=== PATIENT | female | born 1940 | race Caucasian/White ===

== ENCOUNTER 2020-09-07 | Outpatient (REF) | payer MEDICARE, SELFPAY | END 2020-09-07 00:01 | disposition home or self-care (01) | LOC: HO.VC | PROVIDERS: Visit Provider Internal Medicine | DX: Z23 Encounter for immunization (principal) | CPT/HCPCS: 0011A ==

== ENCOUNTER 2020-10-05 | Outpatient (REF) | payer MEDICARE, SELFPAY | END 2020-10-05 00:01 | disposition home or self-care (01) | LOC: HO.VC | PROVIDERS: Visit Provider Internal Medicine | DX: Z23 Encounter for immunization (principal) | CPT/HCPCS: 0012A ==

== ENCOUNTER → 2020-10-06 12:27 | Outpatient (BNVA) | payer MEDICARE, SELFPAY | PROVIDERS: Visit Provider Orthopaedic Surgery | DX: M17.12 Unilateral primary osteoarthritis, left knee (principal) | CPT/HCPCS: 20610; 99212; J1100 ==

== ENCOUNTER 2020-11-10 02:20 | Inpatient (IN) | payer MEDICARE, SELFPAY ==
[2020-11-10] VITALS (8 sets, daily range): BP systolic 103–161; BP diastolic 47–89; PULSE 47–61; RESP 14–20; TEMP 36–37.2; O2SAT 97–100; BMI 26.0
--- NOTE | ~2020-11-10 | CT_ITS ---
EXAMINATION: CT ABDOMEN AND PELVIS WITH CONTRAST CLINICAL INFORMATION: Diffuse abdominal pain COMPARISON: Multiple priors, most recently 03/16/2019 TECHNIQUE: Multidetector volumetric images were obtained from the superior aspect of the liver through the pubic symphysis following administration 85 mL of Omnipaque 350 intravenous contrast. Sagittal and coronal reformatted images were obtained on the technologist's workstation. Oral contrast: No This CT examination was performed using dose optimization techniques as appropriate, variously including the following: *Automated exposure control *Adjustment of mA and/or kV according to patient size (this includes techniques or standardized protocols for targeted exams where dose is matched to indication/reason for exam; i.e. extremities or head) *Use of iterative reconstruction technique DLP: 505 mGy-cm FINDINGS: LUNG BASES: The visualized lung bases are unremarkable. LIVER, GALLBLADDER, AND BILIARY TREE: Liver normal in size, contour and morphology. There is stable moderate intrahepatic biliary ductal dilatation and dilatation of the common bile duct status post cholecystectomy. No focal liver lesions. PANCREAS: Unremarkable. SPLEEN: Unremarkable. ADRENAL GLANDS: Unremarkable. KIDNEYS AND URETERS: The kidneys are normal in size, shape, and attenuation. Subcentimeter cyst present in the lower pole right kidney. No hydronephrosis, hydroureter, or calculi seen. No perinephric stranding. BLADDER: Unremarkable. GASTROINTESTINAL TRACT: There is a small bowel obstruction with transition point in the left false pelvis is evidenced by inspissation of succus entericus in a point of transition as seen on series 3, image 50 and coronal image 23. Upstream to this, the small bowel is at the upper limits of normal in terms of caliber. Distally, the small bowel is decompressed. Previous sigmoid colonic resection with intact anastomosis within the deep pelvis. Small sliding-type hiatal hernia. ABDOMINAL WALL: Diastasis of the rectus abdominis. LYMPH NODES: Normal. VASCULAR: Aorta is atherosclerotic but normal caliber. Patent venous structures. PELVIC VISCERA: Hysterectomy. No adnexal abnormalities. OSSEOUS STRUCTURES: No acute or suspicious osseous abnormalities. Stable superior endplate compression deformity at L5 and inferior endplate compression deformity at L3. CT/CT abdomen pelvis w con IMPRESSION: Low-grade small bowel obstruction with transition point in the left false pelvis as described likely related to an adhesion. Additional chronic findings as described above.
[2020-11-10 03:30] LABS: Glucose Urine UA NEG (NEG); Leukocyte Esterase Urine TRACE (NEG); Nitrite Urine NEG (NEG); PH 5.5 (5.0-8.0); Specific Gravity - Urine >= 1.030 (1.005-1.025); UACC Culture Trigger YES; Urine Blood NEG (NEG); Urine Ketones NEG (NEG); Urine Protein NEG (NEG-TRACE)
[2020-11-10 03:32] LABS: Appearance Urine CLEAR; Color Urine YELLOW
[2020-11-10 03:42] LABS: Bacteria Urine 2+ /LPF; Mucus Urine 1+ /LPF; Squamous Epithelial Cell Urine 1+ /LPF
[2020-11-10 03:44] LABS: Basophils Absolute Auto 0.1 X10*3/uL (0.0-0.2); Basophils Percent Auto 0.3 % (0-2); Eosinophils Absolute Auto 0.1 X10*3/uL (0.0-0.4); Eosinophils Percent Auto 0.6 % (0-4); Hematocrit 40.2 % (37-47); Imm Gran Abs Auto 0.07 X10*3/uL (0.00-0.03); Imm Gran Pct Auto 0.4 % (0.0-0.4); Lymphocytes Absolute Auto 1.8 X10*3/uL (1.2-4.9); Lymphocytes Percent Auto 9.4 % (20-40); Mean Corpuscular HGB Conc 32.3 g/dl (31.0-35.0); Mean Corpuscular Volume 89.7 fL (80-98); Mean Platelet Volume 11.1 fL (9.4-12.3); Monocytes Absolute Auto 0.8 X10*3/uL (0.1-1.2); Monocytes Percent Auto 4.5 % (2-11); Neutrophils Absolute Auto 15.7 X10*3/uL (2.0-8.3); Neutrophils Percent Auto 84.8 % (45-73); Platelet Count 320 X10*3/uL (160-400); Red Blood Count 4.48 X10*6/uL (4.20-5.50); Red Cell Distribution Width 12.9 % (11.0-16.0); White Blood Count 18.6 X10*3/uL (4.8-10.8)
[2020-11-10 03:45] LABS: MANUAL DIFF FLAG NO
--- NOTE | 2020-11-10 03:46 | ED_ITS ---
HPI - Abdominal Pain General Chief Complaint: Abdominal Pain Stated Complaint: Abdominal Pain Time Seen by Provider: 11/10/20 02:49 Source: patient Mode of arrival: ambulatory History of Present Illness HPI narrative: This is an 80-year-old female who called her daughter at 1:00 a.m. with complaints of abdominal diffuse pain with distention associated with nausea but unable to vomit and otherwise denies any fevers or chills. Patient states that she had a bowel movement at about 9:30 p.m. which was normal for her and states that the pain actually started at 8:00 p.m.. Patient has a longstanding history of intra-abdominal surgeries as well as complications such as diverticulosis Related Data Home Medications Medication Instructions Recorded Confirmed albuterol sulfate 90 mcg/actuation 2 puff INHALATION Q6H PRN 07/04/20 09/26/20 aerosol inhaler beclomethasone dipropionate 80 2 inh INHALATION BID g 07/04/20 09/26/20 mcg/actuation HFA breath activated aerosol Previous Rx's Medication Instructions Recorded furosemide 40 mg tablet 40 mg PO DAILY #90 tab 11/09/20 Allergies Allergy/AdvReac Type Severity Reaction Status Date / Time mold [MOLD] Allergy Severe SWELLING Verified 09/26/20 14:01 Penicillins [PENICILLINS] Allergy Intermediate SWELLING, Verified 09/26/20 14:01 RASH Sulfa (Sulfonamide Allergy Intermediate RASH, Verified 09/26/20 14:01 Antibiotics) redness, [SULFA (SULFONAMIDE redness ANTIBIOTICS)] alcohol [ALCOHOL] Allergy Unknown RED, Verified 09/26/20 14:01 SWELLING corn syrup [CORN SYRUP] Allergy Unknown red hot Verified 09/26/20 14:01 face dextrose [DEXTROSE] Allergy Unknown RED RASH Verified 09/26/20 14:01 Erythromycin Allergy Unknown redness Verified 09/26/20 14:01 and swelling erythromycin base Allergy Unknown RASH Verified 09/26/20 14:01 [ERYTHROMYCIN BASE] mold, cheese Allergy Unknown Unknown Verified 09/26/20 14:01 penicillin V Allergy Unknown facia and Verified 09/26/20 14:01 throat swelling preservatives Allergy Unknown Unknown Verified 09/26/20 14:01 sucrose [SUCROSE] Allergy Unknown RED RASH Verified 09/26/20 14:01 valacyclovir Allergy Unknown Redness of Verified 09/26/20 14:01 Skin 12 Hour Nasal Allergy Unknown hives Uncoded 09/26/20 14:01 WINE Allergy Unknown RASH FROM Uncoded 09/26/20 14:01 RED WINE Review of Systems Review of Systems Pertinent positives and negatives as stated in HPI 10 point review of systems is otherwise negative. Physical Exam Vital Signs: Vital Signs: Last Vital Signs Temp 98.6 F 11/10/20 03:13 Pulse 59 11/10/20 05:16 Resp 18 11/10/20 05:16 BP 139/89 11/10/20 05:16 Pulse Ox 98 11/10/20 04:34 Body Mass Index 26.0 VITAL SIGNS: Reviewed. GENERAL: Well developed, well nourished, in no acute distress. HEAD: Normocephalic/atraumatic NOSE: Nares patent bilateral OROPHARYNX: no oral lesions noted, posterior pharynx clear NECK: Supple, no adenopathy LUNGS: Normal breath sounds. No adventitious sounds or accessory muscle use. SpO2<98> CARDIOVASCULAR: Regular rate and rhythm without noted murmurs ABDOMEN: Soft, diffusely tender without rebound, mild distended with hypoactive bowel sounds. NEUROLOGIC: Alert and oriented x 4. Course Course Course Narrative: This is an 80-year-old female with history and clinical presentation most consistent with likely SBO and less likely perforation. On review of all investigations patient has both a UTI as well as a noted SBO on CT scan. Patient will receive 1 g of IV Rocephin for the UTI and and the case was discussed with Dr. Saavedra who is agreeable for admission as well as the intervention of NG placement. MDM - Abdominal Pain Lab Data Result diagrams: 11/10/20 03:34 11/10/20 03:34 Labs: Lab Results 11/10/20 11/10/20 11/10/20 Range/Units 03:34 03:34 03:34 WBC 18.6 H (4.8-10.8) X10*3/uL RBC 4.48 (4.20-5.50) X10*6/uL Hgb 13.0 (12.0-16.0) g/dl Hct 40.2 (37-47) % MCV 89.7 (80-98) fL MCH 29.0 (27.0-33.0) pg MCHC 32.3 (31.0-35.0) g/dl RDW 12.9 (11.0-16.0) % Plt Count 320 (160-400) X10*3/uL MPV 11.1 (9.4-12.3) fL Immature Gran % (Auto) 0.4 (0.0-0.4) % Neut % (Auto) 84.8 H (45-73) % Lymph % (Auto) 9.4 L (20-40) % [place] % (Auto) 4.5 (2-11) % Eos % (Auto) 0.6 (0-4) % Baso % (Auto) 0.3 (0-2) % Lymph # (Auto) 1.8 (1.2-4.9) X10*3/uL [place] # (Auto) 0.8 (0.1-1.2) X10*3/uL Eos # (Auto) 0.1 (0.0-0.4) X10*3/uL Baso # (Auto) 0.1 (0.0-0.2) X10*3/uL Abs Immat Gran (auto) 0.07 H (0.00-0.03) X10*3/uL Absolute Neuts (auto) 15.7 H (2.0-8.3) X10*3/uL Absolute Nucleated RBC 0.000 (0.0-0.012) X10*3/uL Nucleated RBC % (auto) 0.0 (0.0-0.2) /100WBC PT 12.7 (10.8-13.0) SEC INR 1.1 (0.9-1.1) Sodium 141 (135-145) mmol/L Potassium 3.6 (3.3-5.1) mmol/L Chloride 99 (96-108) mmol/L Carbon Dioxide 33 H (22-29) mmol/L Anion Gap 13 (12-20) BUN 23 H (9-16) mg/dL Creatinine 0.77 (0.5-1.4) mg/dL Estim Creat Clear Calc 49.4 Estimated GFR > 60 Random Glucose 123 H (60-115) mg/dL Calcium 10.0 (8.4-10.2) mg/dL Total Bilirubin 0.6 (0.0-1.0) mg/dL AST 23 (5-31) U/L ALT 17 (0-31) U/L Alkaline Phosphatase 68 (39-117) U/L Total Protein 7.1 (6.5-8.0) g/dL Albumin 4.5 (3.5-5.0) g/dL Lipase 47 (8-78) U/L Urine Color Urine Appearance Urine pH (5.0-8.0) Ur Specific [place] (1.005-1.025) Urine Protein (NEG-TRACE) MG/DL Urine Glucose (UA) (NEG) MG/DL Urine Ketones (NEG) MG/DL Urine Blood (NEG) Urine Nitrite (NEG) Ur Leukocyte Esterase (NEG) Urine RBC (0) /HPF Urine WBC (0-4) /HPF Ur Squamous Epith Cells /LPF Urine Bacteria /LPF Hyaline Casts /LPF Urine Mucus /LPF 11/10/20 Range/Units Unknown WBC (4.8-10.8) X10*3/uL RBC (4.20-5.50) X10*6/uL Hgb (12.0-16.0) g/dl Hct (37-47) % MCV (80-98) fL MCH (27.0-33.0) pg MCHC (31.0-35.0) g/dl RDW (11.0-16.0) % Plt Count (160-400) X10*3/uL MPV (9.4-12.3) fL Immature Gran % (Auto) (0.0-0.4) % Neut % (Auto) (45-73) % Lymph % (Auto) (20-40) % [place] % (Auto) (2-11) % Eos % (Auto) (0-4) % Baso % (Auto) (0-2) % Lymph # (Auto) (1.2-4.9) X10*3/uL [place] # (Auto) (0.1-1.2) X10*3/uL Eos # (Auto) (0.0-0.4) X10*3/uL Baso # (Auto) (0.0-0.2) X10*3/uL Abs Immat Gran (auto) (0.00-0.03) X10*3/uL Absolute Neuts (auto) (2.0-8.3) X10*3/uL Absolute Nucleated RBC (0.0-0.012) X10*3/uL Nucleated RBC % (auto) (0.0-0.2) /100WBC PT (10.8-13.0) SEC INR (0.9-1.1) Sodium (135-145) mmol/L Potassium (3.3-5.1) mmol/L Chloride (96-108) mmol/L Carbon Dioxide (22-29) mmol/L Anion Gap (12-20) BUN (9-16) mg/dL Creatinine (0.5-1.4) mg/dL Estim Creat Clear Calc Estimated GFR Random Glucose (60-115) mg/dL Calcium (8.4-10.2) mg/dL Total Bilirubin (0.0-1.0) mg/dL AST (5-31) U/L ALT (0-31) U/L Alkaline Phosphatase (39-117) U/L Total Protein (6.5-8.0) g/dL Albumin (3.5-5.0) g/dL Lipase (8-78) U/L Urine Color YELLOW Urine Appearance CLEAR Urine pH 5.5 (5.0-8.0) Ur Specific [place] >= 1.030 H (1.005-1.025) Urine Protein NEG (NEG-TRACE) MG/DL Urine Glucose (UA) NEG (NEG) MG/DL Urine Ketones NEG (NEG) MG/DL Urine Blood NEG (NEG) Urine Nitrite NEG (NEG) Ur Leukocyte Esterase TRACE H (NEG) Urine RBC 1-4 (0) /HPF Urine WBC 15-29 H (0-4) /HPF Ur Squamous Epith Cells 1+ /LPF Urine Bacteria 2+ /LPF Hyaline Casts 10-14 /LPF Urine Mucus 1+ /LPF Discharge Plan Discharge Clinical Impression: SBO (small bowel obstruction), Acute UTI Patient Disposition: Admitted As Inpatient Prescriptions: No Action furosemide 40 mg tablet 40 mg PO DAILY Qty: 90 RF: 2 Qvar RediHaler 80 mcg/actuation HFA aerosol breath activated 2 inh inhalation BID RF: 0 albuterol sulfate [ProAir HFA] 90 mcg/actuation HFA aerosol inhaler 2 puff inhalation Q6H PRNRF: 0 PMFSH Past Medical History Source: nursing notes reviewed Medical History Asthma Dyslipidemia Left knee pain Neuropathy Onychomycosis Rosacea Surgical History Colostomy in place History of cholecystectomy History of hysterectomy History of removal of both ovaries History of repair of hiatal hernia History of surgery History of tonsillectomy Family History Family History Father Hypertension Pancreatitis Uremia Mother Diverticulosis Alzheimers disease Brother Colon cancer CVD (cardiovascular disease) Sister Colon cancer Social History Social History Alcohol intake: never Smoking Status: Never smoker Advance Directives: No
[2020-11-10 03:50] LABS: INTERNATIONAL NORM RATIO 1.1 (0.9-1.1); Prothrombin Time 12.7 SEC (10.8-13.0)
[2020-11-10 04:09] LABS: Alanine Aminotransferase 17 U/L (0-31); Albumin Level 4.5 g/dL (3.5-5.0); Alkaline Phosphatase 68 U/L (39-117); Anion Gap 13 (12-20); Aspartate Amino Transferase 23 U/L (5-31); Bilirubin Total 0.6 mg/dL (0.0-1.0); Blood Urea Nitrogen 23 mg/dL (9-16); Carbon Dioxide 33 mmol/L (22-29); Chloride 99 mmol/L (96-108); Creatinine Clr Calc Pharmacy 49.4; Estimated Glomerular Filt Rate > 60; Glucose Random 123 mg/dL (60-115); Lipase 47 U/L (8-78); Potassium 3.6 mmol/L (3.3-5.1); Sodium 141 mmol/L (135-145); Total Protein 7.1 g/dL (6.5-8.0)
--- NOTE | 2020-11-10 04:22 | PC.NURSE ---
pt taken to ct.
[2020-11-10] MEDS: iohexoL 350 MG/ML 100 ML INFUS..BTL 85 ML IV (04:26)
[2020-11-10] MEDS: Ketorolac Tromethamine 15 MG/ML VIAL IVPUSH (04:36)
[2020-11-10] MEDS: 0.9 % Sodium Chloride 1,000 ML 999 ML IV (05:43)
[2020-11-10] MEDS: cefTRIAXone sodium 1 GM in 0.9 % Sodium Chloride 50 ML IV (05:55)
[2020-11-10 06:26] LABS: COVID-19 Test Negative (Negative)
[2020-11-10] MEDS: Lactated Ringers 1,000 ML 80 ML IVCONT ×2 (07:06→20:08)
--- NOTE | 2020-11-10 08:12 | PM.HPGS ---
History of Present Illness History of Present Illness Date of Service: 11/10/20 Chief complaint: Partial small bowel obstruction Narrative: Birgit Collins is a 80 year old female who came to the emergency room last night because of abdominal pain. She says this started for dinner last night. She says she did not have any problems during the day and was in her usual state of health. She says that the pain was severe onset. She blames this on the spicy food that she had taken for dinner. She says that she was nauseous for a little bit but not have any vomiting. She had a bowel movement last night at 21:30. She does not recall when she had last past status. She denies any diarrhea or constipation. 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 She underwent sigmoid resection with a colostomy at that time. This was reversed last September,. She did have problems with wound healing on her incisions but I than that, she has been doing well since. Review of Systems Constitutional: Constitutional: Denies chills and Denies fever(s) Cardiovascular: Cardiovascular: Denies chest pain, Denies dyspnea and Denies dyspnea on exertion Respiratory: Respiratory: Denies cough, Denies dyspnea and Denies dyspnea on exertion Gastrointestinal: Gastrointestinal: Denies hematochezia and Denies change in bowel habits Genitourinary: Genitourinary: Denies hematuria Musculoskeletal: Musculoskeletal: Denies back pain and Denies limited range of motion Neurologic: Denies focal weakness and Denies convulsions Psychiatric: Psychiatric: Denies depression and Denies mood swings PMFSH Past Medical History Medical History Asthma Dyslipidemia Left knee pain Neuropathy Onychomycosis Rosacea Family History Family History Father Hypertension Pancreatitis Uremia Mother Diverticulosis Alzheimers disease Brother Colon cancer CVD (cardiovascular disease) Sister Colon cancer Surgical History Surgical History Colostomy in place History of cholecystectomy History of hysterectomy History of removal of both ovaries History of repair of hiatal hernia History of surgery History of tonsillectomy Social History Social History Alcohol intake: never Smoking Status: Never smoker Advance Directives: No Meds Allergies Allergy/AdvReac Type Severity Reaction Status Date / Time mold [MOLD] Allergy Severe SWELLING Verified 09/26/20 14:01 Penicillins [PENICILLINS] Allergy Intermediate SWELLING, Verified 09/26/20 14:01 RASH Sulfa (Sulfonamide Allergy Intermediate RASH, Verified 09/26/20 14:01 Antibiotics) redness, [SULFA (SULFONAMIDE redness ANTIBIOTICS)] alcohol [ALCOHOL] Allergy Unknown RED, Verified 09/26/20 14:01 SWELLING corn syrup [CORN SYRUP] Allergy Unknown red hot Verified 09/26/20 14:01 face dextrose [DEXTROSE] Allergy Unknown RED RASH Verified 09/26/20 14:01 Erythromycin Allergy Unknown redness Verified 09/26/20 14:01 and swelling erythromycin base Allergy Unknown RASH Verified 09/26/20 14:01 [ERYTHROMYCIN BASE] mold, cheese Allergy Unknown Unknown Verified 09/26/20 14:01 penicillin V Allergy Unknown facia and Verified 09/26/20 14:01 throat swelling preservatives Allergy Unknown Unknown Verified 09/26/20 14:01 sucrose [SUCROSE] Allergy Unknown RED RASH Verified 09/26/20 14:01 valacyclovir Allergy Unknown Redness of Verified 09/26/20 14:01 Skin 12 Hour Nasal Allergy Unknown hives Uncoded 09/26/20 14:01 WINE Allergy Unknown RASH FROM Uncoded 09/26/20 14:01 RED WINE Active Medications: Current Medications Generic Name Dose Route Start Last Admin Trade Name Freq PRN Reason Stop Dose Admin Lactated Ringer's 1,000 mls @ 80 mls/hr 11/10/20 06:30 11/10/20 07:06 Lr IVCONT 80 mls/hr .[id number] PAUL Administration Sodium Chloride 3 ml 11/10/20 08:00 0.9 % Sodium Chloride Flush 3 Ml Syringe IVFLUSH QSHIFT [facility] Home Medications Medication Instructions Recorded Confirmed Last Taken Type albuterol sulfate 90 mcg/actuation 2 puff INHALATION Q6H PRN 07/04/20 09/26/20 Unknown History aerosol inhaler beclomethasone dipropionate 80 2 inh INHALATION BID g 07/04/20 09/26/20 Unknown History mcg/actuation HFA breath activated aerosol ascorbic acid (vitamin C) [Vitamin 500 mg PO DAILY 11/10/20 11/10/20 11/08/20 History C] cholecalciferol (vitamin D3) 25 mcg PO DAILY 11/10/20 11/10/20 11/08/20 History [Vitamin D3] multivitamin 1 tab PO DAILY 11/10/20 11/10/20 11/08/20 History Physical Exam Vital Signs: Vital Signs: Last Vital Signs Temp 98.6 F 11/10/20 03:13 Pulse 58 11/10/20 06:25 Resp 16 11/10/20 06:25 BP 118/58 L 11/10/20 06:25 Pulse Ox 97 11/10/20 06:25 Body Mass Index 26.0 Const: General: comfortable and no acute distress Orientation/consciousness: patient oriented x3 Neck: Neck: Yes no lymphadenopathy Resp: Auscultation: clear to auscultation bilaterally Cardio: Rhythm: regular rhythm GI: Palpation (GI): Soft to palpation, nontender and no guarding Neuro: General: patient oriented x3 Results Results Labs: Short CBC 11/10/20 Range/Units 03:34 WBC 18.6 H (4.8-10.8) X10*3/uL Hgb 13.0 (12.0-16.0) g/dl Hct 40.2 (37-47) % Plt Count 320 (160-400) X10*3/uL BMP 11/10/20 03:34 Sodium 141 Potassium 3.6 Chloride 99 Carbon Dioxide 33 H BUN 23 H Creatinine 0.77 Calcium 10.0 Liver Function 11/10/20 Range/Units 03:34 Total Bilirubin 0.6 (0.0-1.0) mg/dL AST 23 (5-31) U/L ALT 17 (0-31) U/L Alkaline Phosphatase 68 (39-117) U/L Albumin 4.5 (3.5-5.0) g/dL Urine 11/10/20 Range/Units Unknown Urine Color YELLOW Urine Appearance CLEAR Urine pH 5.5 (5.0-8.0) Ur Specific [place] >= 1.030 H (1.005-1.025) Urine Protein NEG (NEG-TRACE) MG/DL Urine Glucose (UA) NEG (NEG) MG/DL Abdomen CT scan report/results: report reviewed and image reviewed CT scan - pelvis: report reviewed and image reviewed Assessment and Plan (1) SBO (small bowel obstruction): Status: Acute 80-year-old female came in last night for abdominal pain. Her CAT scan showed suggestion of partial small-bowel obstruction likely due to adhesions from her previous abdominal surgeries for diverticulitis. There is note of small bowel to lesion all the way to what appears to be a transition point on the left side the pelvis. She does have good amount of air in the colon distally. She currently feels much better this morning. She has minimal pain if at all. Her abdomen is very soft and not tender at this time. We will hold off on putting an NG tube in the meantime because of her clinical improvement and benign exam. Will keep her NPO however. I have started her on IV fluids. She has some leukocytosis so I will repeat this tomorrow. I explained to her the plan and she says that she understands. She looks well overall does state that feels much better this morning. I have reviewed her CAT scan images.
[2020-11-10] MEDS: 0.9 % Sodium Chloride Flush 3 ML SYRINGE IVFLUSH ×2 (08:49→16:59)
[2020-11-10] MEDS: Heparin Sodium,Porcine 5,000 UNIT/ML VIAL 5000 UNIT SUBCUT ×2 (08:51→20:14)
--- NOTE | 2020-11-10 11:12 | MHC.CM.PN ---
CM met with patient at the bedside who reports she is independent, lives with her , has 2 dtrs that are supportive, amb with a cane outside of home. Patient states she has a HCP/dtr [facility] [phone], CM requested a copy. Discussed discharge plan, home no services. will provide transportation. CM will continue to follow patient for discharge needs.
--- NOTE | 2020-11-10 16:59 | PM.EVENT ---
Event Note Date of Service: 11/10/20 Event Note: she had passed gas earlier today says she is comfortable looks well ambulating in her room abd soft stable VS likely start clear liquids jg AM
[2020-11-11] VITALS: BP 106/47; PULSE 55; RESP 18; TEMP 36.9; O2SAT 95
[2020-11-11 04:00] VITALS: BP 123/51; PULSE 52; RESP 18; TEMP 36.5; O2SAT 96
[2020-11-11 07:05] VITALS: BP 111/54; PULSE 52; RESP 19; TEMP 36.6; O2SAT 96
[2020-11-11] MEDS: Heparin Sodium,Porcine 5,000 UNIT/ML VIAL 5000 UNIT SUBCUT ×2 (07:28→20:56)
[2020-11-11] MEDS: Lactated Ringers 1,000 ML 80 ML IVCONT (07:30)
--- NOTE | 2020-11-11 08:06 | PM.PNGS ---
Subjective Subjective Date of Service: 11/14/20 Interval history: She says she slept well overnight Denies any abdominal pain Had passed flatus Physical Exam Vital Signs: Vital Signs: Last Vital Signs Temp 98 F 11/11/20 07:05 Pulse 52 11/11/20 07:05 Resp 19 11/11/20 07:05 BP 111/54 L 11/11/20 07:05 Pulse Ox 96 11/11/20 07:05 Body Mass Index 26.0 PT 12.7 SEC (10.8-13 .0) 11/10/20 03:34 Const: General: no acute distress and alert Resp: Effort & Inspection: normal respiratory effort Cardio: Rhythm: regular rhythm GI: Inspection: No distended Palpation (GI): Soft to palpation, nontender and no guarding Progress Note: A&P Assessment and plan (1) SBO (small bowel obstruction): Problem details: Resolved. She feels she is ready to go home Status: Acute Assessment and Plan: Clinically resolved Patient looks well and comfortable Start liquids and advanced as tolerated Abdominal exam is very benign Fall Risk Details Current Medications: Current Medications Generic Name Dose Route Start Last Admin Trade Name Freq PRN Reason Stop Dose Admin Albuterol Sulfate 2 puff 11/10/20 08:22 Albuterol Sulfate 90 Mcg 8 Gm Inhaler INHALE Q6H PRN Shortness Of Breath Or Wheezing Furosemide 40 mg 11/10/20 09:00 11/11/20 07:28 Furosemide 40 Mg Tablet PO Not Given DAILY PAUL Protocol Heparin Sodium (Porcine) 5,000 unit 11/10/20 09:00 11/11/20 07:28 Heparin Sodium,Porcine 5,000 Unit/Ml Vial SUBCUT 5,000 unit Q12H PAUL Administration Hydromorphone HCl 0.25 mg 11/10/20 09:28 Hydromorphone Hcl 0.5 Mg/0.5 Ml Syringe IVPUSH Q3H PRN Pain, Severe (Pain Scale 7-10) Lactated Ringer's 1,000 mls @ 80 mls/hr 11/10/20 06:30 11/11/20 07:30 Lr IVCONT Infused .[id number] PAUL Infusion Sodium Chloride 3 ml 11/10/20 08:00 11/11/20 07:07 0.9 % Sodium Chloride Flush 3 Ml Syringe IVFLUSH Not Given QSHIFT PAUL Time Spent With Patient Time: Total time spent is greater than 50% in coordination of care (as documented) at patient's floor/unit and/or counseling patient: Time with patient: 15 - 24 minutes
[2020-11-11 09:37] LABS: Hematocrit 35.5 % (37-47); Hemoglobin 11.2 g/dl (12.0-16.0); Mean Corpuscular HGB Conc 31.5 g/dl (31.0-35.0); Mean Corpuscular Hemoglobin 29.2 pg (27.0-33.0); Mean Corpuscular Volume 92.4 fL (80-98); Mean Platelet Volume 11.6 fL (9.4-12.3); Platelet Count 272 X10*3/uL (160-400); Red Blood Count 3.84 X10*6/uL (4.20-5.50); Red Cell Distribution Width 13.2 % (11.0-16.0); White Blood Count 5.9 X10*3/uL (4.8-10.8)
[2020-11-11 10:54] VITALS: BP 120/56; PULSE 52; RESP 20; TEMP 35.6; O2SAT 99
--- NOTE | 2020-11-11 11:50 | MHC.CM.PN ---
Patient is on IV flds and IV dilaudid for SBO pain. Patient's diet has upgraded to clear liquids. Discharge plan is home no services. will provide transport. CM will continue to follow patient for discharge needs.
[2020-11-11 15:37] VITALS: BP 112/56; PULSE 65; RESP 20; TEMP 36.9; O2SAT 97
[2020-11-11] MEDS: 0.9 % Sodium Chloride Flush 3 ML SYRINGE IVFLUSH (15:45)
[2020-11-11 19:06] VITALS: BP 145/61; PULSE 56; RESP 18; TEMP 36.6; O2SAT 96
[2020-11-12] VITALS: BP 134/61; PULSE 55; RESP 16; TEMP 36.7; O2SAT 96
[2020-11-12] MEDS: 0.9 % Sodium Chloride Flush 3 ML SYRINGE IVFLUSH ×2 (00:03→08:27)
[2020-11-12 03:14] VITALS: BP 142/58; RESP 16; TEMP 36.6; O2SAT 96
[2020-11-12 06:59] VITALS: BP 124/54; PULSE 54; RESP 18; TEMP 35.5; O2SAT 98
[2020-11-12] MEDS: Heparin Sodium,Porcine 5,000 UNIT/ML VIAL 5000 UNIT SUBCUT (08:27)
[2020-11-12 10:51] VITALS: BP 120/56; PULSE 54; RESP 19; TEMP 35.5; O2SAT 97
--- NOTE | 2020-11-12 11:46 | PM.PNGS ---
Subjective Subjective Date of Service: 11/12/20 <ANA Simmons - Last Filed: 11/12/20 11:49> 11/12/20 <Emilie Vargas MD - Last Filed: 11/12/20 15:18> Patient reports: no new complaints <ANA Simmons Last Filed: 11/12/20 11:49> Interval history: She states she is feeling good and is ready to go home. She denies pain, N/V. She is tolerating a regular diet, moving her bowels and is OOB <ANA Simmons - Last Filed: 11/12/20 11:49> Physical Exam Vital Signs: Vital Signs: Last Vital Signs Temp 96 F L 11/12/20 10:51 Pulse 54 11/12/20 10:51 Resp 19 11/12/20 10:51 BP 120/56 L 11/12/20 10:51 Pulse Ox 97 11/12/20 10:51 Body Mass Index 26.0 <ANA Simmons - Last Filed: 11/12/20 11:49> Const: General: cooperative and no acute distress <ANA Simmons - Last Filed: 11/12/20 11:49> Resp: Effort & Inspection: normal respiratory effort and able to speak in complete sentences <ANA Simmons Last Filed: 11/12/20 11:49> Auscultation: clear to auscultation bilaterally <ANA Simmons - Last Filed: 11/12/20 11:49> Cardio: Jugular venous distension: no JVD <ANA Simmons Last Filed: 11/12/20 11:49> Rate: regular rate <ANA Simmons Last Filed: 11/12/20 11:49> Heart sounds: S1 normal heart sound present and S2 normal heart sound present <ANA Simmons Last Filed: 11/12/20 11:49> GI: Palpation (GI): Soft to palpation <ANA Simmons Last Filed: 11/12/20 11:49> Auscultation: normal bowel sounds <ANA Simmons Last Filed: 11/12/20 11:49> Skin: General skin exam: no rashes or lesions noted <ANA Simmons - Last Filed: 11/12/20 11:49> Extrem: General: Yes no calf tenderness <ANA Simmons - Last Filed: 11/12/20 11:49> Progress Note: A&P Assessment and plan (1) SBO (small bowel obstruction): Problem details: Resolved. She feels she is ready to go home <ANA Simmons - Last Filed: 11/12/20 11:49> Status: Acute <ANA Simmons - Last Filed: 11/12/20 11:49> Assessment and Plan: Will plan for discharge home later today. Will D/C IV access <ANA Simmons - Last Filed: 11/12/20 11:49> . General Surgery Attending - Jeanna Vargas M.D. Patient was evaluated and examined at the bedside with Mr. Willian Castellanos PA-C. I confirm above findings and plan as documented. Patient has BM's, tolerating diet. She can be d/c'd. <Emilie Vargas MD - Last Filed: 11/12/20 15:18> Fall Risk Details Current Medications: Current Medications Generic Name Dose Route Start Last Admin Trade Name Freq PRN Reason Stop Dose Admin Albuterol Sulfate 2 puff 11/10/20 08:22 Albuterol Sulfate 90 Mcg 8 Gm Inhaler INHALE Q6H PRN Shortness Of Breath Or Wheezing Furosemide 40 mg 11/10/20 09:00 11/12/20 08:28 Furosemide 40 Mg Tablet PO Not Given DAILY PAUL Protocol Heparin Sodium (Porcine) 5,000 unit 11/10/20 09:00 11/12/20 08:27 Heparin Sodium,Porcine 5,000 Unit/Ml Vial SUBCUT 5,000 unit Q12H PAUL Administration Hydromorphone HCl 0.25 mg 11/10/20 09:28 Hydromorphone Hcl 0.5 Mg/0.5 Ml Syringe IVPUSH Q3H PRN Pain, Severe (Pain Scale 7-10) Sodium Chloride 3 ml 11/10/20 08:00 11/12/20 08:27 0.9 % Sodium Chloride Flush 3 Ml Syringe IVFLUSH 3 ml QSHIFT PAUL Administration <ANA Simmons - Last Filed: 11/12/20 11:49> Time Spent With Patient Time: Total time spent is greater than 50% in coordination of care (as documented) at patient's floor/unit and/or counseling patient: <ANA Simmons - Last Filed: 11/12/20 11:49> Time with patient: less than 15 minutes <Emilie Vargas MD - Last Filed: 11/12/20 15:18>
--- NOTE | 2020-11-12 12:08 | MHC.CM.PN ---
PT CLEARED TO DC HOME TODAY WITH NO SERVICES. PTS TO TRANSPORT.
--- NOTE | 2020-11-14 14:27 | P.DS_ITS ---
DS: Providers Provider Date of Service: 11/14/20 Date of admission: 11/10/20 06:25 Primary care physician: Fabby Cabrera MD DS: Diagnosis Discharge Diagnosis (1) SBO (small bowel obstruction): Status: Acute Problem details: 80-year-old female with a history of sigmoid resection for diverticular disease, who was admitted because of abdominal pain on 11/10/2020.. She had a CAT scan finding showing dilated small bowel loops that seemed to be a transition point in the left pelvis consistent with a partial small-bowel obstruction, likely secondary to postop adhesions. She had a very benign exam. Was admitted kept NPO bowel rest and IV fluids. She improved significantly even on the 1st hospital day. His daughter on clear liquids in this was gradually advanced. She continued to tolerate this and did not have any significant with nausea or vomiting. She had leukocytosis on admission but resolved right after with IV fluids. She had good passage of flatus and bowel movements on hospital day 1. He continued to improve and was eventually discharged on 11/12/2020. DS: Medications Discharge Medications Home Medications: Home Medications Medication Instructions Recorded Confirmed albuterol sulfate 90 mcg/actuation 2 puff INHALATION Q6H PRN 07/04/20 11/10/20 aerosol inhaler beclomethasone dipropionate 80 2 inh INHALATION BID g 07/04/20 11/10/20 mcg/actuation HFA breath activated aerosol ascorbic acid (vitamin C) [Vitamin 500 mg PO DAILY 11/10/20 11/10/20 C] cholecalciferol (vitamin D3) 25 mcg PO DAILY 11/10/20 11/10/20 [Vitamin D3] multivitamin 1 tab PO DAILY 11/10/20 11/10/20 Previous Rx's Medication Instructions Recorded furosemide 40 mg tablet 40 mg PO DAILY #90 tab 11/09/20 DS: Summary Time Spent with Patient Time attestation: Total time spent providing and/or coordinating discharge services: Discharge coordination time: Less than 30 minutes Physical Exam Vital Signs: Vital Signs: Last Vital Signs Temp 96 F L 11/12/20 10:51 Pulse 54 11/12/20 10:51 Resp 19 11/12/20 10:51 BP 120/56 L 11/12/20 10:51 Pulse Ox 97 11/12/20 10:51 Body Mass Index 26.0 Const: General: comfortable and no acute distress Orientation/consciousness: patient oriented x3 Neck: Neck: Yes no lymphadenopathy Resp: Auscultation: clear to auscultation bilaterally Cardio: Rhythm: regular rhythm GI: Palpation (GI): Soft to palpation, nontender and no guarding Neuro: General: patient oriented x3 Discharge Plan Discharge Anticipated Discharge Date/Time: 11/12/20 13:00 Patient Disposition: Home, Self-Care Referrals: Fabby Singh MD [Primary Care Provider] - Discharge Medications: Continued furosemide 40 mg tablet 40 mg PO DAILY Qty: 90 RF: 2 multivitamin Tablet 1 tab PO DAILY RF: 0 ascorbic acid (vitamin C) [Vitamin C] 500 mg Tablet 500 mg PO DAILY RF: 0 cholecalciferol (vitamin D3) [Vitamin D3] 25 mcg (1,000 unit) Tablet 25 mcg PO DAILY RF: 0 Qvar RediHaler 80 mcg/actuation HFA aerosol breath activated 2 inh inhalation BID RF: 0 albuterol sulfate [ProAir HFA] 90 mcg/actuation HFA aerosol inhaler 2 puff inhalation Q6H PRN (Reason: Shortness Of Breath Or Wheezing) RF: 0 Discharge Orders: Discharge Order (Routine); Ordered 11/12/20 Ordered By: Willian Castellanos Activity on Discharge: No heavy lifting Stand Alone Forms: Patient Portal Discharge page Care Plan Goals: R eturn to prior functional status and quality of life F/U with your surgeon for any further care Health Concerns: SBO recurrence due to multiple prior surgeries Plan of Treatment: F/U with PCP Industrial Hygiene Technician to discuss diet Assessment: Patient is doing well and should have complete return to prior functional status Discharge Date/Time: 11/12/20 13:50
== END 2020-11-12 13:50 | disposition home or self-care (01) | DRG 389 ==
LOC: HO.ED 05:45 → HO.EDOVER 06:46 → HO.IMC 06:55
PROVIDERS: Admitting Provider Surgery; Emergency Provider Student in an Organized Health Care Education/Training Program; PCP Internal Medicine; Visit Provider Surgery
DX: K91.30 Postprocedural intestinal obstruction, unspecified as to partial versus complete (principal); N39.0 Urinary tract infection, site not specified; Z20.822 Contact with and (suspected) exposure to COVID-19; Z93.3 Colostomy status; Z88.0 Allergy status to penicillin; Z79.899 Other long term (current) drug therapy
CPT/HCPCS: 36415; 74177; 80053; 81001; 81003; 83690; 85025; 85027; 85610; 87086; 87088; 87186; 87635; 96365; 96375; 99285; J0696; J1885; Q9967

== ENCOUNTER 2020-11-19 | Outpatient (REF) | payer MEDICARE, SELFPAY ==
[2020-11-21 13:29] LABS: Leukocytes Stool Qualitative NEGATIVE (NEGATIVE)
== END 2020-11-19 00:01 | disposition home or self-care (01) ==
LOC: HO.LNP
PROVIDERS: Visit Provider Internal Medicine
DX: R19.7 Diarrhea, unspecified (principal)
CPT/HCPCS: 87329; 89055

== ENCOUNTER 2020-11-21 | Outpatient (REF) | payer MEDICARE, SELFPAY | END 2020-11-21 00:01 | disposition home or self-care (01) | LOC: HO.LNP | PROVIDERS: Visit Provider Internal Medicine | DX: R19.7 Diarrhea, unspecified (principal) | CPT/HCPCS: 87045; 87046 ==

== ENCOUNTER 2020-11-22 14:18 | Outpatient (REF) | payer MEDICARE, SELFPAY | END 2020-11-22 14:19 | disposition home or self-care (01) | LOC: HO.LNP 14:18 | PROVIDERS: Visit Provider Internal Medicine | DX: Z13.89 Encounter for screening for other disorder (principal) ==

== ENCOUNTER 2020-12-20 22:27 | Emergency (ER) | payer MEDICARE, SELFPAY ==
--- NOTE | ~2020-12-20 | CT_ITS ---
EXAMINATION: CT ABDOMEN AND PELVIS WITH CONTRAST CLINICAL INFORMATION: Ventral hernia. COMPARISON: CT abdomen pelvis 11/10/2020 TECHNIQUE: Multidetector volumetric images were obtained from the superior aspect of the liver through the pubic symphysis following administration 85 mL of Omnipaque 350 intravenous contrast. 7 minute delayed sequence was then performed through the abdomen and pelvis. Sagittal and coronal reformatted images were obtained on the technologist's workstation. Oral contrast: No This CT examination was performed using dose optimization techniques as appropriate, variously including the following: *Automated exposure control *Adjustment of mA and/or kV according to patient size (this includes techniques or standardized protocols for targeted exams where dose is matched to indication/reason for exam; i.e. extremities or head) *Use of iterative reconstruction technique DLP: 191 mGy-cm FINDINGS: LUNG BASES: The visualized lung bases are unremarkable. LIVER, GALLBLADDER, AND BILIARY TREE: The liver is normal in size, shape, and attenuation. No focal hepatic lesion.. Gallbladder is absent. There is mild intrahepatic and extra hepatic bile duct dilatation. No calcified stones in the bile ducts. PANCREAS: Unremarkable. SPLEEN: Unremarkable. ADRENAL GLANDS: Unremarkable. KIDNEYS AND URETERS: Extrarenal pelvis of the right kidney. No hydroureter. No filling defect within the collecting system of either kidney. No renal calculus. Both kidneys are of normal size and contour with normal cortical thickness. Tiny cortical hypodensity lower pole right kidney likely renal cysts. BLADDER: Unremarkable. GASTROINTESTINAL TRACT: Surgical anastomosis of the distal rectum sigmoid. No evidence for contrast pooling in the lumen of the bowel. No evidence for gastrointestinal hemorrhage. Diffusely mildly dilated small bowel loops without transition point of the terminal ileum. No significant air-fluid levels in the bowel. There is a large volume of stool in the colon. No bowel obstruction. No bowel wall thickening or edema. The appendix is not visualized. MESENTERY: No free air or free fluid. There is no inflammation the mesentery. ABDOMINAL WALL: Bulge of the fascia but no ventral wall hernia. This is unchanged since prior study. LYMPH NODES: Normal. VASCULAR: Scattered vascular calcifications throughout the abdomen and pelvis. No aneurysm of aorta. PELVIC VISCERA: Status post hysterectomy OSSEOUS STRUCTURES: Multilevel degenerative spondylosis of the spine. Stable compression deformities of L3 and L5 vertebrae. Multilevel degenerative spondylosis of the spine. CT/CT abdomen pelvis w con IMPRESSION: 1. Mild dilatation of small bowel loops diffusely without transition point. May be mild ileus but there is no air-fluid levels present. No bowel wall thickening. There is a large volume of stool in the colon. Surgical anastomosis at distal rectum sigmoid. 2. Status post Cholecystectomy. With mild chronic dilatation of intrahepatic and extrahepatic bile duct dilatation. 3. Diastasis with bulge of the midline abdominal fascia without ventral wall hernia. This is unchanged since prior studies.
[2020-12-20 22:36] VITALS: BP 160/80; PULSE 82; RESP 16; TEMP 36.4; O2SAT 100; BMI 27.3
--- NOTE | 2020-12-20 22:40 | ED_ITS ---
HPI - Abdominal Pain General Chief Complaint: Abdominal Pain Stated Complaint: abd pain Time Seen by Provider: 12/20/20 22:40 Source: patient and EMS Mode of arrival: EMS Limitations: no limitations History of Present Illness HPI narrative: 80 yo female with hx of chronic abdominal issues and diarrhea hx of multiple surgeries and SBO in the past here with pain and feels a bump which is new since 8pm, + BM at that time, c/o nausea at that time states she has never felt this hernia before MD elicited complaint: abdominal pain Pertinent past history: other (bowel obstructions) Onset (ago): hour(s) (8pm today) Pain Consistency: constant Location: periumbilical Severity: moderate Quality: stabbing and aching Radiation: none Migration to: no migration Exacerbating factors: movement Relieving factors: other (laying flat) Context: history of similar episodes Associated symptoms: nausea Related Data Home Medications Medication Instructions Recorded Confirmed albuterol sulfate 90 mcg/actuation 2 puff INHALATION Q6H PRN 07/04/20 11/22/20 aerosol inhaler beclomethasone dipropionate 80 2 inh INHALATION BID g 07/04/20 11/22/20 mcg/actuation HFA breath activated aerosol ascorbic acid (vitamin C) [Vitamin 500 mg PO DAILY 11/10/20 11/22/20 C] cholecalciferol (vitamin D3) 25 mcg PO DAILY 11/10/20 11/22/20 [Vitamin D3] multivitamin 1 tab PO DAILY 11/10/20 11/22/20 Previous Rx's Medication Instructions Recorded furosemide 40 mg tablet 40 mg PO DAILY #90 tab 11/09/20 docusate sodium [Colace] 100 mg PO BID PRN #30 cap 12/21/20 sennosides 8.6 mg PO BEDTIME PRN #30 tab 12/21/20 Allergies Allergy/AdvReac Type Severity Reaction Status Date / Time mold [MOLD] Allergy Severe SWELLING Verified 11/22/20 14:37 alcohol [ALCOHOL] Allergy Intermediate RED, Verified 11/22/20 14:37 SWELLING corn syrup [CORN SYRUP] Allergy Intermediate red hot Verified 11/22/20 14:37 face dextrose [DEXTROSE] Allergy Intermediate RED RASH Verified 11/22/20 14:37 erythromycin base Allergy Intermediate RASH Verified 11/22/20 14:37 [ERYTHROMYCIN BASE] Penicillins [PENICILLINS] Allergy Intermediate SWELLING, Verified 11/22/20 14:37 RASH sucrose [SUCROSE] Allergy Intermediate RED RASH Verified 11/22/20 14:37 Sulfa (Sulfonamide Allergy Intermediate RASH, Verified 11/22/20 14:37 Antibiotics) redness, [SULFA (SULFONAMIDE redness ANTIBIOTICS)] valacyclovir Allergy Intermediate Redness of Verified 11/22/20 14:37 Skin morphine AdvReac Intermediate Hallucinati Verified 11/22/20 14:37 ons 12 Hour Nasal Allergy Intermediate hives Uncoded 11/22/20 14:37 WINE Allergy Intermediate RASH FROM Uncoded 11/22/20 14:37 RED WINE Review of Systems Review of Systems Constitutional : No Weight loss, No Fever, No Chills ENT/Mouth : No sore throat, No Rhinorrhea Eyes: No Swelling, No Redness Cardiovascular : No Chest Pain, No SOB, NoEdema Respiratory : No Cough, No Sputum, No Wheezing Gastrointestinal : Positive Nausea, no Vomiting, no Diarrhea, positive abdominal Pain, No Hematochezia, No Melena Genitourinary : No Dysuria, No Urinary Frequency, No Hematuria, No Urgency Musculoskeletal : No joint pain, No Myalgias, No Joint Swelling Skin : No Skin Lesions, No rash Neuro : No Weakness, No Numbness, No Dizziness, No Headache Psych : No Anxiety/Panic, No Depression Heme/Lymph: No Bruising, No Lymphadenopathy Endocrine : No Polyuria, No Polydipsia All other systems reviewed and are negative. Physical Exam Vital Signs: Vital Signs: Last Vital Signs Temp 98.2 F 12/20/20 22:46 Pulse 78 12/20/20 22:46 Resp 16 12/20/20 22:46 BP 155/60 H 12/20/20 22:46 Pulse Ox 99 12/20/20 22:46 Body Mass Index 27.3 Appearance: Alert. Oriented X3. No acute distress. Anxious Eyes: Pupils equal, round and reactive to light. ENT: Pharynx normal. Neck: Normal inspection. Neck supple. CVS: Normal heart rate and rhythm. Pulses normal. Respiratory: No respiratory distress. Breath sounds normal. Abdomen: Soft and moderate ttp along periumbilical area with bump noted no change in color, unable to reduce Skin: Skin warm and dry. Normal skin color. Normal skin turgor. Extremities: No lower extremity edema. No calf ttp Neuro: Oriented X 3. No motor deficit. No sensory deficit. Course Course Course Narrative: no urinary symptoms will wait for culture susepct, no SBO abdomen on recheck is benign will send home with precautions given her history aware that she is high risk for developing SBO in the next 24 to 48 hours MDM - Abdominal Pain MDM Narrative Medical decision making narrative: 80 yo female sig PMH of multiple bowel surgies, SBO here with likely ventral hernia now c/o pain at this time will need labs, CT scan for hernia/SBO, IVF, dispo per results and findings. Differential Diagnosis Differential diagnosis: Likely abdominal pain, constipation, diverticulitis and small bowel obstruction; Unlikely aortic dissection and bowel perforation Lab Data Result diagrams: 12/20/20 23:07 12/20/20 23:07 Labs: Lab Results 12/20/20 12/20/20 12/20/20 Range/Units 23:07 23:07 23:07 WBC 9.3 (4.8-10.8) X10*3/uL RBC 4.66 D (4.20-5.50) X10*6/uL Hgb 13.5 D (12.0-16.0) g/dl Hct 41.9 (37-47) % MCV 89.9 (80-98) fL MCH 29.0 (27.0-33.0) pg MCHC 32.2 (31.0-35.0) g/dl RDW 12.8 (11.0-16.0) % Plt Count 324 (160-400) X10*3/uL MPV 11.3 (9.4-12.3) fL Immature Gran % (Auto) 0.3 (0.0-0.4) % Neut % (Auto) 68.9 (45-73) % Lymph % (Auto) 22.4 (20-40) % [place] % (Auto) 5.9 (2-11) % Eos % (Auto) 1.6 (0-4) % Baso % (Auto) 0.9 (0-2) % Lymph # (Auto) 2.1 (1.2-4.9) X10*3/uL [place] # (Auto) 0.6 (0.1-1.2) X10*3/uL Eos # (Auto) 0.2 (0.0-0.4) X10*3/uL Baso # (Auto) 0.1 (0.0-0.2) X10*3/uL Abs Immat Gran (auto) 0.03 (0.00-0.03) X10*3/uL Absolute Neuts (auto) 6.4 (2.0-8.3) X10*3/uL Absolute Nucleated RBC 0.000 (0.0-0.012) X10*3/uL Nucleated RBC % (auto) 0.0 (0.0-0.2) /100WBC PT (10.8-13.0) SEC INR (0.9-1.1) APTT (24.1-38.0) SEC Sodium 142 (135-145) mmol/L Potassium 3.8 (3.3-5.1) mmol/L Chloride 101 (96-108) mmol/L Carbon Dioxide 32 H (22-29) mmol/L Anion Gap 13 (12-20) BUN 22 H (9-16) mg/dL Creatinine 0.78 (0.5-1.4) mg/dL Estim Creat Clear Calc 49.9 Estimated GFR > 60 Random Glucose 101 (60-115) mg/dL Lactic Acid (0.5-2.0) mmol/L Calcium 10.5 H (8.4-10.2) mg/dL Magnesium (1.6-2.6) mg/dL Total Bilirubin (0.0-1.0) mg/dL Direct Bilirubin (0.0-0.5) mg/dL AST (5-31) U/L ALT (0-31) U/L Alkaline Phosphatase (39-117) U/L Total Protein (6.5-8.0) g/dL Albumin (3.5-5.0) g/dL Lipase (8-78) U/L Urine Color Urine Appearance Urine pH (5.0-8.0) Ur Specific [place] (1.005-1.025) Urine Protein (NEG-TRACE) MG/DL Urine Glucose (UA) (NEG) MG/DL Urine Ketones (NEG) MG/DL Urine Blood (NEG) Urine Nitrite (NEG) Ur Leukocyte Esterase (NEG) Urine RBC (0) /HPF Urine WBC (0-4) /HPF Ur Squamous Epith Cells /LPF Urine Bacteria /LPF COVID-19 ([facility]) Negative (Negative) COVID-19 Clin Com See Note 12/20/20 12/20/20 12/20/20 Range/Units 23:07 23:07 23:07 WBC (4.8-10.8) X10*3/uL RBC (4.20-5.50) X10*6/uL Hgb (12.0-16.0) g/dl Hct (37-47) % MCV (80-98) fL MCH (27.0-33.0) pg MCHC (31.0-35.0) g/dl RDW (11.0-16.0) % Plt Count (160-400) X10*3/uL MPV (9.4-12.3) fL Immature Gran % (Auto) (0.0-0.4) % Neut % (Auto) (45-73) % Lymph % (Auto) (20-40) % [place] % (Auto) (2-11) % Eos % (Auto) (0-4) % Baso % (Auto) (0-2) % Lymph # (Auto) (1.2-4.9) X10*3/uL [place] # (Auto) (0.1-1.2) X10*3/uL Eos # (Auto) (0.0-0.4) X10*3/uL Baso # (Auto) (0.0-0.2) X10*3/uL Abs Immat Gran (auto) (0.00-0.03) X10*3/uL Absolute Neuts (auto) (2.0-8.3) X10*3/uL Absolute Nucleated RBC (0.0-0.012) X10*3/uL Nucleated RBC % (auto) (0.0-0.2) /100WBC PT 12.6 (10.8-13.0) SEC INR 1.1 (0.9-1.1) APTT 35.5 (24.1-38.0) SEC Sodium (135-145) mmol/L Potassium (3.3-5.1) mmol/L Chloride (96-108) mmol/L Carbon Dioxide (22-29) mmol/L Anion Gap (12-20) BUN (9-16) mg/dL Creatinine (0.5-1.4) mg/dL Estim Creat Clear Calc Estimated GFR Random Glucose (60-115) mg/dL Lactic Acid 0.7 (0.5-2.0) mmol/L Calcium (8.4-10.2) mg/dL Magnesium 2.4 (1.6-2.6) mg/dL Total Bilirubin 0.5 (0.0-1.0) mg/dL Direct Bilirubin 0.2 (0.0-0.5) mg/dL AST 28 (5-31) U/L ALT 25 (0-31) U/L Alkaline Phosphatase 69 (39-117) U/L Total Protein 7.4 (6.5-8.0) g/dL Albumin 4.8 (3.5-5.0) g/dL Lipase 55 (8-78) U/L Urine Color Urine Appearance Urine pH (5.0-8.0) Ur Specific [place] (1.005-1.025) Urine Protein (NEG-TRACE) MG/DL Urine Glucose (UA) (NEG) MG/DL Urine Ketones (NEG) MG/DL Urine Blood (NEG) Urine Nitrite (NEG) Ur Leukocyte Esterase (NEG) Urine RBC (0) /HPF Urine WBC (0-4) /HPF Ur Squamous Epith Cells /LPF Urine Bacteria /LPF COVID-19 ([facility]) (Negative) COVID-19 Clin Com 12/21/20 Range/Units 00:07 WBC (4.8-10.8) X10*3/uL RBC (4.20-5.50) X10*6/uL Hgb (12.0-16.0) g/dl Hct (37-47) % MCV (80-98) fL MCH (27.0-33.0) pg MCHC (31.0-35.0) g/dl RDW (11.0-16.0) % Plt Count (160-400) X10*3/uL MPV (9.4-12.3) fL Immature Gran % (Auto) (0.0-0.4) % Neut % (Auto) (45-73) % Lymph % (Auto) (20-40) % [place] % (Auto) (2-11) % Eos % (Auto) (0-4) % Baso % (Auto) (0-2) % Lymph # (Auto) (1.2-4.9) X10*3/uL [place] # (Auto) (0.1-1.2) X10*3/uL Eos # (Auto) (0.0-0.4) X10*3/uL Baso # (Auto) (0.0-0.2) X10*3/uL Abs Immat Gran (auto) (0.00-0.03) X10*3/uL Absolute Neuts (auto) (2.0-8.3) X10*3/uL Absolute Nucleated RBC (0.0-0.012) X10*3/uL Nucleated RBC % (auto) (0.0-0.2) /100WBC PT (10.8-13.0) SEC INR (0.9-1.1) APTT (24.1-38.0) SEC Sodium (135-145) mmol/L Potassium (3.3-5.1) mmol/L Chloride (96-108) mmol/L Carbon Dioxide (22-29) mmol/L Anion Gap (12-20) BUN (9-16) mg/dL Creatinine (0.5-1.4) mg/dL Estim Creat Clear Calc Estimated GFR Random Glucose (60-115) mg/dL Lactic Acid (0.5-2.0) mmol/L Calcium (8.4-10.2) mg/dL Magnesium (1.6-2.6) mg/dL Total Bilirubin (0.0-1.0) mg/dL Direct Bilirubin (0.0-0.5) mg/dL AST (5-31) U/L ALT (0-31) U/L Alkaline Phosphatase (39-117) U/L Total Protein (6.5-8.0) g/dL Albumin (3.5-5.0) g/dL Lipase (8-78) U/L Urine Color YELLOW Urine Appearance CLEAR Urine pH 7.5 (5.0-8.0) Ur Specific [place] 1.020 (1.005-1.025) Urine Protein NEG (NEG-TRACE) MG/DL Urine Glucose (UA) NEG (NEG) MG/DL Urine Ketones NEG (NEG) MG/DL Urine Blood NEG (NEG) Urine Nitrite NEG (NEG) Ur Leukocyte Esterase TRACE H (NEG) Urine RBC 1-4 (0) /HPF Urine WBC 5-9 H (0-4) /HPF Ur Squamous Epith Cells 1+ /LPF Urine Bacteria 1+ /LPF COVID-19 ([facility]) (Negative) COVID-19 Clin Com Discharge Plan Discharge Clinical Impression: Diastasis of rectus abdominis Abdominal pain Qualifiers: Abdominal location: generalized Qualified Code(s): R10.84 - Generalized abdominal pain Constipation Qualifiers: Constipation type: slow transit constipation Qualified Code(s): K59.01 - Slow transit constipation Patient Disposition: Home, Self-Care Instructions: Constipation (ED) Additional Instructions: return to ED for any worsening symptoms or concerns you are high risk for developing small bowel obstruction please return for any worsening of symptoms Prescriptions: New docusate sodium [Colace] 100 mg capsule 100 mg PO BID PRN (Reason: constipation) Qty: 30 RF: 0 sennosides 8.6 mg tablet 8.6 mg PO BEDTIME PRN (Reason: constipation) Qty: 30 RF: 0 No Action furosemide 40 mg tablet 40 mg PO DAILY Qty: 90 RF: 2 multivitamin Tablet 1 tab PO DAILY RF: 0 ascorbic acid (vitamin C) [Vitamin C] 500 mg Tablet 500 mg PO DAILY RF: 0 cholecalciferol (vitamin D3) [Vitamin D3] 25 mcg (1,000 unit) Tablet 25 mcg PO DAILY RF: 0 Qvar RediHaler 80 mcg/actuation HFA aerosol breath activated 2 inh inhalation BID RF: 0 albuterol sulfate [ProAir HFA] 90 mcg/actuation HFA aerosol inhaler 2 puff inhalation Q6H PRN (Reason: Shortness Of Breath Or Wheezing) RF: 0 Referrals: Physician,Unknown [Primary Care Provider] - 2 days (if not better) ON LICENSE OF [facility] Past Medical History Attestation statement: The following information was validated with the patient. Medical History Asthma Diarrhea Dyslipidemia Left knee pain Neuropathy Onychomycosis [place] Surgical History Colostomy in place History of cholecystectomy History of hysterectomy History of removal of both ovaries History of repair of hiatal hernia History of surgery History of tonsillectomy Family History Family History Father Hypertension Pancreatitis Uremia Mother Diverticulosis Alzheimers disease Brother Colon cancer CVD (cardiovascular disease) Sister Colon cancer Social History Social History Household Members: Spouse Household Members Other:: 2 Housing: Condominium Alcohol intake: never Smoking Status: Never smoker Use of substances other than those prescribed or required for medical reasons: No Advance Directives: No Advance Directives Information Provided: Yes service: No Current occupational status: retired
[2020-12-20 22:46] VITALS: BP 155/60; PULSE 78; RESP 16; TEMP 36.8; O2SAT 99
[2020-12-20] MEDS: ondansetron HCL 4 MG/2 ML VIAL IVPUSH (23:14)
[2020-12-20 23:15] LABS: MANUAL DIFF FLAG NO
[2020-12-20] MEDS: Ketorolac Tromethamine 15 MG/ML VIAL IVPUSH (23:15)
[2020-12-20 23:16] LABS: Basophils Absolute Auto 0.1 X10*3/uL (0.0-0.2); Basophils Percent Auto 0.9 % (0-2); Eosinophils Absolute Auto 0.2 X10*3/uL (0.0-0.4); Eosinophils Percent Auto 1.6 % (0-4); Hematocrit 41.9 % (37-47); Hemoglobin 13.5 g/dl (12.0-16.0); Imm Gran Abs Auto 0.03 X10*3/uL (0.00-0.03); Imm Gran Pct Auto 0.3 % (0.0-0.4); Lymphocytes Absolute Auto 2.1 X10*3/uL (1.2-4.9); Lymphocytes Percent Auto 22.4 % (20-40); Mean Corpuscular HGB Conc 32.2 g/dl (31.0-35.0); Mean Corpuscular Volume 89.9 fL (80-98); Mean Platelet Volume 11.3 fL (9.4-12.3); Monocytes Absolute Auto 0.6 X10*3/uL (0.1-1.2); Monocytes Percent Auto 5.9 % (2-11); Neutrophils Absolute Auto 6.4 X10*3/uL (2.0-8.3); Neutrophils Percent Auto 68.9 % (45-73); Platelet Count 324 X10*3/uL (160-400); Red Blood Count 4.66 X10*6/uL (4.20-5.50); Red Cell Distribution Width 12.8 % (11.0-16.0); White Blood Count 9.3 X10*3/uL (4.8-10.8)
[2020-12-20] MEDS: 0.9 % Sodium Chloride 500 ML IV (23:16)
[2020-12-20 23:27] LABS: INTERNATIONAL NORM RATIO 1.1 (0.9-1.1); Prothrombin Time 12.6 SEC (10.8-13.0)
[2020-12-20 23:29] LABS: Partial Thromboplastin Time 35.5 SEC (24.1-38.0)
[2020-12-20 23:39] LABS: Lactic Acid 0.7 mmol/L (0.5-2.0)
[2020-12-20 23:41] LABS: COVID-19 Test Negative (Negative); IDNOW Serial# 9DD0AD1C
[2020-12-20 23:43] LABS: Alanine Aminotransferase 25 U/L (0-31); Albumin Level 4.8 g/dL (3.5-5.0); Alkaline Phosphatase 69 U/L (39-117); Aspartate Amino Transferase 28 U/L (5-31); Bilirubin Direct 0.2 mg/dL (0.0-0.5); Bilirubin Total 0.5 mg/dL (0.0-1.0); Lipase 55 U/L (8-78); Magnesium 2.4 mg/dL (1.6-2.6); Total Protein 7.4 g/dL (6.5-8.0)
[2020-12-20 23:47] LABS: Anion Gap 13 (12-20); Blood Urea Nitrogen 22 mg/dL (9-16); Calcium 10.5 mg/dL (8.4-10.2); Carbon Dioxide 32 mmol/L (22-29); Chloride 101 mmol/L (96-108); Creatinine Clr Calc Pharmacy 49.9; Estimated Glomerular Filt Rate > 60; Glucose Random 101 mg/dL (60-115); Potassium 3.8 mmol/L (3.3-5.1); Sodium 142 mmol/L (135-145)
[2020-12-21] MEDS: iohexoL 350 MG/ML 100 ML INFUS..BTL 85 ML IV (00:24)
[2020-12-21 00:44] LABS: Appearance Urine CLEAR; Color Urine YELLOW; Glucose Urine UA NEG (NEG); Leukocyte Esterase Urine TRACE (NEG); Nitrite Urine NEG (NEG); PH 7.5 (5.0-8.0); UACC Culture Trigger YES; Urine Blood NEG (NEG); Urine Ketones NEG (NEG); Urine Protein NEG (NEG-TRACE)
[2020-12-21 00:45] LABS: Squamous Epithelial Cell Urine 1+ /LPF
[2020-12-21 00:46] LABS: Bacteria Urine 1+ /LPF
[2020-12-21] MEDS: Docusate Sodium 100 MG CAPSULE PO (01:25)
[2020-12-21] MEDS: Sennosides 8.6 MG TABLET PO (01:25)
== END 2020-12-21 01:32 | disposition home or self-care (01) ==
PROVIDERS: Emergency Provider Emergency Medicine
DX: M62.08 Separation of muscle (nontraumatic), other site (principal); R10.84 Generalized abdominal pain; K59.01 Slow transit constipation; Z20.822 Contact with and (suspected) exposure to COVID-19; E78.5 Hyperlipidemia, unspecified
CPT/HCPCS: 36415; 74177; 80048; 80076; 81001; 81003; 83605; 83690; 83735; 85025; 85610; 85730; 87086; 87635; 96361; 96374; 96375; 99284; J1885; J2405; Q9967

== ENCOUNTER → 2021-01-19 14:46 | Outpatient (BNVA) | payer MEDICARE, SELFPAY | PROVIDERS: PCP Internal Medicine; Visit Provider Anesthesiology | DX: M48.00 Spinal stenosis, site unspecified (principal); M17.12 Unilateral primary osteoarthritis, left knee; G89.4 Chronic pain syndrome | CPT/HCPCS: 99202 ==

== ENCOUNTER 2021-01-23 10:11 | Outpatient (REF) | payer MEDICARE, SELFPAY ==
--- NOTE | ~2021-01-23 | MR_ITS ---
EXAMINATION: MR LUMBAR SPINE WITHOUT CONTRAST CLINICAL INFORMATION: Chronic pain syndrome. COMPARISON: None TECHNIQUE: MRI of the lumbar spine was obtained using routine sequences without contrast. FINDINGS: The lumbar vertebral bodies maintain normal sagittal alignment. There is mild levoscoliotic curvature. Multilevel compression fractures/Schmorl's nodes are seen with approximately 50% height loss at L3 and L5 and milder height loss at L4. Focal endplate depressions are seen at T11, T12, and minimally at L1. No bone marrow edema is seen about these Schmorl's nodes/fractures to suggest they are acute. Mild amount of endplate edema is seen anteriorly at T12-L1. The lumbar disc heights are fairly well preserved. The distal spinal cord appears normal. The conus medullaris terminates normally at the L1 level. The posterior paraspinal musculature demonstrates fatty atrophy. The left adrenal gland is mildly thickened which may represent hyperplasia but is unchanged from prior exams. SPINAL LEVELS: L1-L2: Mild disc bulging. No spinal canal stenosis. Mild right neural foraminal stenosis. L2-L3: Disc bulging, ligamentum flavum infolding, and mild to moderate facet arthropathy results in mild spinal canal stenosis and mild to moderate right and mild left neural foraminal stenosis. L3-L4: Disc bulging, ligamentum flavum infolding, and moderate facet arthropathy results in moderate spinal canal stenosis with bilateral subarticular stenosis resulting in compression of the traversing L4 nerve roots. Severe bilateral neural foraminal stenosis with compression of both exiting L3 nerve roots. L4-L5: Disc bulging with ligamentum flavum infolding moderate facet arthropathy resulting in severe bilateral neural foraminal stenosis (partly related to left foraminal protrusion with compression of both exiting L4 nerve roots. Both subarticular zones are narrowed. Spinal canal mildly narrowed. L5-S1: Disc bulging with severe facet arthropathy. Bilateral subarticular stenosis with compression of the traversing right S1 nerve root. Moderate right and severe left neural foraminal stenosis with compression of the exiting left L5 nerve root. 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 No acute fracture. Multilevel degenerative spondylosis including at L3-L4 where there is moderate spinal canal stenosis, compression of the traversing L4 nerve roots, and severe bilateral neural foraminal stenosis with compression of both exiting L3 nerve roots. At L4-L5 there is near bilateral neural foraminal stenosis compression of both exiting L4 nerve roots. At L5-S1 there is compression of the traversing right S1 nerve root and moderate right and severe left neural foraminal stenosis with compression of the exiting left L5 nerve root.
== END 2021-01-23 10:12 | disposition home or self-care (01) ==
LOC: HO.MRI 10:11
PROVIDERS: Visit Provider Anesthesiology
DX: G89.4 Chronic pain syndrome (principal); M48.00 Spinal stenosis, site unspecified; M54.32 Sciatica, left side
CPT/HCPCS: 72148

== ENCOUNTER → 2021-01-30 13:05 | Outpatient (BNVA) | payer MEDICARE, SELFPAY | PROVIDERS: PCP Internal Medicine; Visit Provider Anesthesiology | DX: M48.00 Spinal stenosis, site unspecified (principal); M17.12 Unilateral primary osteoarthritis, left knee; G89.4 Chronic pain syndrome | CPT/HCPCS: Q3014 ==

== ENCOUNTER 2021-02-13 15:32 | Outpatient (REF) | payer MEDICARE, SELFPAY | END 2021-02-13 15:33 | disposition home or self-care (01) | LOC: HO.LAB 15:32 | PROVIDERS: PCP Internal Medicine; Visit Provider Internal Medicine | DX: Z20.822 Contact with and (suspected) exposure to COVID-19 (principal) | CPT/HCPCS: C9803; U0003; U0005 ==

== ENCOUNTER 2021-03-14 10:06 | Outpatient (REF) | payer MEDICARE, SELFPAY | END 2021-03-14 10:07 | disposition home or self-care (01) | LOC: HO.LAB 10:06 | PROVIDERS: PCP Internal Medicine; Visit Provider Internal Medicine | DX: Z20.822 Contact with and (suspected) exposure to COVID-19 (principal) | CPT/HCPCS: C9803; U0003; U0005 ==

== ENCOUNTER 2021-04-08 11:10 | Emergency (ER) | payer MEDICARE, SELFPAY ==
--- NOTE | ~2021-04-08 | US_ITS ---
EXAMINATION: ULTRASOUND EXTREMITY NONVASCULAR CLINICAL INFORMATION: Lump at surgical site. Rule out fluid collection. History of surgery for spinal stenosis 03/31/2021 COMPARISON: Lumbar spine MRI January 2021 TECHNIQUE: Grayscale and color imaging of the soft tissues over the spine surgical incision FINDINGS: There is a complex fluid collection measuring 3.4 x 2 x 2.3 cm. This is 0.8 cm deep from the skin surface. Differential would include postoperative fluid collection, hematoma and abscess. Clinical correlation recommended. US/US extremity nonvascular IMPRESSION: Small complex fluid collection measuring 3.4 x 2 x 2.3 cm. Differential would include postoperative fluid collection, hematoma and abscess.
[2021-04-08 12:27] VITALS: BP 136/51; PULSE 62; RESP 19; TEMP 36.9; O2SAT 100; BMI 25.4
[2021-04-08 14:03] VITALS: BP 146/68; PULSE 63; RESP 20; TEMP 36.7; O2SAT 99
[2021-04-08 14:17] LABS: MANUAL DIFF FLAG NO
[2021-04-08 14:19] LABS: Basophils Absolute Auto 0.1 X10*3/uL (0.0-0.2); Basophils Percent Auto 0.8 % (0-2); Eosinophils Absolute Auto 0.4 X10*3/uL (0.0-0.4); Eosinophils Percent Auto 4.5 % (0-4); Hematocrit 36.8 % (37-47); Hemoglobin 11.9 g/dl (12.0-16.0); Imm Gran Abs Auto 0.03 X10*3/uL (0.00-0.03); Imm Gran Pct Auto 0.3 % (0.0-0.4); Lymphocytes Absolute Auto 2.6 X10*3/uL (1.2-4.9); Lymphocytes Percent Auto 27.2 % (20-40); Mean Corpuscular HGB Conc 32.3 g/dl (31.0-35.0); Mean Corpuscular Hemoglobin 29.2 pg (27.0-33.0); Mean Corpuscular Volume 90.4 fL (80-98); Mean Platelet Volume 11.2 fL (9.4-12.3); Monocytes Absolute Auto 0.5 X10*3/uL (0.1-1.2); Neutrophils Absolute Auto 5.9 X10*3/uL (2.0-8.3); Neutrophils Percent Auto 62.2 % (45-73); Platelet Count 351 X10*3/uL (160-400); Red Blood Count 4.07 X10*6/uL (4.20-5.50); Red Cell Distribution Width 12.6 % (11.0-16.0); White Blood Count 9.6 X10*3/uL (4.8-10.8)
--- NOTE | 2021-04-08 14:28 | ED.GENADULT ---
HPI - General Adult General Chief complaint: General Medical Stated complaint: LUMP IN BACK SURG 03 31 Time Seen by Provider: 04/08/21 13:39 Source: patient Mode of arrival: ambulatory History of Present Illness HPI narrative: 80-year-old female with a past medical history, hyperlipidemia, neuropathy, rosacea, spinal stenosis s/p L4/5 laminotomy and foraminotomy on 03/31/2021 at [facility], presenting to the ED complaining of lump at postsurgical site s/p feeling a pop while sitting watching TV 2 days ago. Also reports RLE weakness since surgery. Denies trauma/falls, new numbness/tingling, urinary incontinence/retention, fever, chills, headache, dizziness Onset (ago): day(s) Related Data Home Medications Medication Instructions Recorded Confirmed albuterol sulfate 90 mcg/actuation 2 puff INHALATION Q6H PRN 07/04/20 04/03/21 aerosol inhaler (ProAir HFA) beclomethasone dipropionate 80 2 inh INHALATION BID g 07/04/20 04/03/21 mcg/actuation HFA breath activated aerosol (Qvar RediHaler) ascorbic acid (vitamin C) 500 mg 500 mg PO DAILY 11/10/20 04/03/21 tablet (Vitamin C) cholecalciferol (vitamin D3) 25 25 mcg PO DAILY 11/10/20 04/03/21 mcg (1,000 unit) tablet (Vitamin D3) multivitamin 1 tab PO DAILY 11/10/20 04/03/21 Previous Rx's Medication Instructions Recorded furosemide 40 mg tablet 40 mg PO DAILY #90 tab 11/09/20 docusate sodium 100 mg capsule 100 mg PO BID PRN #30 cap 12/21/20 (Colace) sennosides 8.6 mg tablet 8.6 mg PO BEDTIME PRN #30 tab 12/21/20 lactulose 10 gram/15 mL (15 mL) 10 g PO BEDTIME PRN 30 Days #450 ml 12/29/20 oral solution Allergies Allergy/AdvReac Type Severity Reaction Status Date / Time mold [MOLD] Allergy Severe SWELLING Verified 04/03/21 16:08 alcohol [ALCOHOL] Allergy Intermediate RED, Verified 04/03/21 16:08 SWELLING corn syrup [CORN SYRUP] Allergy Intermediate red hot Verified 04/03/21 16:08 face dextrose [DEXTROSE] Allergy Intermediate RED RASH Verified 04/03/21 16:08 erythromycin base Allergy Intermediate RASH Verified 04/03/21 16:08 [ERYTHROMYCIN BASE] Penicillins [PENICILLINS] Allergy Intermediate SWELLING, Verified 04/03/21 16:08 RASH sucrose [SUCROSE] Allergy Intermediate RED RASH Verified 04/03/21 16:08 Sulfa (Sulfonamide Allergy Intermediate RASH, Verified 04/03/21 16:08 Antibiotics) redness, [SULFA (SULFONAMIDE redness ANTIBIOTICS)] valacyclovir Allergy Intermediate Redness of Verified 04/03/21 16:08 Skin morphine AdvReac Intermediate Hallucinati Verified 04/03/21 16:08 ons 12 Hour Nasal Allergy Intermediate hives Uncoded 04/03/21 16:08 WINE Allergy Intermediate RASH FROM Uncoded 04/03/21 16:08 RED WINE Review of Systems Review of Systems: Constitutional: No Fever, No Chills, No Fatigue, No Malaise ENT/Mouth: No Ear Pain, No Nasal Congestion, No Hoarseness, No sore throat Eyes: No Eye Pain, No Swelling Cardiovascular: No Chest Pain, No SOB, No Palpitations Respiratory: No Cough, No Dyspnea Gastrointestinal: No Nausea, No Vomiting, No Diarrhea, No Constipation, No Abdominal pain Genitourinary: No Dysuria, No Urinary Frequency, No Hematuria, No Urinary Incontinence/retention, No Flank Pain Musculoskeletal: No joint pain, No Myalgias, No Joint Swelling Skin: No Skin Lesions, No rash Neuro: + Weakness, No Numbness, No Paresthesias, No Dizziness, No Headache Yes all other systems are reviewed and are negative Neurologic: Denies Sensory deficit (Neuro) [facility] Past Medical History Attestation statement: The following information was validated with the patient. Medical History (Updated 04/08/21 @ 17:06 by ANA Mehta) Asthma Chronic pain syndrome Constipation by delayed colonic transit Dyslipidemia Left knee pain Left sided sciatica Neuropathy Onychomycosis Osteoarthritis of left knee Rosacea Spinal stenosis Surgical History (Updated 04/03/21 @ 19:25 by Fabby Cabrera MD) Colostomy in place History of back surgery (~03/31/21) History of cholecystectomy History of hysterectomy History of removal of both ovaries History of repair of hiatal hernia History of surgery History of surgery History of tonsillectomy Family History Family History Father Hypertension Pancreatitis Uremia Mother Diverticulosis Alzheimers disease Brother Colon cancer CVD (cardiovascular disease) Sister Colon cancer Social History Social History Household Members: Spouse Household Members Other:: 2 Housing: Condominium Do you presently have visiting nurse or other home services: No Alcohol intake: never Patient Tobacco Use Status: Former Tobacco user Tobacco use type: Cigarette Years Smoked: 1 year Use of substances other than those prescribed or required for medical reasons: No Advance Directives: Yes Advance Directives Information Provided: Yes Advance Directives on File: No service: No Current occupational status: retired Physical Exam Vital Signs: Vital Signs: Last Vital Signs Temp 98.1 F 04/08/21 14:03 Pulse 63 04/08/21 14:03 Resp 20 04/08/21 14:03 BP 146/68 H 04/08/21 14:03 Pulse Ox 99 04/08/21 14:03 Body Mass Index 25.4 Const: General: cooperative, healthy appearing and no acute distress Orientation/consciousness: patient oriented x3 Limitations: no limitations HENMT: Head: Yes normal to inspection Ears: hearing grossly normal bilaterally General nose exam: Normal external nose present Face and sinus: Yes normal facial exam Eyes: General: appearance normal, both eyes and all related structures EOM: EOMs intact bilaterally Neck: Neck: Yes normal visual inspection Resp: Effort & Inspection: normal respiratory effort and no respiratory distress Cardio: Rate: regular rate GI: Inspection: Yes normal to inspection Back/Spine/Pelvis: Other: + healing surgical incision noted to midline lumbar region with overlying Steri-Strips & hard palpable lump beneath incision. No fluctuance/induration, no erythema/cellulitis or warmth Skin: Rashes: no rashes Wounds: no wounds Neuro: Other: 4/5 strength in RLE with great toe extension and foot dorsiflexion. Sensation intact to light touch. No saddle anesthesia. General: patient oriented x3, tone normal and moves all extremities Gait exam (Neuro): Normal gait present Motor exam (neuro): Abnormal motor strength present right lower extremity Sensory Exam: No Sensory deficit (Neuro) Extrem: General: Yes normal to inspection Course Course Course Narrative: -spoke to patient's neurosurgeon Dr. Gatica from [facility], he suspected patient likely popped a stitch, reported seems symptoms are subacute/non emergent, stated his office will call patient and set up follow-up appointment in their clinic on Saturday. -no leukocytosis. H&H stable. ESR WNL. CRP minimally elevated. Labs otherwise unremarkable US extremity nonvascular IMPRESSION: Small complex fluid collection measuring 3.4 x 2 x 2.3 cm. Differential would include postoperative fluid collection, hematoma and abscess.? >> unlikely abscess without pain, erythema, leukocytosis, or fluctuance. Discussed results with patient including needed follow-up in clinic on Saturday, she verbalized understanding feel safe for discharge home Medical Decision Making MDM Narrative Medical decision making narrative: 80-year-old female with a past medical history, hyperlipidemia, neuropathy, rosacea, spinal stenosis s/p L4/5 laminotomy and foraminotomy on 03/31/2021 at [facility], presenting to the ED complaining of lump at postsurgical site s/p feeling a pop while sitting watching TV 2 days ago. On exam VSS, NAD/nontoxic, physical exam as above. Notable lump at surgical study, no evidence of active infection. Notable weakness to RLE. Concern for seroma vs postsurgical complication. Low concern for cauda equina Plan: Labs, ultrasound, speak to [facility] neurosurgery Lab Data Result diagrams: 04/08/21 14:14 04/08/21 14:14 Labs: Lab Results 04/08/21 04/08/21 04/08/21 Range/Units 14:14 14:14 14:14 WBC 9.6 (4.8-10.8) X10*3/uL RBC 4.07 L (4.20-5.50) X10*6/uL Hgb 11.9 L (12.0-16.0) g/dl Hct 36.8 L (37-47) % MCV 90.4 (80-98) fL MCH 29.2 (27.0-33.0) pg MCHC 32.3 (31.0-35.0) g/dl RDW 12.6 (11.0-16.0) % Plt Count 351 (160-400) X10*3/uL MPV 11.2 (9.4-12.3) fL Immature Gran % (Auto) 0.3 (0.0-0.4) % Neut % (Auto) 62.2 (45-73) % Lymph % (Auto) 27.2 (20-40) % Evangeline % (Auto) 5.0 (2-11) % Eos % (Auto) 4.5 H (0-4) % Baso % (Auto) 0.8 (0-2) % Lymph # (Auto) 2.6 (1.2-4.9) X10*3/uL Evangeline # (Auto) 0.5 (0.1-1.2) X10*3/uL Eos # (Auto) 0.4 (0.0-0.4) X10*3/uL Baso # (Auto) 0.1 (0.0-0.2) X10*3/uL Abs Immat Gran (auto) 0.03 (0.00-0.03) X10*3/uL Absolute Neuts (auto) 5.9 (2.0-8.3) X10*3/uL Absolute Nucleated RBC 0.000 (0.0-0.012) X10*3/uL Nucleated RBC % (auto) 0.0 (0.0-0.2) /100WBC ESR 12 (0-20) MM/HR Sodium 142 (135-145) mmol/L Potassium 4.0 (3.3-5.1) mmol/L Chloride 106 (96-108) mmol/L Carbon Dioxide 28 (22-29) mmol/L Anion Gap 12 (12-20) BUN 15 (9-16) mg/dL Creatinine 0.61 (0.5-1.4) mg/dL Estim Creat Clear Calc 61.7 Estimated GFR > 60 Random Glucose 96 (60-115) mg/dL Calcium 9.7 D (8.4-10.2) mg/dL C-Reactive Protein 0.75 H (< or = 0.50) mg/dL Discharge Plan Discharge Clinical Impression: Weakness Post-operative complication Qualifiers: Surgical complication system/body Area: subcutaneous tissue Surgical complication type: unspecified Patient Disposition: Home, Self-Care Instructions: Wound Infection (ED), Wound Dehiscence (ED) Additional Instructions: Your Neurosurgeon's office should be calling you for follow-up on Saturday. Please follow-up in their clinic on Saturday Your lump becomes larger, red, there is drainage, you have fever, increasing or worsening weakness, your unable to ambulate return to the ED immediately Prescriptions: No Action furosemide 40 mg tablet 40 mg PO DAILY Qty: 90 RF: 2 multivitamin Tablet 1 tab PO DAILY RF: 0 ascorbic acid (vitamin C) [Vitamin C] 500 mg Tablet 500 mg PO DAILY RF: 0 cholecalciferol (vitamin D3) [Vitamin D3] 25 mcg (1,000 unit) Tablet 25 mcg PO DAILY RF: 0 docusate sodium [Colace] 100 mg capsule 100 mg PO BID PRN (Reason: constipation) Qty: 30 RF: 0 sennosides 8.6 mg tablet 8.6 mg PO BEDTIME PRN (Reason: constipation) Qty: 30 RF: 0 Qvar RediHaler 80 mcg/actuation HFA aerosol breath activated 2 inh inhalation BID RF: 0 albuterol sulfate [ProAir HFA] 90 mcg/actuation HFA aerosol inhaler 2 puff inhalation Q6H PRN (Reason: Shortness Of Breath Or Wheezing) RF: 0 lactulose 10 gram/15 mL (15 mL) solution 10 g PO BEDTIME PRN (Reason: constipation) 30 Days Qty: 450 RF: 0 Referrals: Jon Gatica MD, PhD [Physician] - 3 days
[2021-04-08 14:35] LABS: Anion Gap 12 (12-20); Blood Urea Nitrogen 15 mg/dL (9-16); C Reactive Protein 0.75 mg/dL (< or = 0.50); Calcium 9.7 mg/dL (8.4-10.2); Carbon Dioxide 28 mmol/L (22-29); Chloride 106 mmol/L (96-108); Creatinine Clr Calc Pharmacy 61.7; Estimated Glomerular Filt Rate > 60; Glucose Random 96 mg/dL (60-115); Sodium 142 mmol/L (135-145)
[2021-04-08 15:00] LABS: Erythrocyte Sedimentation Rate 12 MM/HR (0-20)
[2021-04-08 16:00] VITALS: BP 131/71; PULSE 88; RESP 16; TEMP 37.1; O2SAT 98
== END 2021-04-08 17:11 | disposition home or self-care (01) ==
PROVIDERS: Physician Assistant; Emergency Provider Internal Medicine; PCP Internal Medicine
DX: T81.9XXA Unspecified complication of procedure, initial encounter (principal); Z98.890 Other specified postprocedural states; R53.1 Weakness
CPT/HCPCS: 36415; 76882; 80048; 85025; 85652; 86140; 99284

== ENCOUNTER 2021-04-12 09:03 | Outpatient (REF) | payer MEDICARE, SELFPAY ==
[2021-04-12 10:12] LABS: Alanine Aminotransferase 12 U/L (0-31); Alkaline Phosphatase 63 U/L (39-117); Anion Gap 13 (12-20); Aspartate Amino Transferase 20 U/L (5-31); Bilirubin Total 0.8 mg/dL (0.0-1.0); Blood Urea Nitrogen 17 mg/dL (9-16); Calcium 9.6 mg/dL (8.4-10.2); Carbon Dioxide 29 mmol/L (22-29); Chloride 104 mmol/L (96-108); Cholesterol 196 mg/dL; Estimated Glomerular Filt Rate > 60; Glucose Fasting 92 mg/dL (60-99); HDL Cholesterol 55 mg/dL; LDL Cholesterol Calculated 128 mg/dl; Potassium 3.5 mmol/L (3.3-5.1); Sodium 142 mmol/L (135-145); Total Protein 6.4 g/dL (6.5-8.0); Triglycerides 68 mg/dL
[2021-04-12 11:04] LABS: Folate > 20.0 ng/mL (> or = 4.0); Vitamin B12 1881 pg/mL (200-900)
[2021-04-13 21:17] LABS: Copper, serum 153 mcg/dL (70-175)
[2021-04-15 14:11] LABS: Ceruloplasmin 37 mg/dL (18-53)
== END 2021-04-12 09:04 | disposition home or self-care (01) ==
LOC: HO.10HDL 09:03
PROVIDERS: Visit Provider Internal Medicine
DX: E78.5 Hyperlipidemia, unspecified (principal); G62.9 Polyneuropathy, unspecified
CPT/HCPCS: 36415; 80053; 80061; 82390; 82525; 82607; 82746

== ENCOUNTER 2021-04-24 12:51 | Outpatient (REF) | payer MEDICARE, SELFPAY ==
--- NOTE | ~2021-04-24 | MR_ITS ---
EXAMINATION: MR BRAIN WITHOUT CONTRAST CLINICAL INFORMATION: Muscle weakness. Diffuse weakness right leg. Rule out stroke. COMPARISON: Brain MRI 12/09/2013 TECHNIQUE: Multiplanar, multisequence imaging of the brain was performed without intravenous contrast. FINDINGS: There is no acute infarct, hemorrhage, mass, or extra-axial fluid collection. Mild patchy foci of T2/FLAIR hyperintensity are seen within the cerebral white matter. The ventricles are normal in size without evidence of hydrocephalus. A mild degree of brain parenchymal volume loss is noted. The major arterial flow voids are preserved at the skull base. There are postoperative findings of prior functional endoscopic sinus surgery. Mild to moderate polypoid thickening seen, predominantly within the ethmoids. No fluid levels are seen. MR/MR head/brain wo con IMPRESSION: No acute intracranial abnormality. Background changes of mild brain parenchymal volume loss and mild chronic microangiopathy. Mild to moderate polypoid paranasal sinus mucosal thickening.
--- NOTE | ~2021-04-24 | MR_ITS ---
MR THORACIC SPINE WITHOUT CONTRAST CLINICAL INFORMATION: Muscle weakness. Diffuse weakness right leg. Rule out stroke. COMPARISON: Lumbar spine MRI 01/23/2021. TECHNIQUE: MRI of the thoracic spine was obtained using routine sequences without contrast. FINDINGS: There are 12 rib-bearing thoracic type vertebral bodies. Kyphosis of the thoracolumbar junction. Vertebral body heights are maintained. There is moderate to severe disc volume loss at T11-T12. As discussed in throughout the thoracic spine. Modic type I endplate signal changes at T8-T9 and T9-T10 as well as T12-L1. No acute fractures. There is no thoracic cord compression. Accounting for artifact no definite thoracic cord signal abnormality however assessment is limited. Mild to moderate spondylitic changes throughout the thoracic spine. Disc osteophyte and facet arthropathy result in varying degrees of mild to moderate foraminal encroachment throughout the thoracic spine. There is no severe central canal stenosis and there is no severe foraminal stenosis within the thoracic spine. At C5-C6 and at C6-C7, advanced spondylitic changes result in central canal stenosis and mass effect on the cervical spinal cord on the localizer series that would be better assessed with a dedicated cervical spine MRI if there is myelopathy clinically. MR/MR thoracic spine wo con IMPRESSION: - There is mild to moderate thoracic spondylosis and there is a kyphosis of the thoracolumbar junction. No severe central canal stenosis and no severe foraminal stenosis within the thoracic spine. No thoracic cord compression. - At C5-C6 and at C6-C7, advanced spondylitic changes result in central canal stenosis and mass effect on the cervical spinal cord on the localizer series that would be better assessed with a dedicated cervical spine MRI if there is myelopathy clinically.
== END 2021-04-24 12:52 | disposition home or self-care (01) ==
LOC: HO.MRI 12:51
PROVIDERS: Visit Provider Neurological Surgery
DX: M26.81 Anterior soft tissue impingement (principal)
CPT/HCPCS: 70551; 72146

== ENCOUNTER 2021-05-18 13:37 | Outpatient (REF) | payer MEDICARE, SELFPAY ==
--- NOTE | ~2021-05-18 | MR_ITS ---
MR LUMBAR SPINE WITHOUT AND WITH CONTRAST CLINICAL INFORMATION: Lumbar degenerative disc disease. Right leg weakness COMPARISON: Lumbar spine MRI 01/23/2021. TECHNIQUE: MRI of the lumbar spine was obtained using routine sequences with and without contrast. Intravenous contrast: Gadavist 6 mL FINDINGS: Leftward convex scoliotic curvature at the thoracolumbar junction. Grade 1 retrolisthesis of L1 on L2. Stable appearing chronic compression fractures at the L3, L4, and L5 levels. The remaining vertebral body heights are maintained. Multilevel endplate osteophytes. There is disc desiccation at all lumbar levels. T2 signal changes within the paraspinal musculature at and below the postsurgical L4-L5 level secondary to denervation. Conus terminates at the L1 level. L1-L2: Slight grade 1 retrolisthesis. Diffuse annular disc bulge. Bilateral facet arthropathy. Stable moderate bilateral foraminal stenosis. L2-L3: Diffuse annular disc bulge and moderate bilateral facet arthropathy and ligamentum flavum thickening. Prominent dorsal epidural fat. Findings in concert result in stable mild to moderate central canal stenosis, bilateral subarticular zone stenosis with mass effect on the traversing L3 nerve roots bilaterally, and mild to moderate bilateral foraminal stenosis. L3-L4: Diffuse annular disc bulge and severe bilateral facet arthropathy and ligamentum flavum thickening. Prominent dorsal epidural fat. Findings in concert result in moderate to severe central canal stenosis, severe bilateral subarticular zone stenosis with compression of the traversing L4 nerve roots bilaterally, and severe bilateral foraminal stenosis with compression of the exiting L3 nerve roots bilaterally. L4-L5: Left hemilaminectomy and microdiscectomy changes. Enhancing granulation/scar tissue within the epidural space. Disc osteophyte and facet arthropathy result in mild narrowing of the central canal in similar severe bilateral foraminal stenosis with compression of the exiting L4 nerve roots bilaterally. L5-S1: Diffuse disc osteophyte complex and severe bilateral facet arthropathy and ligamentum flavum thickening. On is in concert result in persistent bilateral subarticular zone stenosis with mass effect on the traversing S1 nerve roots bilaterally in persistent severe bilateral foraminal stenosis with compression of the exiting L5 nerve roots bilaterally. MR/MR lumbar spine wo/w con IMPRESSION: - Leftward convex scoliotic curvature of the lumbar spine superimposed on multilevel degenerative disc disease and hypertrophic facet arthropathy: - At L2-L3, multifactorial degenerative changes and prominent dorsal epidural fat result in stable mild to moderate central canal stenosis, bilateral subarticular zone stenosis with mass effect on the traversing L3 nerve roots bilaterally, and mild to moderate bilateral foraminal stenosis. - At L3-L4, advanced spondylitic changes and prominent dorsal epidural fat result in moderate to severe central canal stenosis, severe bilateral subarticular zone stenosis with compression of the traversing L4 nerve roots bilaterally, and severe bilateral foraminal stenosis with compression of the exiting L3 nerve roots bilaterally. - At L4-L5, there are laminectomy changes and there is enhancing granulation/scar tissue within the epidural space. Advanced spondylitic changes at L4-L5 result in persistent severe bilateral foraminal stenosis with compression of the exiting L4 nerve roots bilaterally. - At L5-S1, advanced spondylitic changes result in persistent bilateral subarticular zone stenosis with mass effect on the traversing S1 nerve roots bilaterally in persistent severe bilateral foraminal stenosis with compression of the exiting L5 nerve roots bilaterally.
== END 2021-05-18 13:38 | disposition home or self-care (01) ==
LOC: HO.MRI 13:37
PROVIDERS: Visit Provider Neurological Surgery
DX: M51.36 Other intervertebral disc degeneration, lumbar region (principal); R53.1 Weakness
CPT/HCPCS: 72158; A9585

== ENCOUNTER 2021-07-11 08:49 | Outpatient (REF) | payer MEDICARE, SELFPAY ==
[2021-07-11 10:40] LABS: Alanine Aminotransferase 15 U/L (0-31); Albumin Level 4.2 g/dL (3.5-5.0); Alkaline Phosphatase 59 U/L (39-117); Anion Gap 12 (12-20); Aspartate Amino Transferase 23 U/L (5-31); Blood Urea Nitrogen 20 mg/dL (9-16); Calcium 9.8 mg/dL (8.4-10.2); Carbon Dioxide 31 mmol/L (22-29); Chloride 102 mmol/L (96-108); Cholesterol 233 mg/dL; Estimated Glomerular Filt Rate > 60; Glucose Fasting 86 mg/dL (60-99); HDL Cholesterol 67 mg/dL; LDL Cholesterol Calculated 152 mg/dl; Potassium 3.7 mmol/L (3.3-5.1); Sodium 141 mmol/L (135-145); Total Protein 6.8 g/dL (6.5-8.0); Triglycerides 74 mg/dL
== END 2021-07-11 08:50 | disposition home or self-care (01) ==
LOC: HO.10HDL 08:49
PROVIDERS: Visit Provider Internal Medicine
DX: E78.5 Hyperlipidemia, unspecified (principal)
CPT/HCPCS: 36415; 80053; 80061

== ENCOUNTER 2021-07-13 13:00 | Outpatient (RCR) | payer MEDICARE, SELFPAY | END 2021-07-13 13:55 | disposition home or self-care (01) | LOC: HO.PT 13:00 | PROVIDERS: PCP Student in an Organized Health Care Education/Training Program; Visit Provider Internal Medicine | DX: M21.371 Foot drop, right foot (principal) | CPT/HCPCS: 97110; 97112; 97162 ==

== ENCOUNTER → 2021-07-27 13:32 | Outpatient (BNVA) | payer MEDICARE, SELFPAY | PROVIDERS: PCP Internal Medicine; Visit Provider Orthopaedic Surgery | DX: M17.12 Unilateral primary osteoarthritis, left knee (principal) | CPT/HCPCS: 20610; 99212; J1100 ==

== ENCOUNTER 2021-10-10 15:00 | Outpatient (RCR) | payer MEDICARE, SELFPAY | END 2021-10-10 18:09 | disposition home or self-care (01) | LOC: HO.PT 15:00 | PROVIDERS: Visit Provider Physician Assistant | DX: R53.1 Weakness (principal) | CPT/HCPCS: 97035; 97110; 97162 ==

== ENCOUNTER 2021-11-01 11:39 | Outpatient (REF) | payer MEDICARE, SELFPAY ==
--- NOTE | ~2021-11-01 | XR_ITS ---
EXAMINATION: XR LUMBOSACRAL SPINE CLINICAL INFORMATION: Back pain post lumbar decompression COMPARISON: Previous MR of the lumbar spine May 2021 TECHNIQUE: Three views of the lumbosacral spine. FINDINGS: There is curvature of the lumbar spine to the left. There are old L2-L3 and L5 vertebral body compression fractures that appear unchanged. Disc spaces are normal. There is lower lumbar spine facet arthritis. There is evidence of atherosclerotic disease. XR/XR lumbar spine 2-3V IMPRESSION: Scoliosis. Old L3 and L5 vertebral body compression fractures similar to previous MRI. Lower lumbar spine facet arthritis.
== END 2021-11-01 11:40 | disposition home or self-care (01) ==
LOC: HO.XRAY 11:39
PROVIDERS: PCP Internal Medicine; Visit Provider Physician Assistant
DX: M54.50 Low back pain, unspecified (principal)
CPT/HCPCS: 72100

== ENCOUNTER 2021-11-08 09:24 | Outpatient (REF) | payer MEDICARE, SELFPAY ==
[2021-11-08 10:20] LABS: MANUAL DIFF FLAG NO
[2021-11-08 10:23] LABS: Basophils Absolute Auto 0.1 X10*3/uL (0.0-0.2); Eosinophils Absolute Auto 0.3 X10*3/uL (0.0-0.4); Eosinophils Percent Auto 3.4 % (0-4); Hematocrit 38.6 % (37.0-47.0); Hemoglobin 12.1 g/dl (12.0-16.0); Imm Gran Abs Auto 0.01 X10*3/uL (0.00-0.03); Imm Gran Pct Auto 0.1 % (0.0-0.4); Lymphocytes Absolute Auto 2.8 X10*3/uL (1.2-4.9); Lymphocytes Percent Auto 31.3 % (20-40); Mean Corpuscular HGB Conc 31.3 g/dl (31.0-35.0); Mean Corpuscular Hemoglobin 28.2 pg (27.0-33.0); Mean Platelet Volume 11.8 fL (9.4-12.3); Monocytes Absolute Auto 0.6 X10*3/uL (0.1-1.2); Monocytes Percent Auto 6.7 % (2-11); Neutrophils Absolute Auto 5.2 x10*3/uL (2.0-8.3); Neutrophils Percent Auto 57.5 % (45-73); Platelet Count 329 X10*3/uL (160-400); Red Blood Count 4.29 X10*6/uL (4.20-5.50); Red Cell Distribution Width 13.1 % (11.0-16.0)
[2021-11-08 10:57] LABS: Alanine Aminotransferase 13 U/L (0-31); Albumin Level 4.3 g/dL (3.5-5.0); Alkaline Phosphatase 73 U/L (39-117); Anion Gap 12 (12-20); Aspartate Amino Transferase 21 U/L (5-31); Bilirubin Total 0.8 mg/dL (0.0-1.0); Blood Urea Nitrogen 17 mg/dL (9-16); Calcium 9.8 mg/dL (8.4-10.2); Carbon Dioxide 32 mmol/L (22-29); Chloride 101 mmol/L (96-108); Cholesterol 220 mg/dL; Estimated Glomerular Filt Rate > 60; Glucose Fasting 91 mg/dL (60-99); HDL Cholesterol 59 mg/dL; LDL Cholesterol Calculated 149 mg/dl; Potassium 4.1 mmol/L (3.3-5.1); Sodium 141 mmol/L (135-145); Total Protein 7.1 g/dL (6.5-8.0); Triglycerides 64 mg/dL
[2021-11-13 12:46] LABS: Vitamin D 25-OH, D2 <4 ng/mL; Vitamin D 25-OH, D3 30 ng/mL; Vitamin D 25-OH, Total 30 ng/mL (30-100)
== END 2021-11-08 09:25 | disposition home or self-care (01) ==
LOC: HO.10HDL 09:24
PROVIDERS: Visit Provider Internal Medicine
DX: E55.9 Vitamin D deficiency, unspecified (principal); E78.5 Hyperlipidemia, unspecified; M17.12 Unilateral primary osteoarthritis, left knee; D64.9 Anemia, unspecified
CPT/HCPCS: 36415; 80053; 80061; 82306; 85025

== ENCOUNTER 2021-11-21 12:40 | Outpatient (REF) | payer MEDICARE, SELFPAY ==
--- NOTE | ~2021-11-21 | MR_ITS ---
MR LUMBAR SPINE WITHOUT AND WITH CONTRAST CLINICAL INFORMATION: Back pain/lumbar stenosis. COMPARISON: Lumbar spine MRI 05/18/2021. TECHNIQUE: MRI of the lumbar spine was obtained using routine sequences with and without contrast. Intravenous contrast: Gadavist 6.5 mL FINDINGS: 5 nonrib-bearing lumbar-type vertebral bodies. Leftward convex scoliotic curvature of the lumbar spine. Stable appearing chronic compression fractures at the L3, L4, and L5 levels. Modic type I endplate signal changes at L5-S1. There is no additional bone marrow edema. There are no acute fractures. Disc desiccation at all lumbar levels. The conus terminates at the L1-L2 level. There are no significant extraspinal soft tissue findings. L1-L2: Small annular disc bulge and mild bilateral facet arthropathy and ligamentum flavum thickening. No central canal stenosis. Stable moderate bilateral foraminal stenosis. L2-L3: Diffuse annular disc bulge and moderate bilateral facet arthropathy and ligamentum flavum thickening. Prominent dorsal epidural fat. Findings in concert result in stable mild to moderate central canal stenosis, bilateral subarticular zone stenosis with mass effect on the traversing L3 nerve roots bilaterally, and mild to moderate bilateral foraminal stenosis. L3-L4: Diffuse annular disc bulge and severe bilateral facet arthropathy and ligamentum flavum thickening. Prominent dorsal epidural fat. Findings in concert result in moderate to severe central canal stenosis, severe bilateral subarticular zone stenosis with compression of the traversing L4 nerve roots bilaterally, and severe bilateral foraminal stenosis with compression of the exiting L3 nerve roots bilaterally. Findings unchanged. L4-L5: Left hemilaminectomy and microdiscectomy changes. Enhancing granulation/scar tissue within the epidural space. Disc osteophyte and facet arthropathy result in mild narrowing of the central canal in similar severe bilateral foraminal stenosis with compression of the exiting L4 nerve roots bilaterally. L5-S1: Diffuse disc osteophyte complex and severe bilateral facet arthropathy and ligamentum flavum thickening. Findings in concert result in persistent bilateral subarticular zone stenosis with mass effect on the traversing S1 nerve roots bilaterally in persistent severe bilateral foraminal stenosis with compression of the exiting L5 nerve roots bilaterally. MR/MR lumbar spine wo/w con IMPRESSION: - Leftward convex scoliotic curvature of the lumbar spine superimposed on multilevel degenerative disc disease and hypertrophic facet arthropathy: - At L2-L3, multifactorial degenerative changes and prominent dorsal epidural fat result in stable mild to moderate central canal stenosis, bilateral subarticular zone stenosis with mass effect on the traversing L3 nerve roots bilaterally, and mild to moderate bilateral foraminal stenosis. - At L3-L4, advanced spondylitic changes and prominent dorsal epidural fat result in stable moderate to severe central canal stenosis, severe bilateral subarticular zone stenosis with compression of the traversing L4 nerve roots bilaterally, and severe bilateral foraminal stenosis with compression of the exiting L3 nerve roots bilaterally. - At L4-L5, there are stable laminectomy changes and there is enhancing granulation/scar tissue within the epidural space. Advanced spondylitic changes at L4-L5 result in persistent severe bilateral foraminal stenosis with compression of the exiting L4 nerve roots bilaterally. - At L5-S1, advanced spondylitic changes result in stable bilateral subarticular zone stenosis with mass effect on the traversing S1 nerve roots bilaterally in persistent severe bilateral foraminal stenosis with compression of the exiting L5 nerve roots bilaterally, greater on the left side. - Chronic compression fractures at the L3, L4, and L5 levels. No acute fractures.
== END 2021-11-21 12:41 | disposition home or self-care (01) ==
LOC: HO.MRI 12:40
PROVIDERS: Visit Provider Physician Assistant
DX: M48.062 Spinal stenosis, lumbar region with neurogenic claudication (principal)
CPT/HCPCS: 72158; A9585

== ENCOUNTER 2021-12-05 09:44 | Outpatient (REF) | payer MEDICARE, SELFPAY ==
--- NOTE | ~2021-12-05 | CT_ITS ---
EXAMINATION: CT ABDOMEN AND PELVIS WITH CONTRAST CLINICAL INFORMATION: Abdominal pain. COMPARISON: None TECHNIQUE: Multidetector volumetric images were obtained from the superior aspect of the liver through the pubic symphysis following administration 85 mL of Omnipaque 350 intravenous contrast. Sagittal and coronal reformatted images were obtained on the technologist's workstation. Oral contrast: No. This CT examination was performed using dose optimization techniques as appropriate, variously including the following: *Automated exposure control *Adjustment of mA and/or kV according to patient size (this includes techniques or standardized protocols for targeted exams where dose is matched to indication/reason for exam; i.e. extremities or head) *Use of iterative reconstruction technique DLP: 385 mGy-cm FINDINGS: LUNG BASES: Plate-like atelectasis right middle lobe. The lung bases are clear. The heart size is normal. LIVER, GALLBLADDER, AND BILIARY TREE: The liver is normal in size, shape, and attenuation. No focal hepatic lesion or biliary ductal dilatation is present. The gallbladder is not visualized. PANCREAS: Unremarkable. SPLEEN: Unremarkable. ADRENAL GLANDS: Unremarkable. KIDNEYS AND URETERS: The kidneys are normal in size, shape, and attenuation. No hydronephrosis, hydroureter, or calculi seen. No perinephric stranding. There is an 8 mm partially exophytic lesion lower pole right kidney. It measures cyst density. BLADDER: Unremarkable. GASTROINTESTINAL TRACT: There are postsurgical sutures in the mid sigmoid colon with widely patent lumen. There is a large amount of stool seen throughout the colon consistent with significant constipation. There is a soft tissue area in the ileocecal junction, likely large stool. An underlying lesion is hard to exclude. Oral contrast opacified small bowel loops are normal caliber. Appendix is not visualized. No free air or free fluid seen. The stomach is nondistended. No free air or free fluid. ABDOMINAL WALL: No significant hernia is appreciated. LYMPH NODES: No abnormal lymph nodes seen. VASCULAR: Unremarkable. PELVIC VISCERA: The uterus is not visualized, likely atrophic or surgically removed. No adnexal mass or free fluid seen. There are no abnormal pelvic lymph nodes. OSSEOUS STRUCTURES: There are degenerative disc changes with spondylosis L4-L5 disc level. There is mild levoscoliosis dorsolumbar junction. Bilateral facet joint arthropathy seen at L5-S1, L4-L5 and L3-L4 disc levels. CT/CT abdomen pelvis w con IMPRESSION: Postsurgical changes along the sigmoid colon with widely patent lumen. Significant constipation. The small bowel loops are normal. The appendix is not seen. Likely partially exophytic cyst lower pole right kidney. Fleischner guidelines were followed.
[2021-12-05] MEDS: Barium Sulfate Oral (Berry) 450 ML ORAL.SUSP 900 ML PO (12:06)
[2021-12-05] MEDS: iohexoL 350 MG/ML 100 ML INFUS..BTL 85 ML IV (12:07)
== END 2021-12-05 09:45 | disposition home or self-care (01) ==
LOC: HO.CT 09:44
PROVIDERS: Visit Provider Internal Medicine
DX: R10.9 Unspecified abdominal pain (principal)
CPT/HCPCS: 74177; Q9967

== ENCOUNTER → 2021-12-07 14:17 | Outpatient (BNVA) | payer MEDICARE, SELFPAY | PROVIDERS: PCP Internal Medicine; Visit Provider Orthopaedic Surgery | DX: I83.90 Asymptomatic varicose veins of unspecified lower extremity (principal) | CPT/HCPCS: 20610; 99212; J1100 ==

== ENCOUNTER → 2022-01-11 13:16 | Outpatient (BNVA) | payer MEDICARE, SELFPAY | PROVIDERS: PCP Internal Medicine; Visit Provider Surgery Vascular Surgery | DX: I83.12 Varicose veins of left lower extremity with inflammation (principal) | CPT/HCPCS: 99202 ==

== ENCOUNTER → 2022-01-29 08:20 | Outpatient (BNVA) | payer MEDICARE, SELFPAY | PROVIDERS: PCP Internal Medicine | DX: N28.1 Cyst of kidney, acquired (principal); N20.0 Calculus of kidney | CPT/HCPCS: 99202 ==

== ENCOUNTER 2022-03-12 07:41 | Outpatient (REF) | payer MEDICARE, SELFPAY ==
--- NOTE | ~2022-03-12 | US_ITS ---
EXAMINATION: US LOWER EXTREMITY VENOUS (REFLUX EXAM), BILATERAL CLINICAL INDICATION: This is an 81-year-old female with venous insufficiency and varicose veins. COMPARISON: None. TECHNIQUE: Color flow triplex imaging and compression Doppler was performed to evaluate both the deep and the superficial systems bilaterally. To evaluate the superficial system, the examination was performed in the upright position. Color-flow Doppler ultrasound and compression ultrasound were utilized. In addition, maneuvers were utilized to demonstrate reflux. FINDINGS: 1. DEEP VENOUS ULTRASOUND OF THE RIGHT LOWER EXTREMITY: Common Femoral Vein: Compressible, normal respiratory variation and augmented flow. Femoral vein: Compressible, normal color flow and augmentation. Popliteal Vein: Compressible, normal augmentation. Deep Reflux: There is no evidence of reflux in the deep system in either the common femoral vein or the popliteal vein. There is no evidence of a Okeefe's cyst. 2. SUPERFICIAL ULTRASOUND WITH DOPPLER OF RIGHT LOWER EXTREMITY: GREAT SAPHENOUS VEIN: Saphenofemoral Junction: 0.6 cm Mid Thigh: 0.2 cm Above Knee: 0.2 cm Below Knee: 0.1 cm Mid Calf: 0.1 cm Ankle: 0.2 cm GSV REFLUX: No evidence of reflux. DUPLICATED GREAT SAPHENOUS VEIN: There is a 0.3 cm duplicated medial great saphenous vein without reflux. SMALL SAPHENOUS VEIN: Proximal: 0.3 cm Distal: 0.2 cm SSV REFLUX: No evidence of reflux. VEIN OF GIACOMINI: None Imaged. PERFORATORS: There is a 0.4 cm distal calf supervisor assembly stock without reflux. VARICOSITIES: None Imaged 3. DEEP VENOUS ULTRASOUND OF THE LEFT LOWER EXTREMITY: Common Femoral Vein: Compressible, normal respiratory variation and augmented flow. Femoral Vein: Compressible, normal color flow and augmentation. Popliteal Vein: Compressible, normal augmentation. Deep Reflux: There is no evidence of reflux in the deep system in either the common femoral vein or the popliteal vein. There is no evidence of a Okeefe's cyst. 4. SUPERFICIAL ULTRASOUND WITH DOPPLER OF LEFT LOWER EXTREMITY: GREAT SAPHENOUS VEIN: Saphenofemoral Junction: 0.6 cm Mid Thigh: Not seen Above Knee: Not seen Below Knee: Not seen Mid Calf: 0.2 cm Ankle: Not seen GSV REFLUX: No evidence of reflux. Portions of the great saphenous vein appear to be absent and may have been previously treated. DUPLICATED GREAT SAPHENOUS VEIN: There is a 0.4 cm duplicated medial great saphenous vein with reflux. SMALL SAPHENOUS VEIN: Proximal: 0.3 cm Distal: 0.3 cm SSV REFLUX: No evidence of reflux. VEIN OF GIACOMINI: None Imaged. PERFORATORS: There are 0.2 cm calf perforators without reflux. VARICOSITIES: There is a 0.2 cm anterior knee varicose vein with greater than 2 seconds of reflux. US/US venous duplex LE BI IMPRESSION: 1. There is a patent right great saphenous vein without evidence of reflux at the junction. 2. There is a patent right small saphenous vein without reflux at the junction. 3. There is a patent proximal left great saphenous vein without reflux at the junction. However, the great saphenous vein is not seen from the mid thigh downward. 4. There is a patent left small saphenous vein without reflux. 5. There is a left anterior knee varicose vein measuring 0.2 cm with greater than 2 seconds of reflux.
== END 2022-03-12 07:42 | disposition home or self-care (01) ==
LOC: HO.US 07:41
PROVIDERS: Visit Provider Surgery Vascular Surgery
DX: I83.93 Asymptomatic varicose veins of bilateral lower extremities (principal)
CPT/HCPCS: 93970

== ENCOUNTER → 2022-03-20 13:35 | Outpatient (BNVA) | payer MEDICARE, SELFPAY | PROVIDERS: PCP Internal Medicine; Visit Provider Surgery Vascular Surgery | DX: I83.11 Varicose veins of right lower extremity with inflammation (principal) | CPT/HCPCS: 99212 ==

== ENCOUNTER 2022-03-29 09:41 | Outpatient (REF) | payer MEDICARE, SELFPAY ==
[2022-03-29 11:11] LABS: Alanine Aminotransferase 12 U/L (0-31); Alkaline Phosphatase 60 U/L (39-117); Anion Gap 12 (12-20); Aspartate Amino Transferase 21 U/L (5-31); Bilirubin Total 0.9 mg/dL (0.0-1.0); Blood Urea Nitrogen 19 mg/dL (9-16); Calcium 9.4 mg/dL (8.4-10.2); Carbon Dioxide 31 mmol/L (22-29); Chloride 101 mmol/L (96-108); Cholesterol 210 mg/dL; Estimated Glomerular Filt Rate > 60; Glucose Fasting 85 mg/dL (60-99); HDL Cholesterol 60 mg/dL; LDL Cholesterol Calculated 137 mg/dl; Potassium 3.6 mmol/L (3.3-5.1); Sodium 140 mmol/L (135-145); Total Protein 6.5 g/dL (6.5-8.0); Triglycerides 65 mg/dL
[2022-03-29 11:33] LABS: Thyroid Stimulating Hormone 2.89 uIU/mL (0.32-4.0); Vitamin D 25-OH Total 31.7 ng/mL (>30)
[2022-03-29 12:22] LABS: Folate 18.7 ng/mL (> or = 4.0); Vitamin B12 1357 pg/mL (200-900)
== END 2022-03-29 09:42 | disposition home or self-care (01) ==
LOC: HO.10HDL 09:41
PROVIDERS: Visit Provider Internal Medicine
DX: E78.5 Hyperlipidemia, unspecified (principal); E07.9 Disorder of thyroid, unspecified; E55.9 Vitamin D deficiency, unspecified; G62.9 Polyneuropathy, unspecified
CPT/HCPCS: 36415; 80053; 80061; 82306; 82607; 82746; 84443

== ENCOUNTER → 2022-04-20 11:03 | Outpatient (BNVA) | payer MEDICARE, SELFPAY | PROVIDERS: PCP Internal Medicine; Visit Provider Surgery Vascular Surgery | DX: I83.11 Varicose veins of right lower extremity with inflammation (principal) | CPT/HCPCS: 37765 ==

== ENCOUNTER → 2022-05-03 12:45 | Outpatient (BNVA) | payer MEDICARE, SELFPAY | PROVIDERS: PCP Internal Medicine; Visit Provider Surgery Vascular Surgery | DX: I83.11 Varicose veins of right lower extremity with inflammation (principal) | CPT/HCPCS: 99212 ==

== ENCOUNTER 2022-05-09 22:07 | Emergency (ER) | payer MEDICARE, SELFPAY ==
--- NOTE | ~2022-05-09 | CT_ITS ---
EXAMINATION: CT ABDOMEN AND PELVIS WITH CONTRAST CLINICAL INFORMATION: Left lower quadrant pain COMPARISON: 12/05/2021 TECHNIQUE: Multidetector volumetric images were obtained from the superior aspect of the liver through the pubic symphysis following administration 85 mL of Omnipaque 350 intravenous contrast. Sagittal and coronal reformatted images were obtained on the technologist's workstation. Oral contrast: No This CT examination was performed using dose optimization techniques as appropriate, variously including the following: *Automated exposure control *Adjustment of mA and/or kV according to patient size (this includes techniques or standardized protocols for targeted exams where dose is matched to indication/reason for exam; i.e. extremities or head) *Use of iterative reconstruction technique DLP: 446 mGy-cm FINDINGS: LUNG BASES: The visualized lung bases are unremarkable. LIVER, GALLBLADDER, AND BILIARY TREE: The liver is normal in size, shape, and attenuation. There is mild intrahepatic biliary ductal dilatation which is similar to prior and may be physiologic in the setting of prior cholecystectomy. PANCREAS: Unremarkable. SPLEEN: Unremarkable. ADRENAL GLANDS: Unremarkable. KIDNEYS AND URETERS: Bilateral nephrograms are symmetric. Subcentimeter hypodensity off the lower right kidney statistically favors a cyst; no follow-up recommended. There is fullness of the bilateral renal pelvises which is similar to prior, with no obstructing calculus seen. BLADDER: Unremarkable. GASTROINTESTINAL TRACT: There is mild to moderate fluid distention of the majority of the small bowel. Moderate to large amount of stool is present throughout the colon. No significant bowel wall thickening is seen. No convincing evidence for bowel obstruction. Suture line noted in the region of the sigmoid colon. ABDOMINAL WALL: No significant hernia is appreciated. LYMPH NODES: Normal. VASCULAR: There is atherosclerotic calcification along the aorta. PELVIC VISCERA: Status post hysterectomy. OSSEOUS STRUCTURES: Scattered degenerative changes noted throughout the spine. CT/CT abdomen pelvis w IV con IMPRESSION: 1. No new acute findings identified in the abdomen/pelvis. 2. Moderate distention of much of the small and large bowel without convincing evidence for obstruction; ileus is a possibility. 3. Fullness of the bilateral renal pelvises without obstructing calculus, similar to prior.
--- NOTE | 2022-05-09 22:12 | ED.ABDPAIN ---
HPI - Abdominal Pain General Chief Complaint: Abdominal Pain Stated Complaint: abd pain Time Seen by Provider: 05/09/22 22:11 Source: patient and EMS Mode of arrival: EMS Limitations: no limitations History of Present Illness HPI narrative: 81-year-old female past medical history significant for renal cyst, diverticulitis, dyslipidemia, neuropathy, asthma, rosacea presenting to the emergency department with left lower quadrant pain times a few hours. Patient tells me that after dinner she noted that she started having pain in her left lower quadrant, felt like the time she diverticulitis. She reports she had bread, spinacn and avocado for dinner and then experiences pain. Reports she was constipated but had a bowl movment prior to arrival. Describes it as a sharp, intermittent pain 12/12. Patient tells me prior to her arrival she took a laxative at home. Denies fevers, chills, nausea, vomiting, changes in urination, chest pain, shortness of breath. Patient appears comfortable upon arrival. Related Data Home Medications Medication Instructions Recorded Confirmed albuterol sulfate 90 mcg/actuation 2 puff inhalation Q6H PRN 07/04/20 04/04/22 aerosol inhaler (ProAir HFA) Shortness Of Breath Or Wheezing beclomethasone dipropionate 80 2 inh inhalation BID 07/04/20 04/04/22 mcg/actuation HFA breath activated aerosol (Qvar RediHaler) ascorbic acid (vitamin C) 500 mg 500 mg PO DAILY 11/10/20 04/04/22 tablet (Vitamin C) cholecalciferol (vitamin D3) 25 25 mcg PO DAILY 11/10/20 04/04/22 mcg (1,000 unit) tablet (Vitamin D3) multivitamin 1 tab PO DAILY 11/10/20 04/04/22 alpha lipoic acid 600 mg capsule 600 mg PO BID 11/16/21 04/04/22 biotin 5,000 mcg disintegrating 10,000 mcg PO DAILY 11/16/21 04/04/22 tablet bromelains 500 mg tablet 1,000 mg PO DAILY 11/16/21 04/04/22 chromium picolinate 1,000 mcg 1,000 mcg PO DAILY 11/16/21 04/04/22 tablet flaxseed oil 1,000 mg capsule 1,000 mg PO BID 11/16/21 04/04/22 lutein 20 mg tablet 20 mg PO DAILY 11/16/21 04/04/22 magnesium 500 mg tablet 1,000 mg PO BID 11/16/21 04/04/22 mecobalamin (vitamin B12) 5,000 mcg PO 11/16/21 04/04/22 mcg disintegrating tablet psyllium husk 0.4 gram capsule 0.4 g PO BEDTIME 11/16/21 04/04/22 (Fiber (psyllium husk)) vitamin E 200 unit capsule 200 unit PO DAILY 11/16/21 04/04/22 Previous Rx's Medication Instructions Recorded furosemide 40 mg tablet 40 mg PO DAILY #90 tabs 08/31/21 Allergies Allergy/AdvReac Type Severity Reaction Status Date / Time mold [MOLD] Allergy Severe SWELLING Verified 05/03/22 12:57 alcohol [ALCOHOL] Allergy Intermediate RED, Verified 05/03/22 12:57 SWELLING corn syrup [CORN SYRUP] Allergy Intermediate red hot Verified 05/03/22 12:57 face dextrose [DEXTROSE] Allergy Intermediate RED RASH Verified 05/03/22 12:57 erythromycin base Allergy Intermediate RASH Verified 05/03/22 12:57 [ERYTHROMYCIN BASE] Penicillins [PENICILLINS] Allergy Intermediate SWELLING, Verified 05/03/22 12:57 RASH sucrose [SUCROSE] Allergy Intermediate RED RASH Verified 05/03/22 12:57 Sulfa (Sulfonamide Allergy Intermediate RASH, Verified 05/03/22 12:57 Antibiotics) redness, [SULFA (SULFONAMIDE redness ANTIBIOTICS)] valacyclovir Allergy Intermediate Redness of Verified 05/03/22 12:57 Skin morphine AdvReac Intermediate Hallucinati Verified 05/03/22 12:57 ons 12 Hour Nasal Allergy Intermediate hives Uncoded 05/03/22 12:57 WINE Allergy Intermediate RASH FROM Uncoded 05/03/22 12:57 RED WINE Review of Systems Review of Systems Constitutional : No Weight loss, No Fever, No Chills, No Fatigue, No Malaise ENT/Mouth : No sore throat, No Rhinorrhea Eyes: No Eye Pain, No Swelling, No Redness Cardiovascular : No Chest Pain, No SOB, No Dyspnea on Exertion, No Orthopnea, No Edema, No Palpitations Respiratory : No Cough, No Sputum, No Wheezing Gastrointestinal : No Nausea, No Vomiting, No Diarrhea, No Constipation, + abdominal Pain, No Hematochezia, No Melena Genitourinary : No Dysuria, No Urinary Frequency, No Hematuria, Musculoskeletal : No joint pain, No Myalgias, No Joint Swelling Skin : No Skin Lesions, No rash Neuro : No Weakness, No Numbness, No Dizziness, No Headache Psych : No Anxiety/Panic, No Depression All other systems reviewed and are negative Yes all other systems are reviewed and are negative [facility] Past Medical History Attestation statement: The following information was validated with the patient. Source: old records reviewed and nursing notes reviewed Medical History Abdominal pain Asthma Chronic pain syndrome Constipation by delayed colonic transit Dyslipidemia Left knee pain Left sided sciatica Neuropathy Onychomycosis Osteoarthritis of left knee Renal cyst Rosacea Spinal stenosis Thyroid disease Surgical History Colostomy in place History of back surgery (~03/31/21) History of cholecystectomy History of hysterectomy History of removal of both ovaries History of repair of hiatal hernia History of surgery History of surgery History of tonsillectomy Family History Family History Father Hypertension Pancreatitis Uremia Mother Diverticulosis Alzheimers disease Brother Colon cancer CVD (cardiovascular disease) Sister Colon cancer Social History Social History Household Members: Spouse Household Members Other:: 2 [facility] Do you presently have visiting nurse or other home services: No Alcohol intake: never Patient Tobacco Use Status: Former Tobacco user Tobacco use type: Cigarette Years Smoked: 1 year e-Cigarette/Vaping Use: Never Used Second Hand Smoke Exposure: No Advance Directives: No Advance Directives Information Provided: No service: No Current occupational status: retired Cognitive needs: Yes Hearing needs: No Vision needs: Yes Physical Exam ED Vital Signs: Vital Signs - 24 hr 05/09/22 22:20 05/09/22 22:25 05/09/22 23:39 Temperature 98.2 F 98.2 F 97.5 F Pulse Rate 63 57 Respiratory Rate 12 17 Blood Pressure 131/88 117/52 L Pulse Oximetry 99 99 Oxygen Delivery Method Room Air Room Air BMI result Body Mass Index 20.7 vss Appearance: Alert.? Oriented X3.? No acute distress.? Head: Normocephalic, atraumatic, no step-offs or deformities Eyes: Pupils equal, round and reactive to light.? ENT: Pharynx normal.? Neck: Normal inspection.? Neck supple.? CVS: Normal heart rate and rhythm.? Pulses normal.? Respiratory: No respiratory distress.? Breath sounds normal.? Abdomen: Soft and + tenderness left lower quadrant, normoactive bowel sounds.? Skin: Skin warm and dry.? Normal skin color.? Normal skin turgor.? Extremities: No lower extremity edema.? No calf ttp. 5/5 strength to bilateral upper and lower extremities Back: No midline tenderness, no C-spine tenderness, full range of motion, no CVA tenderness bilaterally Neuro: Oriented X 3.? No motor deficit.? No sensory deficit. CN 2-12 intact Course Reevaluation(s) Reevaluation #1: Patient's CBC within normal limits. Chemistry with no acute findings. Lipase within normal limits. Patient peeing and moving her bowels while in the department without difficulty. CT of the abdomen pelvis with no acute findings. Moderate distention of the small and large bowel without evidence of obstruction, suggest that illeus is a possibility however patient without nausea, vomiting, tolerating p.o.. Time: 23:57 Reevaluation #2: UA clean without infection. An enema was ordered however patient is requesting to leave refusing further intervention and treatment at this time. Advised to follow-up with GI and return with any new or worsening symptoms. Likely symptoms secondary to constipation. Patient reports she has had a bowel movement and is feeling much better, pain-free at this time. At this time patient will be discharged home advised to return with new or worsening symptoms, outlined worrisome signs and symptoms on discharge. Comfortable discharge. Time: 00:49 MDM - Abdominal Pain MDM Narrative Medical decision making narrative: 2214 81 year old f presents w/ 5/10 LLQ pain X few hours worsening PE w/ LLQ pain on palpation, normal BS. RRR. Lungs clear. Neuro nonfoal Plan- labs, urine, ct of abd and pelvis Concerns for diverticulitis versus diverticulosis or possible ventral hernia. No signs of acute abdomen, mesenteric ischemia. Unlikely cholecystitis, appendicitis, AAA, bowel obstruction. Medical Records Attestation: I reviewed the patient's medical records. Lab Data Attestation: I reviewed the patient's lab results. Result diagrams: 05/09/22 22:40 05/09/22 22:40 Labs: Lab Results 05/09/22 05/09/22 05/09/22 Range/Units 22:40 22:40 22:41 WBC 9.4 (4.8-10.8) X10*3/uL RBC 4.60 (4.20-5.50) X10*6/uL Hgb 13.0 (12.0-16.0) g/dl Hct 40.6 (37.0-47.0) % MCV 88.3 (80.0-98.0) fL MCH 28.3 (27.0-33.0) pg MCHC 32.0 (31.0-35.0) g/dl RDW 13.1 (11.0-16.0) % Plt Count 374 (160-400) X10*3/uL MPV 10.9 (9.4-12.3) fL Immature Gran % (Auto) 0.1 (0.0-0.4) % Neut % (Auto) 51.8 (45-73) % Lymph % (Auto) 36.0 (20-40) % [place] % (Auto) 7.7 (2-11) % Eos % (Auto) 3.1 (0-4) % Baso % (Auto) 1.3 (0-2) % Lymph # (Auto) 3.4 (1.2-4.9) X10*3/uL [place] # (Auto) 0.7 (0.1-1.2) X10*3/uL Eos # (Auto) 0.3 (0.0-0.4) X10*3/uL Baso # (Auto) 0.1 (0.0-0.2) X10*3/uL Abs Immat Gran (auto) 0.01 (0.00-0.03) X10*3/uL Absolute Neuts (auto) 4.9 (2.0-8.3) x10*3/uL Absolute Nucleated RBC 0.000 (0.0-0.012) X10*3/uL Nucleated RBC % (auto) 0.0 (0.0-0.2) /100WBC Sodium 144 (135-145) mmol/L Potassium 3.7 (3.3-5.1) mmol/L Chloride 101 (96-108) mmol/L Carbon Dioxide 32 H (22-29) mmol/L Anion Gap 15 (12-20) BUN 18 H (9-16) mg/dL Creatinine 0.77 (0.5-1.4) mg/dL Estim Creat Clear Calc 51.3 Estimated GFR > 60 Random Glucose 96 (60-115) mg/dL Calcium 10.2 D (8.4-10.2) mg/dL Magnesium 2.3 (1.6-2.6) mg/dL Total Bilirubin 0.5 (0.0-1.0) mg/dL AST 24 (5-31) U/L ALT 15 (0-31) U/L Alkaline Phosphatase 77 D (39-117) U/L Total Protein 7.8 (6.5-8.0) g/dL Albumin 4.8 (3.5-5.0) g/dL Lipase 78 (8-78) U/L Urine Color Urine Appearance Urine pH (5.0-9.0) Ur Specific Newell (1.005-1.025) Urine Protein (Neg-Trace) mg/dL Urine Glucose (UA) (Negative) mg/dL Urine Ketones (Negative) mg/dL Urine Blood (Negative) Urine Nitrite (Negative) Ur Leukocyte Esterase (Negative) Urine RBC (0-2) /HPF Urine WBC (0-5) /HPF Ur Squamous Epith Cells (0-2) /HPF Urine Bacteria (None Seen) Hyaline Casts (0-2) /LPF COVID-19 (TANJA) Negative (Negative) COVID-19 Clin Com See Note 05/10/22 Range/Units 00:10 WBC (4.8-10.8) X10*3/uL RBC (4.20-5.50) X10*6/uL Hgb (12.0-16.0) g/dl Hct (37.0-47.0) % MCV (80.0-98.0) fL MCH (27.0-33.0) pg MCHC (31.0-35.0) g/dl RDW (11.0-16.0) % Plt Count (160-400) X10*3/uL MPV (9.4-12.3) fL Immature Gran % (Auto) (0.0-0.4) % Neut % (Auto) (45-73) % Lymph % (Auto) (20-40) % [place] % (Auto) (2-11) % Eos % (Auto) (0-4) % Baso % (Auto) (0-2) % Lymph # (Auto) (1.2-4.9) X10*3/uL [place] # (Auto) (0.1-1.2) X10*3/uL Eos # (Auto) (0.0-0.4) X10*3/uL Baso # (Auto) (0.0-0.2) X10*3/uL Abs Immat Gran (auto) (0.00-0.03) X10*3/uL Absolute Neuts (auto) (2.0-8.3) x10*3/uL Absolute Nucleated RBC (0.0-0.012) X10*3/uL Nucleated RBC % (auto) (0.0-0.2) /100WBC Sodium (135-145) mmol/L Potassium (3.3-5.1) mmol/L Chloride (96-108) mmol/L Carbon Dioxide (22-29) mmol/L Anion Gap (12-20) BUN (9-16) mg/dL Creatinine (0.5-1.4) mg/dL Estim Creat Clear Calc Estimated GFR Random Glucose (60-115) mg/dL Calcium (8.4-10.2) mg/dL Magnesium (1.6-2.6) mg/dL Total Bilirubin (0.0-1.0) mg/dL AST (5-31) U/L ALT (0-31) U/L Alkaline Phosphatase (39-117) U/L Total Protein (6.5-8.0) g/dL Albumin (3.5-5.0) g/dL Lipase (8-78) U/L Urine Color Dark Yellow Urine Appearance Clear Urine pH 5.5 (5.0-9.0) Ur Specific Newell <= 1.005 (1.005-1.025) Urine Protein Negative (Neg-Trace) mg/dL Urine Glucose (UA) Negative (Negative) mg/dL Urine Ketones Negative (Negative) mg/dL Urine Blood Negative (Negative) Urine Nitrite Negative (Negative) Ur Leukocyte Esterase Trace H (Negative) Urine RBC 0-2 (0-2) /HPF Urine WBC 0-5 (0-5) /HPF Ur Squamous Epith Cells 0-2 (0-2) /HPF Urine Bacteria None Seen (None Seen) Hyaline Casts 0-2 (0-2) /LPF COVID-19 (TANJA) (Negative) COVID-19 Clin Com Critical Care Time Critical Care Time Critical Care Time: No Discharge Plan Discharge Clinical Impression: Abdominal pain, Constipation Patient Disposition: Home, Self-Care Instructions: Abdominal Pain (ED) Additional Instructions: Take your medications as prescribed. If you were prescribed antibiotics today, it is important that you take your medication to their entirety, do not skip any doses, do not finish them early. Follow-up with your primary care provider this week. Please call to schedule an appointment GI tomorrow. Return to the emergency department with new or worsening symptoms. Such as fevers, chills, chest pain, shortness of breath, nausea, vomiting, dizziness, headache, vision changes, lethargy, blood in stool, worsening pain, weakness, headache, vision changes In case of emergency call 911 You can take [id number] stool softeners as necessary. CT/CT abdomen pelvis w IV con IMPRESSION: 1. No new acute findings identified in the abdomen/pelvis. 2. Moderate distention of much of the small and large bowel without convincing evidence for obstruction; ileus is a possibility. 3. Fullness of the bilateral renal pelvises without obstructing calculus, similar to prior. Prescriptions: No Action furosemide 40 mg tablet 40 mg PO DAILY Qty: 90 2RF Label Comments: Patient usually takes everyday, but has not taken due to blockage multivitamin Tablet 1 tab PO DAILY ascorbic acid (vitamin C) [Vitamin C] 500 mg Tablet 500 mg PO DAILY cholecalciferol (vitamin D3) [Vitamin D3] 25 mcg (1,000 unit) Tablet 25 mcg PO DAILY Qvar RediHaler 80 mcg/actuation HFA aerosol breath activated 2 inh inhalation BID Rx Instructions: Patient knows they are supposed to take daily, but usually does 2 puffs in the morning and 1-2 puffs in the evening albuterol sulfate [ProAir HFA] 90 mcg/actuation HFA aerosol inhaler 2 puff inhalation Q6H PRN (Reason: Shortness Of Breath Or Wheezing) vitamin E 200 unit capsule 200 unit PO DAILY magnesium 500 mg tablet 1,000 mg PO BID flaxseed oil 1,000 mg capsule 1,000 mg PO BID Rx Instructions: administer with meals mecobalamin (vitamin B12) 5,000 mcg tablet,disintegrating PO alpha lipoic acid 600 mg capsule 600 mg PO BID bromelains 500 mg tablet 1,000 mg PO DAILY Rx Instructions: administer after a meal biotin 5,000 mcg tablet,disintegrating 10,000 mcg PO DAILY chromium picolinate 1,000 mcg tablet 1,000 mcg PO DAILY psyllium husk [Fiber (psyllium husk)] 0.4 gram capsule 0.4 g PO BEDTIME lutein 20 mg tablet 20 mg PO DAILY Rx Instructions: give with meal/snack Referrals: Magaly Caraballo MD [Physician] - 1 day Fabby Singh MD [Primary Care Provider] - 2 days Milton Vasques [Physician] - 2 days Stand Alone Forms: Work/School Release
[2022-05-09 22:20] VITALS: BP 131/88; BP 159/77; PULSE 63; PULSE 79; RESP 12; TEMP 36.8; O2SAT 100; O2SAT 99; BMI 20.7
[2022-05-09 22:25] VITALS: TEMP 36.8
[2022-05-09 22:47] LABS: MANUAL DIFF FLAG NO
[2022-05-09 22:49] LABS: Basophils Absolute Auto 0.1 X10*3/uL (0.0-0.2); Basophils Percent Auto 1.3 % (0-2); Eosinophils Absolute Auto 0.3 X10*3/uL (0.0-0.4); Eosinophils Percent Auto 3.1 % (0-4); Hematocrit 40.6 % (37.0-47.0); Imm Gran Abs Auto 0.01 X10*3/uL (0.00-0.03); Imm Gran Pct Auto 0.1 % (0.0-0.4); Lymphocytes Absolute Auto 3.4 X10*3/uL (1.2-4.9); Mean Corpuscular Hemoglobin 28.3 pg (27.0-33.0); Mean Corpuscular Volume 88.3 fL (80.0-98.0); Mean Platelet Volume 10.9 fL (9.4-12.3); Monocytes Absolute Auto 0.7 X10*3/uL (0.1-1.2); Monocytes Percent Auto 7.7 % (2-11); Neutrophils Absolute Auto 4.9 x10*3/uL (2.0-8.3); Neutrophils Percent Auto 51.8 % (45-73); Platelet Count 374 X10*3/uL (160-400); Red Cell Distribution Width 13.1 % (11.0-16.0); White Blood Count 9.4 X10*3/uL (4.8-10.8)
[2022-05-09 23:04] LABS: COVID-19 Test Negative (Negative); IDNOW Serial# 55D5AD1C
[2022-05-09 23:05] LABS: Alanine Aminotransferase 15 U/L (0-31); Albumin Level 4.8 g/dL (3.5-5.0); Alkaline Phosphatase 77 U/L (39-117); Anion Gap 15 (12-20); Aspartate Amino Transferase 24 U/L (5-31); Bilirubin Total 0.5 mg/dL (0.0-1.0); Blood Urea Nitrogen 18 mg/dL (9-16); Calcium 10.2 mg/dL (8.4-10.2); Carbon Dioxide 32 mmol/L (22-29); Chloride 101 mmol/L (96-108); Creatinine Clr Calc Pharmacy 51.3; Estimated Glomerular Filt Rate > 60; Glucose Random 96 mg/dL (60-115); Lipase 78 U/L (8-78); Magnesium 2.3 mg/dL (1.6-2.6); Potassium 3.7 mmol/L (3.3-5.1); Sodium 144 mmol/L (135-145); Total Protein 7.8 g/dL (6.5-8.0)
[2022-05-09] MEDS: iohexoL 350 MG/ML 100 ML INFUS..BTL IV (23:22)
[2022-05-09 23:39] VITALS: BP 117/52; PULSE 57; RESP 17; TEMP 36.4; O2SAT 99
[2022-05-10 00:27] LABS: Appearance Urine Clear; Color Urine Dark Yellow; Glucose Urine UA Negative (Negative); Leukocyte Esterase Urine Trace (Negative); Nitrite Urine Negative (Negative); PH 5.5 (5.0-9.0); Specific Gravity - Urine <= 1.005 (1.005-1.025); UMIC TRIGGER UACC YES; Urine Blood Negative (Negative); Urine Ketones Negative (Negative); Urine Protein Negative (Neg-Trace)
[2022-05-10 00:32] LABS: Bacteria Urine None Seen (None Seen); Hyaline Casts Urine 0-2 /LPF (0-2); RBC Urine 0-2 /HPF (0-2); Squamous Epithelial Cell Urine 0-2 /HPF (0-2); WBC Urine 0-5 /HPF (0-5)
--- NOTE | 2022-05-10 01:03 | PC.NURSE ---
Pt aox4. Daughter at the bedside. Pt reports no pain at this time. No apparent distress noted. Pt refused bisacodyl and enema at this time since pt took colace and senna earlier today. Discharge instructions provided to pt. Pt verbalizes understanding.
== END 2022-05-10 01:15 | disposition home or self-care (01) ==
PROVIDERS: Physician Assistant; Emergency Provider Internal Medicine; PCP Internal Medicine
DX: R10.32 Left lower quadrant pain (principal); K59.00 Constipation, unspecified; Z20.822 Contact with and (suspected) exposure to COVID-19; Z79.899 Other long term (current) drug therapy; Z87.891 Personal history of nicotine dependence
CPT/HCPCS: 74177; 80053; 81001; 83690; 83735; 85025; 87635; 99284; Q9967

== ENCOUNTER 2022-05-10 15:46 | Outpatient (REF) | payer MEDICARE, SELFPAY ==
--- NOTE | ~2022-05-10 | US_ITS ---
EXAMINATION: US RETROPERITONEAL LIMITED (RENAL ONLY) CLINICAL INFORMATION: Calculus of kidney. COMPARISON: CT abdomen and pelvis 05/09/2022. Ultrasound abdomen complete 11/14/2016. Renal ultrasound 07/20/2016. TECHNIQUE: Real-time imaging of the kidneys. FINDINGS: RIGHT KIDNEY: 10.9 x 4.4 x 4.8 cm (SAG x AP x TRV). The kidney is normal in size, contour, and echogenicity. Renal cortical thickness is normal. No renal calculi or hydronephrosis. There is anechoic cyst lower pole measuring 0.8 x 0.5 x 0.8 cm LEFT KIDNEY: 10.2 x 5.5 x 5.0 cm (SAG x AP x TRV). The kidney is normal in size, contour, and echogenicity. Renal cortical thickness is normal. No calculi or focal parenchymal lesions. No hydronephrosis. US/US renal BI IMPRESSION: Anechoic cyst lower pole right kidney. No congenital stones or hydronephrosis.
== END 2022-05-10 15:47 | disposition home or self-care (01) ==
LOC: HO.US 15:46
DX: N20.0 Calculus of kidney (principal)
CPT/HCPCS: 76775

== ENCOUNTER → 2022-05-22 10:10 | Outpatient (BNVA) | payer MEDICARE, SELFPAY | PROVIDERS: PCP Internal Medicine; Visit Provider Internal Medicine | DX: K59.01 Slow transit constipation (principal); Z63.6 Dependent relative needing care at home | CPT/HCPCS: 99202 ==

== ENCOUNTER → 2022-06-12 10:03 | Outpatient (BNVA) | payer MEDICARE, SELFPAY | PROVIDERS: PCP Internal Medicine; Visit Provider Surgery Vascular Surgery | DX: I83.12 Varicose veins of left lower extremity with inflammation (principal); I83.11 Varicose veins of right lower extremity with inflammation | CPT/HCPCS: 99212 ==

== ENCOUNTER 2022-06-13 15:00 | Outpatient (RCR) | payer MEDICARE, SELFPAY ==
--- NOTE | 2022-05-08 16:33 | MHC.PT.EP ---
[facility] [employer] [place] [facility] [place] [facility] [place] [facility] [address] [place] [address] Dr Marilu Guzman [address] [phone] F: [phone] F: [phone] F: [phone] F: [phone] Physical Therapy Plan of Care Date of Evaluation: Date of Surgery: Diagnosis: SEPARATION OF A MUSCLE (ABDOMINAL). DIASTASIS RECTI Assessment: Pt IS 81 YO F REFERRED TO PT FROM DR MEHTA WITH DIASTASIS RECTI. Pt WITH SIGNIF HX FOR ABDOMINAL SURGERIES. PRESENTS WITH 3 FINGER WIDTH DIASTASIS AND TTP ABDOMEN. Pt REPORTS PT IN THE PAST (FOR LB/HX LB SURGERY) WITH REPORT OF INCREASE IN ABDOMINAL PAIN WITH SLR. Pt MAY BENEFIT FROM PT FOR ST WORK AND ABDOMINAL STRENGTHENING/CORE WORK ALONG WITH ED RE POSTURE AND BODY MECH. MAY BENFIT FROM ABD BINDER OR KT FOR ABDOMINAL SUPPORT. WILL BE SEEN/ASSESSED BY PELVIC FLOOR PT ALSO Frequency and Duration: The patient will be seen 1X/WK X 6 WKS Short Term Goals: 1. INCREASED AWARENESS POSTURE AND ABDOMINAL CARE 2. I HEP WITH DC EX PLAN Halfway Goals: 1. DECREASED ABDOMINAL PAIN AT LEAST 50% WITH ADLS 2. Pt TO PERF 2-3 TASKS WITH APPROPRIATE BODY MECH Treatment Plan: Modalities to reduce pain, spasms and effusion. Manual therapy to restore motion and function. Therapeutic exercise to improve strength and flexibility. Neuromuscular re-education for posture and balance. Therapeutic activities to return to functional activities of daily living. Electronically signed by: CRUZITO WELLINGTON PT Please sign and return to therapist. Thank you for your referral.
--- NOTE | 2022-07-11 13:21 | MHC.PT.DC ---
[facility] [place] Office [place] [facility] [place] [facility] [address] Marilu Guzman [address] [phone] F: [phone] F: [phone] F: [phone] F: [phone] Physical Therapy Discharge Report Diagnosis: SEPARATION OF A MUSCLE (ABDOMINAL). DIASTASIS RECTI Date of Surgery: Date of Evaluation: 05/08/22 Date of Discharge: 07/11/22 Treatments to Date: 5 Cancellations to Date: No Shows to Date: Discharge Status: Recommend MD Follow-up Discharge Summary: PER LAST ASSESSMENT BY NGUYEN COMBS, PT :'The patient followed up w/ the surgeon who told her she is not a surgical candidate because of her age. pt was not happy w/ this response. We discussed looking for a second opinion but she is persistent on seeing a female surgeon. I educated pt she may need to broaden her search radius and look to the eastern part of the formerly [facility]. She stated from a physical therapy stand-point she wants visceral mobilizations which she used to get from a pelvic floor PT. There are no PT's at our location who do visceral mobilizations. I gave her a list of local therapists who offer visceral mobilizations. At this time, I cannot recommend anymore traditional PT as she reports increased pain w/ therapeutic exercise. She was encouraged to search for second surgical opinion and search for therapists who specialize in visceral mobilizations.' Electronically signed by: CRUZITO WELLINGTON PT Please sign and return to therapist. Thank you for your referral.
== END 2022-07-11 13:23 | disposition home or self-care (01) ==
LOC: HO.PT 15:00
PROVIDERS: PCP Internal Medicine; Visit Provider Internal Medicine
DX: M62.08 Separation of muscle (nontraumatic), other site (principal)
CPT/HCPCS: 97110; 97112; 97162; 97535

== ENCOUNTER → 2022-06-15 09:29 | Outpatient (BNVA) | payer MEDICARE, SELFPAY | PROVIDERS: PCP Internal Medicine; Visit Provider Surgery Vascular Surgery | DX: I83.12 Varicose veins of left lower extremity with inflammation (principal) | CPT/HCPCS: 37765 ==

== ENCOUNTER → 2022-06-26 09:24 | Outpatient (BNVA) | payer MEDICARE, SELFPAY | PROVIDERS: PCP Internal Medicine; Visit Provider Surgery Vascular Surgery | DX: I83.11 Varicose veins of right lower extremity with inflammation (principal); I83.12 Varicose veins of left lower extremity with inflammation | CPT/HCPCS: 99212 ==

== ENCOUNTER 2022-07-19 15:15 | Outpatient (REF) | payer MEDICARE, SELFPAY ==
[2022-07-19 16:28] LABS: Urine Cytology See Pathology rpt
== END 2022-07-19 15:16 | disposition home or self-care (01) ==
LOC: HO.LAB 15:15
PROVIDERS: Visit Provider Nurse Practitioner Family
DX: R31.29 Other microscopic hematuria (principal)
CPT/HCPCS: 88112; 99212

== ENCOUNTER → 2022-08-15 13:15 | Outpatient (BNVA) | payer MEDICARE, SELFPAY | PROVIDERS: PCP Internal Medicine; Visit Provider Internal Medicine | DX: K59.01 Slow transit constipation (principal) | CPT/HCPCS: 99212 ==

== ENCOUNTER → 2022-09-03 14:56 | Outpatient (REF) | payer MEDICARE, SELFPAY ==
--- NOTE | 2022-09-03 15:02 | ECG_ITS ---
Test Reason : CHEST PAIN Blood Pressure : / mmHG Vent. Rate : 060 BPM Atrial Rate : 060 BPM P-R Int : 154 ms QRS Dur : 082 ms QT Int : 424 ms P-R-T Axes : 040 -23 035 degrees QTc Int : 424 ms Normal sinus rhythm Possible Left atrial enlargement Borderline ECG When compared with ECG of 30-MAY-2018 18:15, Nonspecific T wave abnormality has replaced inverted T waves in Inferior leads Referred By: Fabby Cabrera Electronically Signed By:Malcolm Crespo
== END ==
LOC: HO.CARD 14:56
PROVIDERS: PCP Internal Medicine; Visit Provider Internal Medicine
DX: R07.9 Chest pain, unspecified (principal)
CPT/HCPCS: 93005

== ENCOUNTER → 2022-09-04 14:05 | Outpatient (BNVA) | payer MEDICARE, SELFPAY | PROVIDERS: PCP Internal Medicine; Visit Provider Surgery Vascular Surgery | DX: I83.11 Varicose veins of right lower extremity with inflammation (principal); I83.12 Varicose veins of left lower extremity with inflammation | CPT/HCPCS: 99212 ==

== ENCOUNTER 2022-09-19 10:17 | Outpatient (REF) | payer MEDICARE, SELFPAY ==
--- NOTE | ~2022-09-19 | US_ITS ---
EXAMINATION: US VENOUS BILATERAL LOWER EXTREMITIES (REFLUX EXAM) CLINICAL INDICATION: Leg pain and varicose veins. COMPARISON: None. TECHNIQUE: Color flow triplex imaging and compression Doppler was performed to evaluate both the deep and the superficial systems bilaterally. To evaluate the superficial system, the examination was performed in the upright position. Color-flow Doppler ultrasound and compression ultrasound were utilized. In addition, maneuvers were utilized to demonstrate reflux. FINDINGS: 1. DEEP VENOUS ULTRASOUND OF THE RIGHT LOWER EXTREMITY: Respiratory variation, normal compression and augmented flow are noted in the right common femoral vein as well as the right popliteal vein and there is no evidence of deep venous thrombosis at these locations. There is no evidence of reflux in the deep system in either the common femoral vein or the popliteal vein. There is no evidence of a Okeefe's cyst. 2. SUPERFICIAL ULTRASOUND WITH DOPPLER OF RIGHT LOWER EXTREMITY: The right great saphenous vein at the saphenofemoral junction measures 4 mm, at the proximal thigh not seen, at the mid thigh 1 mm, above the knee 1 mm, at the knee 1 mm, [id number] 1 mm, midcalf 1 mm and at the ankle measures 1 mm. Segmental reflux of 3 seconds is seen above the knee. DUPLICATED RIGHT GREAT SAPHENOUS VEIN: There is a 2 mm lateral accessory saphenous that does not reflux. The right small saphenous vein measures 2 mm and shows no reflux. ACCESSORY VEIN OF GIACOMINI: None. INCOMPETENT PERFORATORS: Perforators are present but none reflux. VARICES PRESENT: In the distal thigh there is a 0.2 cm varix with 2.5 seconds of reflux. 3. DEEP VENOUS ULTRASOUND OF THE LEFT LOWER EXTREMITY: Respiratory variation, normal compression and augmented flow are noted in the left common femoral vein as well as the left popliteal vein and there is no evidence of deep venous thrombosis at these locations. There is no evidence of reflux in the deep system in either the common femoral vein or the popliteal vein. There is no evidence of a Okeefe's cyst. 4. SUPERFICIAL ULTRASOUND WITH DOPPLER OF LEFT LOWER EXTREMITY: Left great saphenous vein at the saphenofemoral junction measures 7 mm, at the proximal thigh 3 mm and not visualized below this level. There is no reflux demonstrated in the region of the left great saphenous vein. DUPLICATED LEFT GREAT SAPHENOUS VEIN: There is a 3 mm lateral saphenous vein. The left small saphenous vein measures 2 mm proximally and not seen distally. No reflux. ACCESSORY VEIN OF GIACOMINI: None. INCOMPETENT PERFORATORS: Perforators are present but none reflux. VARICES PRESENT: In the proximal calf there is a 0.3 cm varix with about 3 seconds of reflux. There is a medial cyst present measuring 3.5 x 1.2 x 2.4 cm. US/US venous duplex LE BI IMPRESSION: 1. No evidence of reflux or thrombus in the common femoral veins or popliteal veins bilaterally. 2. There is segmental reflux in the right great saphenous vein above the knee.
== END 2022-09-19 10:18 | disposition home or self-care (01) ==
LOC: HO.US 10:17
PROVIDERS: Visit Provider Surgery Vascular Surgery
DX: I83.893 Varicose veins of bilateral lower extremities with other complications (principal)
CPT/HCPCS: 93970

== ENCOUNTER → 2022-10-11 14:02 | Outpatient (BNVA) | payer MEDICARE, SELFPAY | PROVIDERS: PCP Internal Medicine; Visit Provider Surgery Vascular Surgery | DX: I83.12 Varicose veins of left lower extremity with inflammation (principal); I83.11 Varicose veins of right lower extremity with inflammation | CPT/HCPCS: 99212 ==

== ENCOUNTER → 2022-11-08 13:48 | Outpatient (BNVA) | payer MEDICARE, SELFPAY | PROVIDERS: PCP Internal Medicine; Referring Provider Internal Medicine; Visit Provider Internal Medicine Cardiovascular Disease | DX: R07.9 Chest pain, unspecified (principal) | CPT/HCPCS: 99202 ==

== ENCOUNTER → 2022-11-29 08:59 | Outpatient (REF) | payer MEDICARE, SELFPAY ==
--- NOTE | ~2022-11-29 | NM_ITS ---
Myocardial perfusion study Indication: Chest pain to evaluate for myocardial ischemia Technique: The patient was brought in for a Lexiscan perfusion study on 11/29/2022. Patient performed low-level exercise and was injected 0.4 mg of Lexiscan intravenously. Within a minute of injection, 25 mCi of sestamibi was given intravenously. Images were obtained using the SPECT gamma camera interlaced with the gating device. Images were obtained in supine position. Resting perfusion study was performed on 11/30/2022. Patient was administered 25 mCi of sestamibi intravenously at rest. Images were then obtained in supine position. Images obtained with and without CT attenuation. Total DLP 112 mGy-cm. Images were processed with the software and compared side to side in short axis, horizontal long axis and vertical long axis views. Findings: The stress perfusion study showed non attenuated images show mildly reduced uptake in the anterolateral wall of the LV myocardium. Remainder of the LV myocardium is normally perfused. Attenuation corrected images show mildly reduced uptake in the distal septum of the LV myocardium. The gated study shows normal LV systolic function with calculated LVEF of 61%. LV cavity is normal in size. The gated study shows normal systolic wall thickening and contraction of segments. Resting study shows no change in perfusion pattern compared to stress perfusion study. Gating at rest reveals normal systolic wall motion with ejection fraction at 58%. The findings are consistent with no reversible defect suggestive of ischemia. Likely normal myocardial perfusion. NM/NM sher perf SPECT rest & str Impression: 1. Myocardial perfusion imaging study shows likely normal myocardial perfusion 2. Gated LVEF is 61% 3. Transient ischemic dilatation not present EKG is nondiagnostic for ischemia
--- NOTE | 2022-11-29 09:03 | CA_ITS ---
Transthoracic Echocardiogram Patient (Last, First, Middle): Birgit Collins A Gender: Female Date of : 1940 Age: 82 Procedure Date: 11/29/2022 Procedure Type: Transthoracic Echocardiogram Location: OP Height: 149.86 cm Weight: 57.61 kg BSA: 1.52 m2 Heart Rate: bpm BP: 130 / 72 mmHg Customs Director: TO Referring MD: Richard Tyson MD Criminal Intelligence Analyst: Richard Tyson MD Symptoms: R07.9 - Chest pain, unspecified Study Quality: Fair ECG Rhythm: Sinus Conclusions: - 1. Normal LV systolic function with pseudonormal filling pattern 2. Mildly dilated left atrium 3. Mild aortic regurgitation 4. Mildly dilated ascending aorta at 3.9 cm 5. Normal RV systolic pressure 6. No gross pericardial effusion Findings Left Ventricle Normal left ventricular size, thickness, and systolic function. The visually estimated ejection fraction is between 60-65%. Spectral Doppler is indicative of a pseudonormal filling pattern. E/E prime ratio is between 8 and 15 consistent with indeterminate filling pressures. There is mild septal asymmetric hypertrophy. Right Ventricle Normal right ventricular cavity size and systolic function. Atria The left atrium is mildly dilated. There is an interatrial septal aneurysm seen bowing to the right. There is no evidence of interatrial shunt. The right atrium is likely dilated. Aortic Valve There is mild calcification of the aortic valve. There is mild thickening of the aortic valve. There is no aortic valve stenosis. There is mild aortic valve regurgitation. Mitral Valve There is mild anterior and posterior mitral leaflet thickening. There is mild mitral annular calcification. There is trace mitral valve regurgitation. There is no mitral valve stenosis. Pulmonic Valve The pulmonic valve was not well visualized. Tricuspid Valve Likely normal tricuspid valve structure and function. There is mild tricuspid valve regurgitation. The right ventricular systolic pressure is normal. The right ventricular systolic pressure is 28 mmHg. Normal right atrial pressure. There is no evidence of pulmonary hypertension. Great Vessels The pulmonary artery was not well visualized. There is mild dilatation of the ascending aorta measuring 3.90 cm. Venous The inferior vena cava is normal in size and collapses greater than 50% with inspiration. Pericardium/Pleural There is no evidence of pericardial effusion. Prior Study Comparison No prior study available for comparison. Measurements 2D Linear Measurements IVSd: 1.43 0.6-0.9/0.6-1.0 cm LVIDd: 4.43 3.9-5.3/4.2-5.9 cm LVIDd Index: 2.91 2.4-3.2/2.2-3.1 cm/m2 LVIDs: 2.61 2.0-3.6 cm LVPWd: 0.94 0.7-1.1 cm LA Diam: 3.50 2.7-3.8/3.0-4.0 cm LAIDs Index: 2.30 1.5-2.3 cm/m2 LV Mass: 236.59 67-162/88-224 g LV Mass Index: 155.65 43-95/49-115 g/m2 LVOT Diam: 2.20 3.0+(-)1.3 cm 2D Systolic Function EF 4C: 62.40 >55% Mitral Valve MV Pk E: 0.82 MV PK A: 0.54 MV Decel Time: 226.00 E/A: 1.50 E'Lateral: 6.64 E'Medial: 5.44 E/E' Med: 15.00 E/E' Lat: 12.30 PHT: 66.00 MVA PHT: 3.33 Decel Sterling: 3.61 Aortic Valve AoV Pk Eddie: 1.15 AoV Mn Eddie: 0.79 AoV VTI: 0.28 AoV Pk Grad: 5.00 Aov Mn Grad: 3.00 GERRY Cont.VTI: 3.20 LVOT LVOT Pk Eddie: 1.01 LVOT Mn Eddie: 0.63 LVOT VTI: 0.24 LVOT Pk Grad: 4.00 LVOT Mn Grad: 2.00 LVOT Diam: 2.20 LVOT Area: 3.80 Diastolic Function MV Pk E: 0.82 MV Pk A: 0.54 E/A: 1.50 E'Medial: 5.44 E/E' Med: 15.00 E' Laterial: 6.64 E/E' Lat: 12.30 Right Ventricle TAPSE (mm): 22.60 TVS' Eddie: 12.90 Tricuspid Valve TR Pk Eddie: 2.48 TR Pk Grad: 25.00 RA Press: 3.00 RVSP: 28.00 Great Vessels Aorta Sinus of Valsalva: 3.45 2.0-3.5 cm Ao Asc: 3.90 2.1-3.4 cm Updated in Other Vendor System with Status of Final Richard Tyson MD electronically signed on 11/29/2022 3:37:04 PM with status of Final
--- NOTE | 2022-11-29 09:03 | CA_ITS ---
Acquisition Time: 2022-11-29 10:09:53 Total Exercise Time: 00:02:00 Test Indications: CP Medications: SEE H Protocol: LEXISCAN Max HR: 079 BPM 57% of Pred: 138 BPM Max BP: 126/068 mmHG Max Work Load: 1.0 METS Pharmacological stres test with Lexiscan injection while sitting and kicking her legs, without anginal symptoms, with isolated PACs, with normotensive response to injection, without EKG changes. Aminophylline 75mg IVP given to reverse Lexiscan. Nuclear images pending. Test reviewed with Zak Rodas. Referred By: Richard Tyson Overread By: RADHIKA GOMEZ
== END ==
LOC: HO.CARD 08:59
PROVIDERS: PCP Internal Medicine; Visit Provider Internal Medicine Cardiovascular Disease
DX: R07.9 Chest pain, unspecified (principal)
CPT/HCPCS: 78452; 93017; 93306; A9500; J0280; J2785

== ENCOUNTER → 2022-11-30 10:23 | Outpatient (BNVA) | payer MEDICARE, SELFPAY | PROVIDERS: PCP Internal Medicine; Visit Provider Surgery Vascular Surgery | DX: I83.12 Varicose veins of left lower extremity with inflammation (principal) | CPT/HCPCS: 37765 ==

== ENCOUNTER → 2022-12-13 10:45 | Outpatient (BNVA) | payer MEDICARE, SELFPAY | PROVIDERS: PCP Internal Medicine; Visit Provider Surgery Vascular Surgery | DX: I83.11 Varicose veins of right lower extremity with inflammation (principal); I83.12 Varicose veins of left lower extremity with inflammation | CPT/HCPCS: 99212 ==

== ENCOUNTER 2023-01-04 14:27 | Outpatient (REF) | payer MEDICARE, MEDICAID, SELFPAY ==
--- NOTE | ~2023-01-04 | US_ITS ---
EXAMINATION: US RETROPERITONEAL LIMITED (RENAL ONLY) CLINICAL INFORMATION: Cyst of kidney, acquired. COMPARISON: Renal ultrasound 05/10/2022. CT abdomen and pelvis 05/09/2022. Ultrasound abdomen complete 11/14/2016. TECHNIQUE: Real-time imaging of the kidneys. FINDINGS: RIGHT KIDNEY: 10.0 x 4.2 x 5.3 cm (SAG x AP x TRV). The kidney is normal in size, contour, and echogenicity. Renal cortical thickness is normal. No calculi or focal parenchymal lesions. No hydronephrosis. LEFT KIDNEY: 9.7 x 5.3 x 4.4 cm (SAG x AP x TRV). The kidney is normal in size, contour, and echogenicity. Renal cortical thickness is normal. No calculi or focal parenchymal lesions. No hydronephrosis. US/US renal BI IMPRESSION: The cyst seen on previous ultrasound is not seen on the current study. Based on the CT and sonographic appearances from 05/09/2022 and 05/10/2022, this is consistent with a simple cyst and no imaging follow-up is recommended.
== END 2023-01-04 14:28 | disposition home or self-care (01) ==
LOC: HO.US 14:27
PROVIDERS: PCP Internal Medicine; Visit Provider Nurse Practitioner Family
DX: N28.1 Cyst of kidney, acquired (principal)
CPT/HCPCS: 76775

== ENCOUNTER → 2023-01-15 15:31 | Outpatient (BNVA) | payer MEDICARE, MEDICAID, SELFPAY | PROVIDERS: PCP Internal Medicine; Referring Provider Internal Medicine; Visit Provider Internal Medicine Cardiovascular Disease | DX: R07.9 Chest pain, unspecified (principal) | CPT/HCPCS: 99212 ==

== ENCOUNTER → 2023-01-17 13:26 | Outpatient (BNVA) | payer MEDICARE, MEDICAID, SELFPAY | PROVIDERS: PCP Internal Medicine; Visit Provider Nurse Practitioner Family | DX: N28.1 Cyst of kidney, acquired (principal) | CPT/HCPCS: 99212 ==

== ENCOUNTER → 2023-01-18 09:31 | Outpatient (BNVA) | payer MEDICARE, MEDICAID, SELFPAY | PROVIDERS: PCP Internal Medicine; Visit Provider Surgery Vascular Surgery | DX: I83.11 Varicose veins of right lower extremity with inflammation (principal) | CPT/HCPCS: 37765 ==

== ENCOUNTER → 2023-01-31 14:57 | Outpatient (BNVA) | payer MEDICARE, MEDICAID, SELFPAY | PROVIDERS: PCP Internal Medicine; Visit Provider Surgery Vascular Surgery | DX: I83.11 Varicose veins of right lower extremity with inflammation (principal); I83.12 Varicose veins of left lower extremity with inflammation | CPT/HCPCS: 99212 ==

== ENCOUNTER 2023-04-11 14:22 | Outpatient (AMB) | payer MEDICARE, MEDICAID, SELFPAY ==
--- NOTE | 2023-04-11 14:26 | A.OFFVIS_ITS ---
Intake Vital Signs 04/11/23 14:27 Height 5 ft 1 in Weight 113 lb BMI 21.3 Intake Visit Reasons: Ov- Osteoarthritis of left knee last inj 12/07/21 Intake Note: Birgit is a 82 year old female who presents today for a follow up of her left knee OA, last injected on 12/07/2021. Allergies mold [MOLD] Allergy (Severe, Verified 04/11/23 14:47) SWELLING alcohol [ALCOHOL] Allergy (Intermediate, Verified 04/11/23 14:47) RED, SWELLING corn syrup [CORN SYRUP] Allergy (Intermediate, Verified 04/11/23 14:47) red hot face dextrose [DEXTROSE] Allergy (Intermediate, Verified 04/11/23 14:47) RED RASH erythromycin base [ERYTHROMYCIN BASE] Allergy (Intermediate, Verified 04/11/23 14:47) RASH Penicillins [PENICILLINS] Allergy (Intermediate, Verified 04/11/23 14:47) SWELLING, RASH sucrose [SUCROSE] Allergy (Intermediate, Verified 04/11/23 14:47) RED RASH Sulfa (Sulfonamide Antibiotics) [SULFA (SULFONAMIDE ANTIBIOTICS)] Allergy (Intermediate, Verified 04/11/23 14:47) RASH, redness, redness valacyclovir Allergy (Intermediate, Verified 04/11/23 14:47) Redness of Skin morphine Adverse Reaction (Intermediate, Verified 04/11/23 14:47) Hallucinations 12 Hour Nasal Allergy (Intermediate, Uncoded 04/11/23 14:47) hives WINE Allergy (Intermediate, Uncoded 04/11/23 14:47) RASH FROM RED WINE HPI Ov- Osteoarthritis of left knee last inj 12/07/21 HPI Details Birgit is an 82 year old woman who returns to discuss her left knee OA She says she is feeling depressed due to a recent diagnosis of Parkinson's disease. She says she was prescribed Gabapentin for this but has not yet started taking it due to the side effects. She says she just has shaking and denies any pain In regards to her knee she says she has pain with daily activity, which returned ~2 weeks ago. She says she felt her knee dislocate when she took a step and this resolved after she babied her knee. [facility] Medical History Abdominal pain Asthma Chronic pain syndrome Constipation by delayed colonic transit Dyslipidemia Left knee pain Left sided sciatica Neuropathy Onychomycosis Osteoarthritis of left knee Renal cyst Rosacea Spinal stenosis Thyroid disease Surgical History Colostomy in place History of back surgery (~03/31/21) History of cholecystectomy History of hysterectomy History of removal of both ovaries History of repair of hiatal hernia History of surgery History of surgery History of tonsillectomy Family History Father Hypertension Pancreatitis Uremia Mother Diverticulosis Alzheimers disease Brother Colon cancer CVD (cardiovascular disease) Sister Colon cancer Social History Household Members: Spouse Household Members Other:: 2 [facility] Do you presently have visiting nurse or other home services: No Alcohol intake: never Patient Tobacco Use Status: Former Tobacco user Tobacco use type: Cigarette Years Smoked: 1 year e-Cigarette/Vaping Use: Never Used Second Hand Smoke Exposure: No service: No Current occupational status: retired Cognitive needs: Yes Hearing needs: No Vision needs: Yes Review of Systems Const All systems reviewed & are unremarkable except as noted in HPI and below Physical Exam Vital Signs: BMI result Body Mass Index 21.3 Const General: no acute distress, alert and awake Orientation/consciousness: patient oriented x3 HEENT Head: Yes normocephalic and Yes atraumatic Eyes EOM: EOMs intact bilaterally Resp Effort & Inspection: normal respiratory effort and able to speak in complete sentences Cardio Jugular venous distension: no JVD Skin General skin exam: turgor normal Rashes: no rashes Neuro General: patient oriented x3 Extrem Other: Left Knee: TTP medial & lateral joint line Psych Appearance: grossly normal Affect: normal affect Attitude: cooperative Office Procedures Joint Injection/Drain Joint Injection/Drain Details: Injected 1 mL of Decadron and 3 mL 1% lidocaine and 3 mL of 0.25% Marcaine. Site was prepped using aseptic technique. Patient tolerated the procedure well. Secondary Site: left knee Approach Used: anterolateral Coding 78279 - Large joint Procedure code (CPT) selection complete Results Reviewed Results Reviewed: 04/11/23 14:32 BUPivacaine MPF 0.25 % [Sensorcaine-MPF 0.25% 10 ML] 10 ml .ROUTE .STK-MED ONE Lidocaine HCl 2 % MPF [Xylocaine 2 % MPF] 5 ml .ROUTE .STK-MED ONE dexAMETHasone sod phosphate [Decadron] 4 mg .ROUTE .STK-MED ONE Assessment & Plan Assessment & Plan (1) Osteoarthritis of left knee: Code(s): M17.12 - Unilateral primary osteoarthritis, left knee Plan: This is an 82 year old woman with left knee OA. She has pain with daily activity, worse with ambulation. She has a hx of relief from injections, and her last was on 12/07/21. I injected her left knee today, which she tolerated well. She can follow up prn. Plan Scribed for Geoffrey Lawrence MD by Yonatan Benson, medical practice assistant, on 04/11/23 at 2:50 PM, EST. Coding Level of Care Code Est Pt Level 3 (18523) Diagnoses Osteoarthritis of left knee M17.12 CPT Codes Coding - 85710 Large joint: 91738 - Large joint ([id number])
[2023-04-11 14:27] VITALS: BMI 21.3
== END 2023-04-11 14:55 | disposition home or self-care (01) ==
PROVIDERS: PCP Internal Medicine; Visit Provider Orthopaedic Surgery
DX: M17.12 Unilateral primary osteoarthritis, left knee (principal)
CPT/HCPCS: 20610; 99213

== ENCOUNTER → 2023-04-11 14:22 | Outpatient (BNVA) | payer OTHER, SELFPAY | PROVIDERS: PCP Internal Medicine; Visit Provider Orthopaedic Surgery | DX: M17.12 Unilateral primary osteoarthritis, left knee (principal) | CPT/HCPCS: 20610; 99212; J1100 ==

== ENCOUNTER 2023-05-23 11:42 | Outpatient (AMB) | payer OTHER, SELFPAY ==
[2023-05-23 11:46] VITALS: BP 128/82; PULSE 69; O2SAT 100; BMI 24.2
--- NOTE | 2023-05-23 11:46 | MHC.PC.OV ---
Vital Signs 05/23/23 11:46 Height 5 ft 1 in Weight 128 lb BMI 24.2 BP 128/82 Blood Pressure Location Lt brachial Position Sitting Pulse 69 Pulse Source Pulse Oximeter Temp Source Skin Pulse Oximetry (%) 100 Oxygen Delivery Method Room Air Intake Visit Reasons: Tremors/Abdominal Pain F/U Intake Note: Patient is here to follow up [employer] Required: No Allergies mold [MOLD] Allergy (Severe, Verified 05/23/23 12:04) SWELLING alcohol [ALCOHOL] Allergy (Intermediate, Verified 05/23/23 12:04) RED, SWELLING corn syrup [CORN SYRUP] Allergy (Intermediate, Verified 05/23/23 12:04) red hot face dextrose [DEXTROSE] Allergy (Intermediate, Verified 05/23/23 12:04) RED RASH erythromycin base [ERYTHROMYCIN BASE] Allergy (Intermediate, Verified 05/23/23 12:04) RASH Penicillins [PENICILLINS] Allergy (Intermediate, Verified 05/23/23 12:04) SWELLING, RASH sucrose [SUCROSE] Allergy (Intermediate, Verified 05/23/23 12:04) RED RASH Sulfa (Sulfonamide Antibiotics) [SULFA (SULFONAMIDE ANTIBIOTICS)] Allergy (Intermediate, Verified 05/23/23 12:04) RASH, redness, redness valacyclovir Allergy (Intermediate, Verified 05/23/23 12:04) Redness of Skin morphine Adverse Reaction (Intermediate, Verified 05/23/23 12:04) Hallucinations 12 Hour Nasal Allergy (Intermediate, Uncoded 05/23/23 12:04) hives WINE Allergy (Intermediate, Uncoded 05/23/23 12:04) RASH FROM RED WINE Medication List - Last Reconciled 05/23/23 by VOLODYMYR Helms alpha lipoic acid 600 mg PO BID ascorbic acid (vitamin C) (Vitamin C) 500 mg PO DAILY beclomethasone dipropionate 80 mcg/actuation (Qvar RediHaler) 2 inhalations inhalation BID biotin 10,000 mcg PO DAILY bromelains 1,000 mg PO DAILY cholecalciferol (vitamin D3) (Vitamin D3) 25 mcg PO DAILY 90 days chromium picolinate 1,000 mcg PO DAILY flaxseed oil 1,000 mg PO BID furosemide 40 mg PO DAILY PPVN-irnwgiyt-zrwswdjufho xt 100-100-225 mg (MARQUIS Soothe) caps PO glycine mg PO lutein 20 mg PO DAILY magnesium 1,000 mg PO BID mecobalamin (vitamin B12) mcg PO multivitamin 1 tab PO DAILY psyllium husk (Fiber (psyllium husk)) 0.4 grams PO BEDTIME 90 days vitamin E 200 units PO DAILY Tobacco use date assessed: 05/23/23 Fall risk assessment: No Falls in past year Last assessed Fall Risk: 05/23/23 HPI Tremors/Abdominal Pain F/U HPI Details Patient is an 82-year-old female who presents today for referrals. Patient of Dr. Deal. Medical history significant for asthma, constipation, neuropathy, and tremors among others. Patient reports history of abdominal hernia repair in the past she was seen by surgeon in [place] and they do not recommend any more surgeries for the patient. Patient reports constipation alternating with diarrhea, she reports intermittent abdominal pain in left lower quadrant. She did have colostomy in the past and this was reversed. She denies nausea or vomiting, no acid reflux. She was seen by Dr. Rayo Neurology who diagnosed with Parkinson's disease and started on medication, although patient did not start taking medication, due to possible side effect of constipation, patient does not remember the name of medication. Patient would like to see another Neurology for a 2nd opinion. Patient denies shortness of breath or chest pain. [facility] Medical History Renal cyst Abdominal pain Thyroid disease Chronic pain syndrome Osteoarthritis of left knee Spinal stenosis Left sided sciatica Constipation by delayed colonic transit Left knee pain Dyslipidemia Onychomycosis Neuropathy Rosacea Asthma Surgical History History of surgery History of back surgery (~03/31/21) History of surgery History of removal of both ovaries Colostomy in place History of tonsillectomy History of cholecystectomy History of repair of hiatal hernia History of hysterectomy Family History Father Hypertension Pancreatitis Uremia Mother Diverticulosis Alzheimers disease Brother Colon cancer CVD (cardiovascular disease) Sister Colon cancer Social History Household Members: Spouse Household Members Other:: 2 Housing: Condominium Do you presently have visiting nurse or other home services: No Alcohol intake: never Patient Tobacco Use Status: Former Tobacco user Tobacco use type: Cigarette Years Smoked: 1 year e-Cigarette/Vaping Use: Never Used Second Hand Smoke Exposure: No service: No Current occupational status: retired Cognitive needs: Yes Hearing needs: No Vision needs: Yes Questionnaire Thrive Questionnaire Date Thrive assessed: 09/03/22 AUDIT C Alcohol Use Questionnaire (AUDIT-C) 1. How often do you have a drink containing alcohol?: Never Total Score: 0 Score Reviewed/Action Taken: No NANCY-7 AMB Questionnaire NANCY-7 Date NANCY - 7 assessed: 09/03/22 Source: Developed by Drs. Milton Garza, Sandra Nieto, Frandy Riley and colleagues, with an educational shweta from [employer]. Review of Systems Const Denies body aches, Denies chills, Denies fever(s) and Denies headache(s) ENT Denies dizziness, Denies otalgia, Denies headache(s), Denies nasal discharge, Denies sinus pain and Denies sore throat Card Denies chest pain, Denies edema, Denies lightheadedness and Denies dyspnea Resp Denies cough, Denies dyspnea and Denies wheezing GI Reports abdominal pain, Reports constipation, Denies heartburn, Reports diarrhea, Denies nausea and Denies vomiting Denies dysuria Musc Denies myalgias Skin/Breast Denies rash Neuro Reports as per HPI, Denies dizziness and Denies headache(s) Aller/Immun Denies wheezing Physical exam (Primary Care) Vital Signs: Last Vital Signs Pulse 69 05/23/23 11:46 BP 128/82 05/23/23 11:46 Pulse Ox 100 05/23/23 11:46 Oxygen Delivery Method Room Air 05/23/23 11:46 BMI result Body Mass Index 24.2 Tobacco/Smoking Status: Tobacco use Status Tobacco use date assessed 05/23/23 05/23/23 11:47 Patient Tobacco Use Status Former Tobacco user 05/23/23 11:47 Tobacco use type Cigarette 05/23/23 11:47 e-Cigarette/Vaping Use Never Used 05/23/23 11:47 Thrive Assessment: Date of Thrive Assessment Date Thrive assessed 09/03/22 05/23/23 11:47 Const General: cooperative and no acute distress Orientation/consciousness: patient oriented x3 HENMT Head: Yes normocephalic and Yes atraumatic Throat: Yes posterior oropharynx normal Eyes General: appearance normal, both eyes and all related structures Neck Neck: Yes normal visual inspection, Yes full ROM and Yes no lymphadenopathy Resp Effort & Inspection: normal respiratory effort and able to speak in complete sentences Auscultation: clear to auscultation bilaterally, no crackles, no rales, no rhonchi and no wheezes Cardio Rate: regular rate Rhythm: regular rhythm Heart sounds: S1 normal heart sound present and S2 normal heart sound present GI Other: Left lower quadrant sensitive to palpation, patient denies tenderness Skin is intact Palpation (GI): Soft to palpation, not firm, nontender, no guarding, not rigid and no hepatosplenomegaly Auscultation: normal bowel sounds Skin General skin exam: no rashes or lesions noted Neuro General: patient oriented x3 Gait exam (Neuro): Normal gait present Extrem General: Yes full ROM and No edema Assessment and Plan Assessment & Plan (1) Tremors of nervous system: Code(s): R25.1 - Tremor, unspecified Plan: Neurology referral for a 2nd opinion (2) Neuropathy: Code(s): G62.9 - Polyneuropathy, unspecified Plan: Neurology referral (3) Constipation by delayed colonic transit: Code(s): K59.01 - Slow transit constipation Plan: Continue dietary fiber Increase fluid consumption GI referral for an evaluation and treatment Plan Patient was encouraged to complete her blood work Orders: Referrals Gastroenterology Referral K59.01 - Slow transit constipation Neurology Referral G62.9 - Polyneuropathy, unspecified, R25.1 - Tremor, unspecified Coding Level of Care Code Est Pt Level 3 (15314) Diagnoses Tremors of nervous system R25.1 Neuropathy G62.9 Constipation by delayed colonic transit K59.01
== END 2023-05-23 12:25 | disposition home or self-care (01) ==
PROVIDERS: PCP Internal Medicine; Visit Provider Nurse Practitioner Family
DX: R25.1 Tremor, unspecified (principal); G62.9 Polyneuropathy, unspecified; K59.01 Slow transit constipation
CPT/HCPCS: 99213

== ENCOUNTER 2023-06-07 14:33 | Outpatient (AMB) | payer OTHER, SELFPAY ==
--- NOTE | 2023-06-07 14:35 | A.OFFVIS_ITS ---
Intake Vital Signs 06/07/23 14:39 Height 5 ft 1 in Weight 123 lb 7.342 oz BMI 23.3 BP 146/67 H Blood Pressure Location Lt brachial Position Sitting Pulse 73 Intake Visit Reasons: Slow Transit Constipation Intake Note: Birgit presents in the office as a follow up slow transit constipation. CC: Her concerns are her hernias and she would like for you to examine her stomach. Allergies mold [MOLD] Allergy (Severe, Verified 06/07/23 14:41) SWELLING alcohol [ALCOHOL] Allergy (Intermediate, Verified 06/07/23 14:41) RED, SWELLING corn syrup [CORN SYRUP] Allergy (Intermediate, Verified 06/07/23 14:41) red hot face dextrose [DEXTROSE] Allergy (Intermediate, Verified 06/07/23 14:41) RED RASH erythromycin base [ERYTHROMYCIN BASE] Allergy (Intermediate, Verified 06/07/23 14:41) RASH Penicillins [PENICILLINS] Allergy (Intermediate, Verified 06/07/23 14:41) SWELLING, RASH sucrose [SUCROSE] Allergy (Intermediate, Verified 06/07/23 14:41) RED RASH Sulfa (Sulfonamide Antibiotics) [SULFA (SULFONAMIDE ANTIBIOTICS)] Allergy (Intermediate, Verified 06/07/23 14:41) RASH, redness, redness valacyclovir Allergy (Intermediate, Verified 06/07/23 14:41) Redness of Skin morphine Adverse Reaction (Intermediate, Verified 06/07/23 14:41) Hallucinations 12 Hour Nasal Allergy (Intermediate, Uncoded 06/07/23 14:41) hives WINE Allergy (Intermediate, Uncoded 06/07/23 14:41) RASH FROM RED WINE HPI HPI Comments History of Present Illness Details This is an 81-year-old female past medical history of complicated sigmoid diverticulitis leading to pelvic abscess and 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 Initial visit 05/22/22: Patient states that she had a history of partial SBO in 2020 that was conservatively managed. The reason to go to the emergency room this time was that she had a very similar pain and was worried that she may have another SBO. Describes the pain as sharp, shooting, localized to her right lower quadrant associated with feeling of bloating and nausea. No fevers or chills. At baseline, patient has a least 3-4 bowel movements a week. Does complain of significant discomfort shortly after eating associated with bloating, that goes away in a few hours. Colonoscopy 2018: Tortuous sigmoid with difficulty visualization, ultimately advanced to cecum. Sigmoid resection and colostomy 2018 Path showed large bowel within normal limits. Patient describes recent emotional distress is including moving to [facility] after her children told their house. Her was also recently diagnosed with Alzheimer's, and patient is the only caregiver. She also has a strained relationship with 1 of her daughters at present. 08/15/22: Tells me that she was able to see Dr. Ordoñez in [place]. However, due to her age, she was not felt to be an appropriate candidate for surgical repair of her ventral hernia. She is currently seeking a 2nd opinion [facility]. In terms of her symptoms, she states that bowels are more regular now, able to have 1 bowel movement every day, however stool is still a bit hard, and leads to straining. Postprandial bloating is not as bothersome anymore now that her bowels are more regular. 06/07/23: Was seen by Deanne Moffett in [facility] [facility]. Again, was recommended a conservative management which the pt is not too happy about as she is afraid that we are just letting her hernias get bigger and they may rupture. In terms of her constipation, she mentions has been going fairly regularly and no issues with straining any more. [facility] Medical History (Updated 06/07/23 @ 15:28 by Xochitl Jensen MD) Renal cyst Abdominal pain Thyroid disease Chronic pain syndrome Osteoarthritis of left knee Spinal stenosis Left sided sciatica Constipation by delayed colonic transit Left knee pain Dyslipidemia Onychomycosis Neuropathy Rosacea Asthma Surgical History (Updated 06/07/23 @ 14:40 by MOIRA Mccullough) Hx of colonoscopy History of surgery History of back surgery (~03/31/21) History of surgery History of removal of both ovaries Colostomy in place History of tonsillectomy History of cholecystectomy History of repair of hiatal hernia History of hysterectomy Family History Father Hypertension Pancreatitis Uremia Mother Diverticulosis Alzheimers disease Brother Colon cancer CVD (cardiovascular disease) Sister Colon cancer Social History Household Members: Spouse Household Members Other:: 2 Housing: Condominium Do you presently have visiting nurse or other home services: No Alcohol intake: never Patient Tobacco Use Status: Former Tobacco user Tobacco use type: Cigarette Years Smoked: 1 year e-Cigarette/Vaping Use: Never Used Second Hand Smoke Exposure: No service: No Current occupational status: retired Cognitive needs: Yes Hearing needs: No Vision needs: Yes Review of Systems Const All systems reviewed & are unremarkable except as noted in HPI and below Physical Exam Vital Signs: Last Vital Signs Pulse 73 06/07/23 14:39 BP 146/67 H 06/07/23 14:39 BMI result Body Mass Index 23.3 Gen appear: NAD, elderly female HEENT: nonicteric, no cervical lymphadenopathy Chest: CTA CVS: Regular S1/S2 Abd: soft, nontender, nondistended, large asymmetric ventral hernia R>L, with firm scar tissue under the incision line, also seems to a small hernia at previous colostomy site Ext: no peripheral edema Neuro: A/Ox3, noted to move all extremities spontaneously, ambulates with the help of a cane Psych: interacting appropriately Assessment & Plan Assessment & Plan (1) Ventral hernia: Code(s): K43.9 - Ventral hernia without obstruction or gangrene (2) Constipation by delayed colonic transit: Code(s): K59.01 - Slow transit constipation Plan Clarified with the pt that hernia evaluation and management is done by surgical colleagues and I am not able to offer much assistance with its repair. I do however concur that as long as not symptomatic, limited role of repair case given prev hx of multiple abdominal surgeries with likely dense adhesive disease and her age. Pt would still like to pursue yet another surgical opinion and will be discussing another referral with her PCP. We also reviewed s/sx of obstruction that will prompt urgent medical attention. In terms of her constipation, this is well controlled with the measures previously discussed which the pt. We reviewed these again and instructions were handed to her in writing as well as per her request. Additionally, pt also requests screening for chronic hepatitis, labs have been ordered. Patient to call for follow-up p.r.n. for any issues that may arise in the future Orders: Orders Hepatitis B Surface Antigen 06/14/23 Z11.59 - Encounter for screening for other viral diseases Hepatitis B Core Antibody 06/14/23 Z11.59 - Encounter for screening for other viral diseases Hepatitis B Surface Antibody 06/14/23 Z11.59 - Encounter for screening for other viral diseases Hepatitis C Antibody 06/14/23 Z11.59 - Encounter for screening for other viral diseases Patient Instructions: Can take PRN senna or bisacodyl for constipation. If you notice there is no bowel movement x 2 days, please start miralax once daily. For any severe abdominal pain, nausea or vomiting please go to ER Coding Level of Care Code Est Pt Level 4 (43243) Diagnoses Ventral hernia K43.9 Constipation by delayed colonic transit K59.01
[2023-06-07 14:39] VITALS: BP 146/67; PULSE 73; BMI 23.3
== END 2023-06-07 15:32 | disposition home or self-care (01) ==
PROVIDERS: PCP Internal Medicine; Visit Provider Internal Medicine
DX: K43.9 Ventral hernia without obstruction or gangrene (principal); K59.01 Slow transit constipation
CPT/HCPCS: 99214

== ENCOUNTER → 2023-06-07 14:33 | Outpatient (BNVA) | payer OTHER, SELFPAY | PROVIDERS: PCP Internal Medicine; Visit Provider Internal Medicine | DX: K59.01 Slow transit constipation (principal); K43.9 Ventral hernia without obstruction or gangrene | CPT/HCPCS: 99212 ==

== ENCOUNTER 2023-06-14 09:26 | Outpatient (REF) | payer OTHER, SELFPAY ==
[2023-06-14 11:09] LABS: MANUAL DIFF FLAG NO
[2023-06-14 11:37] LABS: Alanine Aminotransferase 13 U/L (0-31); Albumin Level 4.1 g/dL (3.5-5.0); Alkaline Phosphatase 119 U/L (39-117); Anion Gap 11 (12-20); Aspartate Amino Transferase 21 U/L (5-31); Basophils Absolute Auto 0.1 X10*3/uL (0.0-0.2); Basophils Percent Auto 1.2 % (0-2); Bilirubin Total 0.6 mg/dL (0.0-1.0); Blood Urea Nitrogen 13 mg/dL (9-16); Calcium 9.4 mg/dL (8.4-10.2); Carbon Dioxide 29 mmol/L (22-29); Chloride 104 mmol/L (96-108); Cholesterol 197 mg/dL (<200); Eosinophils Absolute Auto 0.1 X10*3/uL (0.0-0.4); Eosinophils Percent Auto 1.9 % (0-4); Estimated Glomerular Filt Rate > 60; Glucose Fasting 91 mg/dL (60-99); HDL Cholesterol 53 mg/dL (>40); Hematocrit 38.8 % (37.0-47.0); Hemoglobin 12.5 g/dl (12.0-16.0); Imm Gran Abs Auto 0.02 X10*3/uL (0.00-0.03); Imm Gran Pct Auto 0.3 % (0.0-0.4); LDL Cholesterol Calculated 128 mg/dL (<100); Mean Corpuscular HGB Conc 32.2 g/dl (31.0-35.0); Mean Corpuscular Hemoglobin 29.2 pg (27.0-33.0); Mean Corpuscular Volume 90.7 fL (80.0-98.0); Mean Platelet Volume 12.4 fL (9.4-12.3); Monocytes Absolute Auto 0.5 X10*3/uL (0.1-1.2); Monocytes Percent Auto 7.6 % (2-11); Platelet Count 329 X10*3/uL (160-400); Potassium 3.3 mmol/L (3.3-5.1); Red Blood Count 4.28 X10*6/uL (4.20-5.50); Red Cell Distribution Width 12.9 % (11.0-16.0); Sodium 141 mmol/L (135-145); Triglycerides 80 mg/dL (<150); White Blood Count 6.7 X10*3/uL (4.8-10.8)
[2023-06-14 11:50] LABS: HBS Num1 10.13 mIU/mL (0-7.99); HBsAGNum1 0.37 S/CO (0.00-0.99); Hepatitis B Core Antibody Nonreactive (Nonreactive); Hepatitis B Surface Antigen Negative (Negative); ~HepC Num1 0.04 S/CO (0.00-0.79); ~Hepatitis C Antibody Nonreactive (Nonreactive)
[2023-06-14 12:09] LABS: Folate 13.6 ng/mL (> or = 4.0); Vitamin B12 684 pg/mL (200-900); Vitamin D 25-OH Total 39.3 ng/mL (>30)
[2023-06-14 13:34] LABS: HBS Num2 10.31 mIU/mL (0-7.99); HBS Num3 10.02 mIU/mL (0-7.99); ~Hepatitis B Surface Antibody GRAYZONE (Nonreactive)
== END 2023-06-14 09:27 | disposition home or self-care (01) ==
LOC: HO.10HDL 09:26
PROVIDERS: Internal Medicine; Visit Provider Internal Medicine
DX: E53.8 Deficiency of other specified B group vitamins (principal); E78.5 Hyperlipidemia, unspecified; E55.9 Vitamin D deficiency, unspecified; D64.9 Anemia, unspecified; R25.1 Tremor, unspecified; Z11.59 Encounter for screening for other viral diseases; Z72.89 Other problems related to lifestyle
CPT/HCPCS: 36415; 80053; 80061; 82306; 82607; 82746; 85025; 86704; 86706; 86803; 87340

== ENCOUNTER 2023-07-05 13:44 | Outpatient (REF) | payer OTHER, SELFPAY ==
--- NOTE | ~2023-07-05 | US_ITS ---
EXAMINATION: US RETROPERITONEAL LIMITED (RENAL ONLY) CLINICAL INFORMATION: Cyst of kidney, acquired. COMPARISON: Renal ultrasound 01/04/2023 and 05/10/2022. CT abdomen and pelvis 05/09/2022. TECHNIQUE: Real-time imaging of the kidneys. FINDINGS: RIGHT KIDNEY: 10.5 x 3.6 x 5.3 cm (SAG x AP x TRV). The kidney has normal cortical thickness and cortical echotexture. No evidence of renal stones or hydronephrosis. Simple cortical cysts of the upper pole and lower pole measure up to 0.7 cm and 1.1 cm maximum dimension, respectively. These cysts are visible on CT images from 05/09/2022. No renal imaging follow-up is recommended for simple cysts. LEFT KIDNEY: 9.8 x 4.6 x 5.0 cm (SAG x AP x TRV). The kidney has normal cortical thickness and echotexture. No evidence of renal stones or hydronephrosis. No focal lesions. US/US renal BI IMPRESSION: There are two small simple cysts of the right kidney. No suspicious renal lesions.
== END 2023-07-05 13:45 | disposition home or self-care (01) ==
LOC: HO.US 13:44
PROVIDERS: PCP Internal Medicine; Visit Provider Nurse Practitioner Family
DX: N28.1 Cyst of kidney, acquired (principal)
CPT/HCPCS: 76775

== ENCOUNTER 2023-07-18 13:00 | Outpatient (AMB) | payer OTHER, SELFPAY ==
--- NOTE | 2023-07-18 13:10 | A.OFFVIS_ITS ---
Intake Intake Visit Reasons: 6m/US(set) Intake Note: Patient is present for follow up ultrasound/kidney cyst (imaging 07/05/23) Urology Medications: none Blood Thinner: none Electrician Crane Maintenance Required: No Accompanied by: Self / Same As Patient Allergies mold [MOLD] Allergy (Severe, Verified 07/18/23 18:11) SWELLING alcohol [ALCOHOL] Allergy (Intermediate, Verified 07/18/23 18:11) RED, SWELLING corn syrup [CORN SYRUP] Allergy (Intermediate, Verified 07/18/23 18:11) red hot face dextrose [DEXTROSE] Allergy (Intermediate, Verified 07/18/23 18:11) RED RASH erythromycin base [ERYTHROMYCIN BASE] Allergy (Intermediate, Verified 07/18/23 18:11) RASH Penicillins [PENICILLINS] Allergy (Intermediate, Verified 07/18/23 18:11) SWELLING, RASH sucrose [SUCROSE] Allergy (Intermediate, Verified 07/18/23 18:11) RED RASH Sulfa (Sulfonamide Antibiotics) [SULFA (SULFONAMIDE ANTIBIOTICS)] Allergy (Intermediate, Verified 07/18/23 18:11) RASH, redness, redness valacyclovir Allergy (Intermediate, Verified 07/18/23 18:11) Redness of Skin morphine Adverse Reaction (Intermediate, Verified 07/18/23 18:11) Hallucinations 12 Hour Nasal Allergy (Intermediate, Uncoded 07/18/23 18:11) hives WINE Allergy (Intermediate, Uncoded 07/18/23 18:11) RASH FROM RED WINE Medication List - Last Reconciled 07/18/23 by VOLODYMYR Giordano-AYAH albuterol sulfate 90 mcg/actuation (ProAir RespiClick) inhalation alpha lipoic acid 600 mg PO BID ascorbic acid (vitamin C) (Vitamin C) 500 mg PO DAILY beclomethasone dipropionate 80 mcg/actuation (Qvar RediHaler) 2 inhalations inhalation BID biotin 10,000 mcg PO DAILY bromelains 1,000 mg PO DAILY calcium polycarbophil (Fiber (calcium polycarbophil)) mg PO cholecalciferol (vitamin D3) (Vitamin D3) 25 mcg PO DAILY 90 days chromium picolinate 1,000 mcg PO DAILY flaxseed oil 1,000 mg PO BID furosemide 40 mg PO DAILY [id number] xt 100-100-225 mg (MARQUIS Soothe) caps PO gabapentin mg PO glycine mg PO lutein 20 mg PO DAILY magnesium 1,000 mg PO BID mecobalamin (vitamin B12) mcg PO multivitamin 1 tab PO DAILY psyllium husk (Fiber (psyllium husk)) 0.4 grams PO BEDTIME 90 days vitamin E 200 units PO DAILY HPI HPI Comments History of Present Illness Details Birgit is a very pleasant 82-year-old female who is a patient of Dr. Deal. She has a past medical history of renal cysts, thyroid disease, chronic pain, osteoarthritis, spinal stenosis, dyslipidemia, neuropathy, rosacea, and asthma. She presents to the office today for follow-up of her renal cyst. Recent renal imaging results reviewed with the patient. Bilateral kidneys with no lesions, calculi, or hydronephrosis noted. Right kidney with no calculi and or hydronephrosis noted. Simple cortical cysts of the upper pole and lower pole measuring up to 0.7 cm and 1.1 cm maximum dimensions, respectively. No renal imaging follow-up is recommended for simple cysts per radiology report. Left kidney with no hydronephrosis, calculi, and or lesions. When asked she denies any bothersome urinary issues or concerns. She does discussed at length continuing to follow-up with general surgery regarding her abdominal hernias. She also discusses her new diagnosis of Parkinson's disease however is awaiting 2nd opinion. She reports neurology is recommending medication therapy however this causes constipation and she already experiences issues with constipation therefore she is scheduled for a second opinion. She denies urinary urgency, urinary frequency, incontinence, nocturia, hematuria, dysuria, foul smelling urine, changes to urinary stream, flank pain, fever, and or chills. She is happy with her current voiding parameters.She otherwise offers no issues or concerns at this. [facility] Medical History Renal cyst Abdominal pain Thyroid disease Chronic pain syndrome Osteoarthritis of left knee Spinal stenosis Left sided sciatica Constipation by delayed colonic transit Left knee pain Dyslipidemia Onychomycosis Neuropathy Rosacea Asthma Surgical History Hx of colonoscopy History of surgery History of back surgery (~03/31/21) History of surgery History of removal of both ovaries Colostomy in place History of tonsillectomy History of cholecystectomy History of repair of hiatal hernia History of hysterectomy Family History Father Hypertension Pancreatitis Uremia Mother Diverticulosis Alzheimers disease Brother Colon cancer CVD (cardiovascular disease) Sister Colon cancer Social History Household Members: Spouse Household Members Other:: 2 Housing: Condominium Do you presently have visiting nurse or other home services: No Alcohol intake: never 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 Patient Tobacco Use Status: Former Tobacco user Tobacco use type: Cigarette Years Smoked: 1 year e-Cigarette/Vaping Use: Never Used Second Hand Smoke Exposure: No service: No Current occupational status: retired Cognitive needs: Yes Hearing needs: No Vision needs: Yes Review of Systems Const Reports as per [facility] Eyes Reports no additional complaints ENT Reports no additional complaints Card Reports as per HPI Resp Reports as per HPI GI Reports as per HPI Reports as per HPI Musc Reports as per HPI Neuro Reports as per HPI Psych Reports no additional complaints Endo Reports as per HPI Physical Exam Const General: cooperative, healthy appearing, comfortable, no acute distress, well developed, alert and awake Orientation/consciousness: patient oriented x3 Limitations: ambulation with cane HEENT Head: Yes normal to inspection and Yes normocephalic Eyes General: appearance normal, both eyes and all related structures Neck Neck: Yes normal visual inspection and Yes tracheal deviation Resp Effort & Inspection: normal respiratory effort and able to speak in complete sentences Cardio Jugular venous distension: no JVD General: Yes no CVA tenderness Back/Spine/Pelvis Back: no CVA tenderness Skin General skin exam: no rashes or lesions noted Neuro General: patient oriented x3 Psych Appearance: grossly normal and well kempt Mental Status: mental status grossly normal Speech and movement: Normal speech and movement present and Clear speech present Affect: Other affect and mood findings present (emotional ) Attitude: cooperative Thought process: Normal thought process present Thought content: Normal thought content present Insight: Fair insight present (Psych) Judgement: Fair judgement present (Psych) Results AMB Urinalysis, Automated UA Leukoctes 0 Honorio/uL Last Edit by Yael Mariee on 07/18/23 13:26 UA Nitrite Negative Last Edit by Yael Mariee on 07/18/23 13:26 UA Urobilinogen 0.2 mg/dL Last Edit by Yael Mariee on 07/18/23 13:26 UA Protein 30 mg/dL Last Edit by Yael Mariee on 07/18/23 13:26 UA pH 6.0 Last Edit by Yael Mariee on 07/18/23 13:26 UA Blood 0 Dante/uL Last Edit by Yael Mariee on 07/18/23 13:26 UA Specific Colon 1.030 Last Edit by Yael Mariee on 07/18/23 13:26 UA Ketone Positive Last Edit by Yael Mariee on 07/18/23 13:26 UA Bilirubin 0 mg/dL Last Edit by Yael Mariee on 07/18/23 13:26 UA Glucose 0 mg/dL Last Edit by Yael Mariee on 07/18/23 13:26 Results Reviewed Results Reviewed: Laboratory Last Values Urine pH (Auto) 6.0 07/18/23 13:12 Specific Colon (Auto) 1.030 07/18/23 13:12 Urine Protein (Auto) 30 mg/dL 07/18/23 13:12 Glucose (UA)(Auto) 0 mg/dL 07/18/23 13:12 Urine Ketones (Auto) Positive 07/18/23 13:12 Urine Blood (Auto) 0 Dante/uL 07/18/23 13:12 Urine Nitrite (Auto) Negative 07/18/23 13:12 Urine Bilirubin (Auto) 0 mg/dL 07/18/23 13:12 Urine Urobilinogen (Auto) 0.2 mg/dL 07/18/23 13:12 Leukocyte Esterase (Auto) 0 Honorio/uL 07/18/23 13:12 Assessment & Plan Assessment & Plan (1) Renal cyst: Code(s): N28.1 - Cyst of kidney, acquired (2) Renal cyst: Code(s): N28.1 - Cyst of kidney, acquired Plan In office urinalysis results reviewed with the patient today; as noted above Recent renal ultrasound results reviewed with the patient today; as noted above Patient denies any urological issues or concerns at this time. Renal ultrasound in one year Follow-up in one year with imaging to be completed prior; or sooner with any issues, concerns, and or questions. Orders: Orders US renal BI 364 Days N28.1 - Cyst of kidney, acquired AMB Urinalysis Automated Today Z13.9 - Encounter for screening, unspecified Patient Instructions: The patient had an opportunity to ask questions regarding the treatment plan. All questions were answered. Physical exam, labs, and imaging were discussed and reviewed in detail. As well as risks, benefits, and discussion of treatment choices. No major barriers to understanding were identified. The patient expressed understanding and agreement with the above treatment plan. The patient was made aware they should contact our office by phone for worsening of their current condition, the appearance of new symptoms, or with any questions or concerns. Compliance is encouraged with any medications and follow up testing that is ordered. It is a privilege to be allowed the opportunity to participate in? your urological care.? Again, if you have any questions or c oncerns If you have any questions or concerns please do not hesitate to contact me. The office is [phone]. This note is constructed using voice recognition software. While every effort has been made to ensure accuracy metal precision machine assembler errors may have been included. Yours sincerely, STEWART Giordano Coding Level of Care Code Est Pt Level 3 (41246) Diagnoses Renal cyst N28.1
== END 2023-07-18 13:53 | disposition home or self-care (01) ==
PROVIDERS: PCP Internal Medicine; Visit Provider Nurse Practitioner Family
DX: Z13.9 Encounter for screening, unspecified (principal); N28.1 Cyst of kidney, acquired
CPT/HCPCS: 99213

== ENCOUNTER → 2023-07-18 13:00 | Outpatient (BNVA) | payer OTHER, SELFPAY | PROVIDERS: PCP Internal Medicine; Visit Provider Nurse Practitioner Family | DX: N28.1 Cyst of kidney, acquired (principal) | CPT/HCPCS: 81003; 99212 ==

== ENCOUNTER 2023-10-01 13:52 | Outpatient (AMB) | payer OTHER, SELFPAY ==
--- NOTE | 2023-10-01 13:59 | A.OFFPC_ITS ---
Vital Signs 10/01/23 14:00 10/01/23 19:12 Height 5 ft 1 in Weight 124 lb BMI 23.4 BP 142/70 H 140/70 H Blood Pressure Location Lt brachial Lt brachial Position Sitting Sitting Intake Visit Reasons: 4 month f/u Intake Note: Patient here for a follow up 4 month follow up Nurse Receptionist Required: No Accompanied by: Self / Same As Patient Allergies mold [MOLD] Allergy (Severe, Verified 10/01/23 14:21) SWELLING alcohol [ALCOHOL] Allergy (Intermediate, Verified 10/01/23 14:21) RED, SWELLING corn syrup [CORN SYRUP] Allergy (Intermediate, Verified 10/01/23 14:21) red hot face dextrose [DEXTROSE] Allergy (Intermediate, Verified 10/01/23 14:21) RED RASH erythromycin base [ERYTHROMYCIN BASE] Allergy (Intermediate, Verified 10/01/23 14:21) RASH Penicillins [PENICILLINS] Allergy (Intermediate, Verified 10/01/23 14:21) SWELLING, RASH sucrose [SUCROSE] Allergy (Intermediate, Verified 10/01/23 14:21) RED RASH Sulfa (Sulfonamide Antibiotics) [SULFA (SULFONAMIDE ANTIBIOTICS)] Allergy (Intermediate, Verified 10/01/23 14:21) RASH, redness, redness valacyclovir Allergy (Intermediate, Verified 10/01/23 14:21) Redness of Skin morphine Adverse Reaction (Intermediate, Verified 10/01/23 14:21) Hallucinations 12 Hour Nasal Allergy (Intermediate, Uncoded 10/01/23 14:21) hives WINE Allergy (Intermediate, Uncoded 10/01/23 14:21) RASH FROM RED WINE Medication List - Last Reconciled 10/01/23 by Fabby Cabrera MD albuterol sulfate 90 mcg/actuation (ProAir RespiClick) inhalation alpha lipoic acid 600 mg PO BID ascorbic acid (vitamin C) (Vitamin C) 500 mg PO DAILY beclomethasone dipropionate 80 mcg/actuation (Qvar RediHaler) 2 inhalations inhalation BID biotin 10,000 mcg PO DAILY bromelains 1,000 mg PO DAILY calcium polycarbophil (Fiber (calcium polycarbophil)) mg PO cholecalciferol (vitamin D3) (Vitamin D3) 25 mcg PO DAILY 90 days chromium picolinate 1,000 mcg PO DAILY flaxseed oil 1,000 mg PO BID furosemide 40 mg PO DAILY [id number] xt 100-100-225 mg (MARQUIS Soothe) caps PO gabapentin mg PO glycine mg PO lutein 20 mg PO DAILY magnesium 1,000 mg PO BID mecobalamin (vitamin B12) mcg PO multivitamin 1 tab PO DAILY psyllium husk (Fiber (psyllium husk)) 0.4 grams PO BEDTIME 90 days vitamin E 200 units PO DAILY Tobacco use date assessed: 10/01/23 Fall risk assessment: No Falls in past year Last assessed Fall Risk: 10/01/23 Dental Screening Dental Screen Date: 10/01/23 Did you have a dental visit in the last 12 months?: Yes Did you have a dental problem in the last 6 months where you did not have access to dental care?: No Was dental information given to patient?: Patient has dentist HPI HPI Comments History of Present Illness Details This is an 82-year-old female with mild major depression, left knee osteoarthritis, asthma, constipation and neuropathy that comes today for follow- up on her conditions. She walks with a cane for gait stability due to sciatica and left knee osteoarthritis. Has mild major depression but declines medication but follows with counseling once a week. Use rescue inhaler about once a month or less. Constipation stable with medications. On gabapentin for her neuropathy. Has trouble sleeping and I recommend to try [id number]-[id number] melatonin. Complains of and abdominal lump which has been evaluated by multiple surgeons which do not recommend surgery. [facility] Medical History (Updated 10/01/23 @ 19:17 by Fabby Cabrera MD) Renal cyst Abdominal pain Thyroid disease Chronic pain syndrome Osteoarthritis of left knee Spinal stenosis Left sided sciatica Constipation by delayed colonic transit Left knee pain Dyslipidemia Onychomycosis Neuropathy Rosacea Asthma Surgical History Hx of colonoscopy History of surgery History of back surgery (~03/31/21) History of surgery History of removal of both ovaries Colostomy in place History of tonsillectomy History of cholecystectomy History of repair of hiatal hernia History of hysterectomy Family History Father Hypertension Pancreatitis Uremia Mother Diverticulosis Alzheimers disease Brother Colon cancer CVD (cardiovascular disease) Sister Colon cancer Social History Household Members: Spouse Household Members Other:: 2 Housing: Condominium Do you presently have visiting nurse or other home services: No Alcohol intake: never 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 Patient Tobacco Use Status: Former Tobacco user Tobacco use type: Cigarette Years Smoked: 1 year e-Cigarette/Vaping Use: Never Used Second Hand Smoke Exposure: No service: No Current occupational status: retired Cognitive needs: Yes Hearing needs: No Vision needs: Yes Questionnaire PHQ-9 Over the last 2 weeks, how often have you been bothered by any of the following problems? 1. Little interest or pleasure in doing things: several days 2. Feeling down, depressed, or hopeless: more than half the days 3. Trouble falling or staying asleep, or sleeping too much: more than half the days 4. Feeling tired or having little energy: not at all 5. Poor appetite or overeating: not at all 6. Feeling bad about yourself - or that you are a failure or have let yourself or your family down: not at all 7. Trouble concentrating on things, such as reading the newspaper or watching television: several days 8. Moving or speaking so slowly that other people could have noticed. Or the opposite - being so fidgety or restless that you have been moving around a lot more than usual: not at all 9. Thoughts that you would be better off or of hurting yourself in some way: not at all Total score: 6 Depression Screening Interpretation: Positive Depression Screening Follow-up: Existing condition, Community Mental Health Worker F/U and Declines treatment Depression Screening Done: Yes 69436 - PHQ-9 Billing: Yes Source: Developed by Drs. Milton Garza, Sandra Nieto, Frandy Riley and colleagues, with an educational shweta from [employer]. Thrive Questionnaire Date Thrive assessed: 10/01/23 I am a: Patient What is your living situation today?: I have a steady place to live Within the past 12 months, did the food you bought not last and you didn't have the money to get more?: Never true Within the past 12 months, did you worry whether your food would run out before you got money to buy more?: Never true Do you have trouble paying for medicines?: No Do you have trouble getting transportation to medical appointments?: No Do you have trouble paying your heating and electricity bill?: No Do you have trouble taking care of your child, family member or friend?: No Do you have trouble with day-to-day activities such as bathing, preparing meals, shopping, managing finances, etc.?: Yes Are you currently unemployed and looking for a job?: No Are you interested in more education?: No Please select the resources that you would like help with: None Currently or been in a relationship where the following occur: no concerns reported THRIVE Score: 0 AUDIT C Alcohol Use Questionnaire (AUDIT-C) 1. How often do you have a drink containing alcohol?: Never Total Score: 0 NANCY-7 AMB Questionnaire NANCY-7 Date NANCY - 7 assessed: 10/01/23 Feeling nervous, anxious, or on edge: 0 = Not at all Not being able to stop or control worryin = Several days Worrying too much about different things: 3 = Nearly every day Trouble relaxin = Not at all Being so restless that it is hard to sit still: 0 = Not at all Becoming easily annoyed or irritable: 1 = Several days Feeling afraid as if something awful might happen: 1 = Several days Total NANCY-7 score (0-4 normal; 5-9 mild; 10-14 moderate; 15-21 severe): 6 Source: Developed by Drs. Milton Garza, Sandra Nieto, Frandy Riley and colleagues, with an educational shweta from [employer]. NANCY-7 Assessment Billing NANCY-7 Assessment Tool: NANCY-7 Assessment 29434 Review of Systems Const All systems reviewed & are unremarkable except as noted in HPI and below Eyes Reports no additional complaints, Denies change in vision and Denies other visual disturbances Card Denies chest pain at rest, Denies chest pain with activity, Denies edema, Denies irregular heart rhythm, Denies claudication, Denies dyspnea, Denies dyspnea on exertion, Denies orthopnea, Denies paroxysmal nocturnal dyspnea and Denies slow heart rate Resp Denies cough, Denies dyspnea and Denies dyspnea on exertion GI Denies abdominal pain, Denies change in bowel habits, Denies excessive flatus, Denies nausea and Denies vomiting Denies urinary incontinence, Denies urinary hesitancy and Denies urinary urgency Musc Denies abnormal gait, Denies atrophy, Denies deformity and Denies limited range of motion Skin/Breast Denies bleeding lesions, Denies changing lesions and Denies rash Neuro Denies abnormal gait, Denies behavioral changes and Denies lack of coordination Psych Denies behavioral changes Physical exam (Primary Care) Vital Signs: Last Vital Signs BP 142/70 H 10/01/23 14:00 BMI result Body Mass Index 23.4 Tobacco/Smoking Status: Tobacco use Status Tobacco use date assessed 10/01/23 10/01/23 14:15 Patient Tobacco Use Status Former Tobacco user 10/01/23 13:59 Tobacco use type Cigarette 10/01/23 13:59 e-Cigarette/Vaping Use Never Used 10/01/23 13:59 PHQ-9: PHQ-9 Score PHQ-9: Total score 6 10/01/23 14:36 Depression Screening Interpretation: Positive Depression Screening Follow-up: Existing condition, Community Mental Health Worker F/U and Declines treatment Thrive Assessment: Date of Thrive Assessment Date Thrive assessed 10/01/23 10/01/23 14:15 Currently or been in a relationship where the following occur: no concerns reported Const Limitations: ambulation with cane Eyes General: appearance normal, both eyes and all related structures Eyelids: Yes eyelids normal Conjunctivae: conjunctivae normal Neck Neck: Yes normal visual inspection and Yes supple Resp Effort & Inspection: normal respiratory effort Auscultation: clear to auscultation bilaterally Cardio Jugular venous distension: no JVD Rate: regular rate Rhythm: regular rhythm Heart sounds: S1 normal heart sound present and S2 normal heart sound present GI Inspection: Yes normal to inspection Palpation (GI): Soft to palpation and nontender Auscultation: normal bowel sounds Extrem General: Yes full ROM Assessment and Plan Assessment & Plan (1) Osteoarthritis of left knee: Code(s): M17.12 - Unilateral primary osteoarthritis, left knee Plan: Continue the use of a cane. Try [id number] acetaminophen if needed. (2) Constipation by delayed colonic transit: Code(s): K59.01 - Slow transit constipation Plan: Follow a high-fiber diet. (3) Asthma: Code(s): J45.909 - Unspecified asthma, uncomplicated Qualifiers: Asthma severity: mild Asthma persistence: persistent Asthma complication type: uncomplicated Qualified Code(s): J45.30 - Mild persistent asthma, uncomplicated Plan: Continue QVAR daily. Use rescue inhaler as needed. (4) Neuropathy: Code(s): G62.9 - Polyneuropathy, unspecified Plan: Continue gabapentin. (5) Mild major depression: Comment: Declines medication but follows with counseling once a week. Code(s): F32.0 - Major depressive disorder, single episode, mild Plan: Continue with weekly counseling. Medications: New melatonin 3 mg PO BEDTIME 30 days PRN 30 caps 0RF sleep Coding Level of Care Code Est Pt Level 4 (93772) Diagnoses Osteoarthritis of left knee M17.12 Constipation by delayed colonic transit K59.01 Mild persistent asthma without complication J45.30 Asthma severity: mild Asthma persistence: persistent Asthma complication type: uncomplicated Neuropathy G62.9 Mild major depression F32.0 Additional Codes NANCY-7 Assessment Billing - NANCY-7 Assessment Tool: NANCY-7 Assessment 56695 ([id number]) Time Spent (min) 24
[2023-10-01 14:00] VITALS: BP 142/70; BMI 23.4
[2023-10-01 19:12] VITALS: BP 140/70
== END 2023-10-01 14:37 | disposition home or self-care (01) ==
PROVIDERS: PCP Internal Medicine; Visit Provider Internal Medicine
DX: K59.01 Slow transit constipation (principal); F32.0 Major depressive disorder, single episode, mild; M17.12 Unilateral primary osteoarthritis, left knee; J45.30 Mild persistent asthma, uncomplicated; G62.9 Polyneuropathy, unspecified
CPT/HCPCS: 99214

== ENCOUNTER → 2023-10-31 13:33 | Outpatient (REF) | payer OTHER, SELFPAY ==
--- NOTE | 2023-10-31 13:36 | CA_ITS ---
Transthoracic Echocardiogram Patient (Last, First, Middle): Birgit Collins A Gender: Female Date of : 1940 Age: 83 Procedure Date: 10/31/2023 Procedure Type: Transthoracic Echocardiogram Location: OP Height: 147.32 cm Weight: 55.34 kg BSA: 1.48 m2 Heart Rate: 56 bpm BP: 138 / 75 mmHg Guest Attendant: TRINIDAD Referring MD: Richard Tyson MD Bargain Table Clerk: Richard Tyson MD Symptoms: I77.810 - Thoracic aortic ectasia Study Quality: Fair ECG Rhythm: Sinus with extra beats Conclusions: - 1. Normal LV ejection fraction of 60 65% with grade 2 diastolic dysfunction 2. At this moderately dilated left atrium 3. [id number]-lr-[id number] aortic regurgitation 4. Normal RV systolic pressure 5. Ascending aorta measured at 3.6 cm on this study which is at upper limits of normal 6. No gross pericardial effusion Findings Left Ventricle Normal left ventricular size, thickness, and systolic function. The visually estimated ejection fraction is between 60-65%. Spectral Doppler is indicative of a pseudonormal filling pattern. E/E prime ratio is >15, consistent with elevated filling pressures. Evidence suggests grade II (moderate) diastolic dysfunction. Right Ventricle Normal right ventricular cavity size and systolic function. Atria The left atrium is moderately dilated. There is an interatrial septal aneurysm seen bowing to the right. There is no evidence of interatrial shunt. There is no evidence of a patent foramen ovale. The right atrium is normal in size. Aortic Valve There is mild calcification of the aortic valve. There is moderate thickening of the aortic valve. There is no aortic valve stenosis. There is mild to moderate aortic valve regurgitation. Mitral Valve There is mild anterior and posterior mitral leaflet thickening. There is mild mitral valve regurgitation. There is no mitral valve stenosis. Pulmonic Valve The pulmonic valve is likely normal. There is trace pulmonic valve regurgitation. Tricuspid Valve Normal tricuspid valve structure. There is mild tricuspid valve regurgitation. The right ventricular systolic pressure is normal. The right ventricular systolic pressure is 22 mmHg. Normal right atrial pressure. There is no evidence of pulmonary hypertension. Great Vessels The pulmonary artery was not well visualized. Venous The inferior vena cava is normal in size and collapses greater than 50% with inspiration. Pericardium/Pleural There is no evidence of pericardial effusion. Measurements 2D Linear Measurements IVSd: 1.34 0.6-0.9/0.6-1.0 cm LVIDd: 3.82 3.9-5.3/4.2-5.9 cm LVIDd Index: 2.58 2.4-3.2/2.2-3.1 cm/m2 LVIDs: 2.25 2.0-3.6 cm LVPWd: 1.20 0.7-1.1 cm LA Diam: 3.50 2.7-3.8/3.0-4.0 cm LAIDs Index: 2.36 1.5-2.3 cm/m2 LV Mass: 209.58 67-162/88-224 g LV Mass Index: 141.61 43-95/49-115 g/m2 LVOT Diam: 2.20 3.0+(-)1.3 cm 2D Systolic Function EF 4C: 57.90 >55% EF 2C: 72.70 >55% EF BiP: 65.40 >55% Mitral Valve MV Pk E: 0.99 MV PK A: 0.75 MV Decel Time: 189.00 E/A: 1.30 E'Lateral: 7.62 E'Medial: 6.31 E/E' Med: 15.80 E/E' Lat: 13.00 PHT: 55.00 MVA PHT: 4.00 Decel [place]: 5.25 Aortic Valve AoV Pk Eddie: 1.64 AoV Mn Eddie: 1.09 AoV VTI: 0.38 AoV Pk Grad: 11.00 Aov Mn Grad: 6.00 GERRY Cont.VTI: 2.86 AI Pk Eddie: 4.22 AI [place]: 2.34 LVOT LVOT Pk Eddie: 1.20 LVOT Mn Eddie: 0.79 LVOT VTI: 0.28 LVOT Pk Grad: 6.00 LVOT Mn Grad: 3.00 LVOT Diam: 2.20 LVOT Area: 3.80 Diastolic Function MV Pk E: 0.99 MV Pk A: 0.75 E/A: 1.30 E'Medial: 6.31 E/E' Med: 15.80 E' Laterial: 7.62 E/E' Lat: 13.00 Right Ventricle TAPSE (mm): 22.30 TVS' Eddie: 13.30 Tricuspid Valve TR Pk Eddie: 2.19 TR Pk Grad: 19.00 RA Press: 3.00 RVSP: 22.00 Great Vessels Aorta Sinus of Valsalva: 3.60 2.0-3.5 cm Ao Asc: 3.60 2.1-3.4 cm Pulmonary Valve PV Pk Eddie: 0.87 Peak PV Grad: 3.00 Updated in Other Vendor System with Status of Final Richard Tyson MD electronically signed on 11/01/2023 1:00:06 PM with status of Final
== END ==
LOC: HO.CARD 13:33
PROVIDERS: PCP Internal Medicine; Visit Provider Internal Medicine Cardiovascular Disease
DX: I77.810 Thoracic aortic ectasia (principal)
CPT/HCPCS: 93306

== ENCOUNTER → 2023-10-31 13:36 | Outpatient (BNV) | payer OTHER, SELFPAY | PROVIDERS: PCP Internal Medicine; Visit Provider Internal Medicine Cardiovascular Disease | DX: I35.1 Nonrheumatic aortic (valve) insufficiency (principal) | CPT/HCPCS: 93306 ==

== ENCOUNTER 2023-11-14 14:15 | Outpatient (REF) | payer OTHER, SELFPAY ==
--- NOTE | ~2023-11-14 | MM_ITS ---
EXAMINATION: BONE DENSITOMETRY CLINICAL INDICATION: Unspecified menopausal and perimenopausal disorder. COMPARISON: Baseline BD dated 08/18/2009. TECHNIQUE: Using a Row [employer] DXA System (software version: 13.1) manufactured by [employer], dual-energy x-ray absorptiometry was performed of the lumbar spine and left hip. The images are of good technical quality. Summary results are attached. FINDINGS: LEFT FEMUR, NECK: Current: BMD 0.637 g/cm2, Z-score -0.4, T-score -2.9, osteoporosis. Baseline: BMD 0.765 g/cm2. LEFT FEMUR, TOTAL: Current: BMD 0.690 g/cm2, Z-score -0.1, T-score -2.5, osteoporosis, 23.2% decrease from baseline (<5% change is not significant). Baseline: BMD 0.898 g/cm2. AP SPINE L1-L4: Current: BMD 0.892 g/cm2, Z-score -0.2, T-score -2.4, osteopenia, 12.5% decrease from baseline (<5% change is not significant). Baseline: BMD 1.019 g/cm2. IDENTIFIED RISK FACTORS: Early menopause, secondary osteoporosis, hysterectomy, bilateral oophorectomy, height loss, history of fracture (adult), osteoporosis. HISTORY OF FRACTURE: Humerus, spine. MEDICATIONS: Calcium supplements or multivitamin, vitamin D. MM/XR DEXA axial skeleton IMPRESSION: 1. DIAGNOSIS: Severe osteoporosis based on the lowest T-score value of -2.9 in the femoral neck and history of fracture applying World Health Organization criteria. 2. 10-YEAR FRACTURE RISK PREDICTION, FRAX: According to the guidelines, FRAX calculation should only be performed on patients in the osteopenia bone density category. Therefore, FRAX was not performed on this patient. 3. Treatment Recommendations: NOF guidelines recommend consideration for treatment in postmenopausal women and men age 50 and older presenting with the following: -A hip or vertebral (clinical or morphometric) fracture. -T-score less than or equal to -2.5 at the femoral neck or spine after appropriate evaluation to exclude secondary causes. -Low bone mass at the hip or spine and a 10-year fracture probability by FRAX of greater than or equal to 3% for hip fracture or greater than or equal to 20% for major osteoporotic fracture based on the [place] adapted WHO algorithm. 4. Other Recommendations: All treatment decisions require clinical judgment and consideration of individual patient factors, including patient preferences, comorbidities, previous drug use, risk factors not captured in the FRAX model (e.g. frailty, falls, vitamin D deficiency, increased bone turnover, interval significant decline in bone density) and possible under or overestimation of fracture risk by FRAX. Additional medical evaluation for secondary cause of low bone mineral density may be appropriate. FUTURE SCAN RECOMMENDATION: People with diagnosed cases of osteoporosis or at high risk for fracture should have regular bone mineral density tests. For patients eligible for Medicare, routine testing is allowed once every 2 years. The testing frequency can be increased to one year for patients who have rapidly progressing disease, those who are receiving or discontinuing medical therapy to restore bone mass, or have additional risk factors.
== END 2023-11-14 14:16 | disposition home or self-care (01) ==
LOC: HO.MAMMO 14:15
PROVIDERS: PCP Internal Medicine; Visit Provider Internal Medicine
DX: Z13.820 Encounter for screening for osteoporosis (principal); Z78.0 Asymptomatic menopausal state
CPT/HCPCS: 77080

== ENCOUNTER 2023-12-25 12:51 | Outpatient (AMB) | payer OTHER, SELFPAY ==
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
[2023-12-25 12:59] VITALS: BP 140/72; PULSE 73; RESP 16; O2SAT 98; BMI 23.8
== END 2023-12-25 14:00 | disposition home or self-care (01) ==
PROVIDERS: PCP Internal Medicine; Visit Provider Psychiatry & Neurology Neurology
DX: G25.2 Other specified forms of tremor (principal); F32.0 Major depressive disorder, single episode, mild; F41.9 Anxiety disorder, unspecified
CPT/HCPCS: 99204; G2211

== ENCOUNTER → 2023-12-25 12:51 | Outpatient (BNVA) | payer OTHER, SELFPAY | PROVIDERS: PCP Internal Medicine; Visit Provider Psychiatry & Neurology Neurology | DX: G25.2 Other specified forms of tremor (principal); F32.0 Major depressive disorder, single episode, mild; F41.9 Anxiety disorder, unspecified | CPT/HCPCS: 99202 ==

== ENCOUNTER 2024-01-29 14:41 | Outpatient (AMB) | payer OTHER, SELFPAY ==
--- NOTE | 2024-01-29 14:43 | A.OFFPC_ITS ---
Vital Signs 01/29/24 14:44 Height 5 ft 1 in Weight 124 lb BMI 23.4 BP 130/74 Blood Pressure Location Lt brachial Position Sitting Intake Visit Reasons: depression Pathology Laboratory Director Required: No Accompanied by: Self / Same As Patient Allergies mold [MOLD] Allergy (Severe, Verified 01/29/24 15:03) SWELLING alcohol [ALCOHOL] Allergy (Intermediate, Verified 01/29/24 15:03) RED, SWELLING corn syrup [CORN SYRUP] Allergy (Intermediate, Verified 01/29/24 15:03) red hot face dextrose [DEXTROSE] Allergy (Intermediate, Verified 01/29/24 15:03) RED RASH erythromycin base [ERYTHROMYCIN BASE] Allergy (Intermediate, Verified 01/29/24 15:03) RASH Penicillins [PENICILLINS] Allergy (Intermediate, Verified 01/29/24 15:03) SWELLING, RASH sucrose [SUCROSE] Allergy (Intermediate, Verified 01/29/24 15:03) RED RASH Sulfa (Sulfonamide Antibiotics) [SULFA (SULFONAMIDE ANTIBIOTICS)] Allergy (Intermediate, Verified 01/29/24 15:03) RASH, redness, redness valacyclovir Allergy (Intermediate, Verified 01/29/24 15:03) Redness of Skin morphine Adverse Reaction (Intermediate, Verified 01/29/24 15:03) Hallucinations 12 Hour Nasal Allergy (Intermediate, Uncoded 01/29/24 15:03) hives WINE Allergy (Intermediate, Uncoded 01/29/24 15:03) RASH FROM RED WINE fluorquinolones Allergy (Mild, Uncoded 01/29/24 15:03) nerve damage Medication List - Last Reconciled 01/29/24 by Fabby Cabrera MD [16 grab bar As directed] albuterol sulfate 90 mcg/actuation (ProAir RespiClick) inhalation alpha lipoic acid 600 mg PO BID ascorbic acid (vitamin C) (Vitamin C) 500 mg PO DAILY beclomethasone dipropionate 80 mcg/actuation (Qvar RediHaler) 2 inhalations inhalation BID biotin 10,000 mcg PO DAILY bromelains 1,000 mg PO DAILY calcium polycarbophil (Fiber (calcium polycarbophil)) mg PO cholecalciferol (vitamin D3) (Vitamin D3) 25 mcg PO DAILY 90 days chromium picolinate 1,000 mcg PO DAILY flaxseed oil 1,000 mg PO BID furosemide 40 mg PO DAILY WAZE-ncltsyvf-rxojlyvaond xt 100-100-225 mg (MARQUIS Soothe) caps PO gabapentin mg PO glycine mg PO lutein 20 mg PO DAILY magnesium 1,000 mg PO BID mecobalamin (vitamin B12) mcg PO melatonin 3 mg PO BEDTIME PRN 30 days multivitamin 1 tab PO DAILY psyllium husk (Fiber (psyllium husk)) 0.4 grams PO BEDTIME 90 days [set of weighted utensils with no build up handle As directed] vitamin E 200 units PO DAILY Tobacco use date assessed: 10/01/23 Dental Screening Dental Screen Date: 10/01/23 HPI HPI Comments History of Present Illness Details This is an 83-year-old female with mild major depression and coarse tremors that comes today complaining of epigastric pain aggravated by eating. She also has occasional left shoulder pain has been present for years after she had abdominal surgery and the surgeon told her that he must have cut a nerve and that that will happen when over eating. For epigastric pain I will order an upper GI series and will refer her to Gastroenterology. Last DEXA scan done in November shows severe osteoporosis and I will refer her to Rheumatology for further evaluation and management. Walks with a cane for gait stability due to shuffling gait that has been present for years. Depression somewhat stable with counseling. Still has coarse tremor and had [facility] done at [facility] but I do not have the results. This was ordered by Neurology who saw her for the tremors. Order an MRI of the brain that will be done next month. No chest pain or shortness on breath. [facility] Medical History (Updated 01/29/24 @ 19:35 by Fabby Cabrera MD) Thrombophlebitis, popliteal vein Gait disorder Anxiety Coarse tremors Renal cyst Abdominal pain Thyroid disease Chronic pain syndrome Osteoarthritis of left knee Spinal stenosis Left sided sciatica Constipation by delayed colonic transit Left knee pain Dyslipidemia Onychomycosis Neuropathy Rosacea Asthma Surgical History Hx of colonoscopy History of surgery History of back surgery (~03/31/21) History of surgery History of removal of both ovaries Colostomy in place History of tonsillectomy History of cholecystectomy History of repair of hiatal hernia History of hysterectomy Family History Father Hypertension Pancreatitis Uremia Mother Diverticulosis Alzheimers disease Brother Colon cancer CVD (cardiovascular disease) Sister Colon cancer Social History Household Members: Spouse Household Members Other:: 2 Housing: Condominium Do you presently have visiting nurse or other home services: No Alcohol intake: never 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 Patient Tobacco Use Status: Former Tobacco user Tobacco use type: Cigarette Years Smoked: 1 year e-Cigarette/Vaping Use: Never Used Second Hand Smoke Exposure: No service: No Current occupational status: retired Cognitive needs: Yes Hearing needs: No Vision needs: Yes Questionnaire Thrive Questionnaire Date Thrive assessed: 10/01/23 NANCY-7 AMB Questionnaire NANCY-7 Date NANCY - 7 assessed: 10/01/23 Source: Developed by Drs. Milton Garza, Sandra Nieto, Frandy Riley and colleagues, with an educational shweta from [employer]. Review of Systems Const All systems reviewed & are unremarkable except as noted in HPI and below Card Denies chest pain at rest, Denies chest pain with activity, Denies edema, Denies irregular heart rhythm, Denies claudication, Denies dyspnea, Denies dyspnea on exertion, Denies orthopnea, Denies paroxysmal nocturnal dyspnea and Denies slow heart rate Resp Denies cough, Denies dyspnea and Denies dyspnea on exertion GI Reports abdominal pain Musc Reports abnormal gait Neuro Reports abnormal gait and Reports tremor(s) Physical exam (Primary Care) Vital Signs: Last Vital Signs BP 130/74 01/29/24 14:44 BMI result Body Mass Index 23.4 Tobacco/Smoking Status: Tobacco use Status Tobacco use date assessed 10/01/23 01/29/24 14:52 Patient Tobacco Use Status Former Tobacco user 01/29/24 14:52 Tobacco use type Cigarette 01/29/24 14:52 e-Cigarette/Vaping Use Never Used 01/29/24 14:52 Thrive Assessment: Date of Thrive Assessment Date Thrive assessed 10/01/23 01/29/24 14:52 Const General: cooperative Limitations: ambulation with cane Resp Effort & Inspection: normal respiratory effort Auscultation: clear to auscultation bilaterally Cardio Jugular venous distension: no JVD Rate: regular rate Rhythm: regular rhythm Heart sounds: S1 normal heart sound present and S2 normal heart sound present GI Other: lump palpated in upper abdomen Inspection: Yes normal to inspection Palpation (GI): Soft to palpation, nontender and Palpable mass present epigastric external abdominal wall mobile and soft Auscultation: normal bowel sounds Neuro Cognition (Neuro): normal cognition Gait exam (Neuro): Shuffling gait present Motor exam (neuro): Tremors during motor activity present bilateral upper extremity resting tremor Assessment and Plan Assessment & Plan (1) Mild major depression: Comment: Declines medication but follows with counseling once a week. Code(s): F32.0 - Major depressive disorder, single episode, mild Plan: Continue counseling. (2) Coarse tremors: Comment: ? Parkinsons disease, ? worsened by exaggerated physiological tremors Code(s): G25.2 - Other specified forms of tremor Plan: MRI of the brain pending. Rom scan results pending. Follow-up with Neurology. (3) Epigastric pain: Code(s): R10.13 - Epigastric pain Plan: Upper GI series ordered. (4) Age related osteoporosis: Code(s): M81.0 - Age-related osteoporosis without current pathological fracture Qualifiers: Presence of current pathological fracture: without current pathological fracture Qualified Code(s): M81.0 - Age-related osteoporosis without current pathological fracture Plan: Referred to rheumatology. Orders: Orders [place] upper GI series Today R10.13 - Epigastric pain Referrals Rheumatology Referral M81.0 - Age-related osteoporosis without current pathological fracture Gastroenterology Referral R10.13 - Epigastric pain Coding Level of Care Code Est Pt Level 4 (19769) Complex EM visit Add On G2211 Diagnoses Mild major depression F32.0 Coarse tremors G25.2 Epigastric pain R10.13 Age-related osteoporosis without current pathological fracture M81.0 Presence of current pathological fracture: without current pathological fracture Time Spent (min) 24
[2024-01-29 14:44] VITALS: BP 130/74; BMI 23.4
== END 2024-01-29 15:29 | disposition home or self-care (01) ==
PROVIDERS: PCP Internal Medicine; Visit Provider Internal Medicine
DX: F32.0 Major depressive disorder, single episode, mild (principal); G25.2 Other specified forms of tremor; R10.13 Epigastric pain; M81.0 Age-related osteoporosis without current pathological fracture
CPT/HCPCS: 99214; G2211

== ENCOUNTER 2024-02-10 12:29 | Outpatient (REF) | payer OTHER, SELFPAY ==
--- NOTE | ~2024-02-10 | MR_ITS ---
EXAMINATION: MR BRAIN WITHOUT CONTRAST CLINICAL INFORMATION: Tremor. Numbness/sensation in the hands. COMPARISON: Brain MRI from 04/24/2021. TECHNIQUE: MRI of the brain was obtained using routine sequences without contrast. FINDINGS: No focal restricted diffusion is demonstrated to suggest acute or subacute cerebral ischemia. No evidence of acute or chronic hemorrhagic products on heme-sensitive imaging. Scattered periventricular and deep white matter T2 FLAIR hyperintensities consistent with mild underlying microangiopathy. Proportional prominence of the ventricles and sulcal spaces without evidence of obstructive hydrocephalus. No abnormal mass effect. No midline shift. Moderate expansion of the sella turcica with slight flattening of the pituitary gland. Normal positioning of the cerebellar tonsils. Normal arterial and venous vascular flow voids are present. Normal, homogeneous marrow signal. Mild mucosal thickening of the paranasal sinuses. No signal abnormalities within the mastoids. Bilateral lens extractions. MR/MR head/brain wo con IMPRESSION: 1. No acute intracranial abnormalities. 2. Mild underlying microangiopathy and generalized cerebral volume loss.
== END 2024-02-10 12:30 | disposition home or self-care (01) ==
LOC: HO.MRI 12:29
PROVIDERS: PCP Internal Medicine; Visit Provider Psychiatry & Neurology Neurology
DX: G25.2 Other specified forms of tremor (principal)
CPT/HCPCS: 70551

== ENCOUNTER 2024-04-01 14:01 | Outpatient (AMB) | payer OTHER, SELFPAY ==
--- NOTE | 2024-04-01 14:03 | A.OFFVIS_ITS ---
Vital Signs 04/01/24 14:04 Height 4 ft 10 in Weight 122 lb BMI 25.5 BP 172/88 H Blood Pressure Location Rt brachial Position Sitting Pulse 61 Intake Visit Reasons: abdominal pains Intake Note: Birgit presents in the office as a follow up for abdominal pains, CC: No blood in stools but she states she deals with constipation and pains in her abdomen. [employer] Representative Required: No Allergies mold [MOLD] Allergy (Severe, Verified 04/13/24 19:55) SWELLING alcohol [ALCOHOL] Allergy (Intermediate, Verified 04/13/24 19:55) RED, SWELLING corn syrup [CORN SYRUP] Allergy (Intermediate, Verified 04/13/24 19:55) red hot face dextrose [DEXTROSE] Allergy (Intermediate, Verified 04/13/24 19:55) RED RASH erythromycin base [ERYTHROMYCIN BASE] Allergy (Intermediate, Verified 04/13/24 19:55) RASH Penicillins [PENICILLINS] Allergy (Intermediate, Verified 04/13/24 19:55) SWELLING, RASH sucrose [SUCROSE] Allergy (Intermediate, Verified 04/13/24 19:55) RED RASH Sulfa (Sulfonamide Antibiotics) [SULFA (SULFONAMIDE ANTIBIOTICS)] Allergy (Intermediate, Verified 04/13/24 19:55) RASH, redness, redness valacyclovir Allergy (Intermediate, Verified 04/13/24 19:55) Redness of Skin morphine Adverse Reaction (Intermediate, Verified 04/13/24 19:55) Hallucinations 12 Hour Nasal Allergy (Intermediate, Uncoded 04/13/24 19:55) hives WINE Allergy (Intermediate, Uncoded 04/13/24 19:55) RASH FROM RED WINE fluorquinolones Allergy (Mild, Uncoded 04/13/24 19:55) nerve damage HPI Comments Details: This is an 81-year-old female past medical history of complicated sigmoid diverticulitis leading to pelvic abscess and 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 Initial visit 05/22/22: Patient states that she had a history of partial SBO in 2020 that was conservatively managed. The reason to go to the emergency room this time was that she had a very similar pain and was worried that she may have another SBO. Describes the pain as sharp, shooting, localized to her right lower quadrant associated with feeling of bloating and nausea. No fevers or chills. At baseline, patient has a least 3-4 bowel movements a week. Does complain of significant discomfort shortly after eating associated with bloating, that goes away in a few hours. Colonoscopy 2018: Tortuous sigmoid with difficulty visualization, ultimately advanced to cecum. Sigmoid resection and colostomy 2018 Path showed large bowel within normal limits. Patient describes recent emotional distress is including moving to [facility] after her children told their house. Her was also recently diagnosed with Alzheimer's, and patient is the only caregiver. She also has a strained relationship with 1 of her daughters at present. 08/15/22: Tells me that she was able to see Dr. Ordoñez in [place]. However, due to her age, she was not felt to be an appropriate candidate for surgical repair of her ventral hernia. She is currently seeking a 2nd opinion [facility]. In terms of her symptoms, she states that bowels are more regular now, able to have 1 bowel movement every day, however stool is still a bit hard, and leads to straining. Postprandial bloating is not as bothersome anymore now that her bowels are more regular. 06/07/23: Was seen by Deanne Moffett in [facility] [place]. Again, was recommended a conservative management which the pt is not too happy about as she is afraid that we are just letting her hernias get bigger and they may rupture. In terms of her constipation, she mentions has been going fairly regularly and no issues with straining any more. 04/01/24: returning for follow up. Reports persistent abd pain with burining and bloating. More recently also with nausea and occ vomiting case in morning which is new for her. Reports has UGIS ordered through PCP. [facility] Medical History Thrombophlebitis, popliteal vein Gait disorder Anxiety Coarse tremors Renal cyst Abdominal pain Thyroid disease Chronic pain syndrome Osteoarthritis of left knee Spinal stenosis Left sided sciatica Constipation by delayed colonic transit Left knee pain Dyslipidemia Onychomycosis Neuropathy Rosacea Asthma Surgical History Hx of colonoscopy History of surgery History of back surgery (~03/31/21) History of surgery History of removal of both ovaries Colostomy in place History of tonsillectomy History of cholecystectomy History of repair of hiatal hernia History of hysterectomy Family History Father Hypertension Pancreatitis Uremia Mother Diverticulosis Alzheimers disease Brother Colon cancer CVD (cardiovascular disease) Sister Colon cancer Social History Household Members: Spouse Household Members Other:: 2 Housing: Condominium Do you presently have visiting nurse or other home services: No Alcohol intake: never 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 Patient Tobacco Use Status: Former Tobacco user Tobacco use type: Cigarette Years Smoked: 1 year e-Cigarette/Vaping Use: Never Used Second Hand Smoke Exposure: No service: No Current occupational status: retired Cognitive needs: Yes Hearing needs: No Vision needs: Yes Review of Systems Const All systems reviewed & are unremarkable except as noted in HPI and below Physical Exam Vital Signs: Last Vital Signs Pulse 61 04/01/24 14:04 BP 172/88 H 04/01/24 14:04 BMI result Body Mass Index 25.5 No apparent distress Nonicteric Marked scoliosis Abdomen soft, nondistended Alert and oriented x3, normal gait Assessment & Plan Assessment & Plan (1) Epigastric pain: Code(s): R10.13 - Epigastric pain Category: Medical (2) Nausea & vomiting: Code(s): R11.2 - Nausea with vomiting, unspecified Category: Medical Plan Reviewed with the pt that given worsening of sx over the last few months and now also with frequent N/V would recommend direct visualization through EGD. Again recommend H2 za or PPI short term which the pt declines. She is aware that anesthesia and case airway management will be reviewed with her by the anesthesia provider given severe scoliosis. UGIS ordered by PCP and pending. Follow up after EGD Coding Level of Care Code Est Pt Level 4 (83330) Diagnoses Epigastric pain R10.13 Nausea & vomiting R11.2
[2024-04-01 14:04] VITALS: BP 172/88; PULSE 61; BMI 25.5
== END 2024-04-01 15:23 | disposition home or self-care (01) ==
PROVIDERS: PCP Internal Medicine; Visit Provider Internal Medicine
DX: R10.13 Epigastric pain (principal); R11.2 Nausea with vomiting, unspecified
CPT/HCPCS: 99214

== ENCOUNTER → 2024-04-01 14:01 | Outpatient (BNVA) | payer OTHER, SELFPAY | PROVIDERS: PCP Internal Medicine; Visit Provider Internal Medicine | DX: R10.13 Epigastric pain (principal); R11.2 Nausea with vomiting, unspecified; K59.00 Constipation, unspecified; R14.0 Abdominal distension (gaseous) | CPT/HCPCS: 99212 ==

== ENCOUNTER 2024-04-08 09:29 | Outpatient (REF) | payer OTHER, SELFPAY ==
--- NOTE | ~2024-04-08 | FL_ITS ---
EXAMINATION: XR FLUOROSCOPY UPPER GI WITH AIR CLINICAL INFORMATION: Epigastric pain COMPARISON: None TECHNIQUE: Fluoroscopic air contrast upper GI examination was performed utilizing standard techniques with thin and thick barium and effervescent granules. Numerous spot images were obtained. FINDINGS: Dual and single contrast images of the esophagus demonstrate a mildly patulous esophagus with a corkscrew appearance. No evidence of stricture, mass, or ulcerations identified. A small pulsion diverticulum is noted in the lower esophagus. There is to and fro motion of the barium column with nonpropulsive tertiary contractions noted throughout the esophagus. No evidence of hiatus hernia identified. No significant gastroesophageal reflux was seen during the course of the examination and on reflux views. There is mild narrowing of the GE junction, however this does not result in significant stricture. Dual contrast and single contrast images of the stomach demonstrate a normal contour. There is a [id number] sized inferiorly oriented diverticulum of the fundus. The gastric rugal folds have a thickened appearance, suggestive of gastritis. There are several foci of contrast pooling in the fundus and body the stomach that may represent small superficial apthous ulcers. Contrast freely passed into the gastric antrum and duodenal bulb without delay. Single and air-contrast images of the duodenal bulb demonstrate no abnormality. The duodenal sweep has a normal appearance, course, and mucosal fold appearance. The imaged proximal jejunum has a normal fold pattern and caliber. FLUOROSCOPY TIME: 4 minutes 46 seconds Number of Spot Images: 7 Number of Cine: 13 DOSE AREA PRODUCT: 2041 uGy-m2 (microgray-meter squared) FL/FL upper GI series IMPRESSION: 1. Mildly patulous esophagus with a corkscrew appearance and severely disorganized peristalsis consistent with esophageal dysmotility. 2. Tiny subcentimeter pulsion diverticulum noted in the distal esophagus, just above the GE junction. This is of doubtful clinical significance. 3. Small to moderate sized inferiorly oriented diverticulum of the fundus of the stomach. This can also be seen on recent CT abdomen and pelvis 05/09/2022. 4. Thickened gastric rugal folds. In addition there are several foci of contrast pooling in the fundus and body of the stomach. These findings are suggestive of erosive gastritis. Recommend correlation with EGD. This procedure was performed by Praveen Dowling PA-C, and supervised by Dr. Godinez Electronically signed by: Willian Godinez MD 04/09/2024 10:52 AM EDT RP
== END 2024-04-08 09:30 | disposition home or self-care (01) ==
LOC: HO.XRAY 09:29
PROVIDERS: PCP Internal Medicine; Visit Provider Internal Medicine
DX: R10.13 Epigastric pain (principal)
CPT/HCPCS: 74240

== ENCOUNTER → 2024-04-08 09:32 | Outpatient (BNV) | payer OTHER, SELFPAY | PROVIDERS: PCP Internal Medicine; Visit Provider Radiology Diagnostic Radiology | DX: R10.13 Epigastric pain (principal) | CPT/HCPCS: 74246 ==

== ENCOUNTER 2024-04-13 19:43 | Emergency (ER) | payer OTHER, SELFPAY ==
[2024-04-13 19:47] VITALS: BP 164/78; PULSE 70; O2SAT 99
[2024-04-13 19:53] VITALS: BP 157/63; PULSE 70; RESP 16; TEMP 36.7; O2SAT 98; BMI 23.2
--- NOTE | 2024-04-13 20:00 | ECG_ITS ---
Test Reason : ABDOMINAL PAIN Blood Pressure : / mmHG Vent. Rate : 069 BPM Atrial Rate : 069 BPM P-R Int : 168 ms QRS Dur : 080 ms QT Int : 406 ms P-R-T Axes : 057 -26 050 degrees QTc Int : 435 ms Normal sinus rhythm Possible Left atrial enlargement Septal infarct , age undetermined Abnormal ECG When compared with ECG of 03-SEP-2022 15:13, No significant change was found Referred By: Generic ED Physician Electronically Signed By:MAYLIN MUNIZ
--- NOTE | 2024-04-13 20:07 | ED_ITS ---
HPI - Abdominal Pain General Chief Complaint: Abdominal Pain Stated Complaint: ABD PAIN Time Seen by Provider: 04/13/24 19:48 Source: patient and EMS Mode of arrival: EMS Limitations: no limitations History of Present Illness HPI narrative: Patient is an 83-year-old female who presents emergency department for evaluation. She reports at 17:00 she developed pain to the midline supra umbilical region/epigastric area. She felt a bulge to this area that ?felt like a hernia?. The pain was more severe than what she has experienced in the past which prompted her call to come to the emergency department. She denies associated nausea or vomiting. She reports that she last ate at 15:00; prunes and an orange. She admits to 1 episode of diarrhea earlier today described as soft with a normal stools without hematochezia or melena, and a normal formed stool 1 hour prior to that. Has a history of cholecystectomy in the 80s. Daughter who is present at bedside states that it is typical for her to have loose stools and similar pain after she eats fried foods, yesterday she consumed fried clams. She denies recent ill like symptoms. Denies symptoms. At this time her pain has resolved. Related Data Home Medications ?Medication ?Instructions ?Recorded ?Confirmed beclomethasone dipropionate 80 2 inh inhalation BID 07/04/20 01/29/24 mcg/actuation HFA breath activated aerosol (Qvar RediHaler) ascorbic acid (vitamin C) 500 mg 500 mg PO DAILY 11/10/20 01/29/24 tablet (Vitamin C) multivitamin 1 tab PO DAILY 11/10/20 01/29/24 alpha lipoic acid 600 mg capsule 600 mg PO BID 11/16/21 01/29/24 biotin 5,000 mcg disintegrating 10,000 mcg PO DAILY 11/16/21 01/29/24 tablet bromelains 500 mg tablet 1,000 mg PO DAILY 11/16/21 01/29/24 chromium picolinate 1,000 mcg 1,000 mcg PO DAILY 11/16/21 01/29/24 tablet flaxseed oil 1,000 mg capsule 1,000 mg PO BID 11/16/21 01/29/24 lutein 20 mg tablet 20 mg PO DAILY 11/16/21 01/29/24 magnesium 500 mg tablet 1,000 mg PO BID 11/16/21 01/29/24 mecobalamin (vitamin B12) 5,000 mcg PO 11/16/21 01/29/24 mcg disintegrating tablet vitamin E 200 unit capsule 200 unit PO DAILY 11/16/21 01/29/24 glycine 500 mg capsule mg PO 11/08/22 01/29/24 MARQUIS 100 mg-theanine 100 cap PO 01/15/23 01/29/24 mg-ashwagandha extract 225 mg capsule (MARQUIS Soothe) albuterol sulfate 90 mcg/actuation inhalation 06/07/23 01/29/24 breath activated powder inhaler (ProAir RespiClick) calcium polycarbophil 625 mg mg PO 06/07/23 01/29/24 tablet (Fiber (calcium polycarbophil)) gabapentin 100 mg capsule mg PO 06/07/23 01/29/24 Previous Rx's ?Medication ?Instructions ?Recorded cholecalciferol (vitamin D3) 25 25 mcg PO DAILY 90 days #90 tabs 02/27/23 mcg (1,000 unit) tablet (Vitamin D3) psyllium husk 0.4 gram capsule 0.4 g PO BEDTIME 90 days #90 caps 02/27/23 (Fiber (psyllium husk)) melatonin 3 mg capsule 3 mg PO BEDTIME PRN sleep 30 days 10/01/23 #30 caps 16 grab bar #1 ea 01/24/24 set of weighted utensils with no #1 ea 01/24/24 build up handle Phonics 360 toothbrush #1 ea 02/24/24 sonics 360 Toothbrush #1 ea 03/04/24 furosemide 40 mg tablet 40 mg PO DAILY #90 tabs 04/06/24 Allergies Allergy/AdvReac Type Severity Reaction Status Date / Time mold [MOLD] Allergy Severe SWELLING Verified 04/13/24 19:55 alcohol [ALCOHOL] Allergy Intermediate RED, Verified 04/13/24 19:55 SWELLING corn syrup [CORN SYRUP] Allergy Intermediate red hot Verified 04/13/24 19:55 face dextrose [DEXTROSE] Allergy Intermediate RED RASH Verified 04/13/24 19:55 erythromycin base Allergy Intermediate RASH Verified 04/13/24 19:55 [ERYTHROMYCIN BASE] Penicillins [PENICILLINS] Allergy Intermediate SWELLING, Verified 04/13/24 19:55 RASH sucrose [SUCROSE] Allergy Intermediate RED RASH Verified 04/13/24 19:55 Sulfa (Sulfonamide Allergy Intermediate RASH, Verified 04/13/24 19:55 Antibiotics) redness, [SULFA (SULFONAMIDE redness ANTIBIOTICS)] valacyclovir Allergy Intermediate Redness of Verified 04/13/24 19:55 Skin morphine AdvReac Intermediate Hallucinati Verified 04/13/24 19:55 ons 12 Hour Nasal Allergy Intermediate hives Uncoded 04/13/24 19:55 WINE Allergy Intermediate RASH FROM Uncoded 04/13/24 19:55 RED WINE fluorquinolones Allergy Mild nerve Uncoded 04/13/24 19:55 damage Review of Systems Review of Systems Yes all other systems are reviewed and are negative [facility] Past Medical History Attestation statement: The following information was validated with the patient. Medical History Thrombophlebitis, popliteal vein Gait disorder Anxiety Coarse tremors Renal cyst Abdominal pain Thyroid disease Chronic pain syndrome Osteoarthritis of left knee Spinal stenosis Left sided sciatica Constipation by delayed colonic transit Left knee pain Dyslipidemia Onychomycosis Neuropathy Rosacea Asthma Surgical History Hx of colonoscopy History of surgery History of back surgery (~03/31/21) History of surgery History of removal of both ovaries Colostomy in place History of tonsillectomy History of cholecystectomy History of repair of hiatal hernia History of hysterectomy Family History Family History Father Hypertension Pancreatitis Uremia Mother Diverticulosis Alzheimers disease Brother Colon cancer CVD (cardiovascular disease) Sister Colon cancer Social History Social History Household Members: Spouse Household Members Other:: 2 Housing: Condominium Do you presently have visiting nurse or other home services: No Alcohol intake: never 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 Patient Tobacco Use Status: Former Tobacco user Tobacco use type: Cigarette Years Smoked: 1 year Smoked in Last 30 Days: No e-Cigarette/Vaping Use: Never Used Second Hand Smoke Exposure: No Use of substances other than those prescribed or required for medical reasons: No Advance Directives: No Advance Directives Information Provided: No Do you have a plan to hurt others: No Plan service: No Current occupational status: retired Cognitive needs: Yes Hearing needs: No Vision needs: Yes Physical Exam ED Vital Signs: Vital Signs - 24 hr 04/13/24 19:53 Temperature 98.0 F Pulse Rate 70 Respiratory Rate 16 Blood Pressure 157/63 H Pulse Oximetry 98 Oxygen Delivery Method Room Air BMI result Body Mass Index 0.2 Appearance: Alert.?Oriented to person, place and time. No acute distress.?Normal affect. Eyes: Pupils equal, round and reactive to light.? ENT: Pharynx normal.?? Neck: Normal inspection.? Neck supple.?? CVS: Heart sounds normal. Normal heart rate and rhythm.? Pulses normal.?? Respiratory: No respiratory distress.? Lung sounds clear to auscultation bilaterally?? Abdomen: Soft and non-tender. Normoactive bowel sounds. No pulsatile mass.?? Skin: Skin warm and dry.? Normal skin color.? Extremities: No lower extremity edema.? No calf ttp? Neuro: Moves all extremities spontaneously. Sensation intact bilaterally. . Ambulates with normal steady gait. Course Reevaluation(s) Reevaluation #1: Remains asymptomatic at this time, requesting discharge home, workup unremarkable. Pain Ysabel 2nd dairy to her dietary consumption as aforementioned, possible GERD/gastritis. Reviewed worrisome signs and symptoms that would warrant re-evaluation in the emergency department. All questions answered. Stable for discharge Medical Decision Making Medical Decision Making MDM Narrative: Patient is an 83-year-old female with past medical history of VT, anxiety, osteoarthritis, spinal stenosis, constipation, dyslipidemia, neuropathy, asthma, history of hiatal hernia repair, cholecystectomy, history of diverticulitis where partial colon resection who presents emergency department for evaluation of abdominal pain as noted in HPI which has currently resolved. Overall she appears well, nontoxic, afebrile. She is without tachycardia tachypnea or hypoxia. Denies chest pain. She is ambulatory with a steady gait in the use of a wheeled walker. Her abdominal examination is entirely benign at this time. Will obtain CBC to evaluate for leukocytosis/ anemia, CMP and lipase to evaluate for abnormal electrolytes /abnormal renal function/ abnormal hepatic function, EKG and troponin to evaluate for ischemia/ACS and Urinalysis. Differential Diagnosis Differential Diagnoses: The differential diagnosis associated with the presentation includes (Gastritis, pancreatitis, hernia; unlikely obstructed, lower suspicion for diverticulitis no left lower quadrant abdominal pain persistent diarrhea or nausea/vomiting. Abdomen is soft and nontender, unlikely to have acute surgical abdomen.) Admission/Observation Consideration of admission/observation: Escalation of care including admission/observation considered (See narrative above and course narrative for further detail) Lab Data MDM Lab Attestation statement: I reviewed the patient's lab results. CBC is without leukocytosis, stable anemia, no thrombocytopenia. No electrolyte derangement. No ANNABELLE. LFTs and lipase within normal range. High sensitive troponin below detectable limits. Urinalysis with 1+ leukocyte esterase, no urine bacteria seen no symptoms, unlikely acute UTI. Viral panel is negative 04/13/24 20:30 04/13/24 20:30 Labs: Lab Results 04/13/24 04/13/24 04/13/24 Range/Units 20:30 20:45 21:00 WBC 5.9 (4.8-10.8) X10*3/uL RBC 4.11 L (4.20-5.50) X10*6/uL Hgb 12.2 (12.0-16.0) g/dl Hct 36.4 L (37.0-47.0) % MCV 88.6 (80.0-98.0) fL MCH 29.7 (27.0-33.0) pg MCHC 33.5 (31.0-35.0) g/dl RDW 13.2 (11.0-16.0) % Plt Count 226 D (160-400) X10*3/uL MPV 11.9 (9.4-12.3) fL Immature Gran % (Auto) 0.3 (0.0-0.4) % Neut % (Auto) 67.9 (45-73) % Lymph % (Auto) 19.3 L (20-40) % Beaver % (Auto) 9.6 (2-11) % Eos % (Auto) 1.7 (0-4) % Baso % (Auto) 1.2 (0-2) % Lymph # (Auto) 1.1 L (1.2-4.9) X10*3/uL Beaver # (Auto) 0.6 (0.1-1.2) X10*3/uL Eos # (Auto) 0.1 (0.0-0.4) X10*3/uL Baso # (Auto) 0.1 (0.0-0.2) X10*3/uL Abs Immat Gran (auto) 0.02 (0.00-0.03) X10*3/uL Absolute Neuts (auto) 4.0 (2.0-8.3) x10*3/uL Absolute Nucleated RBC 0.000 (0.0-0.012) X10*3/uL Nucleated RBC % (auto) 0.0 (0.0-0.2) /100WBC PT 12.5 (11.1-13.3) SEC INR 1.0 (0.9-1.1) Sodium 143 (135-145) mmol/L Potassium 3.6 (3.3-5.1) mmol/L Chloride 104 (96-108) mmol/L Carbon Dioxide 29 (22-29) mmol/L Anion Gap 14 (12-20) BUN 19 H (9-16) mg/dL Creatinine 0.68 (0.5-1.4) mg/dL Estim Creat Clear Calc 60.7 Estimated GFR > 60 Random Glucose 128 H (60-115) mg/dL Calcium 9.8 (8.4-10.2) mg/dL Magnesium 2.3 (1.6-2.6) mg/dL Total Bilirubin 0.3 (0.0-1.0) mg/dL AST 27 (5-31) U/L ALT 25 (0-31) U/L Alkaline Phosphatase 66 (39-117) U/L Troponin I High Sens 2.7 (<3.5-17.0) ng/L Total Protein 6.7 (6.5-8.0) g/dL Albumin 4.2 (3.5-5.0) g/dL Lipase 36 (8-78) U/L Urine Color Yellow Urine Appearance Clear Urine pH 7.0 (5.0-9.0) Ur Specific Hobbs 1.010 (1.005-1.025) Urine Protein Negative (Neg-Trace) mg/dL Urine Glucose (UA) Negative (Negative) mg/dL Urine Ketones Negative (Negative) mg/dL Urine Blood Negative (Negative) Urine Nitrite Negative (Negative) Ur Leukocyte Esterase Small (1+) H (Negative) Urine RBC 0-2 (0-2) /HPF Urine WBC 6-10 H (0-5) /HPF Ur Squamous Epith Cells 0-2 (0-2) /HPF Urine Bacteria None Seen (None Seen) Hyaline Casts 0-2 (0-2) /LPF Influenza Type A (PCR) NEGATIVE (Negative) Influenza Type B (PCR) NEGATIVE (Negative) RSV RNA Qual (PCR) NEGATIVE (Negative) SARS-CoV-2 RNA (RT-PCR) NEGATIVE (Negative) Independent Interpretation I performed an independent interpretation of an: EKG Interpretation: Rate: 69 Rhythm:? Normal sinus rhythm Normal P waves.? Normal ANDRIY.?? Normal QRS complex.?? ST T wave :??No ST elevation, no ST depression qTC: 435 prior studies:? August of 2022 The study has been interpreted contemporaneously by me. Independent Historian Clinical information obtained from an independent historian. History obtained from or confirmed by: EMS and Other (Daughter) External Record Review External record reviewed: Outpatient record Discharge Plan Discharge Clinical Impression: Abdominal pain Patient Disposition: Home, Self-Care Instructions: Abdominal Pain (ED) Additional Instructions: Your laboratory testing today was overall very reassuring. At the time of evaluation your abdominal pain had resolved. Please refrain from eating foods that may exacerbate your pain such as fried or fatty foods. Follow-up with your primary care doctor. You may return back to emergency department any new or worsening symptoms or concerns. Prescriptions: No Action cholecalciferol (vitamin D3) [Vitamin D3] 25 mcg (1,000 unit) tablet 25 mcg PO DAILY 90 Days Qty: 90 1RF psyllium husk [Fiber (psyllium husk)] 0.4 gram capsule 0.4 g PO BEDTIME 90 Days Qty: 90 1RF (DME) 16 grab bar See Rx Instructions .Route .MEDSUPPLY Qty: 1 0RF Rx Instructions: As directed (DME) set of weighted utensils with no build up handle See Rx Instructions .Route .MEDSUPPLY Qty: 1 0RF Rx Instructions: As directed (DME) Phonics 360 toothbrush See Rx Instructions .Route .MEDSUPPLY Qty: 1 0RF Rx Instructions: As directed (DME) sonics 360 Toothbrush See Rx Instructions .Route .MEDSUPPLY Qty: 1 0RF Rx Instructions: As directed furosemide 40 mg tablet 40 mg PO DAILY Qty: 90 2RF Patient Comments: Patient usually takes everyday, but has not taken due to blockage multivitamin Tablet 1 tab PO DAILY ascorbic acid (vitamin C) [Vitamin C] 500 mg Tablet 500 mg PO DAILY Qvar RediHaler 80 mcg/actuation HFA aerosol breath activated 2 inh inhalation BID Rx Instructions: Patient knows they are supposed to take daily, but usually does 2 puffs in the morning and 1-2 puffs in the evening vitamin E 200 unit capsule 200 unit PO DAILY magnesium 500 mg tablet 1,000 mg PO BID flaxseed oil 1,000 mg capsule 1,000 mg PO BID Rx Instructions: administer with meals mecobalamin (vitamin B12) 5,000 mcg tablet,disintegrating PO alpha lipoic acid 600 mg capsule 600 mg PO BID bromelains 500 mg tablet 1,000 mg PO DAILY Rx Instructions: administer after a meal biotin 5,000 mcg tablet,disintegrating 10,000 mcg PO DAILY chromium picolinate 1,000 mcg tablet 1,000 mcg PO DAILY lutein 20 mg tablet 20 mg PO DAILY Rx Instructions: give with meal/snack melatonin 3 mg capsule 3 mg PO BEDTIME PRN (Reason: sleep) 30 Days Qty: 30 0RF glycine 500 mg capsule PO gabapentin 100 mg capsule PO ProAir RespiClick 90 mcg/actuation aerosol powdr breath activated inhalation calcium polycarbophil [Fiber (calcium polycarbophil)] 625 mg tablet PO MARQUIS Soothe 100-100-225 mg capsule PO Referrals: Physician,Unknown J [Primary Care Provider] - Print Language: [place]
[2024-04-13 20:35] LABS: MANUAL DIFF FLAG NO
[2024-04-13 20:36] LABS: Basophils Absolute Auto 0.1 X10*3/uL (0.0-0.2); Basophils Percent Auto 1.2 % (0-2); Eosinophils Absolute Auto 0.1 X10*3/uL (0.0-0.4); Eosinophils Percent Auto 1.7 % (0-4); Hematocrit 36.4 % (37.0-47.0); Hemoglobin 12.2 g/dl (12.0-16.0); Imm Gran Abs Auto 0.02 X10*3/uL (0.00-0.03); Imm Gran Pct Auto 0.3 % (0.0-0.4); Lymphocytes Absolute Auto 1.1 X10*3/uL (1.2-4.9); Lymphocytes Percent Auto 19.3 % (20-40); Mean Corpuscular HGB Conc 33.5 g/dl (31.0-35.0); Mean Corpuscular Hemoglobin 29.7 pg (27.0-33.0); Mean Corpuscular Volume 88.6 fL (80.0-98.0); Mean Platelet Volume 11.9 fL (9.4-12.3); Monocytes Absolute Auto 0.6 X10*3/uL (0.1-1.2); Monocytes Percent Auto 9.6 % (2-11); Neutrophils Percent Auto 67.9 % (45-73); Platelet Count 226 X10*3/uL (160-400); Red Blood Count 4.11 X10*6/uL (4.20-5.50); Red Cell Distribution Width 13.2 % (11.0-16.0); White Blood Count 5.9 X10*3/uL (4.8-10.8)
[2024-04-13 20:42] LABS: Prothrombin Time 12.5 SEC (11.1-13.3)
[2024-04-13 20:50] LABS: Alanine Aminotransferase 25 U/L (0-31); Albumin Level 4.2 g/dL (3.5-5.0); Alkaline Phosphatase 66 U/L (39-117); Anion Gap 14 (12-20); Aspartate Amino Transferase 27 U/L (5-31); Bilirubin Total 0.3 mg/dL (0.0-1.0); Blood Urea Nitrogen 19 mg/dL (9-16); Calcium 9.8 mg/dL (8.4-10.2); Carbon Dioxide 29 mmol/L (22-29); Chloride 104 mmol/L (96-108); Creatinine Clr Calc Pharmacy 60.7; Estimated Glomerular Filt Rate > 60; Glucose Random 128 mg/dL (60-115); Lipase 36 U/L (8-78); Magnesium 2.3 mg/dL (1.6-2.6); Potassium 3.6 mmol/L (3.3-5.1); Sodium 143 mmol/L (135-145); Total Protein 6.7 g/dL (6.5-8.0)
[2024-04-13 20:57] LABS: Troponin-I High Sensitivity 2.7 ng/L (<3.5-17.0)
[2024-04-13 21:07] LABS: Appearance Urine Clear; Color Urine Yellow; Glucose Urine UA Negative (Negative); Leukocyte Esterase Urine Small (1+) (Negative); Nitrite Urine Negative (Negative); UMIC TRIGGER UACC YES; Urine Blood Negative (Negative); Urine Ketones Negative (Negative); Urine Protein Negative (Neg-Trace)
[2024-04-13 21:10] LABS: Bacteria Urine None Seen (None Seen); Hyaline Casts Urine 0-2 /LPF (0-2); RBC Urine 0-2 /HPF (0-2); Squamous Epithelial Cell Urine 0-2 /HPF (0-2); UACC Culture Trigger YES
[2024-04-13 21:35] LABS: Influenza A PCR NEGATIVE (Negative); Influenza B PCR NEGATIVE (Negative); Resp Syncy Virus RNA Qual PCR NEGATIVE (Negative); SARS COV2 PCR INHOUSE NEGATIVE (Negative)
[2024-04-13 22:45] VITALS: BP 140/52; PULSE 57; RESP 16; TEMP 36.8; O2SAT 97
== END 2024-04-13 22:47 | disposition home or self-care (01) ==
PROVIDERS: Nurse Practitioner Family; Emergency Provider Emergency Medicine
DX: R10.33 Periumbilical pain (principal); R94.31 Abnormal electrocardiogram [ECG] [EKG]; R10.13 Epigastric pain; Z03.818 Encounter for observation for suspected exposure to other biological agents ruled out; Z79.899 Other long term (current) drug therapy; Z87.891 Personal history of nicotine dependence
CPT/HCPCS: 0241U; 80053; 81001; 83690; 83735; 84484; 85025; 85610; 87086; 93005; 99283; 99284

== ENCOUNTER 2024-04-30 08:44 | Day surgery (SDC) | payer OTHER, SELFPAY ==
--- NOTE | 2024-04-29 09:01 | P.CONAN_ITS ---
Documented by User: Juany Anderson NP 04/29/24 09:03 HPI - Anesthesia Eval Consult details Narrative: 83yo F for Upper Endoscopy PMFSH Active Problems Active Problems: All Active Problems Nausea & vomiting (Acute) Epigastric pain (Acute) Age related osteoporosis (Acute) Gait disorder (Acute) Anxiety (Acute) Coarse tremors (Acute) Mild major depression (Acute) Encounter for hepatitis C screening test for low risk patient (Acute) Abnormal EKG (Acute) Leg edema (Acute) Chest pain (Acute) Tremors of nervous system (Acute) Ventral hernia (Acute) Caregiver burden (Acute) Ear discomfort (Acute) Rectus diastasis of lower abdomen (Acute) Varicose veins of right lower extremity with inflammation (Acute) Renal cyst (Acute) Varicose veins of left lower extremity with inflammation (Acute) Renal cyst (Acute) Varicose vein of leg (Acute) Abdominal pain (Acute) Thyroid disease (Acute) Chronic pain syndrome (Acute) Osteoarthritis of left knee (Acute) Spinal stenosis (Acute) Left sided sciatica (Acute) Constipation by delayed colonic transit (Acute) Left knee pain (Acute) Dyslipidemia (Acute) Onychomycosis (Acute) Neuropathy (Acute) Rosacea (Acute) Asthma (Acute) Past Medical History Medical History Thrombophlebitis, popliteal vein Gait disorder Anxiety Coarse tremors Renal cyst Abdominal pain Thyroid disease Chronic pain syndrome Osteoarthritis of left knee Spinal stenosis Left sided sciatica Constipation by delayed colonic transit Left knee pain Dyslipidemia Onychomycosis Neuropathy Rosacea Asthma Family History Family History Father Hypertension Pancreatitis Uremia Mother Diverticulosis Alzheimers disease Brother Colon cancer CVD (cardiovascular disease) Sister Colon cancer Surgical History Surgical History Hx of colonoscopy History of surgery History of back surgery (~03/31/21) History of surgery History of removal of both ovaries Colostomy in place History of tonsillectomy History of cholecystectomy History of repair of hiatal hernia History of hysterectomy Social History Social History Household Members: Spouse Household Members Other:: 2 Housing: Condominium Are you a primary palliative care physician to a significant other at home: Yes Do you presently have visiting nurse or other home services: Yes Alcohol intake: never 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 Patient Tobacco Use Status: Former Tobacco user Tobacco use type: Cigarette Years Smoked: 1 year e-Cigarette/Vaping Use: Never Used Second Hand Smoke Exposure: No Have you been hit, kicked, punched, or otherwise hurt by someone within the past year? If so, by whom?: No Are you DNR?: No Advance Directives: No Advance Directives Information Provided: Yes Recently lost weight without trying: No Nutrition Risks: No Nutritional Risk service: No Current occupational status: retired Cognitive needs: Yes Hearing needs: No Vision needs: Yes Meds Allergies Allergy/AdvReac Type Severity Reaction Status Date / Time mold [MOLD] Allergy Severe SWELLING Verified 04/13/24 19:55 alcohol [ALCOHOL] Allergy Intermediate RED, Verified 04/13/24 19:55 SWELLING corn syrup [CORN SYRUP] Allergy Intermediate red hot Verified 04/13/24 19:55 face dextrose [DEXTROSE] Allergy Intermediate RED RASH Verified 04/13/24 19:55 erythromycin base Allergy Intermediate RASH Verified 04/13/24 19:55 [ERYTHROMYCIN BASE] Penicillins [PENICILLINS] Allergy Intermediate SWELLING, Verified 04/13/24 19:55 RASH sucrose [SUCROSE] Allergy Intermediate RED RASH Verified 04/13/24 19:55 Sulfa (Sulfonamide Allergy Intermediate RASH, Verified 04/13/24 19:55 Antibiotics) redness, [SULFA (SULFONAMIDE redness ANTIBIOTICS)] valacyclovir Allergy Intermediate Redness of Verified 04/13/24 19:55 Skin morphine AdvReac Intermediate Hallucinati Verified 04/13/24 19:55 ons 12 Hour Nasal Allergy Intermediate hives Uncoded 04/13/24 19:55 WINE Allergy Intermediate RASH FROM Uncoded 04/13/24 19:55 RED WINE fluorquinolones Allergy Mild nerve Uncoded 04/13/24 19:55 damage Home Medications ?Medication ?Instructions ?Recorded ?Confirmed ?Last Taken ?Type beclomethasone dipropionate 80 2 inh inhalation BID 07/04/20 01/29/24 11/08/20 History mcg/actuation HFA breath activated aerosol (Qvar RediHaler) ascorbic acid (vitamin C) 500 mg 500 mg PO DAILY 11/10/20 01/29/24 11/08/20 History tablet (Vitamin C) multivitamin 1 tab PO DAILY 11/10/20 01/29/24 11/08/20 History alpha lipoic acid 600 mg capsule 600 mg PO BID 11/16/21 01/29/24 Unknown History biotin 5,000 mcg disintegrating 10,000 mcg PO DAILY 11/16/21 01/29/24 Unknown History tablet bromelains 500 mg tablet 1,000 mg PO DAILY 11/16/21 01/29/24 Unknown History chromium picolinate 1,000 mcg 1,000 mcg PO DAILY 11/16/21 01/29/24 Unknown History tablet flaxseed oil 1,000 mg capsule 1,000 mg PO BID 11/16/21 01/29/24 Unknown History lutein 20 mg tablet 20 mg PO DAILY 11/16/21 01/29/24 Unknown History magnesium 500 mg tablet 1,000 mg PO BID 11/16/21 01/29/24 Unknown History mecobalamin (vitamin B12) 5,000 mcg PO 11/16/21 01/29/24 Unknown History mcg disintegrating tablet vitamin E 200 unit capsule 200 unit PO DAILY 11/16/21 01/29/24 Unknown History glycine 500 mg capsule mg PO 11/08/22 01/29/24 Unknown History MARQUIS 100 mg-theanine 100 cap PO 01/15/23 01/29/24 Unknown History mg-ashwagandha extract 225 mg capsule (MARQUIS Soothe) albuterol sulfate 90 mcg/actuation inhalation 06/07/23 01/29/24 Unknown History breath activated powder inhaler (ProAir RespiClick) calcium polycarbophil 625 mg mg PO 06/07/23 01/29/24 Unknown History tablet (Fiber (calcium polycarbophil)) gabapentin 100 mg capsule mg PO 06/07/23 01/29/24 Unknown History Exam Pertinent Lab Results Pertinent Lab Results: Laboratory Tests 04/13/24 20:30 WBC 5.9 Hgb 12.2 Hct 36.4 L Plt Count 226 D Sodium 143 Potassium 3.6 Chloride 104 Carbon Dioxide 29 BUN 19 H Creatinine 0.68 Narrative Narrative: EKG 04/2024 Vent. Rate : 069 BPM Atrial Rate : 069 BPM P-R Int : 168 ms QRS Dur : 080 ms QT Int : 406 ms P-R-T Axes : 057 -26 050 degrees QTc Int : 435 ms Normal sinus rhythm Possible Left atrial enlargement Septal infarct , age undetermined Abnormal ECG When compared with ECG of 03-SEP-2022 15:13, No significant change was found Assessment and Plan Assessment Anesthesia Assessment: Chart Reviewed Documented by User: Phuong Gill MD 04/30/24 10:12 PMFSH Past Medical History Medical History Thrombophlebitis, popliteal vein Gait disorder Anxiety Coarse tremors Renal cyst Abdominal pain Thyroid disease Chronic pain syndrome Osteoarthritis of left knee Spinal stenosis Left sided sciatica Constipation by delayed colonic transit Left knee pain Dyslipidemia Onychomycosis Neuropathy Rosacea Asthma Family History Family History Father Hypertension Pancreatitis Uremia Mother Diverticulosis Alzheimers disease Brother Colon cancer CVD (cardiovascular disease) Sister Colon cancer Family history of problems with anesthesia: No Surgical History Surgical History Hx of colonoscopy History of surgery History of back surgery (~03/31/21) History of surgery History of removal of both ovaries Colostomy in place History of tonsillectomy History of cholecystectomy History of repair of hiatal hernia History of hysterectomy History of Problems with Anesthesia: No Social History Social History Household Members: Spouse Household Members Other:: 2 Housing: Condominium Are you a primary palliative care physician to a significant other at home: Yes Do you presently have visiting nurse or other home services: Yes Alcohol intake: never 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 Patient Tobacco Use Status: Former Tobacco user Tobacco use type: Cigarette Years Smoked: 1 year e-Cigarette/Vaping Use: Never Used Second Hand Smoke Exposure: No Have you been hit, kicked, punched, or otherwise hurt by someone within the past year? If so, by whom?: No Are you DNR?: No Advance Directives: No Advance Directives Information Provided: Yes Recently lost weight without trying: No Nutrition Risks: No Nutritional Risk service: No Current occupational status: retired Cognitive needs: Yes Hearing needs: No Vision needs: Yes Meds Allergies Allergy/AdvReac Type Severity Reaction Status Date / Time mold [MOLD] Allergy Severe SWELLING Verified 04/13/24 19:55 alcohol [ALCOHOL] Allergy Intermediate RED, Verified 04/13/24 19:55 SWELLING corn syrup [CORN SYRUP] Allergy Intermediate red hot Verified 04/13/24 19:55 face dextrose [DEXTROSE] Allergy Intermediate RED RASH Verified 04/13/24 19:55 erythromycin base Allergy Intermediate RASH Verified 04/13/24 19:55 [ERYTHROMYCIN BASE] Penicillins [PENICILLINS] Allergy Intermediate SWELLING, Verified 04/13/24 19:55 RASH sucrose [SUCROSE] Allergy Intermediate RED RASH Verified 04/13/24 19:55 Sulfa (Sulfonamide Allergy Intermediate RASH, Verified 04/13/24 19:55 Antibiotics) redness, [SULFA (SULFONAMIDE redness ANTIBIOTICS)] valacyclovir Allergy Intermediate Redness of Verified 04/13/24 19:55 Skin morphine AdvReac Intermediate Hallucinati Verified 04/13/24 19:55 ons 12 Hour Nasal Allergy Intermediate hives Uncoded 04/13/24 19:55 WINE Allergy Intermediate RASH FROM Uncoded 04/13/24 19:55 RED WINE fluorquinolones Allergy Mild nerve Uncoded 04/13/24 19:55 damage Home Medications ?Medication ?Instructions ?Recorded ?Confirmed ?Last Taken ?Type beclomethasone dipropionate 80 2 inh inhalation BID 07/04/20 01/29/24 11/08/20 History mcg/actuation HFA breath activated aerosol (Qvar RediHaler) ascorbic acid (vitamin C) 500 mg 500 mg PO DAILY 11/10/20 01/29/24 11/08/20 History tablet (Vitamin C) multivitamin 1 tab PO DAILY 11/10/20 01/29/24 11/08/20 History alpha lipoic acid 600 mg capsule 600 mg PO BID 11/16/21 01/29/24 Unknown History biotin 5,000 mcg disintegrating 10,000 mcg PO DAILY 11/16/21 01/29/24 Unknown History tablet bromelains 500 mg tablet 1,000 mg PO DAILY 11/16/21 01/29/24 Unknown History chromium picolinate 1,000 mcg 1,000 mcg PO DAILY 11/16/21 01/29/24 Unknown History tablet flaxseed oil 1,000 mg capsule 1,000 mg PO BID 11/16/21 01/29/24 Unknown History lutein 20 mg tablet 20 mg PO DAILY 11/16/21 01/29/24 Unknown History magnesium 500 mg tablet 1,000 mg PO BID 11/16/21 01/29/24 Unknown History mecobalamin (vitamin B12) 5,000 mcg PO 11/16/21 01/29/24 Unknown History mcg disintegrating tablet vitamin E 200 unit capsule 200 unit PO DAILY 11/16/21 01/29/24 Unknown History glycine 500 mg capsule mg PO 11/08/22 01/29/24 Unknown History MARQUIS 100 mg-theanine 100 cap PO 01/15/23 01/29/24 Unknown History mg-ashwagandha extract 225 mg capsule (MARQUIS Soothe) albuterol sulfate 90 mcg/actuation inhalation 06/07/23 01/29/24 Unknown History breath activated powder inhaler (ProAir RespiClick) calcium polycarbophil 625 mg mg PO 06/07/23 01/29/24 Unknown History tablet (Fiber (calcium polycarbophil)) gabapentin 100 mg capsule mg PO 06/07/23 01/29/24 Unknown History Exam Airway Mallampati Class: II TM Dist: <=3cm Neck ROM: Poor Heart: rrr Lungs: cta Assessment and Plan Assessment Anesthesia Assessment: Anesthesia Plan Discussed Final Anesthetic Review Family History of Problems with Anesthesia: No History of Problems with Anesthesia: No NPO: Yes ASA Class: III (pectus carinatum, severe kyphoscoliosis) Final Preanesthetic Review: No Changes in Pt Med Stat, Meds/Allgs Chart Reviewed, Consent Obtained/Reviewed and Anes Risks/Benef Reviewed Patient Risk: Intermediate Procedure Risk: Low Anesthetic Plan Anesthetic Plan: MAC: Disposition: Standard PACU
[2024-04-30 10:04] VITALS: BMI 24.9
[2024-04-30] MEDS: Lactated Ringers 1,000 ML 100 ML IVCONT (10:07)
[2024-04-30 10:23] VITALS: BP 133/51; PULSE 62; RESP 18; TEMP 36.7; O2SAT 98
--- NOTE | 2024-04-30 10:33 | MHC.SHP ---
Pre-Procedural Eval Section A - 24 Hr Update-Section A only Date of Service: 04/30/24 The patient is an INPATIENT: No The patient has been examined within 24 hours of the surgical procedure. The History & Physical has been completed within 30 days and I have reviewed it.: Yes Section B - Complete if H&P > 30 days Chief Complaint: Nausea with vomiting, unspecified Allergies: Allergies Allergy/AdvReac Type Severity Reaction Status Date / Time mold [MOLD] Allergy Severe SWELLING Verified 04/30/24 10:24 alcohol [ALCOHOL] Allergy Intermediate RED, Verified 04/30/24 10:24 SWELLING corn syrup [CORN SYRUP] Allergy Intermediate red hot Verified 04/30/24 10:24 face dextrose [DEXTROSE] Allergy Intermediate RED RASH Verified 04/30/24 10:24 erythromycin base Allergy Intermediate RASH Verified 04/30/24 10:24 [ERYTHROMYCIN BASE] Penicillins [PENICILLINS] Allergy Intermediate SWELLING, Verified 04/30/24 10:24 RASH sucrose [SUCROSE] Allergy Intermediate RED RASH Verified 04/30/24 10:24 Sulfa (Sulfonamide Allergy Intermediate RASH, Verified 04/30/24 10:24 Antibiotics) redness, [SULFA (SULFONAMIDE redness ANTIBIOTICS)] valacyclovir Allergy Intermediate Redness of Verified 04/30/24 10:24 Skin morphine AdvReac Intermediate Hallucinati Verified 04/30/24 10:24 ons 12 Hour Nasal Allergy Intermediate hives Uncoded 04/13/24 19:55 WINE Allergy Intermediate RASH FROM Uncoded 04/13/24 19:55 RED WINE fluorquinolones Allergy Mild nerve Uncoded 04/13/24 19:55 damage Plan I have reviewed the history and physical and performed a pertinent physical examination on my patient. No changes have occurred unless specified. Time Spent With Patient Time: Total time managing care of this patient today ____ minutes.
--- NOTE | 2024-04-30 10:50 | P.OP_ITS ---
Operative Note Operative Note Date of Service: 04/30/24 Narrative: Procedure: Esophagogastroduodenoscopy Endoscopist: Xochitl Jensen MD Indication: Abd pain, N,V. Abnormal UGIS Anesthesia Provider: Dr Tyler Burnham Anesthesia Type: MAC ?? EGD Procedure:?? The procedure, indications, preparation and potential complications were reviewed with the patient, who indicated understanding and gave written informed consent to proceed. A physical exam was performed. The endoscope was introduced through the mouth, and advanced to the second part of duodenum. The mucosa was carefully examined on slow withdrawal of the endoscope. The patient tolerated the procedure well. There were no immediate complications.? ? EGD Findings:? * Esophagus:? Normal mucosa noted in the entire esophagus with tertiary peristalsis. There was a shallow diverticulum in the lower 3rd of the esophagus. The Z line was at 35 cm. There was a small hiatal hernia with the diaphragmatic pinch at 37 cm. Middle and lower esophagus forceps biopsies were obtained to rule out eosinophilic esophagitis. * Stomach:? Scant heme and erythema of fundus and antrum. Retroflexion was performed in the cardia that showed Hill grade 3 hiatal hernia. Few scattered polyps were noted in the fundus. No gastric diverticulum could be appreciated on endoscopy. Cold forceps biopsies were taken as per [facility]neka protocol. * Duodenum:? Normal mucosa was noted in the whole of the examined duodenum. Cold forceps biopsies were taken from duodenal bulb and second portion of the duodenum to rule out celiac sprue. ? EGD Impressions:? * Esophageal diverticulum * Normal esophagus (biopsy) * Gastritis (biopsy) * Fundic gland polyps * Normal duodenum (biopsy) ?? Recommendations:?? * Follow biopsy results. Our office will call or send a letter with results within 7-10 days. * Pt again strongly counseled to consider PPI therapy for at least 4 weeks to allow healing of gastritis. * Avoid NSAIDs. Above has been reviewed with the patient.
[2024-04-30 11:22] VITALS: BP 86/34; PULSE 59; RESP 18; TEMP 36.3; O2SAT 95
[2024-04-30 11:37] VITALS: BP 132/49; PULSE 55; RESP 16; TEMP 36.3; O2SAT 98
== END 2024-04-30 12:57 | disposition home or self-care (01) ==
PROVIDERS: PCP Internal Medicine; Visit Provider Internal Medicine
PROC: 0DJ08ZZ Inspection of Upper Intestinal Tract, Via Natural or Artificial Opening Endoscopic (ICD-10-PCS; CPT 43235; principal; 2024-04-30 11:40)
DX: K31.7 Polyp of stomach and duodenum (principal); Q39.6 Congenital diverticulum of esophagus; K29.60 Other gastritis without bleeding; K29.80 Duodenitis without bleeding; Q40.2 Other specified congenital malformations of stomach; R19.2 Visible peristalsis; K44.9 Diaphragmatic hernia without obstruction or gangrene; R10.13 Epigastric pain; E78.5 Hyperlipidemia, unspecified; J45.909 Unspecified asthma, uncomplicated; F41.9 Anxiety disorder, unspecified; G89.4 Chronic pain syndrome; E07.9 Disorder of thyroid, unspecified; Z90.49 Acquired absence of other specified parts of digestive tract; Z93.3 Colostomy status; Z87.891 Personal history of nicotine dependence; Z79.899 Other long term (current) drug therapy
CPT/HCPCS: 43239; 88305; 88313; 88342; J2704

== ENCOUNTER → 2024-04-30 08:44 | Outpatient (BNV) | payer OTHER, SELFPAY | PROVIDERS: PCP Internal Medicine; Visit Provider Internal Medicine | DX: R10.13 Epigastric pain (principal) | CPT/HCPCS: 43239 ==

== ENCOUNTER 2024-05-20 13:21 | Outpatient (AMB) | payer OTHER, SELFPAY ==
[2024-05-20 13:23] VITALS: BP 130/60; BMI 25.1
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
== END 2024-05-20 14:20 | disposition home or self-care (01) ==
PROVIDERS: PCP Internal Medicine; Visit Provider Psychiatry & Neurology Neurology
DX: G20.A1 Parkinson's disease without dyskinesia, without mention of fluctuations (principal); G25.2 Other specified forms of tremor; F32.0 Major depressive disorder, single episode, mild; F41.9 Anxiety disorder, unspecified
CPT/HCPCS: 99214; G2211

== ENCOUNTER → 2024-05-20 13:21 | Outpatient (BNVA) | payer OTHER, SELFPAY | PROVIDERS: PCP Internal Medicine; Visit Provider Psychiatry & Neurology Neurology | DX: G20.A1 Parkinson's disease without dyskinesia, without mention of fluctuations (principal); G25.2 Other specified forms of tremor; F32.0 Major depressive disorder, single episode, mild; F41.9 Anxiety disorder, unspecified | CPT/HCPCS: 99212 ==

== ENCOUNTER 2024-07-09 14:37 | Outpatient (REF) | payer OTHER, SELFPAY ==
--- OUTSIDE RECORDS SUMMARY | 2024-07-15 04:07 | XMS_ITS ---
Author Organization [facility] Address [address] [place] [address] Care Team Providers Care Grain Merchandising Manager Name Role Phone Alisa ENRIQUEZ, Fabby Primary Care Provider Unavail able Stella Alberts Unavailable [phone] Allergies Allergen (clinical drug ingredient) Drug/Non Drug Allergy documented on EMR Reaction Allergy Type Onset Date Status aspirin Aspirin Unknown Drug Allergy Active sulfamethoxazole / trimethoprim Bactrim Unknown Drug Allergy Active Biaxin Unknown Drug Allergy Active meperidine Demerol Unknown Drug Allergy Active erythromycin Erythromycin Unknown Drug Allergy A ctive Adhesive Unknown Allergy Active azithromycin Azithromycin Unknown Drug Allergy A ctive codeine Codeine Unknown Drug Allergy Active Latex Latex rash Allergy Active morphine Morphine Unknown Drug Allergy Active Penicillin Unknown Drug Allergy Active REASON FOR VISIT Painful nails Medications Medication SIG (Take, Route, Frequency, Duration) Notes Start Date End Date Status Calcium & Magnesium Carbonates Active Symbicort 160/4.5 mcg Active Flax Seeds Active Ventolin HFA 108 (90 Base) MCG/ACT 2 puffs as needed Inhalation every 4 hrs Active Vitamin E Active Night Splint AFO - L1930 as directed 03/12/2016 Not-Taking Niacin Not-Taking Lasix Active Econazole Nitrate 1 % 1 application to affected area Externally Once a day for 30 days 03/12/2016 Not-Takin g Econazole Nitrate 1 % 1 application to affected area Externally Once a day 03/12/2016 Not-Taking Voltaren 1 % as directed Externally 01/03/2024 Active Zofran 4 MG 2 tablets Orally Onc e a day Active Social History Tobacco Use: Social History Observation Description Date Details (start date - stop date) Former Smoker NA - NA Tobacco Use/Smoking Question Answer Notes Are you a: former smoker Additional Findings: Tobacco Non-User Current no n-smoker Alcohol Screen Question Answer Notes Did you have a drink containing alcohol in the p ast year? No Points 0 Interpretation Negative Tobacco use other than smoking: Question Answer Notes Are you an other tobacco user? No Problems Problem Type SNOMED Code ICD Code Onset Dates Problem Status W/U Status Risk Notes Problem Atherosclerosis of nenana artery of both lower extremities, with unspecified presence of clinical manifestation (I70.203) Active confirmed Q7(A), Q8(2B), Q9(1B,2C) Vital Signs Height 5 ft 2 in in 07/01/2024 Weight 122 lbs 07/01/2024 BMI 22.31 kg/m2 07/01/2024 Blood pressure systolic 124 mm Hg 07/01/20 24 Blood pressure diastolic 66 mm Hg 024 Procedures Procedure Date Ordered Date Performed Result Body Sit e 57997-WWVPGDA NAIL, 6 OR MORE 07/01/2024 N/A 21940-RIEA SKIN LESIONS, OVER 4 07/01/2024 N/A Encounters Encounter Location Date Provider Diagnosis [facility] [address] [place] [address] 07/01/2024 Stella Alberts Tinea unguium B35.1 ; Pain in right toe(s) M79.674 ; Pain in left toe(s) M79.675 and Atherosclerosis of nenana artery of both lower extremities, with unspecified presence of clinical manifestation I70.203 Assessments Encounter Date Diagnosis (ICD Code) Assessment Notes Treatment Notes Treatment Clinical Notes Section Notes 07/01/2024 Tinea unguium (ICD-10 - B35.1) 07/01/2024 Pain in right toe(s) (ICD-10 - M79.674) 07/01/2024 Pain in left toe(s) (ICD-10 - M79.675) 07/01/2024 Atherosclerosis of nenana artery of both lower extremities, with unspecified presence of clinical manifestation (ICD-10 - I70.203) Q7(A), Q8(2B), Q9(1B,2C) Plan Of Treatment Pending Test Test Name Order Date 31727-ZAPMFRN NAIL, 6 OR MORE 07/01/2024 26128-UWCO SKIN LESIONS, OVER 4 07/01/20 24 Next Appt Details Follow Up: 3 Months, Reason: Provider Name:Stella schmitz, 09/07/2024 03:30:00 PM, [address] [place], [address], Procedure Notes * Category Sub-Category Detail Notes Debride Nail 6-10 Nail debridement Performance o f this nail treatment by a nonprofessional would put this patients foot and overall health at risk. Therefore, debridement to affected nail(s), as described in exam, was performed extensively to reduce/remove overall nail length, girth, thickness, subungual debris, and necrotic tissue, by manual and/or electrical means through the use of a nail nipper and/or dremel-type microgrinder operator, to a more viable healthy nail plate or bed tissue 6-10 nails in total. Silver nitrate was used for any petechial bleeding as necessary. Definitive antifungal treatment options, both pharmaceutical and surgical, have been reviewed and discussed with the patient. The patient solely prefers the use of intermittent/as needed professional debridement services for their nail condition and understands the need for additional periodic treatments to maintain effectiveness in symptomatic relief - 02453 Keratoma Treatment Parring or Cutting o f Benign Hyperkeratotic Lesion(s) (-57) More than 4 Lesions - The Benign hyperkeratotic lesions, ( 5 ) in total, locations as stated and described in exam, were pared, and/or cut utilizing a sterile 15 blade, tissue nippers, and/or power dremel instrumentation - 62686, Q8 Progress Notes * Birgit CAZARES ADOB: [birth year] (83 yo F)Acc No.[id number]:07/01/2024 Progress Note Patient:?Birgit CAZARES Howard Provider:?Stella Alberts DPM :1940???Age:83 Y???Sex:Female D ate:07/01/2024 Address:[address] [place], [place] [id number] Pcp:Fabby Cuellar MD Subjective: * Chief Complaints: * ???Painful nails * HPI: ???Painful Nails:?Pt States Last PCP Visit:?Date:?01/06/2024 * ROS:?General/Constitutional:?Nausea?denies, denies, denies.?Vomiting?denies, denies, denies.?Hunger Thirst?denies, denies, denies.?Loss appetite?denies, denies, denies.?Chills?denies, denies, denies.?Fatigue?denies, denies, denies.?Fever?denies, denies, denies.?Night Sweats?denies, denies, denies.?Unexplained weight loss?denies, denies, denies.?Unexplained weight gain?denies, denies, denies.?HEENTM:?Dentures?denies, denies, denies.?Dizziness?denies, denies, denies.?Glasses/contacts?denies, denies, denies.?Retinopathy?denies, denies, denies.?Blurred/double vision?denies, denies, denies.?TMJ?denies, denies, denies.?Discharge/drainage?denies, denies, denies.?Implants?denies, denies, denies.?Sore throat?denies, denies, denies.?Dental implants?denies, denies, denies.?Hard of hearing ?denies, denies, denies.?Difficulty chewing/swallowing/speaking denies, denies, denies.?Nose bleeds?denies, denies, denies.?Sore mouth?denies, denies, denies.?Respiratory:?On Oxygen?denies, denies, denies.?Pneumonia/pleurisy?denies, denies, denies.?Bronchitis?denies, denies, denies.?Emphysema?denies, denies, denies.?Coughing?denies, denies, denies.?Cough blood?denies, denies, denies.?Shortness of breath?denies, denies, denies.?Wheezing?denies, denies, denies.?Cardiovascular:?Pacemaker?denies, denies, denies.?MVP?denies, denies, denies.?WPW?denies, denies, denies.?CHF?denies, denies, denies.?Heart attack?denies, denies, denies.?Septal defect?denies, denies, denies.?Rapid beat denies, denies, denies.?Chest pain ?denies, denies, denies.?Atrial Fib.?denies, denies, denies.?Murmur/Palpitations?denies, denies, denies.?Gastrointestinal:?Hemorrhoids?denies, denies, denies.?Stomach/Abdominal pain?denies, denies, denies.?Dark blood stool?denies, denies, denies.?Irritable bowel ?denies, denies, denies.?Constipation?denies, denies, denies.?Diarrhea?denies, denies, denies.?Hematology:?Swelling?denies, denies, denies.?Clots?denies, denies, denies.?Varicose Veins?denies, denies, denies.?Bruising?denies, denies, denies.?Bleeding problem?denies, denies, denies.?Genitourinary:?Blood urine?denies, denies, denies.?Frequent/Painfu/urination/bladder control?denies, denies, denies.?Kidney stones?denies, denies, denies.?Infection (UTI)?denies, denies, denies.?Nephropathy?denies, denies, denies. sex trans dis (STD)?denies, denies, denies.?Prostate?denies, denies, denies.?Musculoskeletal:?Hammertoes?denies, denies, denies.?Bunions?denies, denies, denies.?Back Pain?denies, denies, denies.?Muscle Cramps/ Resting?denies, denies, denies.?Muscle cramps / walking?denies, denies, denies.?Generalized aches and pains?denies, denies, denies.?Weakness?denies, denies, denies.?Integ.:?Padilla?denies, denies, denies.?Scars?denies, denies, denies.?Corns/calluses?denies, denies, denies.?Ingrown nails?denies, denies, denies.?Painful nails?denies, denies, denies.?Open Sores?denies, denies, denies.?Rashes?denies, denies, denies.?Neurologic:?Difficulty sleeping?denies, denies, denies.?Brain disorder?denies, denies, denies.?Numbness?denies, denies, denies.?Balance trouble?denies, denies, denies.?Confusion?denies, denies, denies.?Fainting/blackouts?denies, denies, denies.?Tingling?denies, denies, denies.?Tremors?denies, denies, denies.? * Medical History:? * Surgical History:?cholecyste ctomy 1982herniated disk repair 1982hysterectomy 1972ovarian surgery 1990kidney stones sx 12/20/15back surgery 03/31/2021vein surgery * Hospitalization/Major Diagno stic Procedure:[place] [facility] dry h[place] then found out about kidney stones. 12/18/15colostomy,diverticulitis[place] [facility] [place] 07/09/18 them Rehab 07/09/18 to 07/27/18 She had the clostomy bag for 3 months 06[place]22[place], 2 day stay - 11/[place] 05/09/22 * Family History:?Mother: dece ased.?Father: .? * Social History:?Tobacco Use:?Tobacco Use/Smoking?Are you a:?former smoker ?Additional Findings: Tobacco Non-User?Current non-smoker ?Tobacco use other than smoking?Are you an other tobacco user??No ???Drugs/Alcohol:?Drugs?Have you used drugs other than those for medical reasons in the past 12 months??No ?Alcohol Screen?Did you have a drink containing alcohol in the past year??No ?Points?0 ?Interpretation?Negative ???Miscellaneous:?Caffeine: no, Decafe. ?Children: yes, 4. ?Exercise: no. ?Marital status: . ?Occupation: Retired. * Medications:?TakingLasix Carlos cium & Magnesium Carbonates Flax Seeds Symbicort 160/4.5 mcg Vitamin E Ventolin HFA 108 (90 Base) MCG/ACT Aerosol Solution 2 puffs as needed Inhalation every 4 hrs Zofran 4 MG Tablet 2 tablets Orally Once a day Voltaren 1 % Gel as directed Externally Taking Lasix Taking Calcium & Magnesium Carbonates Taking Flax Seeds Taking Symbicort 160/4.5 mcg Taking Vitamin E Taking Ventolin HFA 108 (90 Base) MCG/ACT Aerosol Solution 2 puffs as needed Inhalation every 4 hrs Taking Zofran 4 MG Tablet 2 tablets Orally Once a day Taking Voltaren 1 % Gel as directed Externally Not-Taking/PRNNiacin Night Splint AFO - L1930 as directed Econazole Nitrate 1 % Cream 1 application to affected area Externally Once a day Econazole Nitrate 1 % Cream 1 application to affected area Externally Once a day Medication List reviewed and reconciled with the patientNot-Taking/PRN Niacin Not- Taking/PRN Night Splint AFO - L1930 as directed Not-Taking/PRN Econazole Nitrate 1 % Cream 1 application to affected area Externally Once a day Not-Taking/PRN Econazole Nitrate 1 % Cream 1 application to affected area Externally Once a day Medication List reviewed and reconciled with the patient * Allergies:?AspirinDemerolCodeineAzithromycinBiaxinErythromycinMorphineBactrimLat ex: rashAdhesivePenicillinyes[Allergies Verified] Objective: * Vitals:?Ht: 5 ft 2 in, Wt:12 2, BMI: 22.31, Shoe size:7.5, BP:124/66mm Hg, Wt-k.34 kg. * Examination: ???Nails: ?NAILS are:?elongated,overgrown,dystrophic,greater than 3mm thick,discolored and friable with crumbly malodorous subungual debris, with pain on palpation, TA, T1, T2, T3, T5, T6,?T7, T8.?Dermatologic: ?SKIN FINDINGS:?Skin exam reveals Keratotic lesion(s) located at, SUB MTH (s), 2, B/L?,? lateral PIPJ?T9, SUB MTH (s), 1, lateral IPJ, T4.?Vascular: ?DP PULSES(B):?0/4, B/L.?PT PULSES(B):?0/4, B/L.?CAPILLARY FILL TIME:? delayed, all digits, B/L.?TEMPERTURE GRADIENT(C):? decreased, cool to cold, proximal to distal, B/L.?EDEMA(C):?1/4 , B/L , Ankle(s) , Leg(s).?TELANGECTASIA:? moderate.?VARICOSITIES:? present, moderate, nonpainful, B/L.? Assessment: * Assessment: 1.?Tinea unguium - B35.1 (Pr imary)???2.?Pain in right toe(s) - M79.674???3.?Pain in left toe(s) - M79.675???4.?Atherosclerosis of nenana artery of both lower extremities, with unspecified presence of clinical manifestation - I70.203???Notes :Q7(A), Q8(2B), Q9(1B,2C)??? Plan: * Treatment: 2.?Atherosclerosis of nenana artery of both lower extremities, with unspecified presence of clinical manifestation?Procedure: 52326-PUVL SKIN LESIONS, OVER 4 * Procedures:?Debride Nail 6-10:?Nail debridement?Performance of this nail treatment by a nonprofessional would put this patients foot and overall health at risk. Therefore, debridement to affected nail(s), as described in exam, was performed extensively to reduce/remove overall nail length, girth, thickness, subungual debris, and necrotic tissue, by manual and/or electrical means through the use of a nail nipper and/or dremel-type microgrinder operator, to a more viable healthy nail plate or bed tissue 6-10 nails in total. Silver nitrate was used for any petechial bleeding as necessary. Definitive antifungal treatment options, both pharmaceutical and surgical, have been reviewed and discussed with the patient. The patient solely prefers the use of intermittent/as needed professional debridement services for their nail condition and understands the need for additional periodic treatments to maintain effectiveness in symptomatic relief - 11392.?Keratoma Treatment:?Parring or Cutting of Benign Hyperkeratotic Lesion(s)?(-57) More than 4 Lesions - The Benign hyperkeratotic lesions, ( 5 ) in total, locations as stated and described in exam, were pared, and/or cut utilizing a sterile 15 blade, tissue nippers, and/or power dremel instrumentation - 07975, Q8.? * Procedure Codes:?60621 TRIM SKIN LESIONS, OVER 4, Modifiers: XS , [id number] DEBRIDE NAIL, 6 OR MORE, Modifiers: XS * Follow Up:?3 Months * Images: * Sign off status: Completed true * Provider:?Stella Alberts DPM Date:?08/31/2023 Generated for Ana Maria rojo/Justin/eTransmitting on:?07/15/2024 04:06 AM EST History and Physical Notes * HPI (History of Present Illness) Category Sub-Category Detail Notes Category Not es Painful Nails Pt States Last PCP Visit: Date:: 01/06/2024 Examination Category Sub-Category Detail Notes Category Not es Dermatologic SKIN FINDINGS: Skin exam reveal s Keratotic lesion(s) located at, SUB MTH (s), 2, B/L , lateral PIPJ T9, SUB MTH (s), 1, lateral IPJ, T4 Vascular DP PULSES(B): 0/4, B/L PT PULSES(B): 0/4, B/L CAPILLARY FILL TIME: delayed, all digits , B/L TEMPERTURE GRADIENT(C): decreased, cool to cold, proximal to distal, B/L EDEMA(C): 1/4 , B/L , Ankle(s) , Leg(s) TELANGECTASIA: moderate VARICOSITIES: present, moderate, n onpainful, B/L Nails NAILS are: elongated,overgr own,dystrophic,greater than 3mm thick,discolored and friable with crumbly malodorous subungual debris, with pain on palpation, TA, T1, T2, T3, T5, T6, T7, T8
--- OUTSIDE RECORDS SUMMARY | 2024-07-15 04:07 | XMS_ITS ---
Author Organization [facility] Address [address] [place] [address] Care Team Providers Care Drill Sergeant Name Role Phone Alisa ENRIQUEZ, Fabby Primary Care Provider Unavail Stella Hernandez Unavailable [phone] Estrada Encounters Encounter Location Date Provider Diagnosis [address] [address] 06/01/2024 Stella Alberts Plan Of Treatment Next Appt Details Provider Name:Stella schmitz, 09/07/2024 03:30:00 PM, [address] [place], [address], Progress Notes * Birgit CAZARES ADOB: [birth year] (83 yo F)Acc No.[id number]:06/01/2024 Progress Note Patient:?Birgit CAZARES Provider:?Stella Alberts DPM :1940???Age:83 Y???Sex:Female D ate:06/01/2024 Address:[address] [place] [address] et [address], [id number] Pcp:Fabby Cuellar MD Subjective: * Chief Complaints: * ???1. Dr Estrada. * Medical History:? Objective: * Vitals:? Assessment: Plan: * Treatment: * Images: * The named appointment provid er may or may not be the originator of this progress note, and it is not deemed complete until electronically signed by the appointment provider. Sign off status: Pending * Provider:?Stella Alberts DPM Date:?1 Generated for Ana Maria rojo/Justin/Caryn on:?07/15/2024 04:06 AM EST
--- OUTSIDE RECORDS SUMMARY | 2024-07-15 04:07 | XMS_ITS ---
Author Organization [facility] Address [address] [place] [address] Care Team Providers Care Parts Counterman Name Role Phone Alisa ENRIQUEZ, Fabby Primary Care Provider Unavail Stella Hernandez Unavailable [phone] REASON FOR VISIT Not approved for pts insurance Encounters Encounter Location Date Provider Diagnosis [address] [address] 06/02/2024 Stella Alberts Plan Of Treatment Next Appt Details Provider Name:Stella schmitz, 09/07/2024 03:30:00 PM, [address] [place], [address], Progress Notes * Birgit COLLINS ADOB: [birth year] (83 yo F)Acc No.[id number]:06/02/2024 Progress Note Patient:?SAGE Birgit Lawrence Provider:?Stella Alberts DPM :1940???Age:83 Y???Sex:Female D ate:06/02/2024 Address:[address] [place] [address] et [address], [place] Pcp:Fabby Cuellar MD Subjective: * Chief Complaints: * ???1. Not approved for pts i nsurance. * Medical History:? Objective: * Vitals:? Assessment: [...]
--- OUTSIDE RECORDS SUMMARY | 2024-07-15 04:07 | XMS_ITS | Patient Health Record ---
Author Organization [facility] Address [address] [place] [address] Care Team Providers Care Front Maker Name Role Phone Alisa ENRIQUEZ, Fabby Primary Care Provider Unavail able Stella Alberts Unavailable [phone] Steve Mckinney Unavailable [phone] Allergies Allergen (clinical drug ingredient) Drug/Non Drug [...] Allergy Active Penicillin Unknown Drug Allergy Active Reason For Referral No Information Medications Medication SIG (Take, Route, Frequency, Duration) Notes Start Date End Date Status Night Splint AFO - L1930 as directed 03/12/2016 Not-Taking Niacin Not-Taking Lasix Active Econazole Nitrate 1 % 1 application to affected area Externally Once a day for 30 days 03/12/2016 Not-Takin g Econazole Nitrate 1 % 1 application to affected area Externally Once a day 03/12/2016 Not-Taking Calcium & Magnesium Carbonates Active Symbicort 160/4.5 mcg Active Flax Seeds Active Ventolin HFA 108 (90 Base) MCG/ACT 2 puffs as needed Inhalation every 4 hrs Active Vitamin E Active Voltaren 1 % as directed Externally 01/03/2024 Active Zofran 4 MG 2 tablets Orally Onc e a day Active Immunizations Vaccine Route Administration Date Status Comme nts COVID-19 Moderna Vaccine Unknown 04/28/2022 Administered 09/07/20,10/05/20 06/30/21 Influenza Unknown 06/29/2022 Administered Social History Tobacco Use: Social History Observation [...] Problem Status W/U Status Risk Notes Problem Localized, primary osteoarthritis of the ankle and/or foot (217014503) Primary osteoarthritis, right ankle and foot (M19.071) Active confirmed Problem Localized, primary osteoarthritis of the ankle and/or foot (380930369) Primary osteoarthritis, left ankle and foot (M19.072) Active confirmed Problem Ataxic gait (68238805) Ataxic gait (R26.0) Active confirmed Problem Acquired hammer toe of right foot ([id number] ) Other hammer toe(s) (acquired), right foot (M20.41) Active confirmed Problem [id number] Raynaud's diseas e without gangrene (I73.00) Active confirmed Problem Atherosclerosis of [place] artery of both lower extremities, with unspecified presence of clinical manifestation (I70.203) Active confirmed Q7(A), Q8(2B), Q9(1B,2 C) Vital Signs Blood pressure diastolic 66 mm Hg 07/01/2024 Height 5 ft 2 in in 07/01/2024 Blood pressure systolic 124 mm Hg 07/01/2024 Weight 122 lbs 07/01/2024 BMI 22.31 kg/m2 07/01/2024 Procedures Procedure Date Ordered Date Performed Result Body Sit e 93693-CJGIANF NAIL, 6 OR MORE 07/01/2024 N/A 33227-OXVD SKIN LESIONS, OVER 4 07/01/2024 N/A Encounters Encounter Location Date Provider Diagnosis [facility] [place] [address] [place] [address] 08/22/2023 Steve Mckinney Tinea unguium B35.1 ; Pain in right toe(s) M79.674 ; Pain in left toe(s) M79.675 ; Pain in left foot M79.672 ; Pain in right foot M79.671 ; Raynaud's disease without gangrene I73.00 ; Other hammer toe(s) (acquired), right foot M20.41 ; Ataxic gait R26.0 ; Right foot drop M21.371 ; Ingrowing nail L60.0 ; Parkinson's disease with dyskinesia and fluctuating manifestations G20.B2 and Other viral warts B07.[address] [address] 10/24/2023 Steve Mckinney Tinea unguium B35.1 ; Pain in right toe(s) M79.674 ; Pain in left toe(s) M79.675 ; Pain in left foot M79.672 ; Pain in right foot M79.671 ; Raynaud's disease without gangrene I73.00 ; Other hammer toe(s) (acquired), right foot M20.41 ; Ataxic gait R26.0 ; Right foot drop M21.371 ; Ingrowing nail L60.0 ; Parkinson's disease with dyskinesia and fluctuating manifestations G20.B2 ; Other viral warts B07.8 and Sesamoid pain M89.[address] [address] 11/28/2023 Steve Mckinney Tinea unguium B35.1 ; Pain in right toe(s) M79.674 ; Pain in left toe(s) M79.675 ; Pain in left foot M79.672 ; Pain in right foot M79.671 ; Raynaud's disease without gangrene I73.00 ; Other hammer toe(s) (acquired), right foot M20.41 ; Ataxic gait R26.0 ; Right foot drop M21.371 ; Ingrowing nail L60.0 ; Parkinson's disease with dyskinesia and fluctuating manifestations G20.B2 and Other viral warts B07.8 [facility] [address] [place] [address] 01/03/2024 Steve Mckinney Tinea unguium B35.1 ; Pain in right toe(s) M79.674 ; Pain in left toe(s) M79.675 ; Pain in left foot M79.672 ; Pain in right foot M79.671 ; Raynaud's disease without gangrene I73.00 ; Other hammer toe(s) (acquired), right foot M20.41 ; Ataxic gait R26.0 ; Right foot drop M21.371 ; Ingrowing nail L60.0 ; Parkinson's disease with dyskinesia and fluctuating manifestations G20.B2 and Other viral warts B07.[address] [facility] [address] 03/05/2024 Steve Mckinney Tinea unguium B35.1 ; Pain in right toe(s) M79.674 ; Pain in left toe(s) M79.675 ; Pain in left foot M79.672 ; Pain in right foot M79.671 ; Raynaud's disease without gangrene I73.00 ; Other hammer toe(s) (acquired), right foot M20.41 ; Ataxic gait R26.0 ; Right foot drop M21.371 ; Ingrowing nail L60.0 ; Parkinson's disease with dyskinesia and fluctuating manifestations G20.B2 and Other viral warts B07.[address] [address] 07/01/2024 Stella Alberts Tinea unguium B35.1 ; Pain in right toe(s) M79.674 ; Pain in left toe(s) M79.675 and Atherosclerosis of [place] artery of both lower extremities, with unspecified presence of clinical manifestation I70.[address] [address] 01/03/2024 [facility] [address] [address] 01/03/2024 Steve Mckinney Assessments Encounter Date Diagnosis (ICD Code) Assessment Notes Treatment Notes Treatment Clinical Notes Section Notes 08/22/2023 Tinea unguium (ICD-10 - B35.1) 08/22/2023 Pain in right toe(s) (ICD-10 - M79.674) 10/24/2023 Tinea unguium (ICD-10 - B35.1) 10/24/2023 Pain in right toe(s) (ICD-10 - M79.674) 11/28/2023 Tinea unguium (ICD-10 - B35.1) 11/28/2023 Pain in right toe(s) (ICD-10 - M79.674) 01/03/2024 Tinea unguium (ICD-10 - B35.1) 01/03/2024 Pain in right toe(s) (ICD-10 - M79.674) 03/05/2024 Tinea unguium (ICD-10 - B35.1) 03/05/2024 Pain in right toe(s) (ICD-10 - M79.674) 07/01/2024 Tinea unguium (ICD-10 - B35.1) 07/01/2024 Pain in right toe(s) (ICD-10 - M79.674) 07/01/2024 Pain in left toe(s) (ICD-10 - M79.675) 03/05/2024 Pain in left toe(s) (ICD-10 - M79.675) 01/03/2024 Pain in left toe(s) (ICD-10 - M79.675) 11/28/2023 Pain in left toe(s) (ICD-10 - M79.675) 10/24/2023 Pain in left toe(s) (ICD-10 - M79.675) 08/22/2023 Pain in left toe(s) (ICD-10 - M79.675) 08/22/2023 Pain in left foot (ICD-10 - M79.672) 10/24/2023 Pain in left foot (ICD-10 - M79.672) 11/28/2023 Pain in left foot (ICD-10 - M79.672) 03/05/2024 Pain in left foot (ICD-10 - M79.672) 01/03/2024 Pain in left foot (ICD-10 - M79.672) 07/01/2024 Atherosclerosis of [place] tribe artery of both lower extremities, with unspecified presence of clinical manifestation (ICD-10 - I70.203) Q7(A), Q8(2B), Q9(1B,2C) 03/05/2024 Pain in right foot (ICD-10 - M79.671) 11/28/2023 Pain in right foot (ICD-10 - M79.671) 01/03/2024 Pain in right foot (ICD-10 - M79.671) 10/24/2023 Pain in right foot (ICD-10 - M79.671) 08/22/2023 Pain in right foot (ICD-10 - M79.671) 10/24/2023 Raynaud's disease without gangrene (ICD-10 - I73.00) 08/22/2023 Raynaud's disease without gangrene (ICD-10 - I73.00) 11/28/2023 Raynaud's disease without gangrene (ICD-10 - I73.00) 03/05/2024 Raynaud's disease without gangrene (ICD-10 - I73.00) 01/03/2024 Raynaud's disease without gangrene (ICD-10 - I73.00) 03/05/2024 Other hammer toe(s) (acquired), right foot (ICD-10 - M20.41) 11/28/2023 Other hammer toe(s) (acquired), right foot (ICD-10 - M20.41) 01/03/2024 Other hammer toe(s) (acquired), right foot (ICD-10 - M20.41) 10/24/2023 Other hammer toe(s) (acquired), right foot (ICD-10 - M20.41) 08/22/2023 Other hammer toe(s) (acquired), right foot (ICD-10 - M20.41) 10/24/2023 Ataxic gait (ICD-10 - R26.0) 08/22/2023 Ataxic gait (ICD-10 - R26.0) 11/28/2023 Ataxic gait (ICD-10 - R26.0) 01/03/2024 Ataxic gait (ICD-10 - R26.0) 03/05/2024 Ataxic gait (ICD-10 - R26.0) 03/05/2024 Right foot drop (ICD-10 - M21.371) 01/03/2024 Right foot drop (ICD-10 - M21.371) 11/28/2023 Right foot drop (ICD-10 - M21.371) 10/24/2023 Right foot drop (ICD-10 - M21.371) 08/22/2023 Right foot drop (ICD-10 - M21.371) 10/24/2023 Ingrowing nail (ICD-10 - L60.0) 08/22/2023 Ingrowing nail (ICD-10 - L60.0) 01/03/2024 Ingrowing nail (ICD-10 - L60.0) 11/28/2023 Ingrowing nail (ICD-10 - L60.0) 03/05/2024 Ingrowing nail (ICD-10 - L60.0) 03/05/2024 Parkinson's disease with dyskinesia and fluctuating manifestations (ICD-10 - G20.B2) 01/03/2024 Parkinson's disease with dyskinesia and fluctuating manifestations (ICD-10 - G20.B2) 11/28/2023 Parkinson's disease with dyskinesia and fluctuating manifestations (ICD-10 - G20.B2) 08/22/2023 Parkinson's disease with dyskinesia and fluctuating manifestations (ICD-10 - G20.B2) 10/24/2023 Parkinson's disease with dyskinesia and fluctuating manifestations (ICD-10 - G20.B2) 11/28/2023 Other viral warts (ICD-10 - B07.8) 10/24/2023 Other viral warts (ICD-10 - B07.8) 08/22/2023 Other viral warts (ICD-10 - B07.8) 01/03/2024 Other viral warts (ICD-10 - B07.8) 03/05/2024 Other viral warts (ICD-10 - B07.8) 10/24/2023 Sesamoid pain (ICD-10 - M89.9) Plan Of Treatment Pending Test Test Name Order Date X ray : Ankle, left 3V 12/19/2017 X ray : Foot, left 2V 03/12/2016 X ray : Foot, right 2V 03/12/2016 X ray : Foot, left 3V 10/24/2023 X ray : Foot, left 3V 01/03/2024 X ray : Foot, left 3V 08/19/2012 06080-VEZUXNA NAIL, 6 OR MORE 07/01/2024 82997-Okim Destruction, 1-14 11/16/2013 15470-Yhzf Destruction, 1-14 04/05/2011 69844-Pagw Destruction, 1-14 07/05/2011 10754-Xuoo Destruction, 1-14 11/01/2011 59665 I&D ABSCESS- SIMPLE,SINGLE 020 58559, J0702- INJECT or DRAIN, JOINT/BUR SA 12/19/2017 30272-ZYLR SKIN LESIONS, OVER 4 07/01/20 24 Next Appt Details Provider Name:Stella Isabel ainsley, 09/07/2024 03:30:00 PM, [address] [place], [address], Insurance Providers Payer Name Payer Address Payer Phone Subscriber Number Group Number Insured Name Patient Relationship to Insured Coverage Start Date Coverage End Date [facility] [employer] Claims [address] [place] [id number] Birgit Cazares Self - patient is the insured Medical (General) History Medical History History ICD Code osteoporosis neuropathy mumps measles joint implants/screws depression chicken pox hyperlipidemia asthma Surgical History Surgery Date(Month/Year) cholecystectomy 1981 herniated disk repair 1981 hysterectomy 1971 ovarian surgery 1989 kidney stones sx 12/20/15 back surgery 03/31/2021 vein surgery Hospitalization History Reason Date(Month/Year) [facility]- stomach pain 05/09/22 [facility]- blockage in intestines 12/20/20 [facility]- blockage, 2 day stay - 11/12 colostomy,diverticulitis, [facility] C 06/22/18 to 07/09/18 them Rehab 07/09/18 to 07/27/18 She had the clostomy bag for 3 months 06/22/2018 admitted to [facility] for diahrrea and dry hives then found out about kidney stones. 12/18/15
== END 2024-07-09 14:38 | disposition home or self-care (01) ==
LOC: HO.US 14:37
PROVIDERS: PCP Internal Medicine; Visit Provider Nurse Practitioner Family
DX: N28.1 Cyst of kidney, acquired (principal)
CPT/HCPCS: 76775

== ENCOUNTER → 2024-07-09 14:43 | Outpatient (BNV) | payer OTHER, SELFPAY | PROVIDERS: PCP Internal Medicine; Visit Provider Radiology Diagnostic Radiology | DX: N28.1 Cyst of kidney, acquired (principal) | CPT/HCPCS: 76775 ==

== ENCOUNTER → 2024-07-20 11:27 | Outpatient (BNVA) | payer OTHER, SELFPAY | PROVIDERS: Visit Provider Internal Medicine | DX: M41.9 Scoliosis, unspecified (principal); R10.13 Epigastric pain; R68.81 Early satiety; G20.A1 Parkinson's disease without dyskinesia, without mention of fluctuations | CPT/HCPCS: 99212 ==

== ENCOUNTER 2024-09-01 14:11 | Outpatient (AMB) | payer OTHER, SELFPAY ==
--- NOTE | 2024-09-01 14:15 | A.OFFVIS_ITS ---
Intake Visit Reasons: Renal US(set) Intake Note: Patient presents today for follow up on: renal cyst and ultrasound results * Imaging Completed: 07/09/24 Urology Medications: none Blood Thinner: none Hemstitching Machine Operator Required: No Accompanied by: Self / Same As Patient Allergies mold [MOLD] Allergy (Severe, Verified 09/01/24 15:07) SWELLING alcohol [ALCOHOL] Allergy (Intermediate, Verified 09/01/24 15:07) RED, SWELLING corn syrup [CORN SYRUP] Allergy (Intermediate, Verified 09/01/24 15:07) red hot face dextrose [DEXTROSE] Allergy (Intermediate, Verified 09/01/24 15:07) RED RASH erythromycin base [ERYTHROMYCIN BASE] Allergy (Intermediate, Verified 09/01/24 15:07) RASH Penicillins [PENICILLINS] Allergy (Intermediate, Verified 09/01/24 15:07) SWELLING, RASH sucrose [SUCROSE] Allergy (Intermediate, Verified 09/01/24 15:07) RED RASH Sulfa (Sulfonamide Antibiotics) [SULFA (SULFONAMIDE ANTIBIOTICS)] Allergy (Intermediate, Verified 09/01/24 15:07) RASH, redness, redness valacyclovir Allergy (Intermediate, Verified 09/01/24 15:07) Redness of Skin morphine Adverse Reaction (Intermediate, Verified 09/01/24 15:07) Hallucinations 12 Hour Nasal Allergy (Intermediate, Uncoded 09/01/24 15:07) hives WINE Allergy (Intermediate, Uncoded 09/01/24 15:07) RASH FROM RED WINE fluorquinolones Allergy (Mild, Uncoded 09/01/24 15:07) nerve damage Medication List - Last Reconciled 09/01/24 by STEWART Giordano [16 grab bar As directed] albuterol sulfate 90 mcg/actuation (ProAir RespiClick) inhalation alpha lipoic acid 600 mg PO BID ascorbic acid (vitamin C) (Vitamin C) 500 mg PO DAILY beclomethasone dipropionate 80 mcg/actuation (Qvar RediHaler) 2 inhalations inhalation BID biotin 10,000 mcg PO DAILY bromelains 1,000 mg PO DAILY calcium polycarbophil (Fiber (calcium polycarbophil)) mg PO cholecalciferol (vitamin D3) (Vitamin D3) 25 mcg PO DAILY 90 days chromium picolinate 1,000 mcg PO DAILY flaxseed oil 1,000 mg PO BID furosemide 40 mg PO DAILY RWXL-bicnlbda-ijmtjtdzflg xt 100-100-225 mg (MARQUIS Soothe) caps PO gabapentin mg PO glycine mg PO lutein 20 mg PO DAILY magnesium 1,000 mg PO BID mecobalamin (vitamin B12) mcg PO melatonin 3 mg PO BEDTIME PRN 30 days multivitamin 1 tab PO DAILY omeprazole 20 mg PO DAILY 4 weeks [Locuics 360 toothbrush As directed] psyllium husk (Fiber (psyllium husk)) 0.4 grams PO BEDTIME 90 days [set of weighted utensils with no build up handle As directed] [Democravise 360 Toothbrush As directed] vitamin E 200 units PO DAILY HPI Comments Details: Birgit is a very pleasant 83-year-old female who is a patient of Dr. Deal. She has a past medical history of renal cysts, thyroid disease, chronic pain, osteoarthritis, spinal stenosis, dyslipidemia, neuropathy, rosacea, and asthma. She presents to the office today for follow-up of her renal cyst. Recent renal imaging results reviewed with the patient. 07/28 bilateral kidneys with no calculi, lesions, and or hydronephrosis. Two simple cyst in the right kidney, essentially stable. These are benign in no imaging follow-up is recommended per radiology report. In discussion with the patient today she discusses her ongoing issues with her Parkinson's disease. She discusses her upcoming appointment with Dr. Daugherty psychologist tomorrow to undergo further treatment options for her Parkinson's. She also discusses the health of her who suffers from dementia. She currently denies any bothersome urinary issues or concerns. She denies urinary urgency, urinary frequency, incontinence, nocturia, hematuria, dysuria, foul smelling urine, changes to urinary stream, flank pain, fever, and or chills. In office urinalysis results reviewed with the patient today. She is happy with her current voiding parameters.She otherwise offers no issues or concerns at this. [facility] Medical History Parkinson's disease without dyskinesia Thrombophlebitis, popliteal vein Gait disorder Anxiety Coarse tremors Renal cyst Abdominal pain Thyroid disease Chronic pain syndrome Osteoarthritis of left knee Spinal stenosis Left sided sciatica Constipation by delayed colonic transit Left knee pain Dyslipidemia Onychomycosis Neuropathy Rosacea Asthma Surgical History Hx of colonoscopy History of surgery History of back surgery (~03/31/21) History of surgery History of removal of both ovaries Colostomy in place History of tonsillectomy History of cholecystectomy History of repair of hiatal hernia History of hysterectomy Family History Father Hypertension Pancreatitis Uremia Mother Diverticulosis Alzheimers disease Brother Colon cancer CVD (cardiovascular disease) Sister Colon cancer Social History Household Members: Spouse Household Members Other:: 2 Housing: [facility] Are you a primary live in caregiver to a significant other at home: Yes Do you presently have visiting nurse or other home services: Yes Alcohol intake: never 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 Patient Tobacco Use Status: Former Tobacco user Tobacco use type: Cigarette Years Smoked: 1 year e-Cigarette/Vaping Use: Never Used Second Hand Smoke Exposure: No service: No Current occupational status: retired Cognitive needs: Yes Hearing needs: No Vision needs: Yes Review of Systems Const Reports as per HPI Eyes Reports no additional complaints ENT Reports no additional complaints Card Reports as per [facility] Resp Reports as per HPI GI Reports as per HPI Reports as per HPI Musc Reports as per HPI Neuro Reports as per HPI Psych Reports no additional complaints Endo Reports as per HPI Physical Exam Const General: cooperative, comfortable, no acute distress, well developed, alert and awake Orientation/consciousness: patient oriented x3 Limitations: ambulation with walker HEENT Head: Yes normal to inspection, Yes normocephalic and Yes atraumatic Ears: hearing grossly normal bilaterally Eyes General: appearance normal, both eyes and all related structures Neck Neck: Yes normal visual inspection and Yes trachea midline Chest Other: Pectus excavatum Resp Effort & Inspection: normal respiratory effort and able to speak in complete sentences Cardio Rate: regular rate GI Palpation (GI): Soft to palpation General: Yes no CVA tenderness Back/Spine/Pelvis Back: no CVA tenderness Skin General skin exam: no rashes or lesions noted Neuro General: patient oriented x3 Extrem Other: Bilateral upper extremities with tremors General: Yes normal to inspection Psych Appearance: grossly normal and well kempt Mental Status: mental status grossly normal Speech and movement: Normal speech and movement present and Clear speech present Affect: normal affect Attitude: cooperative Thought process: Normal thought process present Thought content: Normal thought content present Insight: Fair insight present (Psych) Judgement: Fair judgement present (Psych) Results AMB Urinalysis, Automated UA Leukoctes 15 Honorio/uL Last Edit by Korbit on 09/01/24 15:16 UA Nitrite Negative Last Edit by Korbit on 09/01/24 15:16 UA Urobilinogen 0.2 mg/dL Last Edit by Korbit on 09/01/24 15:16 UA Protein 30 mg/dL Last Edit by Korbit on 09/01/24 15:16 UA pH 6.5 Last Edit by Korbit on 09/01/24 15:16 UA Blood 0 Dante/uL Last Edit by Korbit on 09/01/24 15:16 UA Specific [place] 1.015 Last Edit by Korbit on 09/01/24 15:16 UA Ketone Negative Last Edit by Korbit on 09/01/24 15:16 UA Bilirubin 0 mg/dL Last Edit by Korbit on 09/01/24 15:16 UA Glucose 0 mg/dL Last Edit by Korbit on 09/01/24 15:16 Results Reviewed Results Reviewed: Laboratory Last Values Urine pH (Auto) 6.5 09/01/24 15:15 Specific [place] (Auto) 1.015 09/01/24 15:15 Urine Protein (Auto) 30 mg/dL 09/01/24 15:15 Glucose (UA)(Auto) 0 mg/dL 09/01/24 15:15 Urine Ketones (Auto) Negative 09/01/24 15:15 Urine Blood (Auto) 0 Dante/uL 09/01/24 15:15 Urine Nitrite (Auto) Negative 09/01/24 15:15 Urine Bilirubin (Auto) 0 mg/dL 09/01/24 15:15 Urine Urobilinogen (Auto) 0.2 mg/dL 09/01/24 15:15 Leukocyte Esterase (Auto) 15 Honorio/uL 09/01/24 15:15 Date of Service: 07/09/24 EXAMINATION: US RETROPERITONEAL LIMITED (RENAL ONLY) FINDINGS: RIGHT KIDNEY: 10.5 x 4.5 x 4.8 cm (SAG x AP x TRV). The kidney is normal in size, contour, and echogenicity. Renal cortical thickness is normal. No renal calculi or hydronephrosis. Simple upper pole cortical cyst measuring 0.5 x 0.4 x 0.4 cm. Simple lower pole cortical cyst measuring 1.1 x 0.8 x 1.0 cm. No suspicious renal lesion. LEFT KIDNEY: 10.5 x 4.3 x 4.5 cm (SAG x AP x TRV). The kidney is normal in size, contour, and echogenicity. Renal cortical thickness is normal. No calculi or focal parenchymal lesions. No hydronephrosis. IMPRESSION: 2 simple cysts right kidney, essentially stable. These are benign and no imaging follow-up required. Assessment & Plan Assessment & Plan (1) Renal cyst: Code(s): N28.1 - Cyst of kidney, acquired Category: Medical Plan In office urinalysis results reviewed with the patient today; as noted above. Recent renal imaging results reviewed with the patient today; as noted above. Will continue with surveillance monitoring. Patient currently denies any bothersome urinary issues or concerns. She reports be happy current voiding parameters. Will obtain renal ultrasound in 1 year. Follow-up in 1 year with imaging to be completed prior; or sooner with any issues, concerns, and or questions. Orders: Orders US renal BI 1 Year N28.1 - Cyst of kidney, acquired AMB Urinalysis Automated Today Z13.9 - Encounter for screening, unspecified Patient Instructions: The patient had an opportunity to ask questions regarding the treatment plan. All questions were answered. Physical exam, labs, and imaging were discussed and reviewed in detail. As well as risks, benefits, and discussion of treatment choices. No major barriers to understanding were identified. The patient expressed understanding and agreement with the above treatment plan. The patient was made aware they should contact our office by phone for worsening of their current condition, the appearance of new symptoms, or with any questions or concerns. Compliance is encouraged with any medications and follow up testing that is ordered. It is a privilege to be allowed the opportunity to participate in? your urological care.? Again, if you have any questions or concerns If you have any questions or concerns please do not hesitate to contact me. The office is [phone]. This note is constructed using voice recognition software. While every effort has been made to ensure accuracy minilab operator errors may have been included. Yours sincerely, STEWART Giordano Coding Level of Care Code Est Pt Level 3 (98198) Diagnoses Renal cyst N28.1
--- OUTSIDE RECORDS SUMMARY | 2024-09-01 15:08 | XMS_ITS ---
[facility] Organization [facility] Address [address] [place] [address] Care Team Providers Care Thermostat Maker Name Role Phone Alisa ENRIQUEZ, Fabby Primary Care Provider Unavail able Stella Alberts Unavailable [phone] Allergies Allergen (clinical drug ingredient) Drug/Non Drug [...] W/U Status Risk Notes Problem Atherosclerosis of [place] artery of both lower extremities, with unspecified presence of clinical manifestation (I70.203) Active confirmed Q7(A), Q8(2B), Q9(1B,2C) Vital Signs Height 5 ft 2 in in 07/01/2024 Weight 122 lbs 07/01/2024 BMI 22.31 kg/m2 07/01/2024 Blood pressure systolic 124 mm Hg 07/01/20 24 Blood pressure diastolic 66 mm Hg 024 Procedures Procedure Date Ordered Date Performed Result Body Sit e 50268-VGGJVYT NAIL, 6 OR MORE 07/01/2024 N/A 57907-BXGH SKIN LESIONS, OVER 4 07/01/2024 N/A Encounters Encounter Location Date Provider Diagnosis [facility] [place] [address] [place] [address] 07/01/2024 Stella Alberts Tinea unguium B35.1 ; Pain in right toe(s) M79.674 ; Pain in left toe(s) M79.675 and Atherosclerosis of [place] artery of both lower extremities, with unspecified presence of clinical manifestation I70.203 Assessments Encounter Date Diagnosis (ICD Code) Assessment Notes Treatment Notes Treatment Clinical Notes Section Notes 07/01/2024 Tinea unguium (ICD-10 - B35.1) 07/01/2024 Pain in right toe(s) (ICD-10 - M79.674) 07/01/2024 Pain in left toe(s) (ICD-10 - M79.675) 07/01/2024 Atherosclerosis of [place] artery of both lower extremities, with unspecified presence of clinical manifestation (ICD-10 - I70.203) Q7(A), Q8(2B), Q9(1B,2C) Plan Of Treatment Pending Test Test Name Order Date 05765-EXWTHMW NAIL, 6 OR MORE 07/01/2024 10144-ZELS SKIN LESIONS, OVER 4 07/01/20 24 Next Appt Details Follow Up: 3 Months, Reason: Provider Name:Stella schmitz, 09/07/2024 03:30:00 PM, [address] [place], [address], Procedure Notes * Category Sub-Category Detail Notes [...] use of a nail nipper and/or dremel-type terrazzo grinder, to a more viable healthy nail plate [...] to maintain effectiveness in symptomatic relief - 80447 Keratoma Treatment Parring or Cutting o f Benign Hyperkeratotic Lesion(s) (-57) More than 4 Lesions - The Benign hyperkeratotic lesions, ( 5 ) in total, locations as stated and described in exam, were pared, and/or cut utilizing a sterile 15 blade, tissue nippers, and/or power dremel instrumentation - 58871, Q8 Progress Notes * Birgit CAZARES ADOB: [birth year] (83 yo F)Acc No.[id number]:07/01/2024 Progress Note Patient:?Birgit CAZARES Howard Provider:?Stella Alberts DPM :1940???Age:83 Y???Sex:Female D ate:07/01/2024 Address:[address] [place], [place] [id number] Pcp:Fabby Cuellar MD Subjective: * Chief Complaints: [...] surgery * Hospitalization/Major Diagno stic Procedure:?admitted to [facility] for diahrrea and dry hives then found out about kidney stones. 12/18/15colostomy,diverticulitis, [facility] 06/22/18 to 07/09/18 them Rehab 07/09/18 to 07/27/18 She had the clostomy bag for 3 months 06/22/2018[facility]- blockage, 2 day stay - 11/12[facility]- blockage in intestines 12/20/20[facility]- stomach pain 05/09/22 * Family History:?Mother: dece [...] M79.674???3.?Pain in left toe(s) - M79.675???4.?Atherosclerosis of [place] artery of both lower extremities, with unspecified presence of clinical manifestation - I70.203???Notes :Q7(A), Q8(2B), Q9(1B,2C)??? Plan: * Treatment: 2.?Atherosclerosis of [place] artery of both lower extremities, with unspecified presence of clinical manifestation?Procedure: 53108-UMJH SKIN LESIONS, OVER 4 * Procedures:?Debride Nail [...] use of a nail nipper and/or dremel-type terrazzo grinder, to a more viable healthy nail plate [...] to maintain effectiveness in symptomatic relief - 42567.?Keratoma Treatment:?Parring or Cutting of Benign Hyperkeratotic Lesion(s)?(-57) More than 4 Lesions - The Benign hyperkeratotic lesions, ( 5 ) in total, locations as stated and described in exam, were pared, and/or cut utilizing a sterile 15 blade, tissue nippers, and/or power dremel instrumentation - 59156, Q8.? * Procedure Codes:?41558 TRIM SKIN LESIONS, OVER 4, Modifiers: XS , P226143 DEBRIDE NAIL, 6 OR MORE, Modifiers: XS * Follow Up:?3 Months * Images: * Sign off status: Completed true * Provider:?Stella Alberts DPM Date:?08/31/2023 Generated for Ana Maria rojo/Justin/eTransmitting on:?09/01/2024 03:08 PM EST History and Physical Notes * HPI [...] (s), 1, lateral IPJ, T4 Vascular DP PULSES (B): 0/4, B/L PT PULSES (B): 0/4, B/L CAPILLARY FILL TIME: delayed, all digits , B/L TEMPERTURE GRADIENT (C): decreased, cool to cold, proximal to distal, B/L EDEMA (C): 1/4 , B/L , Ankle(s) , Leg(s) TELANGECTASIA: moderate VARICOSITIES: present, moderate, n onpainful, B/L Nails NAILS are: elongated,overgr own,dystrophic,greater than 3mm thick,discolored and friable with crumbly malodorous subungual debris, with pain on palpation, TA, T1, T2, T3, T5, T6, T7, T8
--- OUTSIDE RECORDS SUMMARY | 2024-09-01 15:09 | XMS_ITS ---
Author Organization [facility] Address [address] [place] [address] Care Team Providers Care Customer Service Receptionist Name Role Phone Alisa ENRIQUEZ, Fabby Primary Care Provider Unavail Stella Hernandez Unavailable [phone] Estrada Encounters Encounter Location Date Provider Diagnosis [address] [address] 06/01/2024 Stella Alberts Plan Of Treatment Next Appt Details Provider Name:Stella schmitz, 09/07/2024 03:30:00 PM, [address] [place], [address], Progress Notes * Birgit CAZARES ADOB: [birth year] (83 yo F)Acc No.[id number]:06/01/2024 Progress Note Patient:?Birgit CAZARES Provider:?Stella Alberts DPM :1940???Age:83 Y???Sex:Female D ate:06/01/2024 Address:[address] [place] [address] et [address], [id number] Pcp:Fabby Cuellar MD Subjective: * Chief Complaints: [...] DPM Date:?1 Generated for Ana Maria rojo/Justin/Caryn on:?09/01/2024 03:08 PM EST
--- OUTSIDE RECORDS SUMMARY | 2024-09-01 15:09 | XMS_ITS | Patient Health Record ---
Author Organization [facility] Address [address] [address] Care Team Providers Care Alligator Trapper Name Role Phone Alisa ENRIQUEZ, Fabby Primary Care Provider Unavail able Stella Alberts Unavailable [phone] Steve Mckinney Unavailable [phone] Allergies Allergen (clinical drug ingredient) Drug/Non Drug [...] primary osteoarthritis of the ankle and/or foot (731974048) Primary osteoarthritis, right ankle and foot (M19.071) Active confirmed Problem Localized, primary osteoarthritis of the ankle and/or foot (691682058) Primary osteoarthritis, left ankle and foot (M19.072) Active confirmed Problem Ataxic gait (05450940) Ataxic gait (R26.0) Active confirmed Problem Acquired hammer toe of right foot (6599834432215317 ) Other hammer toe(s) (acquired), right foot (M20.41) Active confirmed Problem [id number] Raynaud's diseas e without gangrene (I73.00) Active confirmed Problem Atherosclerosis of [place] artery of both lower extremities, with unspecified presence of clinical manifestation (I70.203) Active confirmed Q7(A), Q8(2B), Q9(1B,2 C) Vital Signs Blood pressure diastolic 66 mm Hg 07/01/2024 Height 5 ft 2 in in 07/01/2024 Blood pressure systolic 124 mm Hg 07/01/2024 Weight 122 lbs 07/01/2024 BMI 22.31 kg/m2 07/01/2024 Procedures Procedure Date Ordered Date Performed Result Body Sit e 73436-PMTFZPV NAIL, 6 OR MORE 07/01/2024 N/A 72292-KGOQ SKIN LESIONS, OVER 4 07/01/2024 N/A Encounters Encounter Location Date Provider Diagnosis [facility] [place] [address] [place] [address] 10/24/2023 Steve Mckinney Tinea unguium B35.1 ; [...] viral warts B07.8 and Sesamoid pain M89.[address] [address] 11/28/2023 Steve Mckinney Tinea unguium B35.1 ; [...] manifestations G20.B2 and Other viral warts B07.8 [facility] [address] [address] 01/03/2024 Steve Mckinney Tinea unguium B35.1 ; [...] manifestations G20.B2 and Other viral warts B07.[address] [address] 03/05/2024 Steve Mckinney Tinea unguium B35.1 ; [...] manifestations G20.B2 and Other viral warts B07.[address] [facility] [address] [address] 07/01/2024 Stella Alberts Tinea unguium B35.1 ; Pain in right toe(s) M79.674 ; Pain in left toe(s) M79.675 and Atherosclerosis of [place] artery of both lower extremities, with unspecified presence of clinical manifestation I70.[address] [facility] [address] 01/03/2024 [facility] [address] [facility] [address] [place] [address] 01/03/2024 [facility] Assessments Encounter Date Diagnosis (ICD Code) Assessment Notes Treatment Notes Treatment Clinical Notes Section Notes 10/24/2023 Tinea unguium (ICD-10 - B35.1) 10/24/2023 [...] (ICD-10 - M79.675) 10/24/2023 Pain in left foot (ICD-10 - M79.672) 11/28/2023 Pain in left foot (ICD-10 - M79.672) 03/05/2024 Pain in left foot (ICD-10 - M79.672) 01/03/2024 Pain in left foot (ICD-10 - M79.672) 07/01/2024 Atherosclerosis of [place] artery of both lower extremities, with unspecified [...] disease without gangrene (ICD-10 - I73.00) 01/03/2024 Other hammer toe(s) (acquired), right foot (ICD-10 - M20.41) 03/05/2024 Other hammer toe(s) (acquired), right foot (ICD-10 - M20.41) 11/28/2023 Other hammer toe(s) (acquired), right foot (ICD-10 - M20.41) 10/24/2023 Other hammer toe(s) (acquired), right foot (ICD-10 - M20.41) 10/24/2023 Ataxic gait (ICD-10 - R26.0) 11/28/2023 Ataxic gait (ICD-10 - R26.0) 03/05/2024 Ataxic gait (ICD-10 - R26.0) 01/03/2024 Ataxic gait (ICD-10 - R26.0) 01/03/2024 Right foot drop (ICD-10 - M21.371) 03/05/2024 Right foot drop (ICD-10 - M21.371) 11/28/2023 Right foot drop (ICD-10 - M21.371) 10/24/2023 Right foot drop (ICD-10 - M21.371) 10/24/2023 Ingrowing nail (ICD-10 - L60.0) 01/03/2024 Ingrowing nail (ICD-10 - L60.0) 11/28/2023 Ingrowing nail (ICD-10 - L60.0) 03/05/2024 Ingrowing nail (ICD-10 - L60.0) 01/03/2024 Parkinson's disease with dyskinesia and fluctuating manifestations (ICD-10 - G20.B2) 03/05/2024 Parkinson's disease with dyskinesia and fluctuating manifestations (ICD-10 - G20.B2) 11/28/2023 Parkinson's disease with dyskinesia and fluctuating manifestations (ICD-10 - G20.B2) 10/24/2023 Parkinson's disease with dyskinesia and fluctuating manifestations (ICD-10 - G20.B2) 11/28/2023 Other viral warts (ICD-10 - B07.8) 10/24/2023 Other viral warts (ICD-10 - B07.8) 01/03/2024 [...] X ray : Foot, left 3V 08/19/2012 67285-OEXFZXL NAIL, 6 OR MORE 07/01/2024 72331-Vmpx Destruction, 1-14 11/16/2013 48234-Lzqn Destruction, -04/05/2011 45715-Svvx Destruction, -07/05/2011 31383-Yjwu Destruction, -14 11/01/2011 76329 I&D ABSCESS- SIMPLE,SINGLE 020 56002, J0702- INJECT or DRAIN, JOINT/BUR SA 12/19/2017 59942-TFRX SKIN LESIONS, OVER 4 07/01/20 24 Next Appt Details Provider Name:Stella Isabel ainsley, 09/07/2024 03:30:00 PM, [address] [facility], [place], [address], Insurance Providers Payer Name Payer Address Payer Phone Subscriber Number Group Number Insured Name Patient Relationship to Insured Coverage Start Date Coverage End Date [facility] [employer] Claims [address] [place] [address] [phone] [id number] Birgit Cazares Self - patient is the insured Medical (General) History Medical History History ICD Code osteoporosis neuropathy mumps measles joint implants/screws depression chicken pox hyperlipidemia asthma Surgical History Surgery Date(Month/Year) cholecystectomy 1981 herniated disk repair 1981 hysterectomy 1971 ovarian surgery 1989 kidney stones sx 12/20/15 back surgery 03/31/2021 vein surgery Hospitalization History Reason Date(Month/Year) [facility]- stomach pain 05/09/22 [facility]- blockage in intestines 12/20/20 [facility]- blockage, 2 day stay - 11/12 colostomy,diverticulitis, [facility] 06/22/18 to 07/09/18 them Rehab 07/09/18 to 07/27/18 She had the clostomy bag for 3 months 06/22/2018 admitted to [facility] for diahrrea and dry hives then found out about kidney stones. 12/18/15
--- OUTSIDE RECORDS SUMMARY | 2024-09-01 15:09 | XMS_ITS | Data Portability ---
Author Organization [facility] [employer] [facility], Main Office Address [address], [address] [place] [address] Assessment Encounter Date Assessment Date Assessment LastModified by Organization Details LastModified Time 07/18/2018 07/18/201807/14 wbc 10.9, hgb 10.2, plt 635, na 136, k 4.9, cre <0.5, LFTs normal 07/16 wbc 8.97, hgb 9.2 07/18 wbc 9.26, hgb 9.4 [email or web address] Not available 07/18/2018 14:24:33 Plan of Treatment Reminders Order Date Submit Date Provider Last Modified By Organization Details Last Modified Time Details Appointments None record ed. Lab None record ed. Referral None record ed. Procedures None record ed. Surgeries None record ed. Imaging None record ed. Medication Orders None record ed. Patient TargetsNo targets recorded. Patient InstructionsNo instructions recorded. Reason for Referral None Reported. Problems Name Problem SNOMED Code Status Onset Date Resolution Date Notes Provider Name and Address Organization Details Recorded Time Moderate chronic obstructive pulmonary disease 206945821 Active 2017 VOLODYMYR De La Torre [address] [facility] [address] [facility], [address], [place], [address], [facility] [employer] [facility] 8 14:10:49 Abdominal aortic aneurysm 064273339 Active 2017 VOLODYMYR De La Torre [address] , [address], [place], [address], [facility] [employer] [facility] 8 14:11:15 Colovaginal fistula 933463737 Active 2017 VOLODYMYR De La Torre [address], [address], [place], [address], [facility] [employer] 8 14:11:42 Thrombocyto sis 9915719 Active 2017 VOLODYMYR De La Torre [address], [address], [place], [address], [facility] 8 14:15:25 Dehiscence of external surgical incision wound 5911051723932 08 Active 2017 Annette Villa MD [address] [facility] [address] [facility], [address], [place], [address], [facility] 8 14:00:05 Colostomy present 825919232 Active 2017 Annette Villa MD [address] [facility] [address] [facility], [address], [place], [address], [facility] 8 14:02:47 Generalized anxiety disorder 97649055 Active 2017 Annette Villa MD [address] [facility], [address], [place], [address], [facility] 8 14:03:42 At high risk for fall 8999329658895 43852 Active 2017 Annette Villa MD [address] [facility], [address], [place], [address], [facility] 8 14:07:03 Problem Notes None recorded. Medical Equipment None Reported. Allergies Allergen ID Allergen Name Allergen Category Reaction Reaction Severity Criticality Documentation Date Start Date Code Code System Note Provider Name and Address Organization Details Recorded Time [id number] 3714440z6 2824e erythromy theodora medicatio n Not available Not available Not available 07/11/2018 4053 RxNorm Not Available Not Available Not Available [id number] 075491381 6472948x4 2824e Product containin g penicilli n and antibioti c (product) medicatio n Not available Not available Not available 07/11/2018 19170 05 SNOMED Not Available Not Available Not Available [id number] 762233192 5131436e5 2824e Substance with sulfonami de structure and antibacte rial mechanism of action (substanc e) medicatio n Not available Not available Not available 07/11/2018 68105 8003 SNOMED Not Available Not Available Not Available [id number] 556940978 5980986j0 2824e ethanol environme nt,medica tion Not available Not available Not available 07/11/2018 448 RxNorm Not Available Not Available Not Available [id number] 112502052 4103546s4 2824e corn syrup food Not available Not available Not available 07/11/2018 34148 76 RxNorm Not Available Not Available Not Available [id number] [id number] [id number] 2824e mold extract environme nt Not available Not available Not available 07/15/2018 20011 8 RxNorm Not Available Not Available Not Available Vitals Date Recorded Heart rate Respiratory rate Body temperature Systolic blood pressure Diastolic blood pressure Provider Name and Address Organization Details Last Updated DateTime 8 72 /min 20 /min 97.8 [degF] 130 mm[Hg] 72 mm[Hg] VOLODYMYR De La Torre [address] [facility], [address], [place], [address], [facility] 8 14:09:28 Date Recorded Heart rate Respiratory rate Body temperature Systolic blood pressure Diastolic blood pressure Provider Name and Address Organization Details Last Updated DateTime 8 68 /min 18 /min 98.2 [degF] 133 mm[Hg] 68 mm[Hg] VOLODYMYR De La Torre [address] [facility], [address], [place], [address], [facility] 8 14:09:35 Date Recorded Body weight Heart rate Respiratory rate Body temperature Oxygen saturation Oxygen saturation in Arterial blood by Pulse oximetry Systolic blood pressure Diastolic blood pressure Provider Name and Address Organization Details Last Updated DateTime 8 62298.5 4 g 73 /min 16 /min 98.6 [degF] 98 % 98 % 154 mm[Hg] 75 mm[Hg] Annette Villa MD [address] [facility], [address], [place], [address], [facility] 8 12:38:24 Date Recorded Heart rate Respiratory rate Systolic blood pressure Diastolic blood pressure Provider Name and Address Organization Details Last Updated DateTime 07/18/2018 69 /min 18 /min 153 mm[Hg] 71 mm[Hg] Carol Newton [address] [facility] [address] [facility], [address], [place], [address] , [facility] 07/18/2018 14:13:31 Social History Question Answer Notes LastModified by Organizat ion Details LastModified Time Tobacco Smoking Status Unknown If Ever Smoked Not Available [employer] 05/31/2020 03:13:23 Do You Have An Advance Directive? No [id number] Information not available 05/31/2020 What Is Your Level Of Alcohol Consumption? None [id number] Information not available 05/31/2020 How Much Tobacco Do You Chew? None [id number] Information not available 05/31/2020 Do You Have A Medical Power Of Assistant County Attorney? Yes [id number] Information not available 05/31/2020 What Was The Date Of Your Most Recent Tobacco Screening? 07/18/2018 [id number] Information not available 05/31/2020 Sex: Unknown Functional Status None recorded. Mental Status None recorded. Family History Nothing Reported Notes:other family menbers w ith diverticulitis Medical History No medical history recorded. Gynecological HistoryNo gynecological history recorded. Obstetrics History GPAL:G 0 P 0 0 0 0 Past Encounters Encounter ID Performer Location Encounter Start Date Encounter Closed Date Diagnosis/Indication Diagnosis SNOMED-CT Code Diagnosis ICD10 Code Diagnosis Note [id number] VOLODYMYR De La Torre AT [address] [address] 07/11/2018 14:08:01 07/23/2018 15:57:49 Colovaginal fistula 442670337 N82.3 see hpimonitor incisionf/ u with surgeonlab s on 07/14colos [facility] [place] cefepime 2 grams q 8 hrs x 5 days totalfinis h diflucan 200 mg qd x 12 days totalmonit or picc site Moderate c hronic obstructive pulmonary disease 455341091 J44.9 qvar and albuterol prnmonitor resp status Abdominal aortic aneurysm 908374123 [place] [id number] V[address]YR De La Torre AT [address] [address] 07/14/2018 14:08:23 07/23/2018 16:01:15 Colovaginal fistula 012973247 N82.3 doesn't appear infected monitor incisionf/ u with surgeon- staff will call to get appt in more quickly than 07/30 which is the scheduledc olostomy teachingfi dimitri cefepime 2 grams q 8 hrs x 5 days totalfinis h diflucan 200 mg qd x 12 days totalmonit or picc site Thrombocytosis 4842329 D 47.3 check CBC on 07/16 for elevated platelets [id number] Annette Villa MD [facility] [address] [place] [address] 07/15/2018 12:36:02 07/23/2018 16:10:46 Colovaginal fistula 363004658 N82.3 As above Moderate c hronic obstructive pulmonary disease 432829519 J44.9 No current sxs. Pt uses qvar and albuterol prnmonitor resp status Abdominal aortic aneurysm 096888256 I71.4 known hx of, f/u with yearly U/S as ordered. Diverticul ar disease of colon 810024946 K57.20 S/P solitario procedure, partial colectomy, and colostomy placement. Now finishing course of cefepime 2 grams q 8 hrs, still has another week of diflucan 200 mg qd. Pt concerned because every time she has stopped abx in the past her WBC goes back up 2 days later. Will leave PICC in for a few days to evaluate status. To f/u with surgeon on 07/23. Very deconditio norman and fatigued. Unable to care for self at this time. And particular ly unable to care for house and . Needs continued PT/OT for strengthen ing and function/ Colostomy present 230339 009 Z93.3 Pt. not doing well with colostomy care. Has sig. trouble managing due to left UE tremor. Is very anxious about being able to care for appliance herself at home. Continue teaching. Arrange for 3x/week VNA at time of d/c. Is supposed to have surgery in 10 weeks to reattach colon. Dehiscence of external surgical incision wound 6060547839 03612 T81.31XD With minimal dehiscence , no further tx needed. Continue dressing changes. Monitor closely for further dehiscence or any signs of infection. Generalize d anxiety disorder 85304914 F41.1 Sees therapist outpt. Doesn't like meds. Continue with supportive care. WIll need sig. support through this process and case. after d/c At high risk for fall 45 53191012 85375371 Z91.89 with hx of 3 falls this year. Says she loses her balance when she turns. Needs intensive PT/OT to assure safety at home. [id number] [place] [address] 07/18/2018 14:10:41 07/30/2018 14:45:21 Colovaginal fistula 475029451 N82.3 doesn't appear infected monitor incision f/u with surgeon on 07/22colos mirna teaching finished cefepime 2 gramsfinis h diflucan 200 mg qd x 12 days total monitor picc site Dehiscence of external surgical incision wound 1722901255 22269 T81.31XD With minimal dehiscence , surgeon updated, new order of Santyl to apply to daily dressing change and care. Monitor closely for further dehiscence or any signs of infection. Generalize d anxiety disorder 60183387 F41.1 Sees therapist outpt. Doesn't like meds. Continue with supportive care. WIll need sig. support through this process and case. after d/c [id number] [address] BOOTHE AT [address] [address] 07/26/2018 22:26:55 07/30/2018 16:05:10 Diverticular disease of colon 591436260 K57.20 S/P solitario procedure, partial colectomy, and colostomy placement. abx completed pt to f/u with surgeon to consider reverse colostomy in spring vna/pt setup for home pt for d/c tomorrow Colovaginal fistula 2357 39054 N82.3 As above Dehiscence of external surgical incision wound 5311376645 15941 T81.31XD With minimal dehiscence . Continue dressing changes with santyl. Moderate c hronic obstructive pulmonary disease 940830875 J44.9 No current sxs. Pt uses qvar and albuterol prn resp status stable, room air Abdominal aortic aneurysm 696045864 I71.4 known hx of, f/u with yearly U/S as ordered. Colostomy present 771646 009 Z93.3 pt has trouble managing due to left UE tremor. vna to help with colostomy care at home. Generalize d anxiety disorder 06675973 F41.1 f/u with therapist that she has as outpt. Doesn't like meds. Continue with supportive care. WIll need sig. support through this process and case. after d/c, has supportive spouse at home, pt is excited to be dc Health Concerns Section Related Observation LastModified by Organization Detai ls LastModified Time None Recorded Concern Status LastModified by Organization Details LastModified Time None Recorded Advance Directives Directive N: Payers Encounter Date Sequence Insurance Name Policy Number Policy Agrawal Covered Member ID Agrawal Member ID Guarantor Name 07/11/2018 1 [place] Birgit A Larock [id number] 5 Birgit Larock 07/11/2018 2 [place] [id number] Birgit Larock [id number] Birgit Larock 07/14/2018 1 [place] Birgit A Larock [id number] Birgit Larock 07/14/2018 2 [place] [id number] Birgit Larock [id number] Birgit Larock 07/15/2018 1 [place] [place] Birgit A Larock [id number] 5 Birgit Larock 07/15/2018 2 [place] [id number] Birgit Larock [id number] Birgit Larock 07/18/2018 1 [place] Birgit A Larock [id number] 5 Birgit Larock 07/18/2018 2 [place] [id number] Birgit Larock [id number] Birgit Larock 07/26/2018 1 [place] Birgit A Larock [id number] 5 Birgit Larock 07/26/2018 2 [place] [id number] Birgit Larock [id number] Birgit Larock Notes Date Note Type Note Provider Name and Address Organization Details Recorded Time 07/11/2018 text/html 77 yo female see n for initial intake note. pt admitted from [facility] s/p colovaginal fistula repair with solitario procedure and colostomy. pt has hx of waxing and waning diverticulitis over the last few months. admitted for IV abx with improvement in sept and oct. then CT showed active diverticulitis with abscess. pt back on IV abx though ID wanted to start levaquin but she consistently refuses it due to neurological side effects. she was also found to have colovaginal fistula and she had sigmoid resection and colostomy. post op her wbc have declined though has waxed and waned somewhat. she was started on cefepime 2 grams q 8 hrs x 5 days and diflucan 200 mg qd x 12 days total. pt here for rehab and IV abx. pmhx of copd, AAA and tremor in left hand. VOLODYMYR De La Torre [address] [facility], [address], [place], [address], [employer] 07/11/2018 14:27:20 07/14/2018 text/html 77 yo female see n for acute rounding visit. pt admitted from [facility] s/p colovaginal fistula repair with solitario procedure and colostomy. pt has hx of waxing and waning diverticulitis over the last few months. admitted for IV abx with improvement in sept and oct. then CT showed active diverticulitis with abscess. pt back on IV abx though ID wanted to start levaquin but she consistently refuses it due to neurological side effects. she was also found to have colovaginal fistula and she had sigmoid resection and colostomy. post op her wbc have declined though has waxed and waned somewhat. she was started on cefepime 2 grams q 8 hrs x 5 days and diflucan 200 mg qd x 12 days total. pt here for rehab and IV abx. pmhx of copd, AAA and tremor in left hand.asked to eval pt's incision for concern for infection. VOLODYMYR De La Torre [address] [facility], [address], [place], [address], [employer] 07/14/2018 14:17:28 07/15/2018 text/html This is a 77 yo woman who is here for rehab and IV abxs after an acute hospitalization for colovaginal fistula and pelvic abscess due to diverticulitis. She was started on IV abxs and then taken to the OR for a colovaginal fistula repair with solitario procedure and colostomy. She had had a hx of waxing and waning diverticulitis over the last few months. admitted for IV abx with improvement in apr and may. then CT showed active diverticulitis with abscess. Post op her white count declined, but continued to wax and wane. Her intraop cxs showed pseudomonas and ashli and she was started on cefepime 2 grams q 8 hrs x 5 days and diflucan 200 mg qd x 12 days total. She is very anxious and concerned that incision isn't healing well. Top edge has dehisced a bit. She is very upset that insurance wants her to leave on 07/23. She has f/u with surgeon on 07/23 to assess the wound. She is unable to change appliance herself due to tremor. Also her is unable (unwilling?) to help much at home. She says when she is home she waits on him. She also c/o extreme fatigue and balance issues. Had 3 falls earlier this year. Her PMH includes COPD, AAA, diverticular dz, nephrolithiasis-with stents in past, psoriasis, and tremor of left UE due to brachial plexus injury. Annette Villa MD [address] [facility], [address], [place], [address], [email or web address] [facility] [employer] 07/15/2018 14:08:22 07/18/2018 text/html Pt is a 77 y.o w jeremie seen today for acute rounding visit. Pt concerned because wbc appear to be increasing. pt admitted from [facility] s/p colovaginal fistula repair with solitario procedure and colostomy. pt has hx of waxing and waning diverticulitis over the last few months. admitted for IV abx with improvement in apr and may. then CT showed active diverticulitis with abscess. pt back on IV abx though ID wanted to start levaquin but she consistently refuses it due to neurological side effects. she was also found to have colovaginal fistula and she had sigmoid resection and colostomy. post op her wbc have declined though has waxed and waned somewhat. she was started on cefepime 2 grams q 8 hrs x 5 days and diflucan 200 mg qd x 12 days total. pt here for rehab and IV abx. pmhx of copd, AAA and tremor in left hand. Carol Newton [address] [facility], [address], [place], [address], [employer] 07/18/2018 14:26:42 07/26/2018 text/html Pt is a 77 y.o w jeremie seen prior to scheduled d/c tomorrow. pt admitted from [facility] s/p colovaginal fistula repair with solitario procedure and colostomy due to diverticulitis/absces s. She was treated initially with levaquin but refused due to neurological side effects and was transitioned to cefepime and diflucan. She has been in rehab to help with her wound care and deconditioning. She is now stable for d/c home tomorrow. She will be going home with her . VNA has been setup to help with wound/colostomy care. Future plans with surgeon is to reverse colostomy next spring pmhx of copd, AAA and tremor in left hand, diverticulitis, nephrolithiasis with stents, psoriasis Johanna carter [email or web address] 07/26/2018 23:37:55 OBGyn Episode No OBEpisode recorded.
== END 2024-09-01 15:10 | disposition home or self-care (01) ==
LOC: HO.HUSH 14:11
PROVIDERS: Visit Provider Nurse Practitioner Family
DX: N28.1 Cyst of kidney, acquired (principal); Z13.9 Encounter for screening, unspecified
CPT/HCPCS: 99213

== ENCOUNTER → 2024-09-01 14:11 | Outpatient (BNVA) | payer OTHER, SELFPAY | PROVIDERS: Visit Provider Nurse Practitioner Family | DX: N28.1 Cyst of kidney, acquired (principal) | CPT/HCPCS: 81003; 99212 ==

== ENCOUNTER 2024-10-29 13:58 | Outpatient (AMB) | payer OTHER, SELFPAY ==
--- NOTE | 2024-10-29 14:04 | A.OFFPC_ITS ---
Vital Signs 10/29/24 14:06 Height 4 ft 10 in Weight 121 lb BMI 25.3 BP 110/72 Blood Pressure Location Lt brachial Position Sitting Intake Visit Reasons: stomach pain Arts Therapist Required: No Accompanied by: Self / Same As Patient Allergies mold [MOLD] Allergy (Severe, Verified 10/29/24 14:27) SWELLING alcohol [ALCOHOL] Allergy (Intermediate, Verified 10/29/24 14:27) RED, SWELLING corn syrup [CORN SYRUP] Allergy (Intermediate, Verified 10/29/24 14:27) red hot face dextrose [DEXTROSE] Allergy (Intermediate, Verified 10/29/24 14:27) RED RASH erythromycin base [ERYTHROMYCIN BASE] Allergy (Intermediate, Verified 10/29/24 14:27) RASH Penicillins [PENICILLINS] Allergy (Intermediate, Verified 10/29/24 14:27) SWELLING, RASH sucrose [SUCROSE] Allergy (Intermediate, Verified 10/29/24 14:27) RED RASH Sulfa (Sulfonamide Antibiotics) [SULFA (SULFONAMIDE ANTIBIOTICS)] Allergy (Intermediate, Verified 10/29/24 14:27) RASH, redness, redness valacyclovir Allergy (Intermediate, Verified 10/29/24 14:27) Redness of Skin morphine Adverse Reaction (Intermediate, Verified 10/29/24 14:27) Hallucinations 12 Hour Nasal Allergy (Intermediate, Uncoded 10/29/24 14:27) hives WINE Allergy (Intermediate, Uncoded 10/29/24 14:27) RASH FROM RED WINE fluorquinolones Allergy (Mild, Uncoded 10/29/24 14:27) nerve damage Medication List - Last Reconciled 10/29/24 by Fabby Cabrera MD [16 grab bar As directed] albuterol sulfate 90 mcg/actuation (ProAir RespiClick) inhalation alpha lipoic acid 600 mg PO BID ascorbic acid (vitamin C) (Vitamin C) 500 mg PO DAILY beclomethasone dipropionate 80 mcg/actuation (Qvar RediHaler) 2 inhalations inhalation BID biotin 10,000 mcg PO DAILY bromelains 1,000 mg PO DAILY calcium polycarbophil (Fiber (calcium polycarbophil)) mg PO cholecalciferol (vitamin D3) (Vitamin D3) 25 mcg PO DAILY 90 days chromium picolinate 1,000 mcg PO DAILY flaxseed oil 1,000 mg PO BID furosemide 40 mg PO DAILY TDEH-vkdkagra-hhvoatbjdfg xt 100-100-225 mg (MARQUIS Soothe) caps PO gabapentin mg PO glycine mg PO lutein 20 mg PO DAILY magnesium 1,000 mg PO BID mecobalamin (vitamin B12) mcg PO melatonin 3 mg PO BEDTIME PRN 30 days multivitamin 1 tab PO DAILY omeprazole 20 mg PO DAILY 4 weeks [[employer] 360 toothbrush As directed] psyllium husk (Fiber (psyllium husk)) 0.4 grams PO BEDTIME 90 days [set of weighted utensils with no build up handle As directed] [[employer] 360 Toothbrush As directed] vitamin E 200 units PO DAILY Tobacco use date assessed: 10/29/24 Fall risk assessment: No Falls in past year Last assessed Fall Risk: 10/29/24 Dental Screening Dental Screen Date: 10/29/24 Did you have a dental visit in the last 12 months?: No Did you have a dental problem in the last 6 months where you did not have access to dental care?: No Was dental information given to patient?: Patient has dentist HPI HPI Comments History of Present Illness Details The patient is an 84-year-old female presenting with abdominal distension. She describes a progressive increase in abdominal size that she perceives as feeling , a sensation noted to be more pronounced than during her pregnancies. The patient previously presented with similar gastrointestinal issues including swallowing difficulties, assessed via endoscopy revealing gastric polyps. She does have diastasis recti which she has been evaluated by plastic surgeon which declines surgery because it was more of a cosmetic issue and would not benefit her. Although she reports diffuse pain associated with eating and waking, she has not engaged in pharmacological GERD management, avoiding medications over concerns with side effects. She recently experienced an episode of severe diarrhea and suspects a possible interaction with her Parkinson's management. Consideration for further gastrointestinal evaluation to address continued abdominal enlargement is warranted. She walks with a cane due to gait instability. She also has dyslipidemia which she controls with diet. 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 Also has constipation which is also controlled with diet. [facility] Medical History Parkinson's disease without dyskinesia Thrombophlebitis, popliteal vein Gait disorder Anxiety Coarse tremors Renal cyst Abdominal pain Thyroid disease Chronic pain syndrome Osteoarthritis of left knee Spinal stenosis Left sided sciatica Constipation by delayed colonic transit Left knee pain Dyslipidemia Onychomycosis Neuropathy Rosacea Asthma Surgical History Hx of colonoscopy History of surgery History of back surgery (~03/31/21) History of surgery History of removal of both ovaries Colostomy in place History of tonsillectomy History of cholecystectomy History of repair of hiatal hernia History of hysterectomy Family History Father Hypertension Pancreatitis Uremia Mother Diverticulosis Alzheimers disease Brother Colon cancer CVD (cardiovascular disease) Sister Colon cancer Social History Household Members: Spouse Household Members Other:: 2 Housing: [facility] Are you a 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 1. Little interest or pleasure in doing things: not at all 2. Feeling down, depressed, or hopeless: not at all 3. Trouble falling or staying asleep, or sleeping too much: not at all 4. Feeling tired or having little energy: not at all 5. Poor appetite or overeating: not at all 6. Feeling bad about yourself - or that you are a failure or have let yourself or your family down: not at all 7. Trouble concentrating on things, such as reading the newspaper or watching television: not at all 8. Moving or speaking so slowly that other people could have noticed. Or the opposite - being so fidgety or restless that you have been moving around a lot more than usual: not at all 9. Thoughts that you would be better off or of hurting yourself in some way: not at all Total score: 0 Depression Screening Interpretation: Negative Depression Screening Done: Yes 06085 - PHQ-9 Billing: Yes Source: Developed by Drs. Milton Garza, Sandra Nieto, Frandy Riley and colleagues, with an educational shweta from [employer]. Thrive Questionnaire Date Thrive assessed: 10/29/24 I am a: Patient What is your living situation today?: I have a steady place to live Within the past 12 months, did the food you bought not last and you didn't have the money to get more?: Never true Within the past 12 months, did you worry whether your food would run out before you got money to buy more?: Never true Do you have trouble paying for medicines?: No Do you have trouble getting transportation to medical appointments?: No Do you have trouble paying your heating and electricity bill?: No Do you have trouble taking care of your child, family member or friend?: No Do you have trouble with day-to-day activities such as bathing, preparing meals, shopping, managing finances, etc.?: Yes Are you currently unemployed and looking for a job?: No Are you interested in more education?: No Please select the resources that you would like help with: None Currently or been in a relationship where the following occur: No concerns reported THRIVE Score: 0 AUDIT C Alcohol Use Questionnaire (AUDIT-C) 1. How often do you have a drink containing alcohol?: Never Total Score: 0 Score Reviewed/Action Taken: No NANCY-7 AMB Questionnaire NANCY-7 Date NANCY - 7 assessed: 10/29/24 Feeling nervous, anxious, or on edge: 1 = Several days Not being able to stop or control worryin = Not at all Worrying too much about different things: 1 = Several days Trouble relaxin = Not at all Being so restless that it is hard to sit still: 0 = Not at all Becoming easily annoyed or irritable: 1 = Several days Feeling afraid as if something awful might happen: 0 = Not at all Total NANCY-7 score (0-4 normal; 5-9 mild; 10-14 moderate; 15-21 severe): 3 Source: Developed by Drs. Milton Garza, Sandra Nieto, Frandy Riley and colleagues, with an educational shweta from [employer]. NANCY-7 Assessment Billing NANCY-7 Assessment Tool: NANCY-7 Assessment 20810 Review of Systems Const All systems reviewed & are unremarkable except as noted in HPI and below Card Denies chest pain at rest, Denies chest pain with activity, Denies edema, Denies irregular heart rhythm, Denies claudication, Denies dyspnea, Denies dyspnea on exertion, Denies orthopnea, Denies paroxysmal nocturnal dyspnea and Denies slow heart rate Resp Denies cough, Denies dyspnea and Denies dyspnea on exertion Physical exam (Primary Care) Vital Signs: Last Vital Signs BP 110/72 10/29/24 14:06 BMI result Body Mass Index 25.3 Tobacco/Smoking Status: Tobacco use Status Tobacco use date assessed 10/29/24 10/29/24 14:23 Patient Tobacco Use Status Former Tobacco user 10/29/24 14:23 Tobacco use type Cigarette 10/29/24 14:23 e-Cigarette/Vaping Use Never Used 10/29/24 14:23 PHQ-9: PHQ-9 Score PHQ-9: Total score 0 10/29/24 21:47 Depression Screening Interpretation: Negative Thrive Assessment: Date of Thrive Assessment Date Thrive assessed 10/29/24 10/29/24 14:23 Currently or been in a relationship where the following occur: No concerns reported Const Limitations: ambulation with cane Resp Effort & Inspection: normal respiratory effort Auscultation: clear to auscultation bilaterally Cardio Jugular venous distension: no JVD Rate: regular rate Rhythm: regular rhythm Heart sounds: S1 normal heart sound present and S2 normal heart sound present Extrem General: Yes full ROM Coding Level of Care Code Est Pt Level 4 (97879) Complex EM visit Add On G2211 Diagnoses Epigastric pain R10.13 Dyslipidemia E78.5 Parkinson's disease without dyskinesia or fluctuating manifestations G20.A1 Fluctuating manifestations: without fluctuating manifestations Mild major depression F32.0 Constipation by delayed colonic transit K59.01 Additional Codes NANCY-7 Assessment Billing - NANCY-7 Assessment Tool: NANCY-7 Assessment 18071 ([id number]) PHQ-9 - 97048 - PHQ-9 Billing: Yes ([id number]) Time Spent (min) 21 Assessment & Plan Assessment & Plan (1) Epigastric pain: Code(s): R10.13 - Epigastric pain Category: Medical (2) Dyslipidemia: Code(s): E78.5 - Hyperlipidemia, unspecified Category: Medical (3) Parkinson's disease without dyskinesia: Code(s): G20.A1 - Parkinson's disease without dyskinesia, without mention of fluctuations Category: Medical Qualifiers: Fluctuating manifestations: without fluctuating manifestations Qualified Code(s): G20.A1 - Parkinson's disease without dyskinesia, without mention of fluctuations (4) Mild major depression: Comment: Declines medication but follows with counseling once a week. Code(s): F32.0 - Major depressive disorder, single episode, mild Category: Medical (5) Constipation by delayed colonic transit: Code(s): K59.01 - Slow transit constipation Category: Medical Plan The patient will be referred to gastroenterology for assessment, possibly including a repeat endoscopy, due to her concerning abdominal distension and persistent GERD symptoms without pharmacotherapy. A low-acid diet is advisable in the interim. Follow-up with neurology for ongoing management of Parkinson's Disease is encouraged, emphasizing non-pharmacologic approaches. Her reported diarrhea and rising abdominal size warrant timely specialized evaluation to prevent further complications or escalation of symptoms. Patient was informed and verbally consented to the use of an ambient scribe for clinic note documentation during this visit. I discussed the patient's abdominal distension and persistent GERD symptoms, emphasizing the need for further evaluation by gastroenterology, possibly including a repeat endoscopy. The potential risks and benefits of pharmacological management for GERD, such as omeprazole, were reviewed, specifically addressing her concerns about side effects. While we noted that a low-acid diet might assist in managing symptoms temporarily, without specialist input, the focus remains on proper diagnostics to uncover the cause. The patient was reminded of the importance of follow-up with her neurology provider for her Parkinson's Disease management and informed she did not require a referral to dermatology should she wish to address skin lesions separately. Orders: Referrals Gastroenterology Referral R10.13 - Epigastric pain Patient Instructions: - Follow a low-acid diet to manage GERD symptoms. - Schedule an appointment with gastroenterology for further evaluation. - Contact neurology for regular check-ups related to Parkinson's Disease. - Seek a dermatology consultation for evaluation of the skin lesion identified at home.
[2024-10-29 14:06] VITALS: BP 110/72; BMI 25.3
== END 2024-10-29 14:46 | disposition home or self-care (01) ==
LOC: HO.HMCH 13:58
PROVIDERS: Visit Provider Internal Medicine
DX: R10.13 Epigastric pain (principal); E78.5 Hyperlipidemia, unspecified; G20.A1 Parkinson's disease without dyskinesia, without mention of fluctuations; F32.0 Major depressive disorder, single episode, mild; K59.01 Slow transit constipation

== ENCOUNTER → 2024-10-29 13:58 | Outpatient (BNVA) | payer OTHER, SELFPAY | PROVIDERS: Visit Provider Internal Medicine | DX: R10.13 Epigastric pain (principal); E78.5 Hyperlipidemia, unspecified; G20.A1 Parkinson's disease without dyskinesia, without mention of fluctuations; F32.0 Major depressive disorder, single episode, mild; K59.01 Slow transit constipation | CPT/HCPCS: 96127; 99212 ==

== ENCOUNTER 2025-01-06 14:29 | Outpatient (AMB) | payer OTHER, SELFPAY ==
--- OUTSIDE RECORDS SUMMARY | 2025-01-06 14:33 | XMS_ITS | Data Portability ---
Author Organization [facility], Main Office Address [address], [address] [place] [address] Assessment Encounter Date Assessment Date Assessment LastModified [...] Recorded Time Moderate chronic obstructive pulmonary disease 662281820 Active 2017 VOLODYMYR De La Torre [address] [facility] [address], [address], [place], [address], [facility] 8 14:10:49 Abdominal aortic aneurysm 324476159 Active 2017 VOLODYMYR De La Torre [address] , [address], [place], [address], [facility] 8 14:11:15 Colovaginal fistula 005401853 Active 2017 VOLODYMYR De La Torre [address], [address], [place], [address], [facility] [employer] 8 14:11:42 Thrombocyto sis 4782087 Active 2017 VOLODYMYR De La Torre [address], [address], [place], [address], [facility] 8 14:15:25 Dehiscence of external surgical incision wound 5308251743780 08 Active 2017 Annette Villa MD [address] [facility] [address] [facility] [address], [address], [place], [address], [facility] 8 14:00:05 Colostomy present 518871986 Active 2017 Annette Villa MD [address] [facility] [address], [address], [place], [address], [facility] 8 14:02:47 Generalized anxiety disorder 93794828 Active 2017 Annette Villa MD [address] [place] [address], [address], [place], [address], [facility] 8 14:03:42 At high risk for fall 3290379515991 01046 Active 2017 Annette Villa MD [address] [place] [address], [address], [place], [address], [facility] 8 14:07:03 Problem Notes None recorded. Medical Equipment None Reported. Allergies Allergen ID Allergen Name Allergen Category Reaction Reaction Severity Criticality Documentation Date Start Date Code Code System Note Provider Name and Address Organization Details Recorded Time 23815 erythromy theodora medicatio n Not available Not available Not available 07/11/2018 4053 RxNorm VOLODYMYR De La Torre [address] [facility], [address], [place], [address], [facility] 8 14:09:59 83296 Product containin g penicilli n (product) medicatio n Not available Not available Not available 07/11/2018 42807 8001 SNVOLODYMYR Pearl [address] [facility], [address], [place], [address], [facility] 8 14:10:06 59057 Substance with sulfonami de structure and antibacte rial mechanism of action (substanc e) medicatio n Not available Not available Not available 07/11/2018 21249 8003 SNVOLODYMYR Pearl [address] [facility], [address], [place], [address], [facility] 8 14:10:13 41811 ethanol environme nt,medica tion Not available Not available Not available 07/11/2018 448 RxNorm Reema Guthrie, [employer] [address] [facility] [address] [facility] [address], [address], [place], [address], [facility] 8 14:10:21 82529 corn syrup food Not available Not available Not available 07/11/2018 00382 76 RxNorm Reema Guthrie, [employer] WORK[employer] [address] [facility], [address], [place], [address], [facility] 8 14:10:28 06818 mold extract environme nt Not available Not available Not available 07/15/2018 39684 8 RxNorm Annette Villa MD [address] [facility], [address], [place], [address], [facility] 8 12:40:08 Vitals Date Recorded Heart rate Respiratory rate Body temperature Systolic blood pressure Diastolic blood pressure Provider Name and Address Organization Details Last Updated DateTime 8 72 /min 20 /min 97.8 [degF] 130 mm[Hg] 72 mm[Hg] VOLODYMYR De La Torre [address] [facility], [address], [place], [address], [facility] 8 14:09:28 Date Recorded Heart rate Respiratory rate Body temperature Systolic blood pressure Diastolic blood pressure Provider Name and Address Organization Details Last Updated DateTime 8 68 /min 18 /min 98.2 [degF] 133 mm[Hg] 68 mm[Hg] VOLODYMYR De La Torre [address] [facility], [address], [place], [address], [facility] 8 14:09:35 Date Recorded Body weight Heart rate Respiratory rate Body temperature Oxygen saturation Oxygen saturation in Arterial blood by Pulse oximetry Systolic blood pressure Diastolic blood pressure Provider Name and Address Organization Details Last Updated DateTime 8 71597.5 4 g 73 /min 16 /min 98.6 [degF] 98 % 98 % 154 mm[Hg] 75 mm[Hg] Annette Villa MD [address] [facility] [facility], [address], [place], [address], [facility] [employer] [facility] 8 12:38:24 Date Recorded Heart rate Respiratory rate Systolic blood pressure Diastolic blood pressure Provider Name and Address Organization Details Last Updated DateTime 07/18/2018 69 /min 18 /min 153 mm[Hg] 71 mm[Hg] Carol Newton [address] [facility] [address], [address], [place], [address] , [facility] 07/18/2018 14:13:31 Social History Question Answer Notes LastModified by Organizat ion Details LastModified Time Tobacco Smoking Status Unknown If Ever Smoked Not Available [employer] 05/31/2020 03:13:23 Do You Have An Advance Directive? No [id number] Information not available 05/31/2020 How Much Tobacco Do You Chew? 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 07/18/2018 [id number] Information not available 05/31/2020 Sex: Unknown Functional Status Question Answer Note LastModified by Organization D etails LastModified Time What is your level of alcohol consumption? None [id number] Information not available 05/31/2020 Mental Status None recorded. Family History Nothing Reported Notes:other family menbers w ith diverticulitis Medical History No medical history recorded. Gynecological HistoryNo gynecological history recorded. Obstetrics History GPAL:G 0 P 0 0 0 0 Past Encounters Encounter ID Performer Location Encounter Start Date Encounter Closed Date Diagnosis/Indication Diagnosis SNOMED-CT Code Diagnosis ICD10 Code Diagnosis Note [id number] V[place]YR [place] AT [address] [address] 07/11/2018 14:08:01 07/23/2018 15:57:49 Colovaginal fistula 954476912 N82.3 see hpimonitor incisionf/ u with surgeonlab s on 07/14colos mirna teachingfi dimitri cefepime 2 grams q 8 hrs x 5 days totalfinis h diflucan 200 mg qd x 12 days totalmonit or picc site Moderate c hronic obstructive pulmonary disease 060648724 J44.9 qvar and albuterol prnmonitor resp status Abdominal aortic aneurysm 368101567 [place] [id number] [place] De [place] Torre AT [address] [address] 07/14/2018 14:08:23 07/23/2018 16:01:15 Colovaginal fistula 323852788 N82.3 doesn't appear infected monitor incisionf/ u with surgeon- staff will call to get appt in more quickly than 07/30 which is the scheduledc olostomy teachingfi [facility] cefepime 2 grams q 8 hrs x 5 days totalfinis h diflucan 200 mg qd x 12 days totalmonit or picc site Thrombocytosis 7493498 D 47.3 check CBC on 07/16 for elevated platelets [id number] MD SHYANN Leon AT [address] [address] 07/15/2018 12:36:02 07/23/2018 16:10:46 Colovaginal fistula 152821136 N82.3 As above Moderate c hronic obstructive pulmonary disease 665509754 J44.9 No current sxs. Pt uses qvar and albuterol prnmonitor resp status Abdominal aortic aneurysm 872501269 I71.4 known hx of, f/u with yearly U/S as ordered. Diverticul ar disease of colon 519148608 K57.20 S/P solitario procedure, partial colectomy, and [...] for strengthen ing and function/ Colostomy present 451385 009 Z93.3 Pt. not doing well with colostomy care. Has sig. trouble managing due to left UE tremor. Is very anxious about being able to care for appliance herself at home. Continue teaching. Arrange for 3x/week VNA at time of d/c. Is supposed to have surgery in 10 weeks to reattach colon. Dehiscence of external surgical incision wound 5561890475 18086 T81.31XD With minimal dehiscence , no further tx needed. Continue dressing changes. Monitor closely for further dehiscence or any signs of infection. Generalize d anxiety disorder 65394008 F41.1 Sees therapist outpt. Doesn't like meds. Continue with supportive care. WIll need sig. support through this process and case. after d/c At high risk for fall 45 15560527 08788402 Z91.89 with hx of 3 falls this year. Says she loses her balance when she turns. Needs intensive PT/OT to assure safety at home. [id number] [address] [place] [address] 07/18/2018 14:10:41 07/30/2018 14:45:21 Colovaginal fistula 400236672 N82.3 doesn't appear infected monitor incision f/u with surgeon on 07/22colos mirna teaching finished cefepime 2 gramsfinis h diflucan 200 mg qd x 12 days total monitor picc site Dehiscence of external surgical incision wound 9927405256 14893 T81.31XD With minimal dehiscence , surgeon updated, new order of Santyl to apply to daily dressing change and care. Monitor closely for further dehiscence or any signs of infection. Generalize d anxiety disorder 31399533 F41.1 Sees therapist outpt. Doesn't like meds. Continue with supportive care. WIll need sig. support through this process and case. after d/c [id number] Johanna Gan NP, Fabio BOOTHE AT [address] [address] 07/26/2018 22:26:55 07/30/2018 16:05:10 Diverticular disease of colon 413154928 K57.20 S/P solitario procedure, partial colectomy, and colostomy placement. abx completed pt to f/u with surgeon to consider reverse colostomy in spring vna/pt setup for home pt for d/c tomorrow Colovaginal fistula 2357 36593 N82.3 As above Dehiscence of external surgical incision wound 5252847151 82797 T81.31XD With minimal dehiscence . Continue dressing changes with santyl. Moderate c hronic obstructive pulmonary disease 726486881 J44.9 No current sxs. Pt uses qvar and albuterol prn resp status stable, room air Abdominal aortic aneurysm 947596512 I71.4 known hx of, f/u with yearly U/S as ordered. Colostomy present 350708 009 Z93.3 pt has trouble managing due to left UE tremor. vna to help with colostomy care at home. Generalize d anxiety disorder 32987115 F41.1 f/u with therapist that she has [...] [place] Birgit A Larock [id number] 5 Birgit Larock 07/11/2018 2 [place] [id number] Birgit Larock [id number] 79 Birgit Larock 07/14/2018 1 [place] Birgit A Larock [id number] 5 Birgit Larock 07/14/2018 2 [place] [id number] Birgit Larock [id number] 79 Birgit Larock 07/15/2018 1 [place] Birgit A Larock [id number] 5 Birgit Larock 07/15/2018 2 [place] [id number] Birgit Larock [id number] 79 Birgit Larock 07/18/2018 1 [place] Birgit A Larock [id number] 5 Birgit Larock 07/18/2018 2 [facility] (MEDIC[place]PPLE[place]) [id number] Birgit Larock [id number] Birgit Larock 07/26/2018 1 [place] [facility] Birgit A Larock [id number] 5 Birgit Larock 07/26/2018 2 [facility] [id number] Birgit Larock [id number] Birgit Larock Notes Date Note Type [...] copd, AAA and tremor in left hand. Reema Guthrie, UPKEEP WORKER [address] [facility], [address], [place], [address], [facility] 07/11/2018 14:27:20 07/14/2018 text/html 77 yo female [...] for infection. VOLODYMYR De La Torre [address] [facility], [address], [place], [address], [facility] 07/14/2018 14:17:28 07/15/2018 text/html This is a [...] brachial plexus injury. Annette Villa MD [address] [facility], [address], [place], [address], [facility] 07/15/2018 14:08:22 07/18/2018 text/html Pt is a [...] and tremor in left hand. Carol Newton [address] [place] [address], [address], [place], [address], [facility] 07/18/2018 14:26:42 07/26/2018 text/html Pt is a [...] diverticulitis, nephrolithiasis with stents, psoriasis Johanna carter [employer] [facility] 07/26/2018 23:37:55 OBGyn Episode No OBEpisode recorded.
--- NOTE | 2025-01-06 14:34 | A.OFFVIS_ITS ---
Vital Signs 01/06/25 14:37 Height 4 ft 10 in Weight 121 lb 4.068 oz BMI 25.3 BP 144/68 H Blood Pressure Location Lt brachial Position Sitting Pulse 98 Intake Visit Reasons: epigastric pain Intake Note: Birgit presents in the office as a follow up for epigastric pains. CC: she states that she has issues with her pancreas and that it acts up. She has bloating in her stomach and states she feels . Diarrhea and constipation. 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 Required: No Allergies mold [MOLD] Allergy (Severe, Verified 01/06/25 14:37) SWELLING alcohol [ALCOHOL] Allergy (Intermediate, Verified 01/06/25 14:37) RED, SWELLING corn syrup [CORN SYRUP] Allergy (Intermediate, Verified 01/06/25 14:37) red hot face dextrose [DEXTROSE] Allergy (Intermediate, Verified 01/06/25 14:37) RED RASH erythromycin base [ERYTHROMYCIN BASE] Allergy (Intermediate, Verified 01/06/25 14:37) RASH Penicillins [PENICILLINS] Allergy (Intermediate, Verified 01/06/25 14:37) SWELLING, RASH sucrose [SUCROSE] Allergy (Intermediate, Verified 01/06/25 14:37) RED RASH Sulfa (Sulfonamide Antibiotics) [SULFA (SULFONAMIDE ANTIBIOTICS)] Allergy (Intermediate, Verified 01/06/25 14:37) RASH, redness, redness valacyclovir Allergy (Intermediate, Verified 01/06/25 14:37) Redness of Skin morphine Adverse Reaction (Intermediate, Verified 01/06/25 14:37) Hallucinations 12 Hour Nasal Allergy (Intermediate, Uncoded 01/06/25 14:37) hives WINE Allergy (Intermediate, Uncoded 01/06/25 14:37) RASH FROM RED WINE fluorquinolones Allergy (Mild, Uncoded 01/06/25 14:37) nerve damage HPI Comments Details: This is an 81-year-old female past medical history of complicated sigmoid diverticulitis leading to pelvic abscess and 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 The reason to go to the emergency room this time was that she had a very similar pain and was worried that she may have another SBO. Describes the pain as sharp, shooting, localized to her right lower quadrant associated with feeling of bloating and nausea. No fevers or chills. At baseline, patient has a least 3-4 bowel movements a week. Does complain of significant discomfort shortly after eating associated with bloating, that goes away in a few hours. Colonoscopy 2018: Tortuous sigmoid with difficulty visualization, ultimately advanced to cecum. Sigmoid resection and colostomy 2018 Path showed large bowel within normal limits. Patient describes recent emotional distress is including moving to [facility] after her children told their house. Her was also recently diagnosed with Alzheimer's, and patient is the only caregiver. She also has a strained relationship with 1 of her daughters at present. 08/15/22: Tells me that she was able to see Dr. Ordoñez in [place]. However, due to her age, she was not felt to be an appropriate candidate for surgical repair of her ventral hernia. She is currently seeking a 2nd opinion [facility]. In terms of her symptoms, she states that bowels are more regular now, able to have 1 bowel movement every day, however stool is still a bit hard, and leads to straining. Postprandial bloating is not as bothersome anymore now that her bowels are more regular. 06/07/23: Was seen by Deanne Moffett in [facility]. Again, was recommended a conservative management which the pt is not too happy about as she is afraid that we are just letting her hernias get bigger and they may rupture. In terms of her constipation, she mentions has been going fairly regularly and no issues with straining any more. 04/01/24: returning for follow up. Reports persistent abd pain with burining and bloating. More recently also with nausea and occ vomiting case in morning which is new for her. Reports has UGIS ordered through PCP. 04/30/24: * Esophageal diverticulum * Normal esophagus (biopsy) * Gastritis (biopsy) * Fundic gland polyps * Normal duodenum (biopsy)?? A. Duodenum, biopsy: Chronic inactive duodenitis with gastric heterotopia. B. Stomach, antrum greater curvature, biopsy: Antral-type mucosa with mild chronic inactive inflammation; no Helicobacter organisms seen. C. Stomach, antrum lesser curvature, biopsy: Antral-type mucosa with mild chronic inactive inflammation; no Helicobacter organisms seen. D. Stomach, incisura, biopsy: Antral-type mucosa with mild chronic inactive inflammation; no Helicobacter organisms seen. E. Stomach, body greater curvature, biopsy: Oxyntic mucosa with mild chronic inactive inflammation; no Helicobacter organisms seen. F. Stomach, body lesser curvature, biopsy: Oxyntic mucosa with mild chronic inactive inflammation; no Helicobacter organisms seen. G. Esophagus, lower, biopsy: Squamous epithelium within normal limits; no inflammation seen. H. Esophagus, middle, biopsy: Squamous epithelium within normal limits; no inflammation seen. 07/20/24: here for post EGD follow up. Cont's to report epigastric pain case shortly after eating and reduced appetite. Also reports feeling bumps under her xiphoid. EGD results and path reviewed with the pt. 01/06/25: Here for follow up. Unchanged complaint of abd bloating case after she eats or at night time. Bloating is very uncomfortable. Had pictures on her phone but was not able to locate at e time of appt . [facility] Medical History Parkinson's disease without dyskinesia Thrombophlebitis, popliteal vein Gait disorder Anxiety Coarse tremors Renal cyst Abdominal pain Thyroid disease Chronic pain syndrome Osteoarthritis of left knee Spinal stenosis Left sided sciatica Constipation by delayed colonic transit Left knee pain Dyslipidemia Onychomycosis Neuropathy Rosacea Asthma Surgical History Hx of colonoscopy History of surgery History of back surgery (~03/31/21) History of surgery History of removal of both ovaries Colostomy in place History of tonsillectomy History of cholecystectomy History of repair of hiatal hernia History of hysterectomy Family History Father Hypertension Pancreatitis Uremia Mother Diverticulosis Alzheimers disease Brother Colon cancer CVD (cardiovascular disease) Sister Colon cancer Social History Household Members: Spouse Household Members Other:: 2 Housing: Condominium Are you a primary plant care worker to a significant other at home: Yes Do you presently have visiting nurse or other home services: Yes Alcohol intake: never 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 Patient Tobacco Use Status: Former Tobacco user Tobacco use type: Cigarette Years Smoked: 1 year e-Cigarette/Vaping Use: Never Used Second Hand Smoke Exposure: No service: No Current occupational status: retired Cognitive needs: Yes Hearing needs: No Vision needs: Yes Review of Systems Const All systems reviewed & are unremarkable except as noted in HPI and below Physical Exam Vital Signs: Last Vital Signs Pulse 98 01/06/25 14:37 BP 144/68 H 01/06/25 14:37 BMI result Body Mass Index 25.3 Thin, elderly female NAD abd soft, nontender, no palpable nodules felt Spine with significant kyposcoliosis Assessment & Plan Assessment & Plan (1) Epigastric pain: Code(s): R10.13 - Epigastric pain Category: Medical (2) Early satiety: Code(s): R68.81 - Early satiety Category: Medical (3) Scoliosis: Code(s): M41.9 - Scoliosis, unspecified Category: Medical Plan Reviewed with the pt that based on testing over the last year including CT abd/pel, UGIS, EGD her postprandial epigastric pain does not appear to have a luminal source. The degree of gastritis noted does not correlate with the degree of pain and discomfort pt reports. Pt prefers to not be on PPI or H2RAs. Suspect component of FD as well. Reviewed herbal supplements which the pt is more amenable to but would like to run it by her daughter which is very reasonable. Plan: - Recommend FD carlos enrique - pt would like to review with her daughter - Advised that if does wish to proceed can pick it up OTC or can even take generic alternatives which may have a better tariq point - Last egd was < 1 year ago, no indication for repeat at this time given no change in overall sx. Follow up 3 months as per pt's request. Coding Level of Care Code Est Pt Level 4 (15351) Diagnoses Epigastric pain R10.13 Early satiety R68.81 Scoliosis M41.9
[2025-01-06 14:37] VITALS: BP 144/68; PULSE 98; BMI 25.3
== END 2025-01-06 14:57 | disposition home or self-care (01) ==
LOC: HO.HGI 14:30
PROVIDERS: Visit Provider Internal Medicine
DX: R10.13 Epigastric pain (principal); R68.81 Early satiety; M41.9 Scoliosis, unspecified
CPT/HCPCS: 99214

== ENCOUNTER → 2025-01-06 14:29 | Outpatient (BNVA) | payer OTHER, SELFPAY | PROVIDERS: Visit Provider Internal Medicine | DX: R10.13 Epigastric pain (principal); M41.9 Scoliosis, unspecified; R68.81 Early satiety | CPT/HCPCS: 99212 ==

== ENCOUNTER 2025-01-07 15:21 | Outpatient (AMB) | payer OTHER, SELFPAY ==
[2025-01-07 15:25] VITALS: BP 140/82; PULSE 79; O2SAT 96; BMI 25.1
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
--- OUTSIDE RECORDS SUMMARY | 2025-01-07 17:54 | XMS_ITS | Data Portability ---
Author Organization [facility] [employer] [facility], Main Office Address [address] [place] [address] Assessment Encounter Date Assessment Date Assessment LastModified [...] Recorded Time Moderate chronic obstructive pulmonary disease 789514390 Active 2017 VOLODYMYR De La Torre [address], [address], [place], [address], [facility] [employer] [facility] 8 14:10:49 Abdominal aortic aneurysm 021895521 Active 2017 VOLODYMYR De La Torre [address] , [address], [place], [address], [facility] [employer] [facility] 8 14:11:15 Colovaginal fistula 538248671 Active 2017 VOLODYMYR De La Torre [address], [address], [place], [address], [facility] [employer] 8 14:11:42 Thrombocyto sis 9020400 Active 2017 VOLODYMYR De La Torre [address], [address], [place], [address], [facility] [employer] [facility] 8 14:15:25 Dehiscence of external surgical incision wound [id number] 08 Active 2017 Annette Villa MD [address], [address], [place], [address], [facility] [employer] [facility] 8 14:00:05 Colostomy present 274181575 Active 2017 Annette Villa MD [address], [address], [place], [address], [facility] [employer] [facility] 8 14:02:47 Generalized anxiety disorder 02558729 Active 2017 Annette Villa MD [address] [place] [address], [address], [place], [address], [facility] [employer] [facility] 8 14:03:42 At high risk for fall [id number] 19655 Active 2017 Annette Villa MD [address] [place] [address], [address], [place], [address], [facility] [employer] [facility] 8 14:07:03 Problem Notes None recorded. Medical Equipment None Reported. Allergies Allergen ID Allergen Name Allergen Category Reaction Reaction Severity Criticality Documentation Date Start Date Code Code System Note Provider Name and Address Organization Details Recorded Time 31231 erythromy theodora medicatio n Not available Not available Not available 07/11/2018 4053 RxNorm VOLODYMYR De La Torre [address], [address], [place], [address], [facility] [employer] [facility] 8 14:09:59 94846 Product containin g penicilli n (product) medicatio n Not available Not available Not available 07/11/2018 00596 8001 SNVOLODYMYR Pearl [address], [address], [place], [address], [facility] [employer] [facility] 8 14:10:06 13124 Substance with sulfonami de structure and antibacte rial mechanism of action (substanc e) medicatio n Not available Not available Not available 07/11/2018 32767 8003 SNVOLODYMYR Pearl [address], [address], [place], [address], [facility] 8 14:10:13 93982 ethanol environme nt,medica tion Not available Not available Not available 07/11/2018 448 RxNorm Reema Guthrie, DERMATOLOGY PHYSICIAN ASSISTANT [address], [address], [place], [address], [facility] 8 14:10:21 03567 corn syrup food Not available Not available Not available 07/11/2018 80215 76 RxNorm Reema Guthrie, DERMATOLOGY PHYSICIAN ASSISTANT [address], [address], [place], [address], [facility] 8 14:10:28 96042 mold extract environme nt Not available Not available Not available 07/15/2018 95179 8 RxNorm Annette Villa MD [address], [address], [place], [address], [facility] 8 12:40:08 Vitals Date Recorded Heart rate Respiratory rate Body temperature Systolic blood pressure Diastolic blood pressure Provider Name and Address Organization Details Last Updated DateTime 8 72 /min 20 /min 97.8 [degF] 130 mm[Hg] 72 mm[Hg] VOLODYMYR De La Torre [address], [address], [place], [address], [facility] 8 14:09:28 Date Recorded Heart rate Respiratory rate Body temperature Systolic blood pressure Diastolic blood pressure Provider Name and Address Organization Details Last Updated DateTime 8 68 /min 18 /min 98.2 [degF] 133 mm[Hg] 68 mm[Hg] VOLODYMYR De La Torre [address], [address], [place], [address], [facility] 8 14:09:35 Date Recorded Body weight Heart rate Respiratory rate Body temperature Oxygen saturation Oxygen saturation in Arterial blood by Pulse oximetry Systolic blood pressure Diastolic blood pressure Provider Name and Address Organization Details Last Updated DateTime 8 37033.5 4 g 73 /min 16 /min 98.6 [degF] 98 % 98 % 154 mm[Hg] 75 mm[Hg] Annette Villa MD [address], [address], [place], [address], [facility] [employer] 8 12:38:24 Date Recorded Heart rate Respiratory rate Systolic blood pressure Diastolic blood pressure Provider Name and Address Organization Details Last Updated DateTime 07/18/2018 69 /min 18 /min 153 mm[Hg] 71 mm[Hg] Carol [place] [address], [address], [place], [address] , [facility] [employer] [facility] 07/18/2018 14:13:31 Social History Question Answer Notes LastModified by Organizat ion Details LastModified Time Tobacco Smoking Status Unknown If Ever Smoked Not Available [employer] 05/31/2020 03:13:23 Do You Have An Advance Directive? No [id number] Information not available 05/31/2020 How Much Tobacco Do You Chew? None [id number] Information not available 05/31/2020 Do You Have A Medical Power Of Cylinder Filler? Yes [id number] Information not available 05/31/2020 What Was The Date Of Your Most Recent Tobacco Screening? 07/18/2018 [id number] Information not available 05/31/2020 Sex: Unknown Functional Status Question Answer Note LastModified by Organization D etails LastModified Time What is your level of alcohol consumption? None [id number] Information not available 05/31/2020 Mental Status None recorded. Family History Nothing Reported Notes:other family menbers w ith diverticulitis Medical History No medical history recorded. Gynecological HistoryNo gynecological history recorded. Obstetrics History GPAL:G 0 P 0 0 0 0 Past Encounters Encounter ID Performer Location Encounter Start Date Encounter Closed Date Diagnosis/Indication Diagnosis SNOMED-CT Code Diagnosis ICD10 Code Diagnosis Note [id number] [place] AT [address] [address] 07/11/2018 14:08:01 07/23/2018 15:57:49 Colovaginal fistula 249830240 N82.3 see hpimonitor incisionf/ u with surgeonlab s on 07/14colos mirna teachingfi dimitri cefepime 2 grams q 8 hrs x 5 days totalfinis h diflucan 200 mg qd x 12 days totalmonit or picc site Moderate c hronic obstructive pulmonary disease 164617596 J44.9 qvar and albuterol prnmonitor resp status Abdominal aortic aneurysm 995619161 I[place] [id number] V[place] De [place] AT [address] [address] 07/14/2018 14:08:23 07/23/2018 16:01:15 Colovaginal fistula 840902356 N82.3 doesn't appear infected monitor incisionf/ u with surgeon- staff will call to get appt in more quickly than 07/30 which is the scheduledc olostomy teachingfi [facility] cefepime 2 grams q 8 hrs x 5 days totalfinis h diflucan 200 mg qd x 12 days totalmonit or picc site Thrombocytosis 6615316 D 47.3 check CBC on 07/16 for elevated platelets [id number] MD SHYANN [place] AT [address] [address] 07/15/2018 12:36:02 07/23/2018 16:10:46 Colovaginal fistula 187049697 N82.3 As above Moderate c hronic obstructive pulmonary disease 081265562 J44.9 No current sxs. Pt uses qvar and albuterol prnmonitor resp status Abdominal aortic aneurysm 523065233 I71.4 known hx of, f/u with yearly U/S as ordered. Diverticul ar disease of colon 471979040 K57.20 S/P solitario procedure, partial colectomy, and [...] for strengthen ing and function/ Colostomy present 622931 009 Z93.3 Pt. not doing well with colostomy care. Has sig. trouble managing due to left UE tremor. Is very anxious about being able to care for appliance herself at home. Continue teaching. Arrange for 3x/week VNA at time of d/c. Is supposed to have surgery in 10 weeks to reattach colon. Dehiscence of external surgical incision wound 8186274905 68737 T81.31XD With minimal dehiscence , no further tx needed. Continue dressing changes. Monitor closely for further dehiscence or any signs of infection. Generalize d anxiety disorder 51687801 F41.1 Sees therapist outpt. Doesn't like meds. Continue with supportive care. WIll need sig. support through this process and case. after d/c At high risk for fall 45 18471246 59060545 Z91.89 with hx of 3 falls this year. Says she loses her balance when she turns. Needs intensive PT/OT to assure safety at home. [id number] [address] [place] [address] 07/18/2018 14:10:41 07/30/2018 14:45:21 Colovaginal fistula 103696348 N82.3 doesn't appear infected monitor incision f/u with surgeon on 07/22colos mirna teaching finished cefepime 2 gramsfinis h diflucan 200 mg qd x 12 days total monitor picc site Dehiscence of external surgical incision wound 3282990084 88702 T81.31XD With minimal dehiscence , surgeon updated, new order of Santyl to apply to daily dressing change and care. Monitor closely for further dehiscence or any signs of infection. Generalize d anxiety disorder 06967781 F41.1 Sees therapist outpt. Doesn't like meds. Continue with supportive care. WIll need sig. support through this process and case. after d/c [id number] Johanna Gan NP, Fabio BOOTHE AT [address] [address] 07/26/2018 22:26:55 07/30/2018 16:05:10 Diverticular disease of colon 742864027 K57.20 S/P solitario procedure, partial colectomy, and colostomy placement. abx completed pt to f/u with surgeon to consider reverse colostomy in spring vna/pt setup for home pt for d/c tomorrow Colovaginal fistula 2357 85585 N82.3 As above Dehiscence of external surgical incision wound 6128494193 40902 T81.31XD With minimal dehiscence . Continue dressing changes with santyl. Moderate c hronic obstructive pulmonary disease 719840272 J44.9 No current sxs. Pt uses qvar and albuterol prn resp status stable, room air Abdominal aortic aneurysm 444297519 I71.4 known hx of, f/u with yearly U/S as ordered. Colostomy present 338857 009 Z93.3 pt has trouble managing due to left UE tremor. vna to help with colostomy care at home. Generalize d anxiety disorder 47613982 F41.1 f/u with therapist that she has [...] [place] Birgit A Larock [id number] 5 Birgit Larock 07/11/2018 2 [place] [id number] Birgit Larock [id number] 79 Birgit Larock 07/14/2018 1 [place] Birgit A Larock [id number] 5 Birgit Larock 07/14/2018 2 [place] [id number] Birgit Larock [id number] 79 Birgit Larock 07/15/2018 1 [place] Birgit A Larock [id number] 5 Birgit Larock 07/15/2018 2 [place] [id number] Birgit Larock [id number] 79 Birgit Larock 07/18/2018 1 [place] Birgit A Larock [id number] 5 Birgit Larock 07/18/2018 2 [facility] [id number] Birgit Larock [id number] 79 Birgit Larock 07/26/2018 1 [place] [facility] Birgit A Larock [id number] 5 Birgit Larock 07/26/2018 2 [facility] [id number] Birgit Larock [id number] 79 Birgit Larock Notes Date Note Type Note Provider Name and Address Organization Details Recorded Time 07/11/2018 text/html 77 yo female see n for initial intake note. pt admitted from [facility] s/p colovaginal fistula repair with solitario procedure [...] and tremor in left hand. Reema Guthrie, DERMATOLOGY PHYSICIAN ASSISTANT [address], [address], [place], [address], [facility] 07/11/2018 14:27:20 07/14/2018 text/html 77 yo female see n for acute rounding visit. pt admitted from [facility] s/p colovaginal fistula repair with solitario procedure [...] [facility], [place], [address], [facility] 07/14/2018 14:17:28 07/15/2018 text/html This is [...] [facility], [address], [place], [address], [facility] 07/15/2018 14:08:22 07/18/2018 text/html Pt is a 77 y.o w jeremie seen today for acute rounding visit. Pt concerned because wbc appear to be increasing. pt admitted from [facility] s/p colovaginal fistula repair with solitario procedure [...] and tremor in left hand. Carol Newton [address] [place] [address], [address], [place], [address], [facility] 07/18/2018 14:26:42 07/26/2018 text/html Pt is a 77 y.o w jeremie seen prior to scheduled d/c tomorrow. pt admitted from [facility] s/p colovaginal fistula repair with solitario procedure [...] diverticulitis, nephrolithiasis with stents, psoriasis Johanna carter [employer] [facility] 07/26/2018 23:37:55 OBGyn Episode No OBEpisode recorded.
== END 2025-01-07 15:56 | disposition home or self-care (01) ==
LOC: HO.HSMS 15:22
PROVIDERS: PCP Internal Medicine; Visit Provider Psychiatry & Neurology Neurology
DX: G20.A1 Parkinson's disease without dyskinesia, without mention of fluctuations (principal); G25.2 Other specified forms of tremor; F32.0 Major depressive disorder, single episode, mild; F41.9 Anxiety disorder, unspecified
CPT/HCPCS: 99214; G2211

== ENCOUNTER → 2025-01-07 15:21 | Outpatient (BNVA) | payer OTHER, SELFPAY | PROVIDERS: PCP Internal Medicine; Visit Provider Psychiatry & Neurology Neurology | DX: G20.A1 Parkinson's disease without dyskinesia, without mention of fluctuations (principal); G25.2 Other specified forms of tremor; F32.0 Major depressive disorder, single episode, mild; F41.9 Anxiety disorder, unspecified | CPT/HCPCS: 99212 ==

== ENCOUNTER 2025-03-31 15:04 | Outpatient (AMB) | payer OTHER, SELFPAY ==
--- NOTE | 2025-03-31 15:07 | A.OFFPC_ITS ---
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 Required: No Accompanied by: Self / Same As Patient Allergies mold (MOLD) Allergy (Severe, Verified 03/31/25 15:32) SWELLING alcohol (ALCOHOL) Allergy (Intermediate, Verified 03/31/25 15:32) RED, SWELLING corn syrup (CORN SYRUP) Allergy (Intermediate, Verified 03/31/25 15:32) red hot face dextrose (DEXTROSE) Allergy (Intermediate, Verified 03/31/25 15:32) RED RASH erythromycin base (ERYTHROMYCIN BASE) Allergy (Intermediate, Verified 03/31/25 15:32) RASH Penicillins (PENICILLINS) Allergy (Intermediate, Verified 03/31/25 15:32) SWELLING, RASH sucrose (SUCROSE) Allergy (Intermediate, Verified 03/31/25 15:32) RED RASH Sulfa (Sulfonamide Antibiotics) (SULFA (SULFONAMIDE ANTIBIOTICS)) Allergy (Intermediate, Verified 03/31/25 15:32) RASH, redness, redness valacyclovir Allergy (Intermediate, Verified 03/31/25 15:32) Redness of Skin morphine Adverse Reaction (Intermediate, Verified 03/31/25 15:32) Hallucinations 12 Hour Nasal Allergy (Intermediate, Uncoded 03/31/25 15:32) hives WINE Allergy (Intermediate, Uncoded 03/31/25 15:32) RASH FROM RED WINE fluorquinolones Allergy (Mild, Uncoded 03/31/25 15:32) nerve damage Medication List - Last Reconciled 03/31/25 by Fabby Cabrera MD [16 grab bar As directed] albuterol sulfate 90 mcg/actuation (ProAir RespiClick) inhalation alpha lipoic acid 600 mg PO BID ascorbic acid (vitamin C) (Vitamin C) 500 mg PO DAILY beclomethasone dipropionate 80 mcg/actuation (Qvar RediHaler) 2 inhalations inhalation BID biotin 10,000 mcg PO DAILY bromelains 1,000 mg PO DAILY calcium polycarbophil (Fiber (calcium polycarbophil)) mg PO cholecalciferol (vitamin D3) (Vitamin D3) 25 mcg PO DAILY 90 days chromium picolinate 1,000 mcg PO DAILY flaxseed oil 1,000 mg PO BID furosemide 40 mg PO DAILY WZLF-vtvvjjwi-naackmdokio xt 100-100-225 mg (MARQUIS Soothe) caps PO gabapentin mg PO glycine mg PO lutein 20 mg PO DAILY magnesium 1,000 mg PO BID mecobalamin (vitamin B12) mcg PO melatonin 3 mg PO BEDTIME PRN 30 days multivitamin 1 tab PO DAILY omeprazole 20 mg PO DAILY 4 weeks [Basisnote AGics 360 toothbrush As directed] psyllium husk (Fiber (psyllium husk)) 0.4 grams PO BEDTIME 90 days [set of weighted utensils with no build up handle As directed] [TopSchool 360 Toothbrush As directed] vitamin E 200 units PO DAILY Tobacco use date assessed: 03/31/25 Fall risk assessment: No Falls in past year Last assessed Fall Risk: 03/31/25 Dental Screening Dental Screen Date: 03/31/25 Did you have a dental visit in the last 12 months?: Yes Did you have a dental problem in the last 6 months where you did not have access to dental care?: No Was dental information given to patient?: Patient has dentist HPI HPI Comments History of Present Illness Details Patient is here for her physical exam. Tdap vaccine and pneumonia vaccine up-to-date. No need for colonoscopies or mammograms due to age. She has Parkinson's disease and walks with a cane for gait stability and does follows with Neurology which has seem that she has more tremors now than before. 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 No chest pain or shortness on breath. [facility] Medical History (Updated 03/31/25 @ 15:51 by Fabby Cabrera MD) Parkinson's disease without dyskinesia Thrombophlebitis, popliteal vein Gait disorder Anxiety Coarse tremors Renal cyst Abdominal pain Thyroid disease Chronic pain syndrome Osteoarthritis of left knee Spinal stenosis Left sided sciatica Constipation by delayed colonic transit Left knee pain Dyslipidemia Onychomycosis Neuropathy Rosacea Asthma Surgical History Hx of colonoscopy History of surgery History of back surgery (~03/31/21) History of surgery History of removal of both ovaries Colostomy in place History of tonsillectomy History of cholecystectomy History of repair of hiatal hernia History of hysterectomy Family History (Updated 03/31/25 @ 15:39 by Fabby Cabrera MD) Father Hypertension Pancreatitis Uremia Mother Diverticulosis Alzheimers disease Brother Colon cancer CVD (cardiovascular disease) Sister Colon cancer Social History Household Members: Spouse Household Members Other:: 2 Housing: Condominium Are you a primary progressive care manager to a significant other at home: Yes Do you presently have visiting nurse or other home services: Yes Alcohol intake: never 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 Patient Tobacco Use Status: Former Tobacco user Tobacco use type: Cigarette Years Smoked: 1 year e-Cigarette/Vaping Use: Never Used Second Hand Smoke Exposure: No service: No Current occupational status: retired Cognitive needs: Yes Hearing needs: No Vision needs: Yes Questionnaire PHQ-9 Over the last 2 weeks, how often have you been bothered by any of the following problems? 1. Little interest or pleasure in doing things: several days 2. Feeling down, depressed, or hopeless: several days 3. Trouble falling or staying asleep, or sleeping too much: several days 4. Feeling tired or having little energy: several days 5. Poor appetite or overeating: several days 6. Feeling bad about yourself - or that you are a failure or have let yourself or your family down: not at all 7. Trouble concentrating on things, such as reading the newspaper or watching television: not at all 8. Moving or speaking so slowly that other people could have noticed. Or the opposite - being so fidgety or restless that you have been moving around a lot more than usual: not at all 9. Thoughts that you would be better off or of hurting yourself in some way: several days Total score: 6 Depression Screening Interpretation: Positive Depression Screening Follow-up: Existing condition and Follow-up Visit Requested Depression Screening Done: Yes 40374 - PHQ-9 Billing: Yes Source: Developed by Drs. Milton Garza, Sandra Nieto, Frandy Riley and colleagues, with an educational shweta from [employer]. Thrive Questionnaire Date Thrive assessed: 03/31/25 I am a: Patient What is your living situation today?: I have a steady place to live Within the past 12 months, did the food you bought not last and you didn't have the money to get more?: Never true Within the past 12 months, did you worry whether your food would run out before you got money to buy more?: Never true Do you have trouble paying for medicines?: No Do you have trouble getting transportation to medical appointments?: No Do you have trouble paying your heating and electricity bill?: No Do you have trouble taking care of your child, family member or friend?: No Do you have trouble with day-to-day activities such as bathing, preparing meals, shopping, managing finances, etc.?: Yes Are you currently unemployed and looking for a job?: No Are you interested in more education?: No Please select the resources that you would like help with: None Currently or been in a relationship where the following occur: No concerns reported THRIVE Score: 0 AUDIT C Alcohol Use Questionnaire (AUDIT-C) 1. How often do you have a drink containing alcohol?: Never 3. How often do you have six or more drinks on one occasion?: Never Total Score: 0 Score Reviewed/Action Taken: No NANCY-7 AMB Questionnaire NANCY-7 Date NANCY - 7 assessed: 03/31/25 Feeling nervous, anxious, or on edge: 1 = Several days Not being able to stop or control worryin = Not at all Worrying too much about different things: 1 = Several days Trouble relaxin = Not at all Being so restless that it is hard to sit still: 0 = Not at all Becoming easily annoyed or irritable: 1 = Several days Feeling afraid as if something awful might happen: 0 = Not at all Total NANCY-7 score (0-4 normal; 5-9 mild; 10-14 moderate; 15-21 severe): 3 Source: Developed by Drs. Milton Garza, Sandra Nieto, Frandy Riley and colleagues, with an educational shweta from [employer]. NANCY-7 Assessment Billing NANCY-7 Assessment Tool: NANCY-7 Assessment 41244 Review of Systems Const All systems reviewed & are unremarkable except as noted in HPI and below Card Denies chest pain at rest, Denies chest pain with activity, Denies edema, Denies irregular heart rhythm, Denies claudication, Denies dyspnea, Denies dyspnea on exertion, Denies orthopnea, Denies paroxysmal nocturnal dyspnea and Denies slow heart rate Resp Denies cough, Denies dyspnea and Denies dyspnea on exertion Physical exam (Primary Care) Vital Signs: Last Vital Signs Pulse 66 03/31/25 15:12 BP 124/76 03/31/25 15:12 Pulse Ox 98 03/31/25 15:12 Oxygen Delivery Method Room Air 03/31/25 15:12 BMI result Body Mass Index 26.0 Tobacco/Smoking Status: Tobacco use Status Tobacco use date assessed 03/31/25 03/31/25 15:21 Patient Tobacco Use Status Former Tobacco user 03/31/25 15:08 Tobacco use type Cigarette 03/31/25 15:08 e-Cigarette/Vaping Use Never Used 03/31/25 15:08 PHQ-9: PHQ-9 Score PHQ-9: Total score 6 03/31/25 15:41 Depression Screening Interpretation: Positive Depression Screening Follow-up: Existing condition and Follow-up Visit Requested Thrive Assessment: Date of Thrive Assessment Date Thrive assessed 03/31/25 03/31/25 15:21 Currently or been in a relationship where the following occur: No concerns reported HENMT Head: Yes normal to inspection, Yes normocephalic and Yes atraumatic Ears: external ears normal Eyes General: appearance normal, both eyes and all related structures Eyelids: Yes eyelids normal Conjunctivae: conjunctivae normal Neck Neck: Yes normal visual inspection and Yes supple Resp Effort & Inspection: normal respiratory effort Auscultation: clear to auscultation bilaterally Cardio Jugular venous distension: no JVD Rate: regular rate Rhythm: regular rhythm Heart sounds: S1 normal heart sound present and S2 normal heart sound present GI Inspection: Yes normal to inspection Palpation (GI): Soft to palpation and nontender Auscultation: normal bowel sounds Skin General skin exam: no rashes or lesions noted Neuro General: no focal motor deficits Extrem General: Yes full ROM Psych Appearance: grossly normal Coding Level of Care Code Est Pt Prev Care >65y(89763) Diagnoses Physical exam Z00.00 Parkinson's disease without dyskinesia or fluctuating manifestations G20.A1 Fluctuating manifestations: without fluctuating manifestations Additional Codes NANCY-7 Assessment Billing - NANCY-7 Assessment Tool: NANCY-7 Assessment 46837 ([id number]) PHQ-9 - 52908 - PHQ-9 Billing: Yes ([id number]) Time Spent (min) 30 Assessment & Plan Assessment & Plan (1) Physical exam: Code(s): Z00.00 - Encounter for general adult medical examination without abnormal findings Category: Medical (2) Parkinson's disease without dyskinesia: Code(s): G20.A1 - Parkinson's disease without dyskinesia, without mention of fluctuations Category: Medical Qualifiers: Fluctuating manifestations: without fluctuating manifestations James lified Code(s): G20.A1 - Parkinson's disease without dyskinesia, without mention of fluctuations Plan Repeat in a year. Orders: Orders Complete Blood Count Auto Diff Today D64.9 - Anemia, unspecified Vitamin D 25-OH Total Today E55.9 - Vitamin D deficiency, unspecified Lipid Panel Today E78.5 - Hyperlipidemia, unspecified Vitamin B12 and Folate Today E53.8 - Deficiency of other specified B group vitamins IRON PROFILE Today D64.9 - Anemia, unspecified Comprehensive [place]. Panel Fast Today Z00.00 - Encounter for general adult medical examination without abnormal findings
[2025-03-31 15:12] VITALS: BP 124/76; PULSE 66; O2SAT 98; BMI 26.0
--- OUTSIDE RECORDS SUMMARY | 2025-03-31 16:22 | XMS_ITS | Encounter Summary ---
Author Organization [facility] Address [address] [facility] [address] [place] [address] Phone Care Team Providers Care Nurse Care Manager Name Role Phone Ej Valderrama Primary Care Provider [phone]- [phone] Fabby Singh MD Primary Care Provid er Encounter Details Date Type Department Care Team (Late st Contact Info) Description 07/18/2018 Transcribe Orders [facility] Specimen Processing [address] [place] [address] Leonides Frazier MD [address] [place] [address] [address], [address] [place] [address] [email or web address] Infection (Primary Dx) Social History Tobacco Use Types Packs/Day Years Used Date Smoking Tobacco: Former Smokeless Tobacco: Former Comments:at age [age] Alcohol Use Standard Drinks/Week Comments No 0 (1 standard drink = 0.6 oz pur e alcohol) Comments Unknown Sex and Gender Information Value Date Recorded Sex Assigned at Not on file Legal Sex Female 7:06 PM EST Gender Identity Not on file Sexual Orientation Not on file documented as of this encounter Plan of Treatment Upcoming Encounters Date Type Department Care Team (Late st Contact Info) Description 07/20/2025 1:00 PM EST Office Visit [facility], Department of Neurology [address] [place] [address] Amna Carpenter MD [address] [place] [phone] [email or web address] documented as of this encounter Results * (ABNORMAL) CBC and differential (07/18/2018 4:30 AM EST) WBC 9.26 3.40 - 11.20 K/uL [facility] RBC 3.71(L) 3.80 - 4.80 M/uL [facility] HGB 9.4(L) 12.0 - 15.0 g/dL [facility] HCT 31.6(L) 36.0 - 46.0 % [facility] PLT 457(H) 130 - 400 K/uL [facility] MCV 85.2 79.0 - 98.0 fL [facility] MCH 25.3(L) 27.0 - 34.8 pg [facility] MCHC 29.7(L) 31.5 - 36.0 g/dL [facility] RDW 17.4(H) 10.8 - 14.6 % [facility] MPV 11.4 9.4 - 12.4 fl [facility] NRBC 0.00 0.00 /100 WBCs [facility] ABSOLUTE NRBC 0.00 0.00 K/uL [facility] DIFF METHOD Auto [facility] NEUTS 54.9 45.30 - 77.70 % [facility] LYMPHS 27.4 12.30 - 39.70 % [facility] MONOS 9.1 4.10 - 12.80 % [facility] EOS 6.8 0 - 7.2 % [facility] BASOS 1.0 0 - 2.80 % [facility] Granulocytes, immature (%) 0.8 0.0 - 0.9 % [facility] ABSOLUTE NEUTS 5.09 1.40 - 7.70 K/uL [facility] ABSOLUTE LYMPHS 2.54 0.60 - 3.20 K/uL [facility] ABSOLUTE MONOS 0.84(H) 0.11 - 0.59 K/uL [facility] ABSOLUTE EOS 0.63(H) 0.01 - 0.50 K/uL [facility] ABSOLUTE BASOS 0.09(H) 0.00 - 0.08 K/uL [facility] Granulocytes, immature 0.07(H) 0.00 - 0.05 K/uL [facility] Blood 07/18/2018 4:30 AM EST 07/18/2018 9:55 AM EST us Leonides Frazier MD LAB BLOOD ORDERABLES Final Resul t Performing Organization Address City/State/[facility] Co de Phone Number [address] [address] documented in this encounter Visit Diagnoses Diagnosis Infection- Primary Unspecified infectious and parasitic diseases documented in this encounter Care Teams Nurse Care Manager Relationship Specialty Start Date End Date Ej Valderrama DO [address] [place] [address] PCP - General Internal Medicine 10/29/17 02/03/25 Fabby Singh MD [address] [place] [address] PCP - General Internal Medicine 02/04/25 documented as of this encounter Additional Source Comments The information contained in this document represents components of the legal health record. It is not the complete legal health record.[facility]
--- OUTSIDE RECORDS SUMMARY | 2025-03-31 16:22 | XMS_ITS | Encounter Summary ---
Author Organization [facility] Address [address] [facility] [address] [place] [address] Phone Care Team Providers Care Multimedia Producer Name Role Phone Ej Valderrama DO Primary Care Provider +1- [phone] Fabby Singh MD Primary Care Provid er Encounter Details Date Type Department Care Team (Late st Contact Info) Description 12/06/2022 Transcribe Orders [facility] Medicine [address] [place] [address] Ej Valderrama DO [address] [place] [address] Social History Tobacco Use Types Packs/Day Years Used Date Smoking Tobacco: Former Smokeless Tobacco: Former Quit: 1979 Comments:at age [age] Alcohol Use Standard Drinks/Week Comments No 0 (1 standard drink = 0.6 oz pur e alcohol) Education Answer Date Recorded Are you interested in more education? Not on cindy e 11/29/2022 Are you concerned about learning? Not on file 11/29/2022 No 11/29/2022 No 11/29/2022 Comments Unknown Sex and Gender Information Value Date Recorded Sex Assigned at Not on file Legal Sex Female 7:06 PM EST Gender Identity Not on file Sexual Orientation Not on file documented as of this encounter Plan of Treatment Upcoming Encounters Date Type Department Care Team (Late st Contact Info) Description 07/20/2025 1:00 PM EST Office Visit [facility], Department of Neurology [address] [place] [address] Amna Carpenter MD [address] [place] [address] [email or web address] documented as of this encounter Visit Diagnoses Not on filedocumented in this encounter Care Teams Multimedia Producer Relationship Specialty Start Date End Date Ej Valderrama DO [address] [place] [address] PCP - General Internal Medicine 10/29/17 02/03/25 Fabby Singh MD [address] [place] [address] PCP - General Internal Medicine 02/04/25 documented as of this encounter Additional Source Comments The information contained in this document represents components of the legal health record. It is not the complete legal health record.[facility]
--- OUTSIDE RECORDS SUMMARY | 2025-03-31 16:22 | XMS_ITS | Encounter Summary ---
Author Organization [facility] Address [address] [facility] [address] [place] [address] Phone Care Team Providers Care Grader Patrol Name Role Phone Ej Valderrama Primary Care Provider +1- [phone] Fabby Singh MD Primary Care Provid er Encounter Details Date Type Department Care Team (Late st Contact Info) Description 07/14/2018 Transcribe Orders [facility] Specimen Processing [address] [place] [address] Leonides Frazier MD [address] [facility] [address] [place] [address] [email or web address] Abnormal hormone levels in CSF (Primary Dx); Colostomy status Social History Tobacco Use Types Packs/Day Years [...] Description 07/20/2025 1:00 PM EST Office Visit [facility], Department of Neurology [address] [place] [address] Amna Contreras MD [address] [place] [address] [email or web address] documented as of this encounter Results * (ABNORMAL) Comprehensive metabolic panel (07/14/2018 10:00 AM EST) SODIUM 136 133 - 146 mmol/L [facility] POTASSIUM 4.9 3.3 - 5.1 mmol/L [facility] CHLORIDE 96 96 - 108 mmol/L [facility] CO2 26 21 - 35 mmol/L [facility] BUN 10 6 - 19 mg/dL [facility] CREATININE <0.50(L) 0.5 - 1.5 mg/dL [facility] GLUCOSE 145(H) 70 - 99 mg/dL [facility] ALBUMIN 3.8(L) 3.9 - 4.8 g/dL [facility] TOTAL PROTEIN 7.0 6.5 - 8.0 g/dL [facility] CALCIUM 10.1 8.4 - 10.3 mg/dL [facility] ALKALINE PHOSPHATASE 84 39 - 117 U/L [facility] TOTAL BILIRUBIN 0.3 0.0 - 1.2 mg/dL [facility] AST 18 0 - 37 U/L [facility] ALT 10 0 - 40 U/L [facility] GLOBULIN 3.2 1 - 4.8 g/dL [facility] EGFR Not Done >59 mL/min/1.7 3m2 [facility] ANION GAP 19 10 - 20 mmol/L [facility] Blood 07/14/2018 10:0 0 AM EST 07/14/2018 11:12 AM EST us Leonides Frazier MD LAB BLOOD ORDERABLES Final Resul t [facility] [address] [place] [address] * (ABNORMAL) CBC and differential (07/14/2018 10:00 AM EST) WBC 10.93 3.40 - 11.20 K/uL [facility] RBC 4.04 3.80 - 4.80 M/uL [facility] HGB 10.2(L) 12.0 - 15.0 g/dL [facility] HCT 33.9(L) 36.0 - 46.0 % [facility] PLT 635(H) 130 - 400 K/uL [facility] MCV 83.9 79.0 - 98.0 fL [facility] MCH 25.2(L) 27.0 - 34.8 pg [facility] MCHC 30.1(L) 31.5 - 36.0 g/dL [facility] RDW 17.5(H) 10.8 - 14.6 % [facility] MPV 11.5 9.4 - 12.4 fl [facility] NRBC 0.00 0.00 /100 WBCs [facility] ABSOLUTE NRBC 0.00 0.00 K/uL [facility] DIFF METHOD Auto [facility] NEUTS 67.2 45.30 - 77.70 % [facility] LYMPHS 20.6 12.30 - 39.70 % [facility] MONOS 7.0 4.10 - 12.80 % [facility] EOS 3.0 0 - 7.2 % [facility] BASOS 1.2 0 - 2.80 % [facility] Granulocytes, immature (%) 1.0(H) 0.0 - 0.9 % [facility] ABSOLUTE NEUTS 7.35 1.40 - 7.70 K/uL [facility] ABSOLUTE LYMPHS 2.25 0.60 - 3.20 K/uL [facility] ABSOLUTE MONOS 0.76(H) 0.11 - 0.59 K/uL [facility] ABSOLUTE EOS 0.33 0.01 - 0.50 K/uL [facility] ABSOLUTE BASOS 0.13(H) 0.00 - 0.08 K/uL [facility] Granulocytes, immature 0.11(H) 0.00 - 0.05 K/uL [facility] Blood 07/14/2018 10:0 0 AM EST 07/14/2018 11:12 AM EST us Leonides Frazier MD LAB BLOOD ORDERABLES Final Resul t [facility] [address] [place] [address] documented in this encounter Visit Diagnoses Diagnosis Abnormal hormone levels in CSF- Primary Nonspecific abnormal finding in cerebrospinal fluid Colostomy status documented in this encounter Care Teams Grader Patrol Relationship Specialty Start Date End Date Ej Valderrama DO [address] [place] [address] PCP - General Internal Medicine 10/29/17 02/03/25 Fabby Singh MD [address] [place] [address] PCP - General Internal Medicine 02/04/25 documented as of this encounter Additional Source Comments The information contained in this document represents components of the legal health record. It is not the complete legal health record.[facility]
--- OUTSIDE RECORDS SUMMARY | 2025-03-31 16:22 | XMS_ITS | Encounter Summary ---
Author Organization [facility] Address [address] [facility] [address] [place] [phone] Phone Care Team Providers Care Wig Stylist Name Role Phone Ej Valderrama Primary Care Provider [phone] Fabby Singh MD Primary Care Provid er Encounter Details Date Type Department Care Team (Late st Contact Info) Description 07/21/2018 Transcribe Orders [facility] Specimen Processing [address] [place] [address] Leonides Frazier MD [address] [facility], [address] [place] [address] [email or web address] Perforated diverticulum of large intestine (Primary Dx) Social History Tobacco Use Types [...] Description 07/20/2025 1:00 PM EST Office Visit [facility], Department of Neurology [address] [place] [address] Amna Carpenter MD [address] [place] [id number] [email or web address] documented as of this encounter Results * (ABNORMAL) Basic metabolic panel (07/21/2018 5:00 AM EST) Pathologist [facility] SODIUM 140 133 - 146 mmol/L [facility] CHLORIDE 100 96 - 108 mmol/L [facility] POTASSIUM 4.4 3.3 - 5.1 mmol/L [facility] CO2 25 21 - 35 mmol/L [facility] BUN 10 6 - 19 mg/dL [facility] CREATININE <0.50(L) 0.5 - 1.5 mg/dL [facility] GLUCOSE 73 70 - 99 mg/dL [facility] CALCIUM 9.9 8.4 - 10.3 mg/dL [facility] EGFR Not Done >59 mL/min/1.73 m2 [facility] ANION GAP 19 10 - 20 mmol/L [facility] Blood 07/21/2018 5:00 AM EST 07/21/2018 8:35 AM EST us Leonides Frazier MD LAB BLOOD ORDERABLES Final Resul t [facility] [address] [place] [address] * (ABNORMAL) CBC (07/21/2018 5:00 AM EST) Pathologist [facility] WBC 7.72 3.40 - 11.20 K/uL [facility] RBC 3.86 3.80 - 4.80 M/uL [facility] HGB 9.8(L) 12.0 - 15.0 g/dL [facility] HCT 32.4(L) 36.0 - 46.0 % [facility] PLT 165 130 - 400 K/uL [facility] Comment:some platelet clumps noted on smear, count may be higher than indicated MCV 83.9 79.0 - 98.0 fL [facility] MCH 25.4(L) 27.0 - 34.8 pg [facility] MCHC 30.2(L) 31.5 - 36.0 g/dL [facility] RDW 17.7(H) 10.8 - 14.6 % [facility] MPV 12.1 9.4 - 12.4 fl [facility] NRBC 0.00 0.00 /100 WBCs [facility] ABSOLUTE NRBC 0.00 0.00 K/uL [facility] Blood 07/21/2018 5:00 AM EST 07/21/2018 8:35 AM EST us Leonides Frazier MD LAB BLOOD ORDERABLES Final Resul t [facility] [address] [place] [address] documented in this encounter Visit Diagnoses Diagnosis Perforated diverticulum of large intestine- Primary Diverticulosis of colon (without mention of hemorrhage) documented in this encounter Care Teams Wig Stylist Relationship Specialty Start Date End Date Ej Valderrama DO [address] [place] [address] PCP - General Internal Medicine 10/29/17 02/03/25 Fabby Singh MD [address] [place] [address] PCP - General Internal Medicine 02/04/25 documented as of this encounter Additional Source Comments The information contained in this document represents components of the legal health record. It is not the complete legal health record.[facility]
--- OUTSIDE RECORDS SUMMARY | 2025-03-31 16:22 | XMS_ITS | Clinical Summary ---
Author Organization [facility] Address [address] [facility] [address] [place] [phone] Phone Care Team Providers Care Press Operator Heavy Duty Name Role Phone Fabby Singh MD Primary Care Provid er Allergies Active Allergy Reactions Criticality Noted Date Comments Adhesive Unknown 07/16/2022 Aspirin Unknown 07/16/2022 Aztreonam 05/18/2019 Codeine Unknown 07/16/2022 Doxycycline Hyclate 05/18/2019 Erythromycin Unknown 04/01/2017 Latex Rash Low 07/16/2022 Meperidine Unknown 07/16/2022 Meropenem 05/18/2019 Metronidazole 05/18/2019 Morphine Unknown 07/16/2022 Penicillins Unknown 04/01/2017 Sulfa (Sulfonamide Antibiotics) 05/05 Sulfamethoxazole-Trimethoprim Unknown 2021 Medications budesonide-form oterol (SYMBICORT) 80-4.5 mcg/actuation inhaler 2 puffs Active albuterol 90 mcg/actuation inhaler 2 puffs as needed Active furosemide (LASIX) 40 MG tablet Take 40 mg by mouth. Active vitamin E 100 unit/0.25 mL Drop Active calcium carb/magnesium carb (CALCIUM & MAGNESIUM CARBONATES ORAL) Active Medication-Free Text 800 mg nightly at bedtime. mynor Active GLYCINE ORAL Take 1,000 mg by mouth daily as needed. Active Medication-Free TextIndications :panic attacks Skullcap nervous system Indications: panic attacks Active gabapentin (NEURONTIN) 100 MG capsuleIndicati ons:Tremors of nervous system,Essentia l tremor Take 1 capsule (100 mg total) by mouth 2 (two) times a day. 60 capsule 11 3 Active Additional Information Patient not taking.Reported on 01/27/2025 MULTIVITAMIN ORAL Take by mouth. Activ e ascorbic acid (VITAMIN C ORAL) Take by mouth. Activ e omega-3 fatty acids/fish oil (FISH OIL OMEGA 3-6-9 ORAL)Indication s:2 capsules Take by mouth. 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 10/29/2017 Assessment & Plan (12/09/2017 10:55 AM EDT): As above we are going to do phlebectomy of the left lower extremity over the kneecap I explained the risk benefits and alternatives we are going to proceed with this Assessment & Plan (10/29/2017 11:03 AM EDT): As above we will follow with her in a month's time to see her she is doing I asked her to keep this open and dry and occasionally soak it in salt water Venous stasis dermatitis 07/08/2017 Assessment & Plan (12/09/2017 10:55 AM EDT): Her lower extremity edema after ablations is quite improved and no longer an issue at this time Assessment & Plan (10/29/2017 11:04 AM EDT): Status post ablations and sclerotherapy which worked quite well Assessment & Plan (07/15/2017 12:07 PM EST): As above this patient is already underwent great saphenous vein ablation on that right side she had sclerotherapy to 2 areas of large reticular veins which is going to burn out tender lace to be a good result as mentioned above I will see her in 3 months time Assessment & Plan (07/08/2017 10:04 AM EST): At this point as mentioned we are going to treat this conservatively I will see her again in one week's time of this will just get better with conservative measures if it does not I will more than likely give her a short course of clindamycin as she is allergic to penicillin. Encounters Date Type Department Care Team Description 01/28/2025 Orders Only [facility] Department of Neurosurgery [address] [place] [address] Mike Dobson MD Parkinson's disease without dyskinesia, with fluctuating manifestations (Primary Dx) 01/27/2025 12:00 PM EDT Office Visit [facility] Department of Neurosurgery [address] [place] [address] Mike Dobson MD Parkinson's disease without dyskinesia, with fluctuating manifestations (Primary Dx) 01/11/2025 Orders Only [facility] Department of Neurosurgery [address] [place] [address] Mike Dobson MD Parkinson's disease, unspecified whether dyskinesia present, unspecified whether manifestations fluctuate (Primary Dx) from Last 3 Months Immunizations Immunization Administration Dates Next Due COVID-19 (Pre-05/27) Moderna Vaccine, mRNA, PF 0 10/05/2020,09/07/2020 Influenza High-Dose Trivalent Preservative Free IM 05/29/2018 Influenza Quadrivalent Preservative Free IM 05/05 Pneumococcal conjugate PCV13 12/17/2017 Pneumococcal polysaccharide PPSV23 12/18/2018, Tdap 12/16/2017 Social History Tobacco Use Types Packs/Day Years Used Date Smoking Tobacco: Former Smokeless Tobacco: Former Quit: 1980 Tobacco Cessation:Counseling Given: Not Answered Comments:at age 17-18 Alcohol Use Standard Drinks/Week Comments No 0 (1 standard drink = 0.6 oz pur e alcohol) Education Answer Date Recorded Are you interested in more education? Not on cindy e 11/29/2022 Are you concerned about learning? Not on file 11/29/2022 No 11/29/2022 No 11/29/2022 Digital Access Answer Date Recorded No 12/31/2022 No 12/31/2022 Reliable internet access at home? Not on file 12/31/2022 Device with a working camera? Not on file Comments Unknown Sex and Gender Information Value Date Recorded Sex Assigned at Not on file Legal Sex Female 7:06 PM EST Gender Identity Not on file Sexual Orientation Not on file Last Filed Vital Signs Vital Sign Reading Time Taken Comments Blood Pressure 146/65 01/27/2025 11:56 AM EDT Pulse 77 01/27/2025 11:56 AM EDT Temperature 36.8 C (98.3 F) 06/08/2022 3:12 PM EDT Respiratory Rate 16 01/27/2025 11:5 6 AM EDT Oxygen Saturation 97% 01/27/2025 11: 56 AM EDT Inhaled Oxygen Concentration - - Weight 57.1 kg (125 lb 12.8 oz) 01/27/2025 11:56 AM EDT with clothes/shoes Height 147.3 cm (4' 10 ) 09/10/2022 10: 25 AM EST Body Mass Index 26.29 09/10/2022 10:25 AM EST Plan of Treatment Upcoming Encounters Date Type Department Care Team (Late st Contact Info) Description 07/20/2025 1:00 PM EST Office Visit [facility], Department of Neurology [address] [place] [address] Amna Carpenter MD [address] [place] [phone] [email or web address] Health Maintenance Due Date Last Done Comments DEPRESSION SCREENING 1952 OSTEOPOROSIS SCREENING INITIAL (ONE-TIME) 2005 RSV VACCINE (1 - 1-dose 75+ series) 10/26/2015 ZOSTER VACCINES (2 of 2) 10/22/2019 08/27/2019 COVID-19 VACCINE ( - season) 2024 04/11/2024, 05/15/2023, 04/28/2022, Additional history exists INFLUENZA VACCINE (#1) 2025 , 05/02/2023, 05/02/2022, Additional history exists Adult Td,Tdap Booster 12/17/2027 12/16/2017 PNEUMOCOCCAL VACCINES (50+ years) Completed 12/18/2018, 12/17/2017, 12/19/2015 HEPATITIS A VACCINES Aged Out No long er eligible based on patient's age to complete this topic HIB VACCINES Aged Out No longer eligi ble based on patient's age to complete this topic MENINGOCOCCAL VACCINES (ACWY) Aged Out No longer eligible based on patient's age to complete this topic MENINGOCOCCAL VACCINES (B) Aged Out N o longer eligible based on patient's age to complete this topic Medical Devices Not on file Insurance [address] [place] [address] MEDICARE PART A & B [facility] MEDICARE REPLACEMENT [address] [place] [address] MEDICARE PART A & B Member Subscriber Plan / Payer (Ef fective 2004-Present) Name:Birgit Collins Member ID:[id number] Relation to Subscriber:Self Name:Birgit Collins Subscriber ID:[id number] Payer ID:[id number] Group ID:Not on file Type:Medicare Address: [place] [address] MED[address]ARE REPLACEMENT [address] [place] [address] MEDICARE PART A & B [address] [place] [address] MEDICARE PART A & B [address] [place] [address] MEDICARE PART A & B O MEDICARE REPLACEMENT [place], [place] [facility] [address] [place] [address] MEDICARE PART A & B [address] [place] [address] MEDICARE PART A & B MEDICARE REPLACEMENT [address] [place] [address] MEDICARE PART A & B MEDICARE REPLACEMENT MEDICARE PART A & B [facility] MEDICARE REPLACEMENT Care Teams Press Operator Heavy Duty Relationship Specialty Start Date End Date Fabby Singh MD [address] [place] [address] PCP - General Internal Medicine 02/04/25 Additional Source Comments The information contained in this document represents components of the legal health record. It is not the complete legal health record.[facility]
== END 2025-03-31 15:49 | disposition home or self-care (01) ==
LOC: HO.HMCH 15:05
PROVIDERS: Visit Provider Internal Medicine
DX: Z00.00 Encounter for general adult medical examination without abnormal findings (principal); G20.A1 Parkinson's disease without dyskinesia, without mention of fluctuations

== ENCOUNTER → 2025-03-31 15:04 | Outpatient (BNVA) | payer OTHER, SELFPAY | PROVIDERS: Visit Provider Internal Medicine | DX: Z00.00 Encounter for general adult medical examination without abnormal findings (principal); G20.A1 Parkinson's disease without dyskinesia, without mention of fluctuations; D64.9 Anemia, unspecified; E78.5 Hyperlipidemia, unspecified; E55.9 Vitamin D deficiency, unspecified; E53.8 Deficiency of other specified B group vitamins | CPT/HCPCS: 96127; 99397 ==

== ENCOUNTER 2025-06-14 15:03 | Outpatient (AMB) | payer OTHER, SELFPAY ==
[2025-06-14 15:10] VITALS: BMI 24.9
--- NOTE | 2025-06-14 15:10 | MHC.OFFVIS ---
Vital Signs 06/14/25 15:10 Height 4 ft 10 in Weight 119 lb 0.794 oz BMI 24.9 Blood Pressure Location Lt brachial Position Sitting Intake Visit Reasons: f/u reschedule from 05/03 Allergies mold (MOLD) Allergy (Severe, Verified 03/31/25 15:32) SWELLING alcohol (ALCOHOL) Allergy (Intermediate, Verified 03/31/25 15:32) RED, SWELLING corn syrup (CORN SYRUP) Allergy (Intermediate, Verified 03/31/25 15:32) red hot face dextrose (DEXTROSE) Allergy (Intermediate, Verified 03/31/25 15:32) RED RASH erythromycin base (ERYTHROMYCIN BASE) Allergy (Intermediate, Verified 03/31/25 15:32) RASH Penicillins (PENICILLINS) Allergy (Intermediate, Verified 03/31/25 15:32) SWELLING, RASH sucrose (SUCROSE) Allergy (Intermediate, Verified 03/31/25 15:32) RED RASH Sulfa (Sulfonamide Antibiotics) (SULFA (SULFONAMIDE ANTIBIOTICS)) Allergy (Intermediate, Verified 03/31/25 15:32) RASH, redness, redness valacyclovir Allergy (Intermediate, Verified 03/31/25 15:32) Redness of Skin morphine Adverse Reaction (Intermediate, Verified 03/31/25 15:32) Hallucinations 12 Hour Nasal Allergy (Intermediate, Uncoded 03/31/25 15:32) hives WINE Allergy (Intermediate, Uncoded 03/31/25 15:32) RASH FROM RED WINE fluorquinolones Allergy (Mild, Uncoded 03/31/25 15:32) nerve damage HPI Comments Details: This is an 81-year-old female past medical history of complicated sigmoid diverticulitis leading to pelvic abscess and 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 The reason to go to the emergency room this time was that she had a very similar pain and was worried that she may have another SBO. Describes the pain as sharp, shooting, localized to her right lower quadrant associated with feeling of bloating and nausea. No fevers or chills. At baseline, patient has a least 3-4 bowel movements a week. Does complain of significant discomfort shortly after eating associated with bloating, that goes away in a few hours. Colonoscopy 2018: Tortuous sigmoid with difficulty visualization, ultimately advanced to cecum. Sigmoid resection and colostomy 2018 Path showed large bowel within normal limits. Patient describes recent emotional distress is including [facility] after her children told their house. Her was also recently diagnosed with Alzheimer's, and patient is the only caregiver. She also has a strained relationship with 1 of her daughters at present. 08/15/22: Tells me that she was able to see Dr. Ordoñez in [place]. However, due to her age, she was not felt to be an appropriate candidate for surgical repair of her ventral hernia. She is currently seeking a 2nd opinion [facility]. In terms of her symptoms, she states that bowels are more regular now, able to have 1 bowel movement every day, however stool is still a bit hard, and leads to straining. Postprandial bloating is not as bothersome anymore now that her bowels are more regular. 06/07/23: Was seen by Deanne Moffett in [facility]. Again, was recommended a conservative management which the pt is not too happy about as she is afraid that we are just letting her hernias get bigger and they may rupture. In terms of her constipation, she mentions has been going fairly regularly and no issues with straining any more. 04/01/24: returning for follow up. Reports persistent abd pain with burining and bloating. More recently also with nausea and occ vomiting case in morning which is new for her. Reports has UGIS ordered through PCP. 04/30/24: Esophageal diverticulum Normal esophagus (biopsy) Gastritis (biopsy) Fundic gland polyps Normal duodenum (biopsy)?? A. Duodenum, biopsy: Chronic inactive duodenitis with gastric heterotopia. B. Stomach, antrum greater curvature, biopsy: Antral-type mucosa with mild chronic inactive inflammation; no Helicobacter organisms seen. C. Stomach, antrum lesser curvature, biopsy: Antral-type mucosa with mild chronic inactive inflammation; no Helicobacter organisms seen. D. Stomach, incisura, biopsy: Antral-type mucosa with mild chronic inactive inflammation; no Helicobacter organisms seen. E. Stomach, body greater curvature, biopsy: Oxyntic mucosa with mild chronic inactive inflammation; no Helicobacter organisms seen. F. Stomach, body lesser curvature, biopsy: Oxyntic mucosa with mild chronic inactive inflammation; no Helicobacter organisms seen. G. Esophagus, lower, biopsy: Squamous epithelium within normal limits; no inflammation seen. H. Esophagus, middle, biopsy: Squamous epithelium within normal limits; no inflammation seen. 07/20/24: here for post EGD follow up. Cont's to report epigastric pain case shortly after eating and reduced appetite. Also reports feeling bumps under her xiphoid. EGD results and path reviewed with the pt. 01/06/25: Here for follow up. Unchanged complaint of abd bloating case after she eats or at night time. Bloating is very uncomfortable. Had pictures on her phone but was not able to locate at [facility] time of appt. 06/14/25: Here for follow up. At the last visit, pharmacotherapy for dyspepsia and post prandial distress was reviewed which the pt declined. She also did not wish to proceed with FD carlos enrique. Reports she feels frustrated that she is unable to eat the way she used to. Feels full very quickly and has to eat over hours to not feel nauseous. Also has severe constipation with this which adds to the feeling of being bloated. [facility] Medical History Parkinson's disease without dyskinesia Thrombophlebitis, popliteal vein Gait disorder Anxiety Coarse tremors Renal cyst Abdominal pain Thyroid disease Chronic pain syndrome Osteoarthritis of left knee Spinal stenosis Left sided sciatica Constipation by delayed colonic transit Left knee pain Dyslipidemia Onychomycosis Neuropathy Rosacea Asthma Surgical History Hx of colonoscopy History of surgery History of back surgery (~03/31/21) History of surgery History of removal of both ovaries Colostomy in place History of tonsillectomy History of cholecystectomy History of repair of hiatal hernia History of hysterectomy Family History (Updated 03/31/25 @ 15:39 by Fabby Cabrera MD) Father Hypertension Pancreatitis Uremia Mother Diverticulosis Alzheimers disease Brother Colon cancer CVD (cardiovascular disease) Sister Colon cancer Social History Household Members: Spouse Household Members Other:: 2 Housing: Condominium Are you a primary healthcare insurance sales agent to a significant other at home: Yes Do you presently have visiting nurse or other home services: Yes Alcohol intake: never 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 Patient Tobacco Use Status: Former Tobacco user Tobacco use type: Cigarette Years Smoked: 1 year e-Cigarette/Vaping Use: Never Used Second Hand Smoke Exposure: No service: No Current occupational status: retired Cognitive needs: Yes Hearing needs: No Vision needs: Yes Review of Systems Const All systems reviewed & are unremarkable except as noted in HPI and below Assessment & Plan Assessment & Plan (1) Epigastric pain: Code(s): R10.13 - Epigastric pain Category: Medical (2) Early satiety: Code(s): R68.81 - Early satiety Category: Medical (3) Constipation by delayed colonic transit: Code(s): K59.01 - Slow transit constipation Category: Medical Plan Reviewed with the pt that based on testing over the last year including CT abd/pel, UGIS, EGD her postprandial epigastric pain does not appear to have a luminal source. Suspect has dyspepsia with post prandial distress vs impaired gastric accomodation vs impaired gastric emptying. Pt hesitant re trial of meds for above. Discussed motegrity which may help with constipation as well as gastric emptying. Again pt is nervous about developing diarrhea. Plan: - KUB XR today - If has sig fecal loading will start motegrity 1 mg daily (lowest dose), hold for loose stools Follow up 6 months Orders: Orders XR KUB Today K59.01 - Slow transit constipation Coding Level of Care Code Est Pt Level 3 (80153) Complex EM visit Add On G2211 Diagnoses Epigastric pain R10.13 Early satiety R68.81 Constipation by delayed colonic transit K59.01
--- OUTSIDE RECORDS SUMMARY | 2025-06-14 17:15 | XMS_ITS | Encounter Summary ---
Author Organization [facility] Address [address] [place] [address] Phone Care Team Providers Care House Painting Instructor Name Role Phone Ej Valderrama Primary Care Provider +1- [phone] Fabby Singh MD Primary Care Provid er Encounter Details Date Type Department Care Team (Late st Contact Info) Description 07/14/2018 Transcribe Orders [facility] Specimen Processing [address] [place] [address] Leonides Frazier MD 38 [facility], [facility] [address], [address] [place] [address] [email or web address] Abnormal hormone levels in CSF (Primary Dx); [...] Care Team (Late st Contact Info) Description 06/28/2025 10:30 AM EST Office Visit [facility], Department of Neurology [address] [place] [address] Amna Contreras MD [address] [place] [address] [email or web address] documented as of this encounter Results * (ABNORMAL) Comprehensive metabolic panel (07/14/2018 10:00 AM EST) SODIUM 136 133 - 146 mmol/L [facility] POTASSIUM 4.9 3.3 - 5.1 mmol/L [facility] CHLORIDE 96 96 - 108 mmol/L [facility] CO2 26 21 - 35 mmol/L [facility] BUN 10 6 - 19 mg/dL [facility] CREATININE <0.50(L) 0.5 - 1.5 mg/dL [facility] GLUCOSE 145(H) 70 - 99 mg/dL [facility] ALBUMIN 3.8(L) 3.9 - 4.8 g/dL [facility] TOTAL PROTEIN 7.0 6.5 - 8.0 g/dL [facility] CALCIUM 10.1 8.4 - 10.3 mg/dL [facility] ALKALINE PHOSPHATASE 84 39 - 117 U/L [facility] TOTAL BILIRUBIN 0.3 0.0 - 1.2 mg/dL [facility] AST 18 0 - 37 U/L [facility] ALT 10 0 - 40 U/L [facility] GLOBULIN 3.2 1 - 4.8 g/dL [facility] EGFR Not Done >59 mL/min/1.7 3m2 [facility] ANION GAP 19 10 - 20 mmol/L [facility] Blood 07/14/2018 10:0 0 AM EST 07/14/2018 11:12 AM EST us Leonides Frazier MD LAB BLOOD BKR ORDERABLES Final R esult [address] [address] * (ABNORMAL) CBC and differential (07/14/2018 10:00 AM EST) WBC 10.93 3.40 - 11.20 K/uL [facility] RBC 4.04 3.80 - 4.80 M/uL [facility] HGB 10.2(L) 12.0 - 15.0 g/dL [facility] HCT 33.9(L) 36.0 - 46.0 % [facility] PLT 635(H) 130 - 400 K/uL [facility] MCV 83.9 79.0 - 98.0 fL [facility] MCH 25.2(L) 27.0 - 34.8 pg [facility] MCHC 30.1(L) 31.5 - 36.0 g/dL [facility] RDW 17.5(H) 10.8 - 14.6 % [facility] MPV 11.5 9.4 - 12.4 fl [facility] NRBC 0.00 0.00 /100 WBCs [facility] ABSOLUTE NRBC 0.00 0.00 K/uL [facility] DIFF METHOD Auto [facility] NEUTS 67.2 45.30 - 77.70 % [facility] LYMPHS 20.6 12.30 - 39.70 % [facility] MONOS 7.0 4.10 - 12.80 % [facility] EOS 3.0 0 - 7.2 % [facility] BASOS 1.2 0 - 2.80 % [facility] Granulocytes, immature (%) 1.0(H) 0.0 - 0.9 % [facility] ABSOLUTE NEUTS 7.35 1.40 - 7.70 K/uL [facility] ABSOLUTE LYMPHS 2.25 0.60 - 3.20 K/uL [facility] ABSOLUTE MONOS 0.76(H) 0.11 - 0.59 K/uL [facility] ABSOLUTE EOS 0.33 0.01 - 0.50 K/uL [facility] ABSOLUTE BASOS 0.13(H) 0.00 - 0.08 K/uL [facility] Granulocytes, immature 0.11(H) 0.00 - 0.05 K/uL [facility] Blood 07/14/2018 10:0 0 AM EST 07/14/2018 11:12 AM EST us Leonides Frazier MD LAB BLOOD BKR ORDERABLES Final R esult [facility] [address] [place] [address] documented in this encounter Visit Diagnoses Diagnosis Abnormal hormone levels in CSF- Primary Nonspecific abnormal finding in cerebrospinal fluid Colostomy status documented in this encounter Care Teams House Painting Instructor Relationship Specialty Start Date End Date Ej Valderrama DO [address] [place] [address] PCP - General Internal Medicine 10/29/17 02/03/25 Fabby Singh MD [address] [place] [address] PCP - General Internal Medicine 02/04/25 documented as of this encounter Additional Source Comments The information contained in this document represents components of the legal health record. It is not the complete legal health record.[facility]
--- OUTSIDE RECORDS SUMMARY | 2025-06-14 17:15 | XMS_ITS | Encounter Summary ---
Author Organization [facility] Address [address] [place] [address] Phone Care Team Providers Care Cottonseed Meat Presser Name Role Phone Ej Valderrama DO Primary Care Provider +1- [phone] Fabby Singh MD Primary Care Provid er Encounter Details Date Type Department Care Team (Late st Contact Info) Description 12/06/2022 Transcribe Orders [facility] Medicine [address] [place] [address] Ej Valderrama DO [address] [place] [address] Social History Tobacco Use Types Packs/Day Years [...] Description 06/28/2025 10:30 AM EST Office Visit [facility], Department of Neurology [address] [place] [address] Amna Carpenter MD [address] [place] [address] [email or web address] documented as of this encounter Visit Diagnoses Not on filedocumented in this encounter Care Teams Cottonseed Meat Presser Relationship Specialty Start Date End Date Ej Valderrama DO [address] [place] [address] PCP - General Internal Medicine 10/29/17 02/03/25 Fabby Snigh MD [address] [place] [address] PCP - General Internal Medicine 02/04/25 documented as of this encounter Additional Source Comments The information contained in this document represents components of the legal health record. It is not the complete legal health record.[facility]
--- OUTSIDE RECORDS SUMMARY | 2025-06-14 17:16 | XMS_ITS | Encounter Summary ---
Author Organization [facility] Address [address] [place] [address] Phone Care Team Providers Care Maintenance Of Way Supervisor Name Role Phone Ej Valderrama Primary Care Provider +1- [phone] Fabby Singh MD Primary Care Provid er Encounter Details Date Type Department Care Team (Late st Contact Info) Description 07/21/2018 Transcribe Orders [facility] Specimen Processing [address] [place] [address] Leonides Frazier MD 38 [facility], [place] [address] [place] [address] [email or web address] Perforated diverticulum of large intestine (Primary Dx) [...] Description 06/28/2025 10:30 AM EST Office Visit [facility], Department of Neurology [address] [place] [address] Amna Carpenter MD [address] [place] [address] [email or web address] documented as of this encounter Results * (ABNORMAL) Basic metabolic panel (07/21/2018 5:00 AM EST) SODIUM 140 133 - 146 mmol/L [facility] CHLORIDE 100 96 - 108 mmol/L [facility] POTASSIUM 4.4 3.3 - 5.1 mmol/L [facility] CO2 25 21 - 35 mmol/L [facility] BUN 10 6 - 19 mg/dL [facility] CREATININE <0.50(L) 0.5 - 1.5 mg/dL [facility] GLUCOSE 73 70 - 99 mg/dL [facility] CALCIUM 9.9 8.4 - 10.3 mg/dL [facility] EGFR Not Done >59 mL/min/1.73 m2 [facility] ANION GAP 19 10 - 20 mmol/L [facility] Blood 07/21/2018 5:00 AM EST 07/21/2018 8:35 AM EST us Leonides Frazier MD LAB BLOOD BKR ORDERABLES Final R esult [address] [address] * (ABNORMAL) CBC (07/21/2018 5:00 AM EST) Pathologist [facility] WBC 7.72 3.40 - 11.20 K/uL [facility] RBC 3.86 3.80 - 4.80 M/uL [facility] HGB 9.8(L) 12.0 - 15.0 g/dL [facility] HCT 32.4(L) 36.0 - 46.0 % [facility] PLT 165 130 - 400 K/uL [facility] Comment:some platelet clumps noted on smear, count may be higher than indicated MCV 83.9 79.0 - 98.0 fL [facility] MCH 25.4(L) 27.0 - 34.8 pg [facility] MCHC 30.2(L) 31.5 - 36.0 g/dL [facility] RDW 17.7(H) 10.8 - 14.6 % [facility] MPV 12.1 9.4 - 12.4 fl [facility] NRBC 0.00 0.00 /100 WBCs [facility] ABSOLUTE NRBC 0.00 0.00 K/uL [facility] Blood 07/21/2018 5:00 AM EST 07/21/2018 8:35 AM EST us Leonides Frazier MD LAB BLOOD BKR ORDERABLES Final R esult [address] [address] documented in this encounter Visit Diagnoses Diagnosis Perforated diverticulum of large intestine- Primary Diverticulosis of colon (without mention of hemorrhage) documented in this encounter Care Teams Maintenance Of Way Supervisor Relationship Specialty Start Date End Date Ej Valderrama DO [address] [place] [address] PCP - General Internal Medicine 10/29/17 02/03/25 Fabby Singh MD [address] [place] [address] PCP - General Internal Medicine 02/04/25 documented as of this encounter Additional Source Comments The information contained in this document represents components of the legal health record. It is not the complete legal health record.[facility]
--- OUTSIDE RECORDS SUMMARY | 2025-06-14 17:16 | XMS_ITS | Encounter Summary ---
Author Organization [facility] Address [address] [place] [address] Phone Care Team Providers Care Agency Owner Name Role Phone Ej Valderrama Primary Care Provider +1- [phone] Fabby Singh MD Primary Care Provid er Encounter Details Date Type Department Care Team (Late st Contact Info) Description 07/18/2018 Transcribe Orders [facility] Specimen Processing 30 [place] [address] Leonides Frazier MD [address] [place] [address] [address] [place] [address] [email or web address] Infection (Primary Dx) Social History Tobacco Use [...] Description 06/28/2025 10:30 AM EST Office Visit [facility], Department of Neurology [address] [place] [address] Amna Carpenter MD [address] [place] [address] [email or web address] documented as of this encounter Results * (ABNORMAL) CBC and differential (07/18/2018 4:30 AM EST) WBC 9.26 3.40 - 11.20 K/uL [facility] RBC 3.71(L) 3.80 - 4.80 M/uL [facility] HGB 9.4(L) 12.0 - 15.0 g/dL [facility] HCT 31.6(L) 36.0 - 46.0 % [facility] PLT 457(H) 130 - 400 K/uL [facility] MCV 85.2 79.0 - 98.0 fL [facility] MCH 25.3(L) 27.0 - 34.8 pg [facility] MCHC 29.7(L) 31.5 - 36.0 g/dL [facility] RDW 17.4(H) 10.8 - 14.6 % [facility] MPV 11.4 9.4 - 12.4 fl [facility] NRBC 0.00 0.00 /100 WBCs [facility] ABSOLUTE NRBC 0.00 0.00 K/uL [facility] DIFF METHOD Auto [facility] NEUTS 54.9 45.30 - 77.70 % [facility] LYMPHS 27.4 12.30 - 39.70 % [facility] MONOS 9.1 4.10 - 12.80 % [facility] EOS 6.8 0 - 7.2 % [facility] BASOS 1.0 0 - 2.80 % [facility] Granulocytes, immature (%) 0.8 0.0 - 0.9 % [facility] ABSOLUTE NEUTS 5.09 1.40 - 7.70 K/uL [facility] ABSOLUTE LYMPHS 2.54 0.60 - 3.20 K/uL [facility] ABSOLUTE MONOS 0.84(H) 0.11 - 0.59 K/uL [facility] ABSOLUTE EOS 0.63(H) 0.01 - 0.50 K/uL [facility] ABSOLUTE BASOS 0.09(H) 0.00 - 0.08 K/uL [facility] Granulocytes, immature 0.07(H) 0.00 - 0.05 K/uL [facility] Blood 07/18/2018 4:30 AM EST 07/18/2018 9:55 AM EST us Leonides Frazier MD LAB BLOOD BKR ORDERABLES Final R esult Performing Organization Address City/State/[facility] Co de Phone Number [address] [address] documented in this encounter Visit Diagnoses Diagnosis Infection- Primary Unspecified infectious and parasitic diseases documented in this encounter Care Teams Agency Owner Relationship Specialty Start Date End Date Ej Valderrama DO [address] [place] [address] PCP - General Internal Medicine 10/29/17 02/03/25 Fabby Singh MD [address] [place] [address] PCP - General Internal Medicine 02/04/25 documented as of this encounter Additional Source Comments The information contained in this document represents components of the legal health record. It is not the complete legal health record.[facility]
--- OUTSIDE RECORDS SUMMARY | 2025-06-14 17:16 | XMS_ITS | Clinical Summary ---
Author Organization [facility] Address [address] [place] [address] Phone Care Team Providers Care Sparmaker Name Role Phone Fabby Singh MD Primary [...] large reticular veins which is going to handle turner to be a good result as mentioned [...] clindamycin as she is allergic to penicillin. Immunizations Immunization Administration Dates Next Due COVID-19 [...] Description 06/28/2025 10:30 AM EST Office Visit [facility] Department of Neurology [address] [place] [address] Amna Carpenter MD [address] [place] [address] [email or web address] Health Maintenance Due Date Last Done Comments DEPRESSION SCREENING 1952 OSTEOPOROSIS SCREENING INITIAL (ONE-TIME) 2005 RSV VACCINE (1 - 1-dose 75+ series) 10/26/2015 ZOSTER VACCINES (2 of 2) 10/22/2019 08/27/2019 INFLUENZA VACCINE (#1) 2025 , 05/02/2023, 05/02/2022, Additional history exists COVID-19 VACCINE ( season) 2025 04/11/2024, 05/15/2023, 04/28/2022, Additional history exists Adult Td,Tdap Booster 12/17/2027 12/16/2017 PNEUMOCOCCAL VACCINES (50+ years) Completed 12/18/2018, 12/17/2017, 12/19/2015 HEPATITIS A VACCINES Aged Out No long er eligible based on patient's age to complete this topic HIB VACCINES Aged Out No longer eligi ble based on patient's age to complete this topic IPV VACCINES Aged Out No longer eligi ble based on patient's age to complete this topic MENINGOCOCCAL VACCINES (ACWY) Aged Out No longer eligible based on patient's age to complete this topic MENINGOCOCCAL VACCINES (B) Aged Out N o longer eligible based on patient's age to complete this topic Medical [employer] Not on file Insurance [address] [place] [address] MEDICARE PART A & B MEDICARE REPLACEMENT [address] [place] [address] MEDICARE PART A & B Member Subscriber Plan / Payer (Ef fective 2004-Present) Name:Birgit Collins Member ID:[id number] Relation to Subscriber:Self Name:Birgit Collins Subscriber ID:[id number] Payer ID:[id number] Group ID:Not on file Type:Medicare Address: [employer] [address] [place] [id number] [place] [address] MEDICARE REPLACEMENT [place] [address] [address] [place] [address] MEDICARE PART A & B [address] [place] [address] MEDICARE PART A & B [address] [place] [address] MEDICARE PART A & B [address] [place], [place] [id number] MEDICARE REPLACEMENT Member Subscriber Plan / Payer (Ef fective 2023-Present) Name:Birgit Collins Relation to Subscriber:Self Name:Birgit Collins Payer ID:[id number] (NAIC) Group ID:[id number] Type:Medicare [address] [facility] [address] [place] [address] MEDICARE PART A & B [address] [place] [address] MEDICARE PART A & B [facility] MEDICARE REPLACEMENT [address] [place] [address] MEDICARE PART A & B [facility] MEDICARE REPLACEMENT [address] [place] [address] MEDICARE PART A & B [facility] MEDICARE REPLACEMENT Care Teams Sparmaker Relationship Specialty Start Date End Date Fabby Singh MD [address] [place] [address] PCP - General Internal Medicine 02/04/25 Additional Source Comments The information contained in this document represents components of the legal health record. It is not the complete legal health record.[facility]
== END 2025-06-14 16:32 | disposition home or self-care (01) ==
LOC: HO.HGI 15:03
PROVIDERS: Visit Provider Internal Medicine
DX: R10.13 Epigastric pain (principal); R68.81 Early satiety; K59.01 Slow transit constipation
CPT/HCPCS: 99213; G2211

== ENCOUNTER 2025-06-14 15:03 | Outpatient (REF) | payer OTHER, SELFPAY ==
--- NOTE | ~2025-06-14 | XR_ITS ---
EXAMINATION: XR ABDOMEN KUB CLINICAL INDICATION: K59.01 - Slow transit constipation COMPARISON: Cotton Expert from CT performed May 09, 2022 TECHNIQUE: AP view of the abdomen. FINDINGS: Atherosclerotic calcifications are visible. There are surgical clips, one in the medial right hemipelvis and one in the upper left hemipelvis. There is mild levoscoliosis. There is moderate stool throughout the colon. Gas is also present in small bowel. There is mild to moderate degenerative changes in both hip joints. XR/XR KUB IMPRESSION: Moderate stool is present throughout the colon. Mild levoscoliosis. Electronically signed by: Cornelius Rosales MD 06/14/2025 04:28 PM EST
== END 2025-06-14 15:04 | disposition home or self-care (01) ==
LOC: HO.XRAY 15:03
PROVIDERS: Visit Provider Internal Medicine
DX: K59.01 Slow transit constipation (principal); R10.13 Epigastric pain; R68.81 Early satiety
CPT/HCPCS: 74018; 99212

== ENCOUNTER → 2025-06-14 15:46 | Outpatient (BNV) | payer OTHER, SELFPAY | PROVIDERS: Visit Provider Radiology Diagnostic Radiology | DX: K59.01 Slow transit constipation (principal) | CPT/HCPCS: 74018 ==

== ENCOUNTER 2025-07-12 14:43 | Outpatient (AMB) | payer OTHER, SELFPAY ==
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
[2025-07-12 14:52] VITALS: BP 120/66; PULSE 66; O2SAT 100; BMI 24.9
--- OUTSIDE RECORDS SUMMARY | 2025-07-13 | XMS_ITS | Encounter Summary ---
Author Organization [facility] Address [address] [facility] [address] [place] [phone] Phone Care Team Providers Care Digital Forensics Examiner Name Role Phone Ej Valderrama Primary Care Provider +1- [phone] Fabby Singh MD Primary Care Provid er Encounter Details Date Type Department Care Team (Late st Contact Info) Description 07/21/2018 Transcribe Orders [facility] Specimen Processing [address] [place] [address] Leonides Frazier MD [address] [facility] [place] [address] [email or web address] Perforated diverticulum of large intestine (Primary Dx) [...] Care Team (Late st Contact Info) Description 10/13/2025 11:00 AM EDT Office Visit [facility], Department of Neurology [address] [place] [address] Amna Carpenter MD [address] [place] [address] [email or web address] 02/10/2026 3:00 PM EDT Office Visit [facility] Medical Specialties [address] [place] [address] Allison Oleary MD [address] [facility] [address] [place] [address] [email or web address] documented as of this encounter Results * (ABNORMAL) Basic metabolic panel (07/21/2018 5:00 AM EST) SODIUM 140 133 - 146 mmol/L [facility] CHLORIDE 100 96 - 108 mmol/L [facility] POTASSIUM 4.4 3.3 - 5.1 mmol/L [facility] CO2 25 21 - 35 mmol/L [facility] BUN 10 6 - 19 mg/dL [facility] CREATININE <0.50(L) 0.5 - 1.5 mg/dL [facility] GLUCOSE 73 70 - 99 mg/dL [facility] CALCIUM 9.9 8.4 - 10.3 mg/dL [facility] EGFR Not Done >59 mL/min/1.73 m2 [facility] ANION GAP 19 10 - 20 mmol/L [facility] Blood 07/21/2018 5:00 AM EST 07/21/2018 8:35 AM EST us Leonides Frazier MD LAB BLOOD BKR ORDERABLES Final R esult [facility] [address] [place], [place] [id number] * (ABNORMAL) CBC (07/21/2018 5:00 AM EST) WBC 7.72 3.40 - 11.20 K/uL [facility] RBC 3.86 3.80 - 4.80 M/uL [facility] HGB 9.8(L) 12.0 - 15.0 g/dL [facility] HCT 32.4(L) 36.0 - 46.0 % [facility] PLT 165 130 - 400 K/uL [facility] Comment:some platelet clumps noted on smear, count may be higher than indicated MCV 83.9 79.0 - 98.0 fL [facility] MCH 25.4(L) 27.0 - 34.8 pg [facility] MCHC 30.2(L) 31.5 - 36.0 g/dL [facility] RDW 17.7(H) 10.8 - 14.6 % [facility] MPV 12.1 9.4 - 12.4 fl [facility] NRBC 0.00 0.00 /100 WBCs [facility] ABSOLUTE NRBC 0.00 0.00 K/uL [facility] Blood 07/21/2018 5:00 AM EST 07/21/2018 8:35 AM EST us Leonides Frazier MD LAB BLOOD BKR ORDERABLES Final R esult [address] [address] documented in this encounter Visit Diagnoses Diagnosis Perforated diverticulum of large intestine- Primary Diverticulosis of colon (without mention of hemorrhage) documented in this encounter Care Teams Digital Forensics Examiner Relationship Specialty Start Date End Date Ej Valderrama DO [address] [place] [address] PCP - General Internal Medicine 10/29/17 02/03/25 Fabby Singh MD [address] [place] [address] PCP - General Internal Medicine 02/04/25 documented as of this encounter Additional Source Comments The information contained in this document represents components of the legal health record. It is not the complete legal health record.[facility]
--- OUTSIDE RECORDS SUMMARY | 2025-07-13 | XMS_ITS | Clinical Summary ---
Author Organization [facility] Address [address] [facility] [address] [place] [phone] Phone Care Team Providers Care Four H Agent Name Role Phone Fabby Singh MD Primary Care Provid er Allergies Active Allergy Reactions Criticality Noted Date Comments Adhesive Unknown 07/16/2022 Aspirin Unknown 07/16/2022 Aztreonam 05/18/2019 Codeine Unknown 07/16/2022 Doxycycline Hyclate 05/18/2019 Erythromycin Unknown 04/01/2017 Latex Rash Low 07/16/2022 Meperidine Unknown 07/16/2022 Meropenem 05/18/2019 Metronidazole 05/18/2019 Morphine Unknown 07/16/2022 Penicillins Unknown 04/01/2017 Sulfa (Sulfonamide Antibiotics) 05/05 Sulfamethoxazole-Trimethoprim Unknown 2021 Yellow Dye Shortness Of Breath High 06/28/2025 Medications budesonide-form oterol (SYMBICORT) 80-4.5 mcg/actuation inhaler [...] Active Additional Information Patient not taking.Reported on 06/28/2025 MULTIVITAMIN ORAL Take by mouth. Activ e ascorbic acid (VITAMIN C ORAL) Take by mouth. Activ e omega-3 fatty acids/fish oil (FISH OIL OMEGA 3-6-9 ORAL)Indication s:2 capsules Take by mouth. Indications: 2 capsules Active cholecalciferol , vitD3,/vit K2 (VITAMIN D3-VITAMIN K2 ORAL) Take by mouth. Activ e cyanocobalamin, vitamin B-12, (VITAMIN B-12 ORAL) Take by mouth. Activ e carbidopa-levod opa (SINEMET) 25-100 mg per tablet Take 1 tablet by mouth 3 (three) times a day. Patient's daughter reports patient has allergy to yellow dye. Please provide pill without yellow dye if possible. 90 tablet 5 5 Active Active Problems Problem Noted Date Diagnosed [...] large reticular veins which is going to metal turner to be a good result as [...] Encounters Date Type Department Care Team Description 06/28/2025 10:30 AM EST Office Visit [facility], Department of Neurology [address] [place] [address] Amna Carpenter MD Parkinson's disease without dyskinesia or fluctuating manifestations (Primary Dx) from Last 3 Months Immunizations Immunization Administration Dates Next Due COVID-19 (Pre-05/27) Moderna Vaccine, mRNA, PF 0 10/05/2020,09/07/2020 Influenza High-Dose Trivalent Preservative Free IM 05/29/2018 Influenza Quadrivalent Preservative Free IM 05/05 Pneumococcal conjugate PCV13 12/17/2017 Pneumococcal polysaccharide PPSV23 12/18/2018, Tdap 12/16/2017 Family History Medical History Relation Comments Tremor Brother Parkinsonism Mother Relation Status Comments Brother Mother Social History Tobacco Use Types Packs/Day Years Used Date Smoking Tobacco: Former Smokeless Tobacco: Former Quit: 1979 Comments:at age [age], also smoked in her 30s none since Alcohol Use Standard Drinks/Week Comments No 0 [...] with a working camera? Not on file Education Answer Date Recorded What is the highest level of school you have completed or the highest degree you have received? 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 Not on file Not on file Not on f ile Last Filed Vital Signs Vital Sign Reading Time Taken Comments Blood Pressure 167/72 06/28/2025 10:02 AM EST Pulse 62 06/28/2025 10:02 AM EST Temperature 36.4 C (97.6 F) 06/28/2025 10:03 AM EST Respiratory Rate 16 06/28/2025 9:57 AM EST Oxygen Saturation 96% 06/28/2025 10:02 AM EST Inhaled Oxygen Concentration - - Weight 54.3 kg (119 lb 9.6 oz) 06/28/2025 9:57 A M EST Height 147.3 cm (4' 10 ) 09/10/2022 10:25 AM EST Body Mass Index 25 09/10/2022 10:25 AM EST Plan of Treatment Upcoming Encounters Date Type Department Care Team (Late st Contact Info) Description 10/13/2025 11:00 AM EDT Office Visit [facility], Department of Neurology [address] [place] [address] Amna Carpenter MD [address] [place] [address] [email or web address] 02/10/2026 3:00 PM EDT Office Visit [facility] Medical Specialties [address] [facility] [address] [place] [address] Allison Oleary MD [address] [place] [address] [email or web address] Health Maintenance Due Date Last Done Comments DEPRESSION SCREENING 1952 OSTEOPOROSIS SCREENING INITIAL (ONE-TIME) 2005 RSV VACCINE (1 - 1-dose 75+ series) 10/26/2015 ZOSTER VACCINES (2 of 2) 10/22/2019 08/27/2019 COVID-19 VACCINE ( - 2024- season) 2025 04/11/2024, 05/15/2023, 04/28/2022, Additional history exists Adult Td,Tdap Booster 12/17/2027 12/16/2017 PNEUMOCOCCAL VACCINES (50+ years) Completed 12/18/2018, 12/17/2017, 12/19/2015 INFLUENZA VACCINE Completed 04/17/2025, , 05/02/2023, Additional history exists HEPATITIS A VACCINES Aged Out No long [...] Medical Devices Not on file Insurance [address] [place] [address] MEDICARE PART A & B [facility] [place] [id number] [address] [place] [address] MEDICARE PART A & B [facility] MEDICARE REPLACEMENT [place] [id number] [address] [place] [address] MEDICARE PART A & B [address] [place] [address] MEDICARE PART A & B [address] [place] [address] MEDICARE PART A & B O MEDICARE REPLACEMENT [address] [place] [id number] MEDICARE PART A & B [address] [place] [id number] MEDICARE PART A & B MEDICARE REPLACEMENT [address] [place] [address] MEDICARE PART A & B MEDICARE REPLACEMENT [place] [id number] [address] [place] [address] MEDICARE PART A & B [facility] MEDICARE REPLACEMENT [place] [id number] Care Teams Four H Agent Relationship Specialty Start Date End Date Fabby Singh MD [address] [place] [address] PCP - General Internal Medicine 02/04/25 Additional Source Comments The information contained in this document represents components of the legal health record. It is not the complete legal health record.[facility]
--- OUTSIDE RECORDS SUMMARY | 2025-07-13 | XMS_ITS | Encounter Summary ---
Author Organization [facility] Address [address] [facility] [address] [place] [phone] Phone Care Team Providers Care Driver/Merchandiser Name Role Phone Ej Valderrama Primary Care Provider +1- [phone] Fabby Singh MD Primary Care Provid er Encounter Details Date Type Department Care Team (Late st Contact Info) Description 07/14/2018 Transcribe Orders [facility] Specimen Processing [address] [place] [address] Leonides Frazier MD [address] [facility] [place] [address] [email or web address] Abnormal hormone levels in CSF (Primary Dx); [...] Description 10/13/2025 11:00 AM EDT Office Visit [facility], Department of Neurology [address] [place] [address] Amna Carpenter MD [address] [place] [address] [email or web address] 02/10/2026 3:00 PM EDT Office Visit [facility] Medical Specialties [address] [facility] [address] [place] [address] Allison Oleary MD [address] [facility] [address] [place] [phone] [email or web address] documented as of this encounter Results * (ABNORMAL) Comprehensive metabolic panel (07/14/2018 10:00 AM EST) SODIUM 136 133 - 146 mmol/L [facility] POTASSIUM 4.9 3.3 - 5.1 mmol/L [facility] CHLORIDE 96 96 - 108 mmol/L [facility] CO2 26 21 - 35 mmol/L [facility] BUN 10 6 - 19 mg/dL [facility] CREATININE <0.50(L) 0.5 - 1.5 mg/dL [facility] GLUCOSE 145(H) 70 - 99 mg/dL [facility] ALBUMIN 3.8(L) 3.9 - 4.8 g/dL [facility] TOTAL PROTEIN 7.0 6.5 - 8.0 g/dL [facility] CALCIUM 10.1 8.4 - 10.3 mg/dL [facility] ALKALINE PHOSPHATASE 84 39 - 117 U/L [facility] TOTAL BILIRUBIN 0.3 0.0 - 1.2 mg/dL [facility] AST 18 0 - 37 U/L [facility] ALT 10 0 - 40 U/L [facility] GLOBULIN 3.2 1 - 4.8 g/dL [facility] EGFR Not Done >59 mL/min/1.7 3m2 [facility] ANION GAP 19 10 - 20 mmol/L [facility] Blood 07/14/2018 10:0 0 AM EST 07/14/2018 11:12 AM EST us Leonides Frazier MD LAB BLOOD BKR ORDERABLES Final R esult [facility] [address] [place], [place] [id number] * (ABNORMAL) CBC and differential (07/14/2018 10:00 AM EST) WBC 10.93 3.40 - 11.20 K/uL [facility] RBC 4.04 3.80 - 4.80 M/uL [facility] HGB 10.2(L) 12.0 - 15.0 g/dL [facility] HCT 33.9(L) 36.0 - 46.0 % [facility] PLT 635(H) 130 - 400 K/uL [facility] MCV 83.9 79.0 - 98.0 fL [facility] MCH 25.2(L) 27.0 - 34.8 pg [facility] MCHC 30.1(L) 31.5 - 36.0 g/dL [facility] RDW 17.5(H) 10.8 - 14.6 % [facility] MPV 11.5 9.4 - 12.4 fl [facility] NRBC 0.00 0.00 /100 WBCs [facility] ABSOLUTE NRBC 0.00 0.00 K/uL [facility] DIFF METHOD Auto [facility] NEUTS 67.2 45.30 - 77.70 % [facility] LYMPHS 20.6 12.30 - 39.70 % [facility] MONOS 7.0 4.10 - 12.80 % [facility] EOS 3.0 0 - 7.2 % [facility] BASOS 1.2 0 - 2.80 % [facility] Granulocytes, immature (%) 1.0(H) 0.0 - 0.9 % [facility] ABSOLUTE NEUTS 7.35 1.40 - 7.70 K/uL [facility] ABSOLUTE LYMPHS 2.25 0.60 - 3.20 K/uL [facility] ABSOLUTE MONOS 0.76(H) 0.11 - 0.59 K/uL [facility] ABSOLUTE EOS 0.33 0.01 - 0.50 K/uL [facility] ABSOLUTE BASOS 0.13(H) 0.00 - 0.08 K/uL [facility] Granulocytes, immature 0.11(H) 0.00 - 0.05 K/uL [facility] Blood 07/14/2018 10:0 0 AM EST 07/14/2018 11:12 AM EST us Leonides Frazier MD LAB BLOOD BKR ORDERABLES Final R esult Performing Organization Address City/State/[facility] Co de Phone Number [facility] [address] [place] [address] documented in this encounter Visit Diagnoses Diagnosis Abnormal hormone levels in CSF- Primary Nonspecific abnormal finding in cerebrospinal fluid Colostomy status documented in this encounter Care Teams Driver/Merchandiser Relationship Specialty Start Date End Date Ej Valderrama DO [address] [place] [address] PCP - General Internal Medicine 10/29/17 02/03/25 Fabby Singh MD [address] [place] [address] PCP - General Internal Medicine 02/04/25 documented as of this encounter Additional Source Comments The information contained in this document represents components of the legal health record. It is not the complete legal health record.[facility]
--- OUTSIDE RECORDS SUMMARY | 2025-07-13 | XMS_ITS | Encounter Summary ---
Author Organization [facility] Address [address] [place] [phone] Phone Care Team Providers Care Legal Billing Coordinator Name Role Phone Ej Valderrama DO Primary Care Provider +1- [phone] Fabby Singh MD Primary Care Provid er Encounter Details Date Type Department Care Team (Late st Contact Info) Description 12/06/2022 Transcribe Orders [facility] Medicine [address] [place] [address] Ej Valderrama DO [address] [place], [place] [id number] Social History Tobacco Use Types Packs/Day Years [...] Description 10/13/2025 11:00 AM EDT Office Visit [facility] Department of Neurology [address] [place] [address] Amna Carpenter MD [address] [place] [address] [email or web address] 02/10/2026 3:00 PM EDT Office Visit [facility] [address] [facility] [address] [place] [address] Allison Oleary MD [address] [facility] [address] [place] [address] [email or web address] documented as of this encounter Visit Diagnoses Not on filedocumented in this encounter Care Teams Legal Billing Coordinator Relationship Specialty Start Date End Date Ej Valderrama DO [address] [place] [address] PCP - General Internal Medicine 10/29/17 02/03/25 Fabby Singh MD [address] [place] [address] PCP - General Internal Medicine 02/04/25 documented as of this encounter Additional Source Comments The information contained in this document represents components of the legal health record. It is not the complete legal health record.[facility]
--- OUTSIDE RECORDS SUMMARY | 2025-07-13 | XMS_ITS | Encounter Summary ---
Author Organization [facility] Address [address] [facility] [address] [place] [phone] Phone Care Team Providers Care Fiberglass Model Maker Name Role Phone Ej Valderrama Primary Care Provider +1- [phone] Fabby Singh MD Primary Care Provid er Encounter Details Date Type Department Care Team (Late st Contact Info) Description 07/18/2018 Transcribe Orders [facility] Specimen Processing [address] [place] [address] Leonides Frazier MD [address] [place] [address] [address] [place] [address] [email or web address] Infection (Primary Dx) Social History Tobacco Use [...] Description 10/13/2025 11:00 AM EDT Office Visit [facility], Department of Neurology [address] [place] [address] Amna Carpenter MD [address] [place] [id number] [email or web address] 02/10/2026 3:00 PM EDT Office Visit [facility]ties [address] [facility] [address] [place] [address] Allison Oleary MD [address] [facility] [address] [place] [address] [email or web address] documented as of this encounter Results * (ABNORMAL) CBC and differential (07/18/2018 4:30 AM EST) WBC 9.26 3.40 - 11.20 K/uL [facility] RBC 3.71(L) 3.80 - 4.80 M/uL [facility] HGB 9.4(L) 12.0 - 15.0 g/dL [facility] HCT 31.6(L) 36.0 - 46.0 % [facility] PLT 457(H) 130 - 400 K/uL [facility] MCV 85.2 79.0 - 98.0 fL [facility] MCH 25.3(L) 27.0 - 34.8 pg [facility] MCHC 29.7(L) 31.5 - 36.0 g/dL [facility] RDW 17.4(H) 10.8 - 14.6 % [facility] MPV 11.4 9.4 - 12.4 fl [facility] NRBC 0.00 0.00 /100 WBCs [facility] ABSOLUTE NRBC 0.00 0.00 K/uL [facility] DIFF METHOD Auto [facility] NEUTS 54.9 45.30 - 77.70 % [facility] LYMPHS 27.4 12.30 - 39.70 % [facility] MONOS 9.1 4.10 - 12.80 % [facility] EOS 6.8 0 - 7.2 % [facility] BASOS 1.0 0 - 2.80 % [facility] Granulocytes, immature (%) 0.8 0.0 - 0.9 % [facility] ABSOLUTE NEUTS 5.09 1.40 - 7.70 K/uL [facility] ABSOLUTE LYMPHS 2.54 0.60 - 3.20 K/uL [facility] ABSOLUTE MONOS 0.84(H) 0.11 - 0.59 K/uL [facility] ABSOLUTE EOS 0.63(H) 0.01 - 0.50 K/uL [facility] ABSOLUTE BASOS 0.09(H) 0.00 - 0.08 K/uL [facility] Granulocytes, immature 0.07(H) 0.00 - 0.05 K/uL [facility] Blood 07/18/2018 4:30 AM EST 07/18/2018 9:55 AM EST us Leonides Frazier MD LAB BLOOD BKR ORDERABLES Final R esult Performing Organization Address City/State/[facility] Co de Phone Number [facility] [address] [place] [address] documented in this encounter Visit Diagnoses Diagnosis Infection- Primary Unspecified infectious and parasitic diseases documented in this encounter Care Teams Fiberglass Model Maker Relationship Specialty Start Date End Date Ej Valderrama DO [address] [place] [address] PCP - General Internal Medicine 10/29/17 02/03/25 Fabby Singh MD [address] [place] [address] PCP - General Internal Medicine 02/04/25 documented as of this encounter Additional Source Comments The information contained in this document represents components of the legal health record. It is not the complete legal health record.[facility]
== END 2025-07-12 15:36 | disposition home or self-care (01) ==
PROVIDERS: PCP Internal Medicine; Visit Provider Psychiatry & Neurology Neurology
DX: G20.A1 Parkinson's disease without dyskinesia, without mention of fluctuations (principal); G25.2 Other specified forms of tremor; F32.0 Major depressive disorder, single episode, mild; F41.9 Anxiety disorder, unspecified
CPT/HCPCS: 99214; G2211

== ENCOUNTER → 2025-07-12 14:43 | Outpatient (BNVA) | payer OTHER, SELFPAY | PROVIDERS: PCP Internal Medicine; Visit Provider Psychiatry & Neurology Neurology | DX: G20.A1 Parkinson's disease without dyskinesia, without mention of fluctuations (principal); G25.2 Other specified forms of tremor; F32.0 Major depressive disorder, single episode, mild; F41.9 Anxiety disorder, unspecified; Z79.899 Other long term (current) drug therapy | CPT/HCPCS: 99212 ==

== ENCOUNTER 2025-07-15 13:12 | Outpatient (AMB) | payer OTHER, SELFPAY ==
[2025-07-15 13:15] VITALS: BMI 24.9
--- NOTE | 2025-07-15 13:15 | MHC.OFFVIS ---
Vital Signs 07/15/25 13:15 Height 4 ft 10 in Weight 119 lb BMI 24.9 Intake Visit Reasons: Inj-Left knee cortisone inj-last one 04/11/23 Intake Note: Birgit is an 84 year old female who presents today for a repeat left knee injection, last administered 04/11/25. Patient reports that she took a fall last night. She lives with her who has Alzheimers & needed her assistance, whille helping him she fell injuring the right knee. The knee now feels unstable, painful and also has a large pocket of swelling in the posterior aspect. She is interested in a repeat injection in the left knee and is unsure what to do for her right. Allergies mold (MOLD) Allergy (Severe, Verified 07/12/25 14:52) SWELLING alcohol (ALCOHOL) Allergy (Intermediate, Verified 07/12/25 14:52) RED, SWELLING corn syrup (CORN SYRUP) Allergy (Intermediate, Verified 07/12/25 14:52) red hot face dextrose (DEXTROSE) Allergy (Intermediate, Verified 07/12/25 14:52) RED RASH erythromycin base (ERYTHROMYCIN BASE) Allergy (Intermediate, Verified 07/12/25 14:52) RASH Penicillins (PENICILLINS) Allergy (Intermediate, Verified 07/12/25 14:52) SWELLING, RASH sucrose (SUCROSE) Allergy (Intermediate, Verified 07/12/25 14:52) RED RASH Sulfa (Sulfonamide Antibiotics) (SULFA (SULFONAMIDE ANTIBIOTICS)) Allergy (Intermediate, Verified 07/12/25 14:52) RASH, redness, redness valacyclovir Allergy (Intermediate, Verified 07/12/25 14:52) Redness of Skin morphine Adverse Reaction (Intermediate, Verified 07/12/25 14:52) Hallucinations 12 Hour Nasal Allergy (Intermediate, Uncoded 03/31/25 15:32) hives WINE Allergy (Intermediate, Uncoded 03/31/25 15:32) RASH FROM RED WINE fluorquinolones Allergy (Mild, Uncoded 03/31/25 15:32) nerve damage HPI HPI Inj-Left knee cortisone inj-last one 04/11/23: Details: Birgit is an 84 year old female who presents today for a repeat left knee injection, last administered 04/11/25. Patient reports that she took a fall last night. She lives with her who has Alzheimers & needed her assistance, whille helping him she fell injuring the right knee. The knee now feels unstable, painful and also has a large pocket of swelling in the posterior aspect. She is interested in a repeat injection in the left knee and is unsure what to do for her right. She is feeling very upset and no longer feels that her and her are safe at home without assistance. HPI Comments Details: Interval History The patient is an 84-year-old female presenting for follow-up for a left knee cortisone injection. She reports that her left knee is swollen and painful, which is the primary reason for today's visit. Additionally, she mentions that her right knee is also swollen and painful, which was noted during a previous visit. She has experienced swelling in her foot and suspects broken toes, although she acknowledges that there is little that can be done for them. The patient also reports receiving injections in her eyes every nine weeks for macular degeneration, which she describes as less painful than the knee injections. Results [facility] Medical History Parkinson's disease without dyskinesia Thrombophlebitis, popliteal vein Gait disorder Anxiety Coarse tremors Renal cyst Abdominal pain Thyroid disease Chronic pain syndrome Osteoarthritis of left knee Spinal stenosis Left sided sciatica Constipation by delayed colonic transit Left knee pain Dyslipidemia Onychomycosis Neuropathy Rosacea Asthma Surgical History Hx of colonoscopy History of surgery History of back surgery (~03/31/21) History of surgery History of removal of both ovaries Colostomy in place History of tonsillectomy History of cholecystectomy History of repair of hiatal hernia History of hysterectomy Family History Father Hypertension Pancreatitis Uremia Mother Diverticulosis Alzheimers disease Brother Colon cancer CVD (cardiovascular disease) Sister Colon cancer Social History Household Members: Spouse Household Members Other:: 2 Housing: Condominium Are you a primary life care planner to a significant other at home: Yes Do you presently have visiting nurse or other home services: Yes Alcohol intake: never 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 Patient Tobacco Use Status: Former Tobacco user Tobacco use type: Cigarette Years Smoked: 1 year e-Cigarette/Vaping Use: Never Used Second Hand Smoke Exposure: No service: No Current occupational status: retired Cognitive needs: Yes Hearing needs: No Vision needs: Yes Physical Exam Exam Exam: Physical Exam - Extremities: Swelling noted in the left knee and right knee. generalized TTP bilateral knees. able to walk with walker Vital Signs: BMI result Body Mass Index 24.9 Office Procedures Joint Inj/Aspir; Non-Pain Clin Joint Injection/Drain Details: Injected 1 mL of Decadron and 3 mL 1% lidocaine and 3 mL of 0.25% Marcaine. Site was prepped using aseptic technique. Patient tolerated the procedure well. Shoulders, Hips, Knees, Knee Large Joint Injection : Bilateral Knee Coding Procedure code (CPT) selection complete Assessment & Plan Assessment & Plan (1) Arthritis of both knees: Code(s): M17.0 - Bilateral primary osteoarthritis of knee Category: Medical Plan Plan 1. Left Knee Pain With Swelling Administered cortisone injection to the left knee to address swelling and pain. Advised the patient to monitor for any signs of infection or increased pain and to follow up if symptoms persist or worsen. 2. Right Knee Pain With Swelling Injected right knee Discussion Notes The patient and I discussed the current state of her left knee, which is swollen and painful, and agreed on administering a cortisone injection to alleviate symptoms. The patient expressed concerns about her right knee and foot, and the I injected this as well. Orders: Orders PT Evaluation and Treatment Today M17.0 - Bilateral primary osteoarthritis of knee Coding Level of Care Code Est Pt Level 3 (27992) Diagnoses Arthritis of both knees M17.0 CPT Codes Shoulders, Hips, Knees, - Knee Large Joint Injection : Bilateral Knee ([id number])
== END 2025-07-15 14:53 | disposition home or self-care (01) ==
LOC: HO.HOS 13:12
PROVIDERS: Visit Provider Orthopaedic Surgery
DX: M17.0 Bilateral primary osteoarthritis of knee (principal)
CPT/HCPCS: 20610; 99213

== ENCOUNTER → 2025-07-15 13:12 | Outpatient (BNVA) | payer OTHER, SELFPAY | PROVIDERS: Visit Provider Orthopaedic Surgery | DX: M17.0 Bilateral primary osteoarthritis of knee (principal); M25.461 Effusion, right knee; M25.462 Effusion, left knee | CPT/HCPCS: 20610; 99212; J0665; J1100; J2003 ==

== ENCOUNTER 2025-07-26 11:12 | Observation (INO) | payer OTHER, SELFPAY ==
[2025-07-26] VITALS (8 sets, daily range): BP systolic 122–152; BP diastolic 49–61; PULSE 50–78; RESP 14–20; TEMP 36.3–37.2; O2SAT 96–97; BMI 19.1; BMI 21.3
--- NOTE | 2025-07-26 | ECG_ITS ---
Test Reason : weakness Blood Pressure : */* mmHG Vent. Rate : 66 BPM Atrial Rate : 66 BPM P-R Int : 172 ms QRS Dur : 170 ms QT Int : 460 ms P-R-T Axes : 43 -50 101 degrees QTcB Int : 482 ms Sinus rhythm with occasional Premature ventricular complexes and Premature atrial complexes Possible Left atrial enlargement Left bundle branch block Abnormal ECG When compared with ECG of 13-Apr-2024 19:55, Premature ventricular complexes are now Present Premature atrial complexes are now Present Left bundle branch block is now Present Criteria for Septal infarct are no longer Present Referred By: Lynn Peguero Electronically Signed By: WALE CLANCY MD
--- NOTE | ~2025-07-26 | CT_ITS ---
EXAMINATION: CT HEAD NECK ANGIOGRAPHY WITH IV CONTRAST STROKE HISTORY: R sided weakness COMPARISON: Correlation is made with the unenhanced head CT performed earlier in the day. TECHNIQUE: Helical axial images were obtained from the aortic arch to the vertex after intravenous injection of contrast per standard departmental protocol. MIP/3D reconstructions were obtained and reviewed. One or more of the following techniques was used for dose reduction: Automated exposure control, adjustment of the mA and/or kV according to patient size, use of iterative reconstruction technique. DLP: 665 mGy-cm FINDINGS: CTA NECK: AORTIC ARCH: The visualized portions of the arch as well as innominate, right subclavian, and left subclavian arteries show no hemodynamically significant stenosis. Right common carotid artery: There is no large vessel occlusion or hemodynamically significant stenosis. Right internal carotid artery: There is no large vessel occlusion or hemodynamically significant stenosis. Left common carotid artery: There is no large vessel occlusion or hemodynamically significant stenosis. Left internal carotid artery: There is no large vessel occlusion or hemodynamically significant stenosis. (Extracranial internal carotid artery stenosis estimates are based on use of distal ICA as the denominator.) Right vertebral artery: There is no large vessel occlusion or hemodynamically significant stenosis. Left vertebral artery: There is no large vessel occlusion or hemodynamically significant stenosis. CTA HEAD: Right intracranial ICA: There is mild atherosclerotic irregularity of the supraclinoid internal carotid artery. There is no large vessel occlusion, hemodynamically significant stenosis, or aneurysm. Right ANGELES: There is no large vessel occlusion, hemodynamically significant stenosis, or aneurysm. Right MCA: There is no large vessel occlusion, hemodynamically significant stenosis, or aneurysm. Left intracranial ICA: There is no large vessel occlusion, hemodynamically significant stenosis, or aneurysm. Left ANGELES: There is no large vessel occlusion, hemodynamically significant stenosis, or aneurysm. Left MCA: There is no large vessel occlusion, hemodynamically significant stenosis, or aneurysm. Basilar artery: There is no large vessel occlusion, hemodynamically significant stenosis, or aneurysm. Superior cerebellar arteries: There is no large vessel occlusion, hemodynamically significant stenosis, or aneurysm. Right DIAMOND POWDER MIXER: There is no large vessel occlusion, hemodynamically significant stenosis, or aneurysm. Left DIAMOND POWDER MIXER: There is no large vessel occlusion, hemodynamically significant stenosis, or aneurysm. VEINS: Venous enhancement is within normal limits for this technique. SOFT TISSUES: The bilateral parotid, submandibular, and thyroid glands are unremarkable. No laryngeal abnormality is identified. There is no cervical lymphadenopathy. CT/CT angio head neck STROKE IMPRESSION: No large vessel occlusion, hemodynamically significant stenosis, or aneurysm in the head and neck. Electronically signed by: Milton Dean MD 07/26/2025 12:54 PM [facility] [place]
--- NOTE | ~2025-07-26 | MR_ITS ---
CLINICAL HISTORY: TIA MR Brain without gadolinium Comparison: CT head 07/26/2025 Findings: Focal left pericallosal cortical restricted diffusion. No intra-axial mass or hemorrhage. No midline shift. No hydrocephalus. Vascular flow voids are intact. The orbits are normal. The sinuses and mastoid air cells are clear. No focal bone lesion. IMPRESSION: Left pericallosal cortical acute ischemia. This document has been electronically signed by: Ashok Herring MD on 07/26/2025 21:07:12
--- NOTE | ~2025-07-26 | XR_ITS ---
EXAMINATION: XR CHEST CLINICAL INFORMATION: weakness COMPARISON: None available. TECHNIQUE: Frontal view of the chest was obtained. FINDINGS: There is cardiomegaly. Aortic arch calcification. Slightly lower lung volumes. No focal consolidation, effusion, edema. No pneumothorax is seen. No acute osseous findings XR/XR chest 1V IMPRESSION: Cardiomegaly. No focal consolidation. Electronically signed by: Santiago Retana MD 07/26/2025 12:42 PM [facility]
--- NOTE | ~2025-07-26 | CT_ITS ---
EXAMINATION: CT HEAD WITHOUT IV CONTRAST HISTORY: RLE weakness, confusion. TECHNIQUE: Unenhanced helical CT of the head was performed per standard departmental protocol. Coronal and sagittal reformats of the head were also evaluated. One or more of the following techniques was used for dose reduction: Automated exposure control, adjustment of the mA and/or kV according to patient size, use of iterative reconstruction technique. DLP: 739 mGy-cm COMPARISON: Comparison is made with the prior examination dated 12/09/2013. FINDINGS: BRAIN: There is diffuse prominence of the ventricular system and cortical sulci, consistent with atrophy. Periventricular and subcortical white matter hypodensities are noted which are nonspecific, but often seen in the setting of small vessel ischemic disease. There is no mass effect or midline shift. No intra- or extra-axial fluid collections are identified. SINUSES: There are postsurgical changes involving the maxillary sinuses. There is mild mucosal thickening in the ethmoid sinuses. The mastoid air cells and middle ear cavities are well pneumatized. ORBITS: The visualized orbits are unremarkable. BONES/SOFT TISSUES: The extracranial soft tissues are unremarkable. The calvarium is intact. No suspicious lytic or sclerotic lesions. CT/CT head/brain wo IV con IMPRESSION: No acute intracranial abnormality. Electronically signed by: Milton Dean MD 07/26/2025 12:25 PM [facility] [place]
--- NOTE | 2025-07-26 07:00 | ECG_ITS ---
Test Reason : REPEAT EKG Blood Pressure : */* mmHG Vent. Rate : 64 BPM Atrial Rate : 64 BPM P-R Int : 194 ms QRS Dur : 164 ms QT Int : 466 ms P-R-T Axes : 52 -58 101 degrees QTcB Int : 480 ms Normal sinus rhythm with sinus arrhythmia Possible Left atrial enlargement Left bundle branch block Abnormal ECG When compared with ECG of 26-Jul-2025 11:22, Premature ventricular complexes are no longer Present Premature atrial complexes are no longer Present Referred By: Pauline Gama Electronically Signed By: WALE CLANCY MD
--- NOTE | 2025-07-26 11:15 | ED.AMS ---
HPI - Altered Mental Status General Chief Complaint: Weakness Stated Complaint: WEAK,AMS/OFF PER FAMILY,-THINNER,NO COMP FROM PT Time Seen by Provider: 07/26/25 11:15 Source: patient, EMS and old records reviewed Mode of arrival: EMS History of Present Illness ED Provider: VEDA HPI narrative: 84-year-old female with past medical history of anxiety, gait disorder, Parkinson's disease, osteoporosis, asthma, neuropathy here with c/o weakness quite some time. He tells me she takes care of her who has Alzheimer's, they live in a condo. She does note they do have care staff that come in. She states she has been increasingly weak and now feels like she can not walk to her bathroom. She denies any abdominal pain, chest pain, trouble breathing, fevers, urinary symptoms, nausea vomiting, diarrhea. She states she can not manage at home at this time. She denies any recent falls or head trauma. She overall denies any symptoms in her review of system. MD complaint: weakness Onset (ago): week(s) Timing confirmed by: family member and other Severity: moderate Consistency of symptoms: getting Worse Associated symptoms: weakness Related Data Home Medications ?Medication ?Instructions ?Recorded ?Confirmed beclomethasone dipropionate 80 2 inh inhalation BID 07/04/20 07/12/25 mcg/actuation HFA breath activated aerosol (Qvar RediHaler) ascorbic acid (vitamin C) 500 mg 500 mg PO DAILY 11/10/20 07/12/25 tablet (Vitamin C) multivitamin 1 tab PO DAILY 11/10/20 07/12/25 alpha lipoic acid 600 mg capsule 600 mg PO BID 11/16/21 07/12/25 biotin 5,000 mcg disintegrating 10,000 mcg PO DAILY 11/16/21 07/12/25 tablet bromelains 500 mg tablet 1,000 mg PO DAILY 11/16/21 07/12/25 chromium picolinate 1,000 mcg 1,000 mcg PO DAILY 11/16/21 07/12/25 tablet flaxseed oil 1,000 mg capsule 1,000 mg PO BID 11/16/21 07/12/25 lutein 20 mg tablet 20 mg PO DAILY 11/16/21 07/12/25 magnesium 500 mg tablet 1,000 mg PO BID 11/16/21 07/12/25 mecobalamin (vitamin B12) 5,000 mcg PO 11/16/21 07/12/25 mcg disintegrating tablet vitamin E 200 unit capsule 200 unit PO DAILY 11/16/21 07/12/25 albuterol sulfate 90 mcg/actuation inhalation 06/07/23 07/12/25 breath activated powder inhaler (ProAir RespiClick) calcium polycarbophil 625 mg mg PO 06/07/23 07/12/25 tablet (Fiber (calcium polycarbophil)) albuterol sulfate 90 mcg/actuation 2 puff inhalation Q4H 07/12/25 07/12/25 aerosol inhaler carbidopa 25 mg-levodopa 100 mg 1 tab PO TID 07/12/25 07/12/25 tablet ketoconazole 2 % topical cream appl topical BID 07/12/25 07/12/25 Previous Rx's ?Medication ?Instructions ?Recorded cholecalciferol (vitamin D3) 25 25 mcg PO DAILY 90 days #90 tabs 02/27/23 mcg (1,000 unit) tablet (Vitamin D3) psyllium husk 0.4 gram capsule 0.4 g PO BEDTIME 90 days #90 caps 02/27/23 (Fiber (psyllium husk)) 16 grab bar #1 ea 01/24/24 set of weighted utensils with no #1 ea 01/24/24 build up handle Phonics 360 toothbrush #1 ea 02/24/24 sonics 360 Toothbrush #1 ea 03/04/24 furosemide 40 mg tablet 40 mg PO DAILY #90 tabs 04/07/25 bedrails #1 ea 05/07/25 step stool #1 ea 05/07/25 toilet seat raiser with frame #1 ea 05/07/25 Allergies Allergy/AdvReac Type Severity Reaction Status Date / Time mold (MOLD) Allergy Severe SWELLING Verified 07/26/25 11:37 alcohol (ALCOHOL) Allergy Intermediate RED, Verified 07/26/25 11:37 SWELLING corn syrup (CORN SYRUP) Allergy Intermediate red hot Verified 07/26/25 11:37 face dextrose (DEXTROSE) Allergy Intermediate RED RASH Verified 07/26/25 11:37 erythromycin base Allergy Intermediate RASH Verified 07/26/25 11:37 (ERYTHROMYCIN BASE) Penicillins (PENICILLINS) Allergy Intermediate SWELLING, Verified 07/26/25 11:37 RASH sucrose (SUCROSE) Allergy Intermediate RED RASH Verified 07/26/25 11:37 Sulfa (Sulfonamide Allergy Intermediate RASH, Verified 07/26/25 11:37 Antibiotics) (SULFA redness, (SULFONAMIDE ANTIBIOTICS)) redness valacyclovir Allergy Intermediate Redness of Verified 07/26/25 11:37 Skin morphine AdvReac Intermediate Hallucinati Verified 07/26/25 11:37 ons 12 Hour Nasal Allergy Intermediate hives Uncoded 03/31/25 15:32 WINE Allergy Intermediate RASH FROM Uncoded 03/31/25 15:32 RED WINE fluorquinolones Allergy Mild nerve Uncoded 03/31/25 15:32 damage Review of Systems Review of Systems: Yes all other systems are reviewed and are negative PMFSH Past Medical History Attestation statement: The following information was validated with the patient. Source: old records reviewed Medical History Parkinson's disease without dyskinesia Thrombophlebitis, popliteal vein Gait disorder Anxiety Coarse tremors Renal cyst Abdominal pain Thyroid disease Chronic pain syndrome Osteoarthritis of left knee Spinal stenosis Left sided sciatica Constipation by delayed colonic transit Left knee pain Dyslipidemia Onychomycosis Neuropathy Rosacea Asthma Surgical History Hx of colonoscopy History of surgery History of back surgery (~03/31/21) History of surgery History of removal of both ovaries Colostomy in place History of tonsillectomy History of cholecystectomy History of repair of hiatal hernia History of hysterectomy Family History Family History Father Hypertension Pancreatitis Uremia Mother Diverticulosis Alzheimers disease Brother Colon cancer CVD (cardiovascular disease) Sister Colon cancer Social History Social History Household Members: Spouse Household Members Other:: 2 Housing: Condominium Are you a primary home care administrator to a significant other at home: Yes Do you presently have visiting nurse or other home services: Yes Alcohol intake: never 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 Patient Tobacco Use Status: Former Tobacco user Tobacco use type: Cigarette Years Smoked: 1 year e-Cigarette/Vaping Use: Never Used Second Hand Smoke Exposure: No Advance Directives: Yes Advance Directives on File: Yes Advance Directives Date on File: 07/26/25 service: No Current occupational status: retired Cognitive needs: Yes Hearing needs: No Vision needs: Yes Physical Exam ED Vital Signs: Vital Signs - 24 hr 07/26/25 11:35 07/26/25 12:02 07/26/25 14:58 Temperature 98.9 F 98 F Pulse Rate 58 54 50 Respiratory Rate 14 16 20 Blood Pressure 152/59 H 139/60 Pulse Oximetry 97 97 97 Oxygen Delivery Method Room Air Room Air Room Air 07/26/25 15:00 Temperature 98 F Pulse Rate 50 Respiratory Rate 20 Blood Pressure 139/60 Pulse Oximetry 97 Oxygen Delivery Method Room Air BMI result Body Mass Index 19.1 Appearance: Alert. Oriented X3. No acute distress. tremors of both UE, frail Eyes: Pupils equal, round and reactive to light. ENT: Pharynx normal. Neck: Normal inspection. Neck supple. CVS: Normal heart rate and rhythm. Pulses normal. Respiratory: No respiratory distress. Breath sounds normal. Abdomen: Soft and nontender. Skin: Skin warm and dry. Normal skin color. Normal skin turgor. Extremities: No lower extremity edema. No calf ttp Neuro: Oriented X 3. No motor deficit. she notes RLE/RUE weakness cannot fully doriflex foot cannot raise leg, 4/5 strength, she has some word-finding difficulty NIH Stroke Scale Internal: Initial- Upon Arrival Level of Consciousness: Alert Level of Consciousness Questions: Answers both questions correctly Level of Consciousness Commands: Performs both tasks correctly Best Gaze: Normal Visual: No visual loss Facial Palsy: Normal Motor Arm (Right): Drift Motor Arm (Left): No drift Motor Leg (Right): Drift Motor Leg (Left): No drift Limb Ataxia: Absent Sensory: Normal Best Language: Mild to moderate aphasia Dysarthia: Normal Extinction and Inattention: No abnormality Score: 3 Course Course Course Narrative: 12:05 PM 07/26/2025 (VEDA ): Her daughter is at bedside and states she would have been last seen well on Saturday though she is trying to figure out if the right-sided weakness started yesterday. She notes there has word-finding difficulties as well as right-sided weakness. Her brother visited the mom on Saturday and stated mom was fine but there is no way at this time given her father's Alzheimer's that they would be able to obtain an accurate timeline. The patient herself just keeps saying a while. Given this new information from family as patient initially stated this has been going on for months I am going to put her through a CT angio head and neck protocol for stroke 12:51 PM 07/26/2025 (VEDA GANNON): Patient is not a candidate for TNK I can not confirm her last known well I also do not believe she is a reliable candidate for thrombectomy given the family can not elicit exact last known well other than her son seeing her on Saturday. Medications Administered Discontinued Medications Generic Name Dose Route Start Last Admin Trade Name Fremika PRN Reason Stop Dose Admin Aspirin 81 mg 07/26/25 12:59 07/26/25 15:05 Aspirin 81 Mg Tab.Chew PO 07/26/25 13:00 Not Given ONCE ONE Medical Decision Making Medical Decision Making [facility] Narrative: 84-year-old female with past medical history of anxiety, gait disorder, Parkinson's disease, osteoporosis, asthma, neuropathy here with c/o weakness she tells me her right lower extremity has been this week for months. Aria really have a good timeline for this other than she says weeks of symptoms. She denies any falls or infectious symptoms. She is alert and oriented x3. I am going to obtain basic labs, the stroke, chest x-ray. She can not ambulate to the bathroom on her own she is not able to stay at home if medical workup is negative I am going to refer her to case management and short-term rehab Differential Diagnosis Differential Diagnoses: The differential diagnosis associated with the presentation includes Anemia, ANNABELLE, subacute stroke, dehydration, urinary pathology, Parkinson's disease Admission/Observation Consideration of admission/observation: Escalation of care including admission/observation considered Will admit for TIA workup I did order oral aspirin they are hesitant to take it in case of yellow dye Consult Healthcare Provider Management of the patient was discussed with: Hospitalist (Will admit) Lab Data MDM Lab Attestation statement: I reviewed the patient's lab results. Repeat trop is flat 07/26/25 11:41 07/26/25 12:52 Labs: Lab Results 07/26/25 07/26/25 07/26/25 Range/Units 11:41 11:49 12:52 WBC 13.0 H (4.8-10.8) X10*3/uL RBC 4.50 (4.20-5.50) X10*6/uL Hgb 13.3 (12.0-16.0) g/dl Hct 40.7 (37.0-47.0) % MCV 90.4 (80.0-98.0) fL MCH 29.6 (27.0-33.0) pg MCHC 32.7 (31.0-35.0) g/dl RDW 13.0 (11.0-16.0) % Plt Count 285 D (160-400) X10*3/uL MPV 11.6 (9.4-12.3) fL Immature Gran % (Auto) 0.3 (0.0-0.4) % Neut % (Auto) 81.7 H (45-73) % Lymph % (Auto) 11.4 L (20-40) % [place] % (Auto) 5.5 (2-11) % Eos % (Auto) 0.4 (0-4) % Baso % (Auto) 0.7 (0-2) % Lymph # (Auto) 1.5 (1.2-4.9) X10*3/uL [place] # (Auto) 0.7 (0.1-1.2) X10*3/uL Eos # (Auto) 0.1 (0.0-0.4) X10*3/uL Baso # (Auto) 0.1 (0.0-0.2) X10*3/uL Abs Immat Gran (auto) 0.04 H (0.00-0.03) X10*3/uL Absolute Neuts (auto) 10.6 H (2.0-8.3) x10*3/uL Absolute Nucleated RBC 0.000 (0.0-0.012) X10*3/uL Nucleated RBC % (auto) 0.0 (0.0-0.2) /100WBC Hold Blue Top SEE NOTE Sodium 141 (135-145) mmol/L Potassium 3.5 (3.3-5.1) mmol/L Chloride 104 (96-108) mmol/L Carbon Dioxide 29 (22-29) mmol/L Anion Gap 12 (12-20) BUN 18 H (9-16) mg/dL Creatinine 0.59 (0.5-1.4) mg/dL Estim Creat Clear Calc 54.7 Estimated GFR > 60 Random Glucose 94 (60-115) mg/dL Calcium 9.3 (8.4-10.2) mg/dL Magnesium 2.2 (1.6-2.6) mg/dL Total Bilirubin 0.5 (0.0-1.0) mg/dL Direct Bilirubin 0.2 (0.0-0.5) mg/dL AST 25 (5-31) U/L ALT 18 (0-31) U/L Alkaline Phosphatase 69 (39-117) U/L Total Creatine Kinase 44 (26-140) U/L Troponin I High Sens 44.2 H D (<3.5-17.0) ng/L C-Reactive Protein < 0.10 (< or = 0.50) mg/dL Total Protein 6.4 L (6.5-8.0) g/dL Albumin 4.1 (3.5-5.0) g/dL Lipase 40 (8-78) U/L TSH Cancelled 3.25 Urine Color Dark Yellow Urine Appearance Clear Urine pH 7.0 (5.0-9.0) Ur Specific [place] 1.020 (1.005-1.025) Urine Protein 30 (1+) H (Neg-Trace) mg/dL Urine Glucose (UA) Negative (Negative) mg/dL Urine Ketones Trace (Negative) mg/dL Urine Blood Negative (Negative) Urine Nitrite Negative (Negative) Ur Leukocyte Esterase Small (1+) H (Negative) Urine RBC 0-2 (0-2) /HPF Urine WBC 6-10 H (0-5) /HPF Ur Squamous Epith Cells 3-5 (0-2) /HPF Ur Transition Epith Cell Present Ur Renal Epithelial Cell Present Urine Bacteria None Seen (None Seen) Hyaline Casts 6-10 (0-2) /LPF Influenza Type A (PCR) NEGATIVE (Negative) Influenza Type B (PCR) NEGATIVE (Negative) RSV RNA Qual (PCR) NEGATIVE (Negative) SARS-CoV-2 RNA (RT-PCR) NEGATIVE (Negative) 07/26/25 Range/Units 15:14 WBC (4.8-10.8) X10*3/uL RBC (4.20-5.50) X10*6/uL Hgb (12.0-16.0) g/dl Hct (37.0-47.0) % MCV (80.0-98.0) fL MCH (27.0-33.0) pg MCHC (31.0-35.0) g/dl RDW (11.0-16.0) % Plt Count (160-400) X10*3/uL MPV (9.4-12.3) fL Immature Gran % (Auto) (0.0-0.4) % Neut % (Auto) (45-73) % Lymph % (Auto) (20-40) % [place] % (Auto) (2-11) % Eos % (Auto) (0-4) % Baso % (Auto) (0-2) % Lymph # (Auto) (1.2-4.9) X10*3/uL [place] # (Auto) (0.1-1.2) X10*3/uL Eos # (Auto) (0.0-0.4) X10*3/uL Baso # (Auto) (0.0-0.2) X10*3/uL Abs Immat Gran (auto) (0.00-0.03) X10*3/uL Absolute Neuts (auto) (2.0-8.3) x10*3/uL Absolute Nucleated RBC (0.0-0.012) X10*3/uL Nucleated RBC % (auto) (0.0-0.2) /100WBC Hold Blue Top Sodium (135-145) mmol/L Potassium (3.3-5.1) mmol/L Chloride (96-108) mmol/L Carbon Dioxide (22-29) mmol/L Anion Gap (12-20) BUN (9-16) mg/dL Creatinine (0.5-1.4) mg/dL Estim Creat Clear Calc Estimated GFR Random Glucose (60-115) mg/dL Calcium (8.4-10.2) mg/dL Magnesium (1.6-2.6) mg/dL Total Bilirubin (0.0-1.0) mg/dL Direct Bilirubin (0.0-0.5) mg/dL AST (5-31) U/L ALT (0-31) U/L Alkaline Phosphatase (39-117) U/L Total Creatine Kinase (26-140) U/L Troponin I High Sens 35.4 H (<3.5-17.0) ng/L C-Reactive Protein (< or = 0.50) mg/dL Total Protein (6.5-8.0) g/dL Albumin (3.5-5.0) g/dL Lipase (8-78) U/L TSH Urine Color Urine Appearance Urine pH (5.0-9.0) Ur Specific [place] (1.005-1.025) Urine Protein (Neg-Trace) mg/dL Urine Glucose (UA) (Negative) mg/dL Urine Ketones (Negative) mg/dL Urine Blood (Negative) Urine Nitrite (Negative) Ur Leukocyte Esterase (Negative) Urine RBC (0-2) /HPF Urine WBC (0-5) /HPF Ur Squamous Epith Cells (0-2) /HPF Ur Transition Epith Cell Ur Renal Epithelial Cell Urine Bacteria (None Seen) Hyaline Casts (0-2) /LPF Influenza Type A (PCR) (Negative) Influenza Type B (PCR) (Negative) RSV RNA Qual (PCR) (Negative) SARS-CoV-2 RNA (RT-PCR) (Negative) Independent Interpretation I performed an independent interpretation of an: EKG, Plain X-Ray (No pneumonia) and CT Scan (No LVO, no intracranial hemorrhage no mass) Interpretation: Rate: 66 Rhythm: NSR with PACs [place]: left Normal P waves. Normal ANDRIY. LBBB ST T wave : no MIKE, inverted t waves I and aVL qTC: 482 prior studies: Left bundle-branch block is new The study has been interpreted contemporaneously by me. . Radiology Impression Discussion of test interpretation with radiology: I have reviewed the radiologist's reading. Independent Historian Clinical information obtained from an independent historian. History obtained from or confirmed by: EMS External Record Review External record reviewed: Outpatient record, Prior outpatient labs and Prior outpatient radiology Discharge Plan Discharge Clinical Impression: Aphasia, Acute right-sided muscle weakness Patient Disposition: Admitted As Inpatient Print Language: Yi
[2025-07-26 11:49] LABS: MANUAL DIFF FLAG NO
[2025-07-26 11:53] LABS: Hematocrit 40.7 % (37.0-47.0); Hemoglobin 13.3 g/dl (12.0-16.0); Imm Gran Abs Auto 0.04 X10*3/uL (0.00-0.03); Imm Gran Pct Auto 0.3 % (0.0-0.4); Lymphocytes Absolute Auto 1.5 X10*3/uL (1.2-4.9); Mean Corpuscular HGB Conc 32.7 g/dl (31.0-35.0); Mean Corpuscular Hemoglobin 29.6 pg (27.0-33.0); Mean Corpuscular Volume 90.4 fL (80.0-98.0); NRBC Abs Auto 0.000 X10*3/uL (0.0-0.012); NRBC Pct Auto 0.0 /100WBC (0.0-0.2); Platelet Count 285 X10*3/uL (160-400); Red Blood Count 4.50 X10*6/uL (4.20-5.50); White Blood Count 13.0 X10*3/uL (4.8-10.8)
[2025-07-26 12:02] LABS: Appearance Urine Clear; Glucose Urine UA Negative (Negative); PH 7.0 (5.0-9.0); Specific Gravity - Urine 1.020 (1.005-1.025); UMIC TRIGGER UACC YES
--- NOTE | 2025-07-26 12:08 | PC.NURSE ---
Patient's daughter states patient woke up this morning to use the bathroom around 0800, patient reached out to daughter stating she thought she had a stroke d/t inability to move right side. Patient was having difficulty word finding. Unknown exact LKWT. Patient responding appropriately to questions, however answering questions slowly. Placed IV 20G in the L forearm. Straight cath, patient tolerated well.
[2025-07-26 12:22] LABS: UACC Culture Trigger YES
[2025-07-26 12:27] LABS: Resp Syncy Virus RNA Qual PCR NEGATIVE (Negative); SARS COV2 PCR INHOUSE NEGATIVE (Negative)
[2025-07-26 13:29] LABS: Alanine Aminotransferase 18 U/L (0-31); Albumin Level 4.1 g/dL (3.5-5.0); Alkaline Phosphatase 69 U/L (39-117); Anion Gap 12 (12-20); Aspartate Amino Transferase 25 U/L (5-31); Blood Urea Nitrogen 18 mg/dL (9-16); Calcium 9.3 mg/dL (8.4-10.2); Carbon Dioxide 29 mmol/L (22-29); Chloride 104 mmol/L (96-108); Creatinine Clr Calc Pharmacy 54.7; Estimated Glomerular Filt Rate > 60; Lipase 40 U/L (8-78); Magnesium 2.2 mg/dL (1.6-2.6); Potassium 3.5 mmol/L (3.3-5.1); Sodium 141 mmol/L (135-145); Total Protein 6.4 g/dL (6.5-8.0); Troponin-I High Sensitivity 44.2 ng/L (<3.5-17.0)
--- NOTE | 2025-07-26 15:05 | PC.NURSE ---
Patient unable to take aspirin due to pill possibly containing yellow dye, which causes patient respiratory distress d/t daughter.
[2025-07-26 15:50] LABS: Troponin-I High Sensitivity 35.4 ng/L (<3.5-17.0)
--- NOTE | 2025-07-26 16:15 | PM.IMHP ---
History of Present Illness Date of Service: 07/26/25 Chief Complaint: Weakness 84-year-old woman presented to the ER with complaints of right-sided weakness with facial droop. Apparently the patient's daughter received a phone call this morning that said ?I had a stroke?. Patient reported that she was unable to get out of bed this morning, had word-finding difficulties, right-sided facial droop and was unable to lift her right upper and lower extremity. Patient reports that she does have significant osteoporosis, Parkinson's disease. 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 Patient denied any chest pain, shortness breath, nausea, vomiting, diarrhea, recent travel, sick contacts. During the interview patient was able to lift up her left upper and lower extremities as well as right upper extremity but had some difficulties with her right lower extremity. She was able to communicate properly and no facial droop was noted during the interview. Head CT and CTA were negative for any acute abnormality. Chest x-ray was negative for consolidation or effusion. EKG showed possible left bundle branch block with sinus rhythm with occasional PVCs and PACs. In the ER. Patient was given a dose of aspirin. Plan will be to admit patient for further management and treatment of possible TIA versus stroke Review of Systems Review of Systems: Denies any recent fever chills or decrease in appetite respiratory denies any shortness of breath or cough cardiovascular denied chest pain gastrointestinal denies any dysphagia abdominal pain nausea vomiting or diarrhea genitourinary denies any dysuria frequency or hematuria musculoskeletal denies any joint pain or swelling neuropsych see HPI all other systems reviewed are negative [facility] Medical History (Updated 07/26/25 @ 17:37 by Pauline Gama NP) Parkinson's disease without dyskinesia Thrombophlebitis, popliteal vein Gait disorder Anxiety Coarse tremors Thyroid disease Chronic pain syndrome Osteoarthritis of left knee Spinal stenosis Left sided sciatica Constipation by delayed colonic transit Dyslipidemia Onychomycosis Neuropathy Rosacea Asthma Family History Father Hypertension Pancreatitis Uremia Mother Diverticulosis Alzheimers disease Brother Colon cancer CVD (cardiovascular disease) Sister Colon cancer Surgical History Hx of colonoscopy History of surgery History of back surgery (~03/31/21) History of surgery History of removal of both ovaries Colostomy in place History of tonsillectomy History of cholecystectomy History of repair of hiatal hernia History of hysterectomy Social History Household Members: Spouse Household Members Other:: 2 Housing: Condominium Are you a primary patient care provider to a significant other at home: Yes Do you presently have visiting nurse or other home services: Yes Alcohol intake: never 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 Patient Tobacco Use Status: Former Tobacco user Tobacco use type: Cigarette Years Smoked: 1 year e-Cigarette/Vaping Use: Never Used Second Hand Smoke Exposure: No Advance Directives: Yes Advance Directives on File: Yes Advance Directives Date on File: 07/26/25 service: No Current occupational status: retired Cognitive needs: Yes Hearing needs: No Vision needs: Yes Meds Allergies Allergy/AdvReac Type Severity Reaction Status Date / Time mold (MOLD) Allergy Severe SWELLING Verified 07/26/25 11:37 alcohol (ALCOHOL) Allergy Intermediate RED, Verified 07/26/25 11:37 SWELLING corn syrup (CORN SYRUP) Allergy Intermediate red hot Verified 07/26/25 11:37 face dextrose (DEXTROSE) Allergy Intermediate RED RASH Verified 07/26/25 11:37 erythromycin base Allergy Intermediate RASH Verified 07/26/25 11:37 (ERYTHROMYCIN BASE) Penicillins (PENICILLINS) Allergy Intermediate SWELLING, Verified 07/26/25 11:37 RASH sucrose (SUCROSE) Allergy Intermediate RED RASH Verified 07/26/25 11:37 Sulfa (Sulfonamide Allergy Intermediate RASH, Verified 07/26/25 11:37 Antibiotics) (SULFA redness, (SULFONAMIDE ANTIBIOTICS)) redness valacyclovir Allergy Intermediate Redness of Verified 07/26/25 11:37 Skin latex Allergy Hives Verified 07/26/25 17:34 yellow dye Allergy Anaphylaxis Verified 07/26/25 17:34 morphine AdvReac Intermediate Hallucinati Verified 07/26/25 11:37 ons 12 Hour Nasal Allergy Intermediate hives Uncoded 03/31/25 15:32 WINE Allergy Intermediate RASH FROM Uncoded 03/31/25 15:32 RED WINE fluorquinolones Allergy Mild nerve Uncoded 03/31/25 15:32 damage Active Medications: Current Medications Acetaminophen (Acetaminophen 325 Mg Tablet) 650 mg PO Q6H PRN PRN Reason: Pain, Mild 1-3,fever,headache Calcium Carbonate (Calcium Carbonate 750 Mg Tab.Chew) 750 mg PO Q4H PRN PRN Reason: Heartburn Heparin Sodium (Porcine) (Heparin Sodium,Porcine 5,000 Unit/Ml Vial) 5,000 unit SUBCUT Q12H [facility] Magnesium Hydroxide (Milk Of Magnesia 30 Ml Oral.Susp) 30 ml PO DAILY PRN PRN Reason: Constipation Melatonin (Melatonin 3 Mg Tablet) 6 mg PO BEDTIME PRN PRN Reason: Insomnia Ondansetron HCl (Ondansetron Hcl 4 Mg/2 Ml Vial) 4 mg IVPUSH Q8H PRN PRN Reason: Nausea and Vomiting Sodium Chloride (0.9 % Sodium Chloride Flush 3 Ml Syringe) 3 ml IVFLUSH QSHIFT [facility] Home Medications ?Medication ?Instructions ?Recorded ?Confirmed ?Last Taken ?Type beclomethasone dipropionate 80 2 inh inhalation BID 07/04/20 07/12/25 04/30/24 History mcg/actuation HFA breath activated aerosol (Qvar RediHaler) ascorbic acid (vitamin C) 500 mg 500 mg PO DAILY 11/10/20 07/12/25 11/08/20 History tablet (Vitamin C) multivitamin 1 tab PO DAILY 11/10/20 07/12/25 11/08/20 History alpha lipoic acid 600 mg capsule 600 mg PO BID 11/16/21 07/12/25 Unknown History biotin 5,000 mcg disintegrating 10,000 mcg PO DAILY 11/16/21 07/12/25 Unknown History tablet bromelains 500 mg tablet 1,000 mg PO DAILY 11/16/21 07/12/25 Unknown History chromium picolinate 1,000 mcg 1,000 mcg PO DAILY 11/16/21 07/12/25 Unknown History tablet flaxseed oil 1,000 mg capsule 1,000 mg PO BID 11/16/21 07/12/25 Unknown History lutein 20 mg tablet 20 mg PO DAILY 11/16/21 07/12/25 Unknown History magnesium 500 mg tablet 1,000 mg PO BID 11/16/21 07/12/25 Unknown History mecobalamin (vitamin B12) 5,000 mcg PO 11/16/21 07/12/25 Unknown History mcg disintegrating tablet vitamin E 200 unit capsule 200 unit PO DAILY 11/16/21 07/12/25 Unknown History albuterol sulfate 90 mcg/actuation inhalation 06/07/23 07/12/25 Unknown History breath activated powder inhaler (ProAir RespiClick) calcium polycarbophil 625 mg mg PO 06/07/23 07/12/25 Unknown History tablet (Fiber (calcium polycarbophil)) albuterol sulfate 90 mcg/actuation 2 puff inhalation Q4H 07/12/25 07/12/25 Unknown History aerosol inhaler carbidopa 25 mg-levodopa 100 mg 1 tab PO TID 07/12/25 07/12/25 Unknown History tablet ketoconazole 2 % topical cream appl topical BID 07/12/25 07/12/25 Unknown History Physical Exam Vital Signs and Narrative: Vital Signs: Last Vital Signs Temp 98 F 07/26/25 15:00 Pulse 50 07/26/25 15:00 Resp 20 07/26/25 15:00 BP 139/60 07/26/25 15:00 Pulse Ox 97 07/26/25 15:00 O2 Del Method Room Air 07/26/25 15:00 BMI result Body Mass Index 19.1 Appearing in no acute distress head is normocephalic atraumatic eyes pupils are PERRLA sclera is anicteric mouth throat mucous membranes are intact and moist neck is supple no lymphadenopathy, no JVD noted lung sounds are clear to auscultation heart regular rate rhythm, clear S1, S2 positive bowel sounds, abdomen is soft, nontender neuro patient is alert x3, no focal deficits, 4/5 strength to right lower extremity, 5/5 strength to right upper, left upper and left lower extremity Significant notable kyphosis Results Labs 07/26/25 11:41 07/26/25 12:52 Labs: Laboratory Results - last 24 hr 07/26/25 07/26/25 07/26/25 11:41 11:49 12:52 MCV 90.4 MCH 29.6 MCHC 32.7 RDW 13.0 Plt Count 285 D MPV 11.6 Immature Gran % (Auto) 0.3 Neut % (Auto) 81.7 H Lymph % (Auto) 11.4 L Crisp % (Auto) 5.5 Eos % (Auto) 0.4 Baso % (Auto) 0.7 Lymph # (Auto) 1.5 Crisp # (Auto) 0.7 Eos # (Auto) 0.1 Baso # (Auto) 0.1 Abs Immat Gran (auto) 0.04 H Absolute Neuts (auto) 10.6 H Absolute Nucleated RBC 0.000 Nucleated RBC % (auto) 0.0 Hold Blue Top SEE NOTE Anion Gap 12 Estim Creat Clear Calc 54.7 Estimated GFR > 60 Random Glucose 94 Calcium 9.3 Magnesium 2.2 Total Bilirubin 0.5 Direct Bilirubin 0.2 AST 25 ALT 18 Alkaline Phosphatase 69 Total Creatine Kinase 44 Troponin I High Sens 44.2 H D C-Reactive Protein < 0.10 Total Protein 6.4 L Albumin 4.1 Lipase 40 TSH Cancelled 3.25 Urine Color Dark Yellow Urine Appearance Clear Urine pH 7.0 Ur Specific [place] 1.020 Urine Protein 30 (1+) H Urine Glucose (UA) Negative Urine Ketones Trace Urine Blood Negative Urine Nitrite Negative Ur Leukocyte Esterase Small (1+) H Urine RBC 0-2 Urine WBC 6-10 H Ur Squamous Epith Cells 3-5 Ur Transition Epith Cell Present Ur Renal Epithelial Cell Present Urine Bacteria None Seen Hyaline Casts 6-10 Influenza Type A (PCR) NEGATIVE Influenza Type B (PCR) NEGATIVE RSV RNA Qual (PCR) NEGATIVE SARS-CoV-2 RNA (RT-PCR) NEGATIVE 07/26/25 15:14 MCV MCH MCHC RDW Plt Count MPV Immature Gran % (Auto) Neut % (Auto) Lymph % (Auto) Crisp % (Auto) Eos % (Auto) Baso % (Auto) Lymph # (Auto) Crisp # (Auto) Eos # (Auto) Baso # (Auto) Abs Immat Gran (auto) Absolute Neuts (auto) Absolute Nucleated RBC Nucleated RBC % (auto) Hold Blue Top Anion Gap Estim Creat Clear Calc Estimated GFR Random Glucose Calcium Magnesium Total Bilirubin Direct Bilirubin AST ALT Alkaline Phosphatase Total Creatine Kinase Troponin I High Sens 35.4 H C-Reactive Protein Total Protein Albumin Lipase TSH Urine Color Urine Appearance Urine pH Ur Specific [place] Urine Protein Urine Glucose (UA) Urine Ketones Urine Blood Urine Nitrite Ur Leukocyte Esterase Urine RBC Urine WBC Ur Squamous Epith Cells Ur Transition Epith Cell Ur Renal Epithelial Cell Urine Bacteria Hyaline Casts Influenza Type A (PCR) Influenza Type B (PCR) RSV RNA Qual (PCR) SARS-CoV-2 RNA (RT-PCR) Imaging Radiologist's Impressions: Impressions Head CT 07/26/25 12:00 IMPRESSION: No acute intracranial abnormality. Electronically signed by: Milton Dean MD 07/26/2025 12:25 PM EST RP Head/Neck CTA 07/26/25 12:25 IMPRESSION: No large vessel occlusion, hemodynamically significant stenosis, or aneurysm in the head and neck. Electronically signed by: Milton Dean MD 07/26/2025 12:54 PM EST RP Chest X-Ray 07/26/25 12:30 IMPRESSION: Cardiomegaly. No focal consolidation. Electronically signed by: Santiago Retana MD 07/26/2025 12:42 PM EST RP Assessment and Plan (1) Chest pain: Status: Acute (2) Abnormal EKG: Status: Acute Plan 84 year old women placed on observation for symptoms of TIA Possible TIA Monitor on telemetry Neurology consultation MRI PT/OT asa and statin Severe osteoarthritis/osteoporosis with chronic pain syndrome Also with history of spinal stenosis Patient has chronic back pain There is a question whether the symptoms may have been related to that Physical examination shows no pain, numbness to upper and lower extremities her back for that matter No need for back imaging at this time. Parkinson's disease No dyskinesia Continue carbidopa levodopa Left bundle branch block Unknown if new although previous EKGs not showing Repeat EKG in the morning if consistently present consider Cardiology consultation Flat troponins DVT prophylaxis with heparin DNR Quality Stroke Does the patient have a stroke diagnosis?: No VTE Prior VTE?: No VTE Risk Level:: Medical - moderate - high VTE Device Contraindication: Treatment Not Indicated VTE Drug Contraindication: N/A - Med Ordered
--- OUTSIDE RECORDS SUMMARY | 2025-07-26 16:39 | XMS_ITS | Encounter Summary ---
Author Organization [facility] Address [address] [facility] [address] [place] [address] Phone Care Team Providers Care Crab Picker Name Role Phone Ej Valderrama Primary Care Provider [phone]- [phone] Fabby Singh MD Primary Care Provid er Encounter Details Date Type Department Care Team (Late st Contact Info) Description 07/14/2018 Transcribe Orders [facility] Specimen Processing [address] [place] [address] Leonides Frazier MD [address] [facility] [address] [place] [address] [email or web address] Abnormal hormone levels in [...] Description 10/13/2025 11:00 AM EDT Office Visit [facility] [address] [place] [address] Amna Carpenter MD [address] [place] [address] [email or web address] 02/10/2026 3:00 PM EDT Office Visit [facility] [address] [place] [address] Allison Oleary MD 75 [facility] [address] [place] [address] [email or web address] documented as of this encounter Results * (ABNORMAL) Comprehensive metabolic panel (07/14/2018 10:00 AM EST) SODIUM 136 133 - 146 mmol/L [facility] POTASSIUM 4.9 3.3 - 5.1 mmol/L [facility] CHLORIDE 96 96 - 108 mmol/L [facility] CO2 26 21 - 35 mmol/L [facility] BUN 10 6 - 19 mg/dL [facility] CREATININE <0.50(L) 0.5 - 1.5 mg/dL [facility] GLUCOSE 145(H) 70 - 99 mg/dL [facility] ALBUMIN 3.8(L) 3.9 - 4.8 g/dL [facility] TOTAL PROTEIN 7.0 6.5 - 8.0 g/dL [facility] CALCIUM 10.1 8.4 - 10.3 mg/dL [facility] ALKALINE PHOSPHATASE 84 39 - 117 U/L [facility] TOTAL BILIRUBIN 0.3 0.0 - 1.2 mg/dL [facility] AST 18 0 - 37 U/L [facility] ALT 10 0 - 40 U/L [facility] GLOBULIN 3.2 1 - 4.8 g/dL [facility] EGFR Not Done >59 mL/min/1.7 3m2 [facility] ANION GAP 19 10 - 20 mmol/L [facility] Blood 07/14/2018 10:0 0 AM EST 07/14/2018 11:12 AM EST us Leonides Frazier MD LAB BLOOD BKR ORDERABLES Final R esult [facility] [address] [place] [address] * (ABNORMAL) CBC and differential (07/14/2018 10:00 AM EST) WBC 10.93 3.40 - 11.20 K/uL [facility] RBC 4.04 3.80 - 4.80 M/uL [facility] HGB 10.2(L) 12.0 - 15.0 g/dL [facility] HCT 33.9(L) 36.0 - 46.0 % [facility] PLT 635(H) 130 - 400 K/uL [facility] MCV 83.9 79.0 - 98.0 fL [facility] MCH 25.2(L) 27.0 - 34.8 pg [facility] MCHC 30.1(L) 31.5 - 36.0 g/dL [facility] RDW 17.5(H) 10.8 - 14.6 % [facility] MPV 11.5 9.4 - 12.4 fl [facility] NRBC 0.00 0.00 /100 WBCs [facility] ABSOLUTE NRBC 0.00 0.00 K/uL [facility] DIFF METHOD Auto [facility] NEUTS 67.2 45.30 - 77.70 % [facility] LYMPHS 20.6 12.30 - 39.70 % [facility] MONOS 7.0 4.10 - 12.80 % [facility] EOS 3.0 0 - 7.2 % [facility] BASOS 1.2 0 - 2.80 % [facility] Granulocytes, immature (%) 1.0(H) 0.0 - 0.9 % [facility] ABSOLUTE NEUTS 7.35 1.40 - 7.70 K/uL [facility] ABSOLUTE LYMPHS 2.25 0.60 - 3.20 K/uL [facility] ABSOLUTE MONOS 0.76(H) 0.11 - 0.59 K/uL [facility] ABSOLUTE EOS 0.33 0.01 - 0.50 K/uL [facility] ABSOLUTE BASOS 0.13(H) 0.00 - 0.08 K/uL [facility] Granulocytes, immature 0.11(H) 0.00 - 0.05 K/uL [facility] Blood 07/14/2018 10:0 0 AM EST 07/14/2018 11:12 AM EST us Leonides Frazier MD LAB BLOOD BKR ORDERABLES Final R esult Performing Organization Address City/State/[facility] Co de Phone Number [address] [phone] documented in this encounter Visit Diagnoses Diagnosis Abnormal hormone levels in CSF- Primary Nonspecific abnormal finding in cerebrospinal fluid Colostomy status documented in this encounter Care Teams Crab Picker Relationship Specialty Start Date End Date Ej Valderrama DO [address] [place] [address] PCP - General Internal Medicine 10/29/17 02/03/25 Fabby Singh MD [address] [place] [address] PCP - General Internal Medicine 02/04/25 documented as of this encounter Additional Source Comments The information contained in this document represents components of the legal health record. It is not the complete legal health record.[facility]
--- OUTSIDE RECORDS SUMMARY | 2025-07-26 16:39 | XMS_ITS | Encounter Summary ---
Author Organization [facility] Address [address] [facility] [place] [address] Phone Care Team Providers Care Slitter Cut Off Operator Name Role Phone Ej Valderrama DO Primary Care Provider [phone]- [phone] Fabby Singh MD Primary Care Provid er Encounter Details Date Type Department Care Team (Late st Contact Info) Description 12/06/2022 Transcribe Orders [facility] [address] [place] [address] Ej Valderrama DO [address] [place] [address] Social History Tobacco Use Types Packs/Day Years [...] and [facility] [address] [place] [address] Amna Carpenter MD [address] [place] [address] [email or web address] 02/10/2026 3:00 PM EDT Office Visit [facility] [address] [facility] [address] [place] [address] Allison Oleary MD [address] [facility] [address] [place] [address] [email or web address] documented as of this encounter Visit Diagnoses Not on filedocumented in this encounter Care Teams Slitter Cut Off Operator Relationship Specialty Start Date End Date Ej Valderrama DO [address] [place] [address] PCP - General Internal Medicine 10/29/17 02/03/25 Fabby Singh MD [address] [place] [address] PCP - General Internal Medicine 02/04/25 documented as of this encounter Additional Source Comments The information contained in this document represents components of the legal health record. It is not the complete legal health record.[facility]
--- OUTSIDE RECORDS SUMMARY | 2025-07-26 16:39 | XMS_ITS | Encounter Summary ---
Author Organization [facility] Address [address] [facility] [address] [place] [address] Phone Care Team Providers Care Tree Trimmer Helper Name Role Phone Ej Valderrama Primary Care Provider +1- [phone] Fabby Singh MD Primary Care Provid er Encounter Details Date Type Department Care Team (Late st Contact Info) Description 07/18/2018 Transcribe Orders [facility] Specimen Processing [address] [place] [address] Leonides Frazier MD [address] [place] [address] [address] [place] [address] [email or web address] Infection (Primary Dx) Social History Tobacco Use [...] Description 10/13/2025 11:00 AM EDT Office Visit [facility] [address] [place] [address] Amna Carpenter MD [address] [place] [address] [email or web address] 02/10/2026 3:00 PM EDT Office Visit [facility] [address] [facility] [address] [place] [address] Allison Oleary MD 75 [facility] [address] [place] [address] [email or web address] documented as of this encounter Results * (ABNORMAL) CBC and differential (07/18/2018 4:30 AM EST) WBC 9.26 3.40 - 11.20 K/uL [facility] RBC 3.71(L) 3.80 - 4.80 M/uL [facility] HGB 9.4(L) 12.0 - 15.0 g/dL [facility] HCT 31.6(L) 36.0 - 46.0 % [facility] PLT 457(H) 130 - 400 K/uL [facility] MCV 85.2 79.0 - 98.0 fL [facility] MCH 25.3(L) 27.0 - 34.8 pg [facility] MCHC 29.7(L) 31.5 - 36.0 g/dL [facility] RDW 17.4(H) 10.8 - 14.6 % [facility] MPV 11.4 9.4 - 12.4 fl [facility] NRBC 0.00 0.00 /100 WBCs [facility] ABSOLUTE NRBC 0.00 0.00 K/uL [facility] DIFF METHOD Auto [facility] NEUTS 54.9 45.30 - 77.70 % [facility] LYMPHS 27.4 12.30 - 39.70 % [facility] MONOS 9.1 4.10 - 12.80 % [facility] EOS 6.8 0 - 7.2 % [facility] BASOS 1.0 0 - 2.80 % [facility] Granulocytes, immature (%) 0.8 0.0 - 0.9 % [facility] ABSOLUTE NEUTS 5.09 1.40 - 7.70 K/uL [facility] ABSOLUTE LYMPHS 2.54 0.60 - 3.20 K/uL [facility] ABSOLUTE MONOS 0.84(H) 0.11 - 0.59 K/uL [facility] ABSOLUTE EOS 0.63(H) 0.01 - 0.50 K/uL [facility] ABSOLUTE BASOS 0.09(H) 0.00 - 0.08 K/uL [facility] Granulocytes, immature 0.07(H) 0.00 - 0.05 K/uL [facility] Blood 07/18/2018 4:30 AM EST 07/18/2018 9:55 AM EST us Leonides Frazier MD LAB BLOOD BKR ORDERABLES Final R esult Performing Organization Address City/State/[facility] Co de Phone Number [facility] [address] [place] [address] documented in this encounter Visit Diagnoses Diagnosis Infection- Primary Unspecified infectious and parasitic diseases documented in this encounter Care Teams Tree Trimmer Helper Relationship Specialty Start Date End Date Ej Valderrama DO [address] [place] [address] PCP - General Internal Medicine 10/29/17 02/03/25 Fabby Singh MD [address] [place] [address] PCP - General Internal Medicine 02/04/25 documented as of this encounter Additional Source Comments The information contained in this document represents components of the legal health record. It is not the complete legal health record.[facility]
--- OUTSIDE RECORDS SUMMARY | 2025-07-26 16:40 | XMS_ITS | Encounter Summary ---
Author Organization [facility] Address [address] [facility] [address] [place] [address] Phone Care Team Providers Care Trimmer Machine Name Role Phone Ej Valderrama Primary Care Provider [phone] Fabby Singh MD Primary Care Provid er Encounter Details Date Type Department Care Team (Late st Contact Info) Description 07/21/2018 Transcribe Orders [facility] Specimen Processing [address] [place] [address] Leonides Frazier MD [address] [facility], [address] [place] [address] [email or web address] Perforated diverticulum of large intestine (Primary Dx) [...] Description 10/13/2025 11:00 AM EDT Office Visit [facility] [address] [place] [address] Amna Carpenter MD [address] [place] [address] [email or web address] 02/10/2026 3:00 PM EDT Office Visit [facility] [address] [facility] [address] [place] [address] Allison Oleary MD [address] [facility] [address] [place] [phone] [email or web address] documented as of this encounter Results * (ABNORMAL) Basic metabolic panel (07/21/2018 5:00 AM EST) SODIUM 140 133 - 146 mmol/L [facility] CHLORIDE 100 96 - 108 mmol/L [facility] POTASSIUM 4.4 3.3 - 5.1 mmol/L [facility] CO2 25 21 - 35 mmol/L [facility] BUN 10 6 - 19 mg/dL [facility] CREATININE <0.50(L) 0.5 - 1.5 mg/dL [facility] GLUCOSE 73 70 - 99 mg/dL [facility] CALCIUM 9.9 8.4 - 10.3 mg/dL [facility] EGFR Not Done >59 mL/min/1.73 m2 [facility] ANION GAP 19 10 - 20 mmol/L [facility] Blood 07/21/2018 5:00 AM EST 07/21/2018 8:35 AM EST us Leonides Frazier MD LAB BLOOD BKR ORDERABLES Final R esult [facility] [address] [place] [address] * (ABNORMAL) CBC (07/21/2018 5:00 AM EST) WBC 7.72 3.40 - 11.20 K/uL [facility] RBC 3.86 3.80 - 4.80 M/uL [facility] HGB 9.8(L) 12.0 - 15.0 g/dL [facility] HCT 32.4(L) 36.0 - 46.0 % [facility] PLT 165 130 - 400 K/uL [facility] Comment:some platelet clumps noted on smear, count may be higher than indicated MCV 83.9 79.0 - 98.0 fL [facility] MCH 25.4(L) 27.0 - 34.8 pg [facility] MCHC 30.2(L) 31.5 - 36.0 g/dL [facility] RDW 17.7(H) 10.8 - 14.6 % [facility] MPV 12.1 9.4 - 12.4 fl [facility] NRBC 0.00 0.00 /100 WBCs [facility] ABSOLUTE NRBC 0.00 0.00 K/uL [facility] Blood 07/21/2018 5:00 AM EST 07/21/2018 8:35 AM EST us Leonides Frazier MD LAB BLOOD BKR ORDERABLES Final R esult [facility] [address] [place] [address] documented in this encounter Visit Diagnoses Diagnosis Perforated diverticulum of large intestine- Primary Diverticulosis of colon (without mention of hemorrhage) documented in this encounter Care Teams Trimmer Machine Relationship Specialty Start Date End Date Ej Valderrama DO [address] [place] [address] PCP - General Internal Medicine 10/29/17 02/03/25 Fabby Singh MD [address] [place] [address] PCP - General Internal Medicine 02/04/25 documented as of this encounter Additional Source Comments The information contained in this document represents components of the legal health record. It is not the complete legal health record.[facility]
--- OUTSIDE RECORDS SUMMARY | 2025-07-26 16:40 | XMS_ITS | Clinical Summary ---
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 Not on file Not on file [...] Upcoming Encounters Date Type Department Care Team ([facility] st Contact Info) Description 10/13/2025 11:00 AM EDT Office Visit [facility] Neurology Movement Disorders Program [address] [place] [address] Amna Carpenter MD [address] [place] [phone] [email or web address] 02/10/2026 3:00 PM EDT Office Visit [facility] [address] [facility] [place] [address] Allison Oleary MD [address] [place] [address] [email or web address] Health Maintenance Due Date Last Done Comments DEPRESSION SCREENING 1952 OSTEOPOROSIS SCREENING INITIAL (ONE-TIME) 2005 RSV VACCINE (1 - 1-dose 75+ series) 10/26/2015 ZOSTER VACCINES (2 of 2) 10/22/2019 08/27/2019 COVID-19 VACCINE ( season) 2025 04/11/2024, 05/15/2023, [...] Medical Devices Not on file Insurance [address] [place] [address] MEDICARE PART A & [facility] [address] [place] [address] MEDICARE PART A & B [facility] MEDICARE REPLACEMENT [address] [place] [address] MEDICARE PART A & B [address] [place] [address] MEDICARE PART A & B [address] [place] [address] MEDICARE PART A & B O MEDICARE REPLACEMENT [address] [place] [address] MEDICARE PART A & B [address] [place] [address] MEDICARE PART A & B MEDICARE REPLACEMENT [address] [place] [address] MEDICARE PART A & B MEDICARE REPLACEMENT [place] [id number] [address] [place] [address] MEDICARE PART A & B Member Subscriber Plan / Payer (Ef fective 2004-Present) Name:Birgit Collins Member ID:[id number] Relation to Subscriber:Self Name:Birgit Collins Subscriber ID:[id number] Payer ID:[id number] Group ID:Not on file Type:Medicare Address: [employer] [address] MEDICARE REPLACEMENT [place] [id number] Care Teams Wood Turner Relationship Specialty Start Date End Date Fabby Singh MD [address] [place] [address] PCP - General Internal Medicine 02/04/25 Additional Source Comments The information contained in this document represents components of the legal health record. It is not the complete legal health record.[facility]
--- NOTE | 2025-07-26 17:01 | MHC.EDTECH ---
PT OOB to commode with this tech. Pt was weak and had a difficult time moving her feet.
[2025-07-26] MEDS: 0.9 % Sodium Chloride Flush 3 ML SYRINGE IVFLUSH ×2 (17:40→22:26)
--- NOTE | 2025-07-26 18:19 | PHA.MEDREC ---
Pharmacy Consult ? Medication Reconciliation Pharmacy has completed the medication reconciliation. Spoke with patient and daughter in the ED. Patient is only on lasix/carbidopa levodopa/ 2 inhalers and vitamins/supp. Patient has allergy to yellow dye and will be bringing in own carbidopa levodopa. Texted mayra barrera in regards to yellow dye allergy.
--- NOTE | 2025-07-26 18:32 | PC.NURSE ---
Per pharmacy - hold PRN medications due to yellow dye allergy.
--- NOTE | 2025-07-26 18:39 | HO.NURTONUR ---
Patient comes to ED for increased weakness per family. Patient A&O x4. Right lower extremity weakness per daughter. Unknown LKWT. Hx parkinson's, osteoporosis, asthma, and neuropathy. Admit for observation for possible TIA. 2 assist out of bed. 20G IV in L forearm. Awaiting MRI and neuro consult. Per pharmacy - hold PRN meds due to yellow dye allergy.
[2025-07-27 03:12] VITALS: BP 126/59; PULSE 56; RESP 14; TEMP 36.8; O2SAT 97
[2025-07-27 06:58] LABS: Hematocrit 38.2 % (37.0-47.0); Hemoglobin 12.2 g/dl (12.0-16.0); Mean Corpuscular HGB Conc 31.9 g/dl (31.0-35.0); Mean Corpuscular Hemoglobin 29.5 pg (27.0-33.0); Mean Corpuscular Volume 92.3 fL (80.0-98.0); NRBC Abs Auto 0.000 X10*3/uL (0.0-0.012); NRBC Pct Auto 0.0 /100WBC (0.0-0.2); Platelet Count 268 X10*3/uL (160-400); Red Blood Count 4.14 X10*6/uL (4.20-5.50); White Blood Count 8.1 X10*3/uL (4.8-10.8)
[2025-07-27 07:05] LABS: Alanine Aminotransferase 17 U/L (0-31); Albumin Level 3.8 g/dL (3.5-5.0); Alkaline Phosphatase 61 U/L (39-117); Anion Gap 12 (12-20); Aspartate Amino Transferase 21 U/L (5-31); Blood Urea Nitrogen 22 mg/dL (9-16); Calcium 9.2 mg/dL (8.4-10.2); Carbon Dioxide 29 mmol/L (22-29); Chloride 106 mmol/L (96-108); Creatinine Clr Calc Pharmacy 56.8; Estimated Glomerular Filt Rate > 60; Potassium 3.7 mmol/L (3.3-5.1); Sodium 143 mmol/L (135-145); Total Protein 5.9 g/dL (6.5-8.0)
[2025-07-27 07:27] VITALS: BP 146/67; PULSE 120; RESP 18; TEMP 36.8; O2SAT 94
[2025-07-27 09:03] VITALS: PULSE 72
[2025-07-27] MEDS: 0.9 % Sodium Chloride Flush 3 ML SYRINGE IVFLUSH (09:26)
--- NOTE | 2025-07-27 09:31 | MHC.CM.PN ---
Orin 07/27/25, Pt. 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 Dementia. They have services in the home from [facility] for pt. and . PCP confirmed: Fabby Cabrera MD, HCP is on file and confirmed: Oscar. Referral will be submitted to [facility], Pt. said that she has been waiting for services from them for OT and PT thru her [facility] to start. Family to transport home at DC, DCP home with services. CM to follow for DC needs.
--- NOTE | 2025-07-27 10:21 | HO.PM.IMPN ---
Subjective Subjective Date of Service: 07/27/25 Review of Systems Follow up Stroke back to baseline with mild weakness to right LE Physical Exam Exam: Exam: Appearing in no acute distress lung sounds are clear to auscultation heart regular rate rhythm, clear S1, S2 positive bowel sounds, abdomen is soft, nontender neuro patient is alert x3 4/5 weakness to right LE Vital Signs: Vital Signs: Last Vital Signs Temp 98.2 F 07/27/25 07:27 Pulse 72 07/27/25 09:03 Resp 18 07/27/25 07:27 BP 146/67 H 07/27/25 07:27 Pulse Ox 94 07/27/25 07:27 O2 Del Method Room Air 07/27/25 07:27 BMI result Body Mass Index 21.3 Objective Data Active Medications Acetaminophen (Acetaminophen 325 Mg Tablet) 650 mg PO Q6H PRN PRN Reason: Pain, Mild 1-3,fever,headache Calcium Carbonate (Calcium Carbonate 750 Mg Tab.Chew) 750 mg PO Q4H PRN PRN Reason: Heartburn Heparin Sodium (Porcine) (Heparin Sodium,Porcine 5,000 Unit/Ml Vial) 5,000 unit SUBCUT Q12H [facility] Last Admin: 07/27/25 05:48 Dose: 5,000 unit Documented By: ZANE Magnesium Hydroxide (Milk Of Magnesia 30 Ml Oral.Susp) 30 ml PO DAILY PRN PRN Reason: Constipation Melatonin (Melatonin 3 Mg Tablet) 6 mg PO BEDTIME PRN PRN Reason: Insomnia Ondansetron HCl (Ondansetron Hcl 4 Mg/2 Ml Vial) 4 mg IVPUSH Q8H PRN PRN Reason: Nausea and Vomiting Sodium Chloride (0.9 % Sodium Chloride Flush 3 Ml Syringe) 3 ml IVFLUSH QSHIFT [facility] Last Admin: 07/27/25 09:26 Dose: 3 ml Documented By: HAIDER Labs 07/27/25 06:35 07/27/25 06:35 Labs: Laboratory Results - last 24 hr 07/26/25 07/26/25 07/26/25 11:41 11:49 12:52 MCV 90.4 MCH 29.6 MCHC 32.7 RDW 13.0 Plt Count 285 D MPV 11.6 Immature Gran % (Auto) 0.3 Neut % (Auto) 81.7 H Lymph % (Auto) 11.4 L [place] % (Auto) 5.5 Eos % (Auto) 0.4 Baso % (Auto) 0.7 Lymph # (Auto) 1.5 [place] # (Auto) 0.7 Eos # (Auto) 0.1 Baso # (Auto) 0.1 Abs Immat Gran (auto) 0.04 H Absolute Neuts (auto) 10.6 H Absolute Nucleated RBC 0.000 Nucleated RBC % (auto) 0.0 Hold Blue Top SEE NOTE Anion Gap 12 Estim Creat Clear Calc 54.7 Estimated GFR > 60 Random Glucose 94 Calcium 9.3 Magnesium 2.2 Total Bilirubin 0.5 Direct Bilirubin 0.2 AST 25 ALT 18 Alkaline Phosphatase 69 Total Creatine Kinase 44 Troponin I High Sens 44.2 H D C-Reactive Protein < 0.10 Total Protein 6.4 L Albumin 4.1 Lipase 40 TSH Cancelled 3.25 Urine Color Dark Yellow Urine Appearance Clear Urine pH 7.0 Ur Specific [place] 1.020 Urine Protein 30 (1+) H Urine Glucose (UA) Negative Urine Ketones Trace Urine Blood Negative Urine Nitrite Negative Ur Leukocyte Esterase Small (1+) H Urine RBC 0-2 Urine WBC 6-10 H Ur Squamous Epith Cells 3-5 Ur Transition Epith Cell Present Ur Renal Epithelial Cell Present Urine Bacteria None Seen Hyaline Casts 6-10 Influenza Type A (PCR) NEGATIVE Influenza Type B (PCR) NEGATIVE RSV RNA Qual (PCR) NEGATIVE SARS-CoV-2 RNA (RT-PCR) NEGATIVE 07/26/25 07/27/25 15:14 06:35 MCV 92.3 MCH 29.5 MCHC 31.9 RDW 12.9 Plt Count 268 MPV 11.6 Immature Gran % (Auto) Neut % (Auto) Lymph % (Auto) [place] % (Auto) Eos % (Auto) Baso % (Auto) Lymph # (Auto) [place] # (Auto) Eos # (Auto) Baso # (Auto) Abs Immat Gran (auto) Absolute Neuts (auto) Absolute Nucleated RBC 0.000 Nucleated RBC % (auto) 0.0 Hold Blue Top Anion Gap 12 Estim Creat Clear Calc 56.8 Estimated GFR > 60 Random Glucose 78 Calcium 9.2 Magnesium Total Bilirubin 0.6 Direct Bilirubin AST 21 ALT 17 Alkaline Phosphatase 61 Total Creatine Kinase Troponin I High Sens 35.4 H C-Reactive Protein Total Protein 5.9 L Albumin 3.8 Lipase TSH Urine Color Urine Appearance Urine pH Ur Specific [place] Urine Protein Urine Glucose (UA) Urine Ketones Urine Blood Urine Nitrite Ur Leukocyte Esterase Urine RBC Urine WBC Ur Squamous Epith Cells Ur Transition Epith Cell Ur Renal Epithelial Cell Urine Bacteria Hyaline Casts Influenza Type A (PCR) Influenza Type B (PCR) RSV RNA Qual (PCR) SARS-CoV-2 RNA (RT-PCR) Microbiology Microbiology Results: Microbiology 07/26/25 Unknown Urine Culture - Preliminary Urine Catheterized - Straight Catheter No growth to date. Assessment and Plan Plan 84 year old women placed on observation for symptoms of TIA Left pericallosal cortical acute ischemia. seen on MRI Monitor on telemetry Neurology consultation PT/OT hold on asa and statin as patient has a severe yellow dye allergy Severe osteoarthritis/osteoporosis with chronic pain syndrome Also with history of spinal stenosis Patient has chronic back pain Physical examination shows no pain, numbness to upper and lower extremities her back for that matter No need for back imaging at this time. Parkinson's disease No dyskinesia Continue carbidopa levodopa Left bundle branch block Unknown if new although previous EKGs not showing Cardiology consultation Flat troponins DVT prophylaxis with heparin DNR Quality Stroke Does the patient have a stroke diagnosis?: No VTE Prior VTE?: No VTE Risk Level:: Medical - moderate - high VTE Device Contraindication: Treatment Not Indicated VTE Drug Contraindication: N/A - Med Ordered
--- NOTE | 2025-07-27 10:26 | PM.NEUROCN ---
History of Present Illness Data of Consult Service Date: 07/27/25 Primary Care Provider: Fabby Cabrera MD HPI Reason for consult: Stroke 84-year-old woman presented to the ER with complaints of waking up with right-sided weakness with facial droop, unable to move her right leg to get out of bed. Apparently, the patient's daughter received a phone call this morning that said ?I had a stroke?. Patient reported that she was unable to get out of bed this morning, had word-finding difficulties, right-sided facial droop and was unable to lift her right upper and lower extremity. The daughter reports that she could not understand what she was saying. There is no previous history of stroke. Patient reports that she does have significant osteoporosis, Parkinson's disease having recently started on carbidopa levodopa 25/100 initially half a tablet t.i.d. and currently 1 tablet t.i.d. with some improvement in her mobility and bradykinesia but no significant change in her tremor. She is being followed by [facility] and Dr. Lora in [place]. 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 Patient denied any chest pain, shortness breath, nausea, vomiting, diarrhea, recent travel, sick contacts. MRI shows a tiny area of left anterior pericallosal cortical acute ischemic infarct. CTA of the head and neck is unremarkable for any occlusive disease or significant stenosis. Echocardiogram is being currently performed. [facility] Past Medical History Medical History (Updated 07/27/25 @ 11:57 by Tremayne Alberto MD) Parkinson's disease without dyskinesia Thrombophlebitis, popliteal vein Gait disorder Anxiety Coarse tremors Thyroid disease Chronic pain syndrome Osteoarthritis of left knee Spinal stenosis Left sided sciatica Constipation by delayed colonic transit Dyslipidemia Onychomycosis Neuropathy Rosacea Asthma Family History Family History Father Hypertension Pancreatitis Uremia Mother Diverticulosis Alzheimers disease Brother Colon cancer CVD (cardiovascular disease) Sister Colon cancer Surgical History Surgical History Hx of colonoscopy History of surgery History of back surgery (~03/31/21) History of surgery History of removal of both ovaries Colostomy in place History of tonsillectomy History of cholecystectomy History of repair of hiatal hernia History of hysterectomy Social History Social History Household Members: Spouse Household Members Other:: 2 Housing: Condominium Are you a primary child caregiver private home to a significant other at home: Yes Do you presently have visiting nurse or other home services: Yes Alcohol intake: never 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 Patient Tobacco Use Status: Former Tobacco user Tobacco use type: Cigarette Years Smoked: 1 year e-Cigarette/Vaping Use: Never Used Second Hand Smoke Exposure: No Advance Directives Date on File: 07/26/25 service: No Current occupational status: retired Cognitive needs: Yes Hearing needs: No Vision needs: Yes Meds Allergies Allergy/AdvReac Type Severity Reaction Status Date / Time mold (MOLD) Allergy Severe SWELLING Verified 07/26/25 11:37 alcohol (ALCOHOL) Allergy Intermediate RED, Verified 07/26/25 11:37 SWELLING corn syrup (CORN SYRUP) Allergy Intermediate red hot Verified 07/26/25 11:37 face dextrose (DEXTROSE) Allergy Intermediate RED RASH Verified 07/26/25 11:37 erythromycin base Allergy Intermediate RASH Verified 07/26/25 11:37 (ERYTHROMYCIN BASE) Penicillins (PENICILLINS) Allergy Intermediate SWELLING, Verified 07/26/25 11:37 RASH sucrose (SUCROSE) Allergy Intermediate RED RASH Verified 07/26/25 11:37 Sulfa (Sulfonamide Allergy Intermediate RASH, Verified 07/26/25 11:37 Antibiotics) (SULFA redness, (SULFONAMIDE ANTIBIOTICS)) redness valacyclovir Allergy Intermediate Redness of Verified 07/26/25 11:37 Skin latex Allergy Hives Verified 07/26/25 17:34 yellow dye Allergy Anaphylaxis Verified 07/26/25 17:34 morphine AdvReac Intermediate Hallucinati Verified 07/26/25 11:37 ons 12 Hour Nasal Allergy Intermediate hives Uncoded 03/31/25 15:32 WINE Allergy Intermediate RASH FROM Uncoded 03/31/25 15:32 RED WINE fluorquinolones Allergy Mild nerve Uncoded 03/31/25 15:32 damage Active Medications: Current Medications Acetaminophen (Acetaminophen 325 Mg Tablet) 650 mg PO Q6H PRN PRN Reason: Pain, Mild 1-3,fever,headache Calcium Carbonate (Calcium Carbonate 750 Mg Tab.Chew) 750 mg PO Q4H PRN PRN Reason: Heartburn Heparin Sodium (Porcine) (Heparin Sodium,Porcine 5,000 Unit/Ml Vial) 5,000 unit SUBCUT Q12H [facility] Last Admin: 07/27/25 05:48 Dose: 5,000 unit Magnesium Hydroxide (Milk Of Magnesia 30 Ml Oral.Susp) 30 ml PO DAILY PRN PRN Reason: Constipation Melatonin (Melatonin 3 Mg Tablet) 6 mg PO BEDTIME PRN PRN Reason: Insomnia Ondansetron HCl (Ondansetron Hcl 4 Mg/2 Ml Vial) 4 mg IVPUSH Q8H PRN PRN Reason: Nausea and Vomiting Sodium Chloride (0.9 % Sodium Chloride Flush 3 Ml Syringe) 3 ml IVFLUSH QSHIFT [facility] Last Admin: 07/27/25 09:26 Dose: 3 ml Home Medications ?Medication ?Instructions ?Recorded ?Confirmed ?Last Taken ?Type ascorbic acid (vitamin C) 500 mg 500 mg PO DAILY 11/10/20 07/26/25 07/25/25 History tablet (Vitamin C) multivitamin 1 tab PO DAILY 11/10/20 07/26/25 07/25/25 History biotin 5,000 mcg disintegrating 10,000 mcg PO DAILY 11/16/21 07/26/25 07/25/25 History tablet bromelains 500 mg tablet 1,000 mg PO DAILY 11/16/21 07/26/25 07/25/25 History lutein 20 mg tablet 20 mg PO DAILY 11/16/21 07/26/25 07/25/25 History magnesium 500 mg tablet 1,000 mg PO BID 11/16/21 07/26/25 07/25/25 History mecobalamin (vitamin B12) 5,000 5,000 mcg PO DAILY 11/16/21 07/26/25 07/25/25 History mcg disintegrating tablet vitamin E 200 unit capsule 200 unit PO DAILY 11/16/21 07/26/25 07/25/25 History albuterol sulfate 90 mcg/actuation 2 puff inhalation Q4H PRN 07/12/25 07/26/25 07/25/25 History aerosol inhaler Shortness Of Breath Or Wheezing carbidopa 25 mg-levodopa 100 mg 1 tab PO TIDWM 07/12/25 07/26/25 07/25/25 History tablet fluticasone propionate 250 1 inh inhalation BID 07/26/25 07/26/2507/25/25 History mcg/actuation blister powder for inhalation Physical Exam Vital Signs: Vital Signs: Last Vital Signs Temp 98.2 F 07/27/25 07:27 Pulse 72 07/27/25 09:03 Resp 18 07/27/25 07:27 BP 146/67 H 07/27/25 07:27 Pulse Ox 94 07/27/25 07:27 O2 Del Method Room Air 07/27/25 07:27 BMI result Body Mass Index 21.3 Neuro: Other: She has a flat affect and masked facies. Her speech seems to be intact and she seems to comprehend well and answer appropriately. Her cranial nerves 2-12 are normal. There is a subtle pronation and flexion drift of the right upper extremity with mild weakness of the right triceps and deltoid graded at 5-/5. The right lower extremity strength appears to be intact. Plantar responses are flexor. She has a resting tremor of the right upper and lower extremity and minimal resting tremor on the left side as well. No significant cogwheel rigidity. Gait could not be tested Results Labs 07/27/25 06:35 07/27/25 06:35 Labs: Short CBC 07/26/25 07/27/25 Range/Units 11:41 06:35 WBC 13.0 H 8.1 (4.8-10.8) X10*3/uL Hgb 13.3 12.2 (12.0-16.0) g/dl Hct 40.7 38.2 (37.0-47.0) % Plt Count 285 D 268 (160-400) X10*3/uL BMP 07/26/25 07/27/25 12:52 06:35 Sodium 141 143 Potassium 3.5 3.7 Chloride 104 106 Carbon Dioxide 29 29 BUN 18 H 22 H Creatinine 0.59 0.61 Calcium 9.3 9.2 Cardiac Enzymes 07/26/25 Range/Units 12:52 Total Creatine Kinase 44 (26-140) U/L Liver Function 07/26/25 07/27/25 Range/Units 12:52 06:35 Total Bilirubin 0.5 0.6 (0.0-1.0) mg/dL Direct Bilirubin 0.2 (0.0-0.5) mg/dL AST 25 21 (5-31) U/L ALT 18 17 (0-31) U/L Alkaline Phosphatase 69 61 (39-117) U/L Albumin 4.1 3.8 (3.5-5.0) g/dL Urine 07/26/25 Range/Units 11:49 Urine Color Dark Yellow Urine Appearance Clear Urine pH 7.0 (5.0-9.0) Ur Specific [place] 1.020 (1.005-1.025) Urine Protein 30 (1+) H (Neg-Trace) mg/dL Urine Glucose (UA) Negative (Negative) mg/dL Microbiology Microbiology Results: Microbiology 07/26/25 Unknown Urine Catheterized - Straight Catheter Urine Culture - Preliminary No growth to date. Assessment and Plan (1) Acute ischemic left ANGELES stroke: Status: Acute She has a tiny acute ischemic infarct in the left ANGELES distribution involving the cortex in the frontal pericallosal distribution. Her CTA was unremarkable. Echocardiogram results are pending. I expect a good prognosis because of the small stroke and the significant improvement almost back to baseline already. PT/OT evaluation. If stable she may be able to go home I have personally reviewed her imaging studies and discussed them with the patient and her daughter who was at bedside Recommendation aspirin 81 mg a day clopidogrel 75 mg a day for 6 weeks. Atorvastatin 40 mg a day. (2) Parkinson's disease without dyskinesia: Qualifiers: Fluctuating manifestations: without fluctuating manifestations Qualified Code(s): G20.A1 - Parkinson's disease without dyskinesia, without mention of fluctuations Status: Acute Continue carbidopa levodopa 25/100 1 tablet p.o. t.i.d.. Outpatient follow-up with her neurologist Procedures Date of Service Date of Service: 07/27/25
--- NOTE | 2025-07-27 11:00 | CA_ITS ---
Transthoracic Echocardiogram Patient (Last, First, Middle): Birgit Collins A Gender: Female Date of : 1940 Age: 84 Procedure Date: 07/27/2025 Procedure Type: Transthoracic Echocardiogram Location: [facility] Height: 160.02 cm Weight: 54.43 kg BSA: 1.56 m2 Heart Rate: bpm BP: 144 / 67 mmHg Craft Worker: SHIRAZ Referring MD: Pauline Gama NP Coal Inspector: Richard Tyson MD Symptoms: stroke Study Quality: Adequate ECG Rhythm: Sinus Conclusions: - 1. Normal LV ejection fraction of 55-60% with impaired relaxation filling pattern 2. Evidence of PFO by color Doppler with mobile intra-atrial septum 3. Mild aortic regurgitation 4. Normal RV systolic pressure 5. Mildly dilated ascending aorta at 3.7 without any maneuvers 6. Trivial pericardial effusion Findings Left Ventricle Normal left ventricular size, thickness, and systolic function. The visually estimated ejection fraction is between 55-60%. There is paradoxical septal motion consistent with a left bundle branch block. Spectral Doppler is indicative of an impaired relaxation filling pattern. E/E prime ratio is between 8 and 15 consistent with indeterminate filling pressures. Right Ventricle Normal right ventricular cavity size and systolic function. Atria The left atrium is likely dilated. There is a mobile atrial septum noted. Patent foramen ovale detected using by color Doppler. There is shunt reversal with the release phase of the Valsalva maneuver. The right atrium was not well visualized. Aortic Valve There is a doming trileaflet aortic valve. There is mild calcification of the aortic valve. There is no aortic valve stenosis. There is mild aortic valve regurgitation. Mitral Valve There is mild anterior and moderate posterior mitral leaflet thickening. There is moderate mitral annular calcification. There is trace mitral valve regurgitation. There is no mitral valve stenosis. Pulmonic Valve The pulmonic valve is likely normal. There is trace pulmonic valve regurgitation. Tricuspid Valve Normal tricuspid valve structure. There is trace tricuspid valve regurgitation. The right ventricular systolic pressure is normal. The right ventricular systolic pressure is 25 mmHg. Normal right atrial pressure. There is no evidence of pulmonary hypertension. Great Vessels The pulmonary artery was not well visualized. There is mild dilatation of the ascending aorta measuring 3.70 cm. Small plaque is seen in the sino tubular ridge. Venous The inferior vena cava is normal in size and collapses greater than 50% with inspiration. Pericardium/Pleural There is no evidence of pericardial effusion. There is a trivial pericardial effusion. Measurements 2D Linear Measurements IVSd: 1.04 0.6-0.9/0.6-1.0 cm LVIDd: 4.89 3.9-5.3/4.2-5.9 cm LVIDd Index: 3.13 2.4-3.2/2.2-3.1 cm/m2 LVIDs: 3.18 2.0-3.6 cm LVPWd: 0.74 0.7-1.1 cm LA Diam: 3.30 2.7-3.8/3.0-4.0 cm LAIDs Index: 2.12 1.5-2.3 cm/m2 LV Mass: 186.73 67-162/88-224 g LV Mass Index: 119.70 43-95/49-115 g/m2 LVOT Diam: 2.20 3.0+(-)1.3 cm 2D Systolic Function EF 4C: 42.60 >55% EF 2C: 69.10 >55% EF BiP: 57.90 >55% Mitral Valve MV Pk E: 0.53 MV PK A: 0.65 MV Decel Time: 238.00 E/A: 0.80 E'Lateral: 4.03 E'Medial: 4.03 E/E' Med: 13.10 E/E' Lat: 13.10 PHT: 70.00 MVA PHT: 3.14 Decel Denali: 2.22 Aortic Valve AoV Pk Eddie: 1.48 AoV Pk Grad: 9.00 GERRY: 2.87 AI Pk Eddie: 4.36 AI Denali: 2.44 LVOT LVOT Pk Eddie: 1.11 LVOT Mn Eddie: 0.76 LVOT VTI: 0.25 LVOT Pk Grad: 5.00 LVOT Mn Grad: 3.00 LVOT Diam: 2.20 LVOT Area: 3.80 Diastolic Function MV Pk E: 0.53 MV Pk A: 0.65 E/A: 0.80 E'Medial: 4.03 E/E' Med: 13.10 E' Laterial: 4.03 E/E' Lat: 13.10 Right Ventricle TAPSE (mm): 22.60 TVS' Eddie: 10.60 Tricuspid Valve TR Pk Eddie: 2.32 TR Pk Grad: 22.00 RA Press: 3.00 RVSP: 25.00 Great Vessels Aorta Sinus of Valsalva: 3.20 2.0-3.5 cm Ao Asc: 3.70 2.1-3.4 cm Pulmonary Veins Pulm Vein S/D 2.10 Pulmonary Valve PV Pk Eddie: 1.04 Peak PV Grad: 4.00 MO Pk Eddie: 1.62 Updated in Other Vendor System with Status of Final Richard Tyson MD electronically signed on 07/27/2025 12:45:27 PM with status of Final
[2025-07-27 11:01] LABS: Cholesterol 179 mg/dL (<200); HDL Cholesterol 45 mg/dL (>40); Triglycerides 61 mg/dL (<150)
[2025-07-27 11:32] VITALS: BP 167/74; PULSE 64; RESP 18; TEMP 36.4; O2SAT 98
--- NOTE | 2025-07-27 12:34 | PM.CNCAR ---
History of Present Illness History of Present Illness Date of Service: 07/27/25 Requesting physician: Pauline Gama Consult reason: other (Left bundle-branch block) Chief complaint: TIA Narrative: I was consulted to see Birgit in cardiology consultation today as she presented with acute right-sided muscle weakness. Subsequent MRI suggestive of acute left ANGELES territory infarct. Patient was noted to have left bundle-branch block on her EKG and cardiology consult was sought. Patient says a night prior to her presentation she did have right heart discomfort which was quite severe and then radiated to the chest. [place] like tightness in his chest. She did not seek emergency care or attention at that time and symptoms lasted for few hours. Her troponin is minimally elevated on presentation. No repeat troponins has been done. EKGs showed left bundle-branch block although repeat EKGs showed left bundle-branch block. She has no history of left bundle-branch block. She has not had any recurrent chest pain while she is here. 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 She had also has prior history of thyroid disease, chronic pain syndrome, hyperlipidemia, asthma. She has never had any prior cardiovascular history. She had an echocardiogram last year which had showed normal LV ejection fraction. Review of Systems Constitutional: Constitutional: Reports no additional constitutional complaints Eyes: Eyes: Reports no additional eye complaints Cardiovascular: Cardiovascular: Reports chest pain at rest, Denies leg edema, Denies lightheadedness, Denies Loss of Consciousness, Denies palpitations, Denies dyspnea and Denies dyspnea on exertion Respiratory: Respiratory: Reports no additional respiratory complaints, Denies dyspnea and Denies dyspnea on exertion Gastrointestinal: Gastrointestinal: Reports no additional gastrointestinal complaints Genitourinary: Genitourinary: Reports no additional female genitourinary complaints Musculoskeletal: Musculoskeletal: Reports no additional musculoskeletal complaints Neurologic: Reports focal weakness Psychiatric: Psychiatric: Reports anxiety Endocrine: Endocrine: Denies palpitations PMFSH Past Medical History Medical History Parkinson's disease without dyskinesia Thrombophlebitis, popliteal vein Gait disorder Anxiety Coarse tremors Thyroid disease Chronic pain syndrome Osteoarthritis of left knee Spinal stenosis Left sided sciatica Constipation by delayed colonic transit Dyslipidemia Onychomycosis Neuropathy Rosacea Asthma Family History Family History Father Hypertension Pancreatitis Uremia Mother Diverticulosis Alzheimers disease Brother Colon cancer CVD (cardiovascular disease) Sister Colon cancer Surgical History Surgical History Hx of colonoscopy History of surgery History of back surgery (~03/31/21) History of surgery History of removal of both ovaries Colostomy in place History of tonsillectomy History of cholecystectomy History of repair of hiatal hernia History of hysterectomy Social History Social History Household Members: Spouse Household Members Other:: 2 Housing: Condominium Are you a primary healthcare administrative assistant to a significant other at home: Yes Do you presently have visiting nurse or other home services: Yes Alcohol intake: never 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 Patient Tobacco Use Status: Former Tobacco user Tobacco use type: Cigarette Years Smoked: 1 year e-Cigarette/Vaping Use: Never Used Second Hand Smoke Exposure: No Advance Directives Date on File: 07/26/25 service: No Current occupational status: retired Cognitive needs: Yes Hearing needs: No Vision needs: Yes Meds Allergies Allergy/AdvReac Type Severity Reaction Status Date / Time mold (MOLD) Allergy Severe SWELLING Verified 07/26/25 11:37 alcohol (ALCOHOL) Allergy Intermediate RED, Verified 07/26/25 11:37 SWELLING corn syrup (CORN SYRUP) Allergy Intermediate red hot Verified 07/26/25 11:37 face dextrose (DEXTROSE) Allergy Intermediate RED RASH Verified 07/26/25 11:37 erythromycin base Allergy Intermediate RASH Verified 07/26/25 11:37 (ERYTHROMYCIN BASE) Penicillins (PENICILLINS) Allergy Intermediate SWELLING, Verified 07/26/25 11:37 RASH sucrose (SUCROSE) Allergy Intermediate RED RASH Verified 07/26/25 11:37 Sulfa (Sulfonamide Allergy Intermediate RASH, Verified 07/26/25 11:37 Antibiotics) (SULFA redness, (SULFONAMIDE ANTIBIOTICS)) redness valacyclovir Allergy Intermediate Redness of Verified 07/26/25 11:37 Skin latex Allergy Hives Verified 07/26/25 17:34 yellow dye Allergy Anaphylaxis Verified 07/26/25 17:34 morphine AdvReac Intermediate Hallucinati Verified 07/26/25 11:37 ons 12 Hour Nasal Allergy Intermediate hives Uncoded 03/31/25 15:32 WINE Allergy Intermediate RASH FROM Uncoded 03/31/25 15:32 RED WINE fluorquinolones Allergy Mild nerve Uncoded 03/31/25 15:32 damage Active Medications: Current Medications Acetaminophen (Acetaminophen 325 Mg Tablet) 650 mg PO Q6H PRN PRN Reason: Pain, Mild 1-3,fever,headache Calcium Carbonate (Calcium Carbonate 750 Mg Tab.Chew) 750 mg PO Q4H PRN PRN Reason: Heartburn Heparin Sodium (Porcine) (Heparin Sodium,Porcine 5,000 Unit/Ml Vial) 5,000 unit SUBCUT Q12H [facility] Last Admin: 07/27/25 05:48 Dose: 5,000 unit Magnesium Hydroxide (Milk Of Magnesia 30 Ml Oral.Susp) 30 ml PO DAILY PRN PRN Reason: Constipation Melatonin (Melatonin 3 Mg Tablet) 6 mg PO BEDTIME PRN PRN Reason: Insomnia Ondansetron HCl (Ondansetron Hcl 4 Mg/2 Ml Vial) 4 mg IVPUSH Q8H PRN PRN Reason: Nausea and Vomiting Sodium Chloride (0.9 % Sodium Chloride Flush 3 Ml Syringe) 3 ml IVFLUSH QSHIFT [facility] Last Admin: 07/27/25 09:26 Dose: 3 ml Home Medications ?Medication ?Instructions ?Recorded ?Confirmed ?Last Taken ?Type ascorbic acid (vitamin C) 500 mg 500 mg PO DAILY 11/10/20 07/26/25 07/25/25 History tablet (Vitamin C) multivitamin 1 tab PO DAILY 11/10/20 07/26/25 07/25/25 History biotin 5,000 mcg disintegrating 10,000 mcg PO DAILY 11/16/21 07/26/25 07/25/25 History tablet bromelains 500 mg tablet 1,000 mg PO DAILY 11/16/21 07/26/25 07/25/25 History lutein 20 mg tablet 20 mg PO DAILY 11/16/21 07/26/25 07/25/25 History magnesium 500 mg tablet 1,000 mg PO BID 11/16/21 07/26/25 07/25/25 History mecobalamin (vitamin B12) 5,000 5,000 mcg PO DAILY 11/16/21 07/26/25 07/25/25 History mcg disintegrating tablet vitamin E 200 unit capsule 200 unit PO DAILY 11/16/21 07/26/25 07/25/25 History albuterol sulfate 90 mcg/actuation 2 puff inhalation Q4H PRN 07/12/25 07/26/25 07/25/25 History aerosol inhaler Shortness Of Breath Or Wheezing carbidopa 25 mg-levodopa 100 mg 1 tab PO TIDWM 07/12/25 07/26/25 07/25/25 History tablet fluticasone propionate 250 1 inh inhalation BID 07/26/25 07/26/25 07/25/25 History mcg/actuation blister powder for inhalation Physical Exam Vital Signs: Vital Signs: Last Vital Signs Temp 97.5 F 07/27/25 11:32 Pulse 64 07/27/25 11:32 Resp 18 07/27/25 11:32 BP 167/74 H 07/27/25 11:32 Pulse Ox 98 07/27/25 11:32 O2 Del Method Room Air 07/27/25 11:32 BMI result Body Mass Index 21.3 Const: General: cooperative, comfortable, alert, awake and anxious Nutritional Appearance: thin and other (Frail appearing elderly woman) Orientation/consciousness: patient oriented x3 Limitations: no limitations HEENT: Head: Yes normocephalic and Yes atraumatic Neck: Neck: Yes trachea midline, Yes supple and Yes no JVD Resp: Effort & Inspection: normal respiratory effort Auscultation: clear to auscultation bilaterally Cardio: Jugular venous distension: no JVD Heart sounds: S1 normal heart sound present, S2 normal heart sound present, no click, no gallops and Murmur heart sound present systolic GI: Auscultation: normal bowel sounds Skin: General skin exam: no rashes or lesions noted Neuro: General: patient oriented x3 Motor exam (neuro): Other motor observations present (Right arm and leg weakness) Extrem: General: Yes no clubbing, cyanosis or edema Psych: Affect: Anxious affect present Objective Labs and Meds 07/27/25 06:35 07/27/25 06:35 Lab results: Laboratory Results - last 24 hr 07/26/25 07/26/25 07/27/25 12:52 15:14 06:35 WBC 8.1 RBC 4.14 L Hgb 12.2 Hct 38.2 MCV 92.3 MCH 29.5 MCHC 31.9 RDW 12.9 Plt Count 268 MPV 11.6 Absolute Nucleated RBC 0.000 Nucleated RBC % (auto) 0.0 Sodium 141 143 Potassium 3.5 3.7 Chloride 104 106 Carbon Dioxide 29 29 Anion Gap 12 12 BUN 18 H 22 H Creatinine 0.59 0.61 Estim Creat Clear Calc 54.7 56.8 Estimated GFR > 60 > 60 Random Glucose 94 78 Calcium 9.3 9.2 Magnesium 2.2 Total Bilirubin 0.5 0.6 Direct Bilirubin 0.2 AST 25 21 ALT 18 17 Alkaline Phosphatase 69 61 Total Creatine Kinase 44 Troponin I High Sens 44.2 H D 35.4 H C-Reactive Protein < 0.10 Total Protein 6.4 L 5.9 L Albumin 4.1 3.8 Triglycerides Cholesterol LDL Cholesterol, Calc HDL Cholesterol Lipase 40 TSH 3.25 07/27/25 10:32 WBC RBC Hgb Hct MCV MCH MCHC RDW Plt Count MPV Absolute Nucleated RBC Nucleated RBC % (auto) Sodium Potassium Chloride Carbon Dioxide Anion Gap BUN Creatinine Estim Creat Clear Calc Estimated GFR Random Glucose Calcium Magnesium Total Bilirubin Direct Bilirubin AST ALT Alkaline Phosphatase Total Creatine Kinase Troponin I High Sens C-Reactive Protein Total Protein Albumin Triglycerides 61 Cholesterol 179 LDL Cholesterol, Calc 122 H HDL Cholesterol 45 Lipase TSH EKGs shows left bundle-branch block with PVCs Imaging Radiologist's impression: Impressions Head/Neck CTA 07/26/25 12:25 IMPRESSION: No large vessel occlusion, hemodynamically significant stenosis, or aneurysm in the head and neck. Electronically signed by: Milton Dean MD 07/26/2025 12:54 PM EST RP Chest X-Ray 07/26/25 12:30 IMPRESSION: Cardiomegaly. No focal consolidation. Electronically signed by: Santiago Retana MD 07/26/2025 12:42 PM EST RP Assessment and Plan (1) Left bundle branch block: Status: Acute Left bundle-branch block in this elderly woman which has a new finding compared to prior EKGs from year and half ago. This new finding could represent underlying cardiovascular disease. She does not have any active chest pain. She had minimally elevated troponin. She did have chest pain a day prior to her neurologic event. Unclear of as to the nature of chest pain. I would get an echocardiogram to assess for cardiac structure and function to evaluate for stress-induced cardiomyopathy. She will require ischemic workup which can be done in his outpatient. Currently she has an acute left hemispheric CVA and this needs to be evaluated by Neurology team. I would consider aspirin as well as high-intensity statin therapy. Also evaluation of extracranial vessel for stenosis needs to be pursued. Physical therapy will be needed. From cardiac perspective will sign of the case. Thank you for allowing me to partake in her care Procedures Date of Service Date of Service: 07/27/25
--- NOTE | 2025-07-27 13:05 | PM.DS ---
DS: Providers Provider Date of admission: 07/26/25 15:58 Date of discharge: 07/27/25 Primary care physician: Fabby Cabrera MD Consults: 07/26/25 16:02 Consult to Neurology Routine Consulting Provider: [facility] Reason for consultation: TIA 07/27/25 07:49 Consult to Cardiology Routine Consulting Provider: [facility] Reason for consultation: no LBBB DS: Diagnosis Discharge Diagnosis (1) Left bundle branch block: Status: Acute DS: Summary Hospital Course Hospital Course: 84-year-old woman presented to the ER with complaints of right-sided weakness with facial droop. Apparently the patient's daughter received a phone call this morning that said ?I had a stroke?. Patient reported that she was unable to get out of bed this morning, had word-finding difficulties, right-sided facial droop and was unable to lift her right upper and lower extremity. Patient reports that she does have significant osteoporosis, Parkinson's disease. 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 Patient denied any chest pain, shortness breath, nausea, vomiting, diarrhea, recent travel, sick contacts. During the interview patient was able to lift up her left upper and lower extremities as well as right upper extremity but had some difficulties with her right lower extremity. She was able to communicate properly and no facial droop was noted during the interview. Head CT and CTA were negative for any acute abnormality. Chest x-ray was negative for consolidation or effusion. EKG showed possible left bundle branch block with sinus rhythm with occasional PVCs and PACs. In the ER. Patient was given a dose of aspirin. Plan will be to admit patient for further management and treatment of possible TIA versus stroke Patient treated for left belinda callosal cortical acute ischemic stroke. Patient seen evaluated by Neurology who recommended starting aspirin, statin and Plavix however patient has a pretty complex history including a complex GI history and has not had good results in taking any type of medications such as aspirin and Plavix. A PPI was offered but her daughter did state that she had taken it for 20 years and developed severe osteoporosis and no longer takes it. She also reported history of GI upset with statins and the patient will unlikely take that either. The medications however were prescribed and sent to her pharmacy and the family can make the decision whether the patient will be taking the medications as prescribed. The patient seems almost fully recovered does have some mild weakness to her right upper and lower extremities but was able to ambulate with assistance. Plan will be to discharge patient home with in-home physical therapy. Echocardiogram showed evidence of PFO so likely contributing factor to new stroke. Severe osteoarthritis/osteoporosis with chronic pain syndrome Also with history of spinal stenosis Patient has chronic back pain Physical examination shows no pain, numbness to upper and lower extremities her back for that matter No need for back imaging at this time. Parkinson's disease No dyskinesia Continue carbidopa levodopa Left bundle branch block New No cardiac symptoms during hospitalization and flat troponins Seen and evaluated by Cardiology with recommendation for outpatient stress test Time Attestation Discharge Coordination Time (in mins): 45 Quality: Safe Use of Opioids Does Pt have an Active Cancer Diagnosis on the Problem List?: No Quality: Stroke Does the patient have a stroke diagnosis?: No Physical Exam Exam: Exam: Appearing in no acute distress head is normocephalic atraumatic eyes pupils are PERRLA sclera is anicteric mouth throat mucous membranes are intact and moist neck is supple no lymphadenopathy, no JVD noted lung sounds are clear to auscultation heart regular rate rhythm, clear S1, S2 positive bowel sounds, abdomen is soft, nontender neuro patient is alert x3, no focal deficits Vital Signs: Vital Signs: Last Vital Signs Temp 97.5 F 07/27/25 11:32 Pulse 64 07/27/25 11:32 Resp 18 07/27/25 11:32 BP 167/74 H 07/27/25 11:32 Pulse Ox 98 07/27/25 11:32 O2 Del Method Room Air 07/27/25 11:32 BMI result Body Mass Index 21.3 DS: Data Data Completed and Pending Labs on day of discharge: Laboratory Results - last 24 hr 07/26/25 07/26/25 07/27/25 12:52 15:14 06:35 WBC 8.1 RBC 4.14 L Hgb 12.2 Hct 38.2 MCV 92.3 MCH 29.5 MCHC 31.9 RDW 12.9 Plt Count 268 MPV 11.6 Absolute Nucleated RBC 0.000 Nucleated RBC % (auto) 0.0 Sodium 141 143 Potassium 3.5 3.7 Chloride 104 106 Carbon Dioxide 29 29 Anion Gap 12 12 BUN 18 H 22 H Creatinine 0.59 0.61 Estim Creat Clear Calc 54.7 56.8 Estimated GFR > 60 > 60 Random Glucose 94 78 Calcium 9.3 9.2 Magnesium 2.2 Total Bilirubin 0.5 0.6 Direct Bilirubin 0.2 AST 25 21 ALT 18 17 Alkaline Phosphatase 69 61 Total Creatine Kinase 44 Troponin I High Sens 44.2 H D 35.4 H C-Reactive Protein < 0.10 Total Protein 6.4 L 5.9 L Albumin 4.1 3.8 Triglycerides Cholesterol LDL Cholesterol, Calc HDL Cholesterol Lipase 40 TSH 3.25 07/27/25 10:32 WBC RBC Hgb Hct MCV MCH MCHC RDW Plt Count MPV Absolute Nucleated RBC Nucleated RBC % (auto) Sodium Potassium Chloride Carbon Dioxide Anion Gap BUN Creatinine Estim Creat Clear Calc Estimated GFR Random Glucose Calcium Magnesium Total Bilirubin Direct Bilirubin AST ALT Alkaline Phosphatase Total Creatine Kinase Troponin I High Sens C-Reactive Protein Total Protein Albumin Triglycerides 61 Cholesterol 179 LDL Cholesterol, Calc 122 H HDL Cholesterol 45 Lipase TSH Preliminary micro results at discharge 07/26/25 Unknown Urine Culture - Preliminary Urine Catheterized - Straight Catheter No growth to date. Discharge Plan Discharge Anticipated Discharge Date/Time: 07/27/25 12:38 Patient Disposition: Home Health Service Discharge Diagnosis: Stroke New left bundle-branch block Referrals: Fabby Singh MD [Primary Care Provider, Internal Medicine] - 1 Week Richard Tyson MD [Physician, Cardiology] - 1 Week Referral Note: New left bundle branch block Discharge Medications: New aspirin 81 mg tablet,chewable 81 mg PO DAILY Qty: 30 0RF Rx Instructions: NO YELLOW DYE. SEVERE ALLERGIC REACTION TO YELLOW DYE clopidogrel [Plavix] 75 mg tablet 75 mg PO DAILY 42 Days Qty: 42 0RF Rx Instructions: NO YELLOW DYE. SEVERE ALLERGIC REACTION TO YELLOW DYE atorvastatin [Lipitor] 40 mg tablet 40 mg PO BEDTIME Qty: 30 0RF Rx Instructions: NO YELLOW DYE. SEVERE ALLERGIC REACTION TO YELLOW DYE Continued cholecalciferol (vitamin D3) [Vitamin D3] 25 mcg (1,000 unit) tablet 25 mcg PO DAILY 90 Days Qty: 90 1RF psyllium husk [Fiber (psyllium husk)] 0.4 gram capsule 0.4 g PO BEDTIME 90 Days Qty: 90 1RF (DME) 16 grab bar See Rx Instructions .Route .MEDSUPPLY Qty: 1 0RF Rx Instructions: As directed (DME) set of weighted utensils with no build up handle See Rx Instructions .Route .MEDSUPPLY Qty: 1 0RF Rx Instructions: As directed (DME) Phonics 360 toothbrush See Rx Instructions .Route .MEDSUPPLY Qty: 1 0RF Rx Instructions: As directed (DME) sonics 360 Toothbrush See Rx Instructions .Route .MEDSUPPLY Qty: 1 0RF Rx Instructions: As directed furosemide 40 mg tablet 40 mg PO DAILY Qty: 90 2RF Patient Comments: Patient usually takes everyday, but has not taken due to blockage (DME) bedrails See Rx Instructions .Route .MEDSUPPLY Qty: 1 0RF Rx Instructions: As directed (DME) step stool See Rx Instructions .Route .MEDSUPPLY Qty: 1 0RF Rx Instructions: As directed (DME) toilet seat raiser with frame See Rx Instructions .Route .MEDSUPPLY Qty: 1 0RF Rx Instructions: As directed multivitamin Tablet 1 tab PO DAILY ascorbic acid (vitamin C) [Vitamin C] 500 mg Tablet 500 mg PO DAILY fluticasone propionate 250 mcg/actuation blister with device 1 inh INHALATION BID vitamin E 200 unit capsule 200 unit PO DAILY magnesium 500 mg tablet 1,000 mg PO BID mecobalamin (vitamin B12) 5,000 mcg tablet,disintegrating 5,000 mcg PO DAILY bromelains 500 mg tablet 1,000 mg PO DAILY Rx Instructions: administer after a meal biotin 5,000 mcg tablet,disintegrating 10,000 mcg PO DAILY lutein 20 mg tablet 20 mg PO DAILY Rx Instructions: give with meal/snack albuterol sulfate 90 mcg/actuation HFA aerosol inhaler 2 puff inhalation Q4H PRN (Reason: Shortness Of Breath Or Wheezing) carbidopa-levodopa 25-100 mg tablet 1 tab PO TIDWM Discharge Orders: Discharge Order (Routine); Ordered 07/27/25 Ordered By: Pauline Gama Diet: Advance to usual diet Activity on Discharge: As tolerated Stand Alone Forms: Patient Portal Discharge page Print Language: Georgian Activity Restrictions/Additional Instructions: The recommendation would be to start aspirin 81 mg a day, clopidogrel 75 mg a day for 6 weeks and Atorvastatin 40 mg a day. Care Plan Goals: Follow up with Cardiology outpatient for findings of new bundle branch block, may need stress test. Health Concerns: Stroke New left bundle branch block Plan of Treatment: Follow up with primary care provider as needed Take all medications as prescribed Assessment: SEE DISCHARGE SUMMARY
--- NOTE | 2025-07-27 13:10 | W.MHC.F2F ---
Service Date Service Date: 07/27/25 Encounter Date of encounter: 07/27/25 Reasons for Services Signs and symptoms assessed: Stroke Reason for mcc: CV/CP assess and/or care Reason for physical therapy: home safety and mobility Homebound: Leaving the home is medically contraindicated at this time without the asist of a device and/or another person due th the listed conditions above and below. Reason homebound: unsteady gait / fall risk Certification: Based on the above findings, I certify that this patient is confined to the home and needs intermittent mcc care, physical therapy and/or speech therapy, or continues to need occupational therapy. The patient is under my care, and I have initiated the establishment of the plan of care. The patient will be followed by a physician who will periodically review the plan of care. Time Spent With Patient Time: Total time managing care of this patient today ____ minutes.
== END 2025-07-27 14:28 | disposition home health service (06) ==
LOC: HO.ED 15:54 → HO.EDOVER 16:14 → HO.IMC 19:28
PROVIDERS: Admitting Provider Nurse Practitioner Acute Care; Emergency Provider Emergency Medicine; PCP Internal Medicine; Visit Provider Nurse Practitioner Acute Care
DX: I63.522 Cerebral infarction due to unspecified occlusion or stenosis of left anterior cerebral artery (principal); I44.7 Left bundle-branch block, unspecified; R07.9 Chest pain, unspecified; R94.31 Abnormal electrocardiogram [ECG] [EKG]; G20.A1 Parkinson's disease without dyskinesia, without mention of fluctuations; G30.9 Alzheimer's disease, unspecified; F02.80 Dementia in other diseases classified elsewhere, unspecified severity, without behavioral disturbance, psychotic disturbance, mood disturbance, and anxiety; M62.81 Muscle weakness (generalized); R29.810 Facial weakness; R26.81 Unsteadiness on feet; R47.01 Aphasia; M19.90 Unspecified osteoarthritis, unspecified site; Z79.899 Other long term (current) drug therapy; Z03.818 Encounter for observation for suspected exposure to other biological agents ruled out
CPT/HCPCS: 36415; 70450; 70496; 70498; 70551; 71045; 80048; 80053; 80061; 80076; 81001; 81003; 82550; 83690; 83735; 84443; 84484; 85025; 85027; 86140; 87086; 87637; 93005; 93306; 96372; 97162; 97166; 99222; 99285; J1644

== ENCOUNTER → 2025-07-26 11:22 | Outpatient (BNV) | payer OTHER, SELFPAY | PROVIDERS: Admitting Provider Nurse Practitioner Acute Care; Emergency Provider Emergency Medicine; PCP Internal Medicine; Visit Provider Internal Medicine Cardiovascular Disease | DX: I44.7 Left bundle-branch block, unspecified (principal) | CPT/HCPCS: 93010 ==

== ENCOUNTER → 2025-07-26 11:24 | Outpatient (BNV) | payer OTHER, SELFPAY | PROVIDERS: Emergency Provider Emergency Medicine; Visit Provider Radiology Diagnostic Ultrasound | DX: R53.1 Weakness (principal); I67.82 Cerebral ischemia; R41.0 Disorientation, unspecified; I51.7 Cardiomegaly | CPT/HCPCS: 70450; 70496; 70498; 70551; 71045 ==

== ENCOUNTER 2025-07-26 15:58 | Outpatient (BNV) | payer OTHER, SELFPAY | END 2025-07-27 11:00 | PROVIDERS: Admitting Provider Nurse Practitioner Acute Care; Emergency Provider Emergency Medicine; PCP Internal Medicine; Visit Provider Internal Medicine Cardiovascular Disease | DX: I77.810 Thoracic aortic ectasia (principal); I35.1 Nonrheumatic aortic (valve) insufficiency | CPT/HCPCS: 93306 ==

== ENCOUNTER → 2025-07-26 15:58 | Outpatient (BNV) | payer OTHER, SELFPAY | PROVIDERS: Admitting Provider Nurse Practitioner Acute Care; Emergency Provider Emergency Medicine; PCP Internal Medicine; Visit Provider Psychiatry & Neurology Neurology | DX: I63.522 Cerebral infarction due to unspecified occlusion or stenosis of left anterior cerebral artery (principal); G20.A1 Parkinson's disease without dyskinesia, without mention of fluctuations | CPT/HCPCS: 99223 ==

== ENCOUNTER → 2025-07-26 15:58 | Outpatient (BNV) | payer OTHER, SELFPAY | PROVIDERS: Admitting Provider Nurse Practitioner Acute Care; Emergency Provider Emergency Medicine; PCP Internal Medicine; Visit Provider Nurse Practitioner Acute Care | DX: R07.9 Chest pain, unspecified (principal); R94.31 Abnormal electrocardiogram [ECG] [EKG] | CPT/HCPCS: 99223 ==

== ENCOUNTER → 2025-07-26 15:58 | Outpatient (BNV) | payer OTHER, SELFPAY | PROVIDERS: Admitting Provider Nurse Practitioner Acute Care; Emergency Provider Emergency Medicine; PCP Internal Medicine; Visit Provider Internal Medicine Cardiovascular Disease | DX: I44.7 Left bundle-branch block, unspecified (principal) | CPT/HCPCS: 99222 ==